=== PATIENT | female | born 1935 | race Caucasian/White ===

== ENCOUNTER → 2016-05-22 | Day surgery (SDC) | payer OTHER ==
[~2016-05-22] VITALS: Ht 157.5 cm; Wt 76.4 kg
[~2016-05-22] MED LIST: ACT/30 PO; ATOR-26 PO; CEPH500C2 PO; DICL1GEL12 EXT; DICL1GEL28; GLIP1TAB91 PO; HYDR-5688 PO; INSDGIPEN SQ; LEFL20TA PO; LIDOCAINE HCL 2% 2 ML VIAL (20MG/ML) ONE; LZL/125 PO; MIDAZOLAM HCL 1 MG/ML 2ML VIAL ONE; ONDANSETRON INJ 2 MG/ML 2 ML VIAL ONE; PROPOFOL IV EMULSION 10 MG/ML 20 ML VIAL IV ONE
[2016-05-22 09:52] VITALS: Ht 157.5 cm; Wt 76.4 kg
--- NOTE | 2016-05-22 10:04 | Endo History and Physical ---
History & Physical Date of Service: May 22, 2016. Chief Complaint: LLQ abdominal pain Referring Physician: 81 yo CF who presents for colonoscopy secondary to LLQ abdominal pain. Past Medical History Diabetes, Osteoporosis, Arthritis, Reflux, High Cholesterol, Hypertension Past Surgical History Hx Cardiac Surgery: No Hx Internal Defibrillator: No Hx Pacemaker: No Hx Abdominal Surgery: Yes (CHOLECYSTECTOMY; DRAINAGE OF ABDOMINAL HEMATOMA; TUBAL LIGATION) Hx Post-Op Nausea and Vomiting: No Hx Cancer Surgery: No Hx Thoracic Surgery: No Hx Orthopedic: No Hx Urinary Tract Surgery: No Family History None Social History Smoking Status: Never Smoker Hx Substance Use: No Hx Alcohol Use: No Allergies Coded Allergies: No Known Allergies (Verified , 05/22/16) Current Medications Reported Home Medications Medications Dose Route/Sig Max Daily Dose Days Date Category Arava (Leflunomide) 20 Mg Tab 20 Mg PO QAM 05/14/16 Reported Lantus Solostar (Insulin Glargine) 100 Unit/Ml Inj 25-30 Units SQ HS 03/15/16 Reported Voltaren 1% Top Gel (Diclofenac Sodium) Gel PRN 02/07/16 Reported Lozol (Indapamide) 1.25 Mg Tab 1.25 Mg PO QAM 02/15/14 Reported Glucotrol Xl (Glipizide) 5 Mg Tab 10 Mg PO BID 02/15/14 Reported Actos (Pioglitazone Hcl) 30 Mg Tab 30 Mg PO QAM 02/15/14 Reported Lipitor (Atorvastatin Calcium) 80 Mg Tab 80 Mg PO HS 05/06/08 Reported Vital Signs Weight (Kilograms): 76.36 Height (Feet): 5 Height (Inches): 2 Physical Exam General Appearance: WD/WN, no apparent distress Respiratory/Chest: Auscultation: breath sounds normal Cardiovascular: Heart Auscultation: RRR Abdomen: Bowel Sounds: normal Inspection & Palpation: soft, non-distended, no tenderness, guarding & rebound Assessment and Plan Assessment: 81 yo CF who presents for colonoscopy secondary to LLQ abdominal pain. Plan: Proceed with colonoscopy.
--- NOTE | 2016-05-22 11:20 | GI REPORT ---
Procedure Date: 05/22/2016 10:41 AM Procedure: Colonoscopy Indications: Abdominal pain in the left lower quadrant Medicines: Monitored Anesthesia Care Complications: No immediate complications. Estimated Blood Loss: Estimated blood loss: none. Procedure: Pre-Anesthesia Assessment: - Prior to the procedure, a History and Physical was performed, and patient medications and allergies were reviewed. The patient's tolerance of previous anesthesia was also reviewed. The risks and benefits of the procedure and the sedation options and risks were discussed with the patient. All questions were answered, and informed consent was obtained. Prior Anticoagulants: The patient has taken no previous anticoagulant or antiplatelet agents. ASA Grade Assessment: II - A patient with mild systemic disease. After reviewing the risks and benefits, the patient was deemed in satisfactory condition to undergo the procedure. After I obtained informed consent, the scope was passed under direct vision. Throughout the procedure, the patient's blood pressure, pulse, and oxygen saturations were monitored continuously. The scope was introduced through the anus and advanced to the terminal ileum. The colonoscopy was performed without difficulty. The patient tolerated the procedure well. The quality of the bowel preparation was good. The terminal ileum, ileocecal valve, appendiceal orifice, and rectum were photographed. Findings: Multiple small-mouthed diverticula were found in the sigmoid colon. Non-bleeding internal hemorrhoids were found during retroflexion. The hemorrhoids were small. Impression: - Diverticulosis in the sigmoid colon. - Non-bleeding internal hemorrhoids. - No specimens collected. Recommendation: - Resume previous diet. - Continue present medications. - Repeat colonoscopy in 10 years for surveillance. - Return to primary care physician as previously scheduled. - Return to GI office at appointment to be scheduled. Akin Woodruff DO 05/22/2016 11:19:51 AM This report has been signed electronically. Note Initiated On: 05/22/2016 10:41 AM
--- NOTE | 2016-05-22 11:21 | Discharge Instructions ---
Endoscopy Patient Instructions Date / Procedure(s) Performed May 22, 2016. Colonoscopy Allergy Information Coded Allergies: No Known Allergies (Verified , 05/22/16) Discharge Date / Findings May 22, 2016. Diverticulosis Internal hemorrhoids Medication Instructions Stopped Medication(s): ONLY TO TAKE BP MED OK to resume all medications today as prescribed Reported Home Medications Medications Dose Route/Sig Max Daily Dose Days Date Category Arava (Leflunomide) 20 Mg Tab 20 Mg PO QAM 05/14/16 Reported Lantus Solostar (Insulin Glargine) 100 Unit/Ml Inj 25-30 Units SQ HS 03/15/16 Reported Voltaren 1% Top Gel (Diclofenac Sodium) Gel PRN 02/07/16 Reported Lozol (Indapamide) 1.25 Mg Tab 1.25 Mg PO QAM 02/15/14 Reported Glucotrol Xl (Glipizide) 5 Mg Tab 10 Mg PO BID 02/15/14 Reported Actos (Pioglitazone Hcl) 30 Mg Tab 30 Mg PO QAM 02/15/14 Reported Lipitor (Atorvastatin Calcium) 80 Mg Tab 80 Mg PO HS 05/06/08 Reported Provider Instructions Activity Restrictions - No exercising or heavy lifting for 24 hours. - Do not drink alcohol the day of the procedure. - Do not drive a car or operate machinery until the day after the procedure. - Do not make any important decisions or sign important papers in 24 hours after the procedure. Following Day: - Return to full activity which may include returning to work/school. Diet Start your diet with liquids and light foods (jello, soup, juice, toast). Then eat your usual diet if not nauseated. Treatment For Common After Affects For mild abdominal pain, bloating, or excessive gas: - Rest - Eat lightly - Lie on right side Follow-Up Information Follow-up with DR PALOMO as scheduled Anesthesia Information What You Should Know You have had a procedure that required some medicine to reduce anxiety and discomfort. This treatment is called moderate sedation. After receiving the treatment, you may be sleepy, but you will be able to breathe on your own. The effects of the treatment may last for several hours. Follow these instructions along with Activity/Diet recommendations noted above: * Do NOT do anything where dizziness or clumsiness would be dangerous. * Rest quietly at home today, then you can be up and about tomorrow. * Have a responsible person stay with you the rest of today. * You may have had an I.V. today. If so, you may take the dressing off later today. Recommendations Call your doctor if: * Trouble breathing * Continuous vomiting for more than 24 hours * Temperature above 101 degrees * Severe abdominal pain or bloating * Pain not relieved by pain medicine ordered * There is increased drainage or redness from any incision * A large amount of rectal bleeding greater than 2-3 tablespoons. (If you had a polyp/s removed or have hemorrhoids, a small amount of blood - from the rectum is to be expected.) * You have any unanswered questions or concerns. IN THE EVENT OF A SERIOUS EMERGENCY, GO TO THE NEAREST EMERGENCY ROOM Your discharge instructions were prepared by provider Akin Woodruff. Patient Instructions Signature Page Martha Espinoza Patient (or Guardian) Signature/Date: I have read and understand the instructions given to me by my caregivers. Caregiver/RN/Doctor Signature/Date: The above-named patient and/or guardian has received patient instructions on this date. + Original Patient Signature Page (only) stays with chart. Please make copy for patient.
[2016-05-22 11:45] VITALS: BP 152/81; PULSE 87; O2SAT 96
--- NOTE | 2016-05-22 12:14 | Anesthesiology Progress Note ---
Anesthesia Post Op Note Date & Time May 22, 2016 at 12:14 Vital Signs Pain Intensity: 0 Vital Signs Past 12 Hours Date Time Temp Pulse Resp B/P Pulse Ox O2 Delivery O2 Flow Rate FiO2 05/22/16 11:45 87 20 152/81 96 Room Air 05/22/16 11:30 87 20 144/76 92 Room Air 05/22/16 11:15 95 16 140/63 98 Room Air 05/22/16 09:58 36.7 86 20 140/74 94 Room Air Notes Mental Status: alert / awake / arousable Nausea / Vomiting: adequately controlled Pain: adequately controlled Airway Patency, RR, SpO2: stable & adequate BP & HR: stable & adequate Hydration State: stable & adequate Anesthetic Complications: no major complications apparent
== END | disposition home or self-care (01) ==
LOC: C.GI 09:33
PROVIDERS: ATTEND Internal Medicine
DX: K57.30 Diverticulosis of large intestine without perforation or abscess without bleeding (principal); K64.8 Other hemorrhoids; I10 Essential (primary) hypertension; E11.9 Type 2 diabetes mellitus without complications; E78.00 Pure hypercholesterolemia, unspecified; M19.90 Unspecified osteoarthritis, unspecified site; M81.0 Age-related osteoporosis without current pathological fracture; Z90.49 Acquired absence of other specified parts of digestive tract; Z98.890 Other specified postprocedural states; Z98.51 Tubal ligation status; Z79.4 Long term (current) use of insulin; Z68.30 Body mass index [BMI] 30.0-30.9, adult; Z98.49 Cataract extraction status, unspecified eye

== ENCOUNTER → 2016-05-29 | Outpatient (CLI) | payer OTHER ==
[~2016-05-29] MED LIST changes: -CEPH500C2 PO; -DICL1GEL12 EXT; -HYDR-5688 PO; -LIDOCAINE HCL 2% 2 ML VIAL (20MG/ML) ONE; -MIDAZOLAM HCL 1 MG/ML 2ML VIAL ONE; -ONDANSETRON INJ 2 MG/ML 2 ML VIAL ONE; -PROPOFOL IV EMULSION 10 MG/ML 20 ML VIAL IV ONE
== END | disposition home or self-care (01) ==
LOC: C.PATHSPEC 07:45
PROVIDERS: ATTEND Obstetrics & Gynecology
DX: R10.2 Pelvic and perineal pain (principal)

== ENCOUNTER → 2016-06-05 | Outpatient (CLI) | payer OTHER ==
[2016-06-05 11:25] LABS: BASO % 0.5 %; BASO ABS # 0.02 K/uL (0-0.2); COMPLETE YES; EOS % 3.8 %; HEMATOCRIT 35.6 % (37-47); IG% 0.2 %; LYMPH % 29.3 %; MEAN CELL VOLUME 89.4 fL (80-100); MEAN CORPUSCULAR HEMOGLOBIN 29.1 pg (25-34); MEAN CORPUSCULAR HGB CONC 32.6 g/dl (32-36); MEAN PLATELET VOLUME 10.3 fL (7.4-10.4); MONO % 9.7 %; NEUT % 56.5 %; PLATELET COUNT 325 K/uL (130-400); RED BLOOD COUNT 3.98 M/uL (4.2-5.4); WHITE BLOOD COUNT 4.43 K/uL (4.8-10.8)
[2016-06-05 11:36] LABS: ESTIMATED AVERAGE GLUCOSE 137 mg/dl; HA1C FLAG Normal (Normal)
[2016-06-05 11:45] LABS: BLOOD UREA NITROGEN 21 mg/dl (7-18); BUN/CREATININE RATIO 16.2 (10-20); CALCIUM 9.1 mg/dl (8.5-10.1); CARBON DIOXIDE 27 mmol/L (21-32); CHLORIDE 106 mmol/L (98-107); CHOLESTEROL 131 mg/dl (0-200); GLUCOSE 63 mg/dl (70-99); POTASSIUM 3.6 mmol/L (3.5-5.1); SODIUM 142 mmol/L (136-145)
[2016-06-05 11:55] LABS: ALT/SGPT 21 U/L (12-78); AST/SGOT 16 U/L (15-37); CHOLESTEROL/HDL RATIO 3.3; HDL CHOLESTEROL 40 mg/dl; LDL CHOLESTEROL CALCULATED 67 mg/dl; TRIGLYCERIDES 120 mg/dl (0-150); VERY LOW DENSITY LIPOPROT CALC 24 mg/dl
== END | disposition home or self-care (01) ==
LOC: C.LAB1850 10:10
PROVIDERS: ATTEND Internal Medicine
DX: E11.9 Type 2 diabetes mellitus without complications (principal)

== ENCOUNTER → 2016-07-19 | Outpatient (CLI) | payer OTHER ==
--- NOTE | 2016-07-19 16:09 | DIAGNOSTIC IMAGING REPORT ---
RIGHT SHOULDER 3 VIEWS CLINICAL HISTORY: Right shoulder pain. FINDINGS: 3 views of the right shoulder are obtained. No prior studies are available for comparison at the time of dictation. The skeletal structures are osteopenic. There is no radiographic evidence of fracture or dislocation. Advanced productive degenerative change is identified at the acromioclavicular joint. The glenohumeral articulation appears maintained. Mild arthritic change is seen in the greater tuberosity of the humeral head. The overlying soft tissues are within normal limits. Partially imaged right upper lobe lung parenchyma appears clear. IMPRESSION: Osteopenia and arthritic change as above. No acute bony abnormality is identified. Electronically signed by: Dagoberto Lucero M.D. 07/19/2016 4:07 PM Dictated Date/Time: 07/19/2016 4:06 PM
--- NOTE | 2016-07-19 16:10 | DIAGNOSTIC IMAGING REPORT ---
LEFT SHOULDER MIN 2 VIEWS ROUTINE CLINICAL HISTORY: R49.9 Voice complain pain COMPARISON: None. DISCUSSION: Moderate degenerative change left glenohumeral joint. Moderate rather significant degenerative change left acromioclavicular joint. Minimal peripheral osteophytic reaction. No evidence for fracture or dislocation. There is no evidence for soft tissue swelling. IMPRESSION: Moderate degenerative change. Electronically signed by: Ernie Beavers M.D. 07/19/2016 4:08 PM Dictated Date/Time: 07/19/2016 4:08 PM
[2016-07-19 16:41] LABS: BASO % 0.2 %; BASO ABS # 0.01 K/uL (0-0.2); COMPLETE YES; EOS % 2.2 %; HEMATOCRIT 35.5 % (37-47); IG% 0.5 %; LYMPH % 22.7 %; LYMPH ABS # 1.35 K/uL (1.2-3.4); MEAN CELL VOLUME 90.1 fL (80-100); MEAN CORPUSCULAR HEMOGLOBIN 29.4 pg (25-34); MEAN CORPUSCULAR HGB CONC 32.7 g/dl (32-36); MEAN PLATELET VOLUME 10.8 fL (7.4-10.4); MONO % 10.6 %; NEUT % 63.8 %; PLATELET COUNT 255 K/uL (130-400); RED BLOOD COUNT 3.94 M/uL (4.2-5.4); WHITE BLOOD COUNT 5.94 K/uL (4.8-10.8)
== END | disposition home or self-care (01) ==
LOC: C.RAD1850 15:29
PROVIDERS: ATTEND Internal Medicine
DX: R49.9 Unspecified voice and resonance disorder (principal); M85.80 Other specified disorders of bone density and structure, unspecified site

== ENCOUNTER → 2016-09-12 | Outpatient (CLI) | payer OTHER ==
[~2016-09-12] MED LIST changes: +CEPH500C2 PO; +DICL1GEL12 EXT; +HYDR-5688 PO
[2016-09-12 12:49] LABS: ESTIMATED AVERAGE GLUCOSE 148 mg/dl; HA1C FLAG Normal (Normal)
== END | disposition home or self-care (01) ==
LOC: C.LAB1850 10:30
PROVIDERS: ATTEND Internal Medicine
DX: K57.90 Diverticulosis of intestine, part unspecified, without perforation or abscess without bleeding (principal); M05.79 Rheumatoid arthritis with rheumatoid factor of multiple sites without organ or systems involvement; Z79.899 Other long term (current) drug therapy

== ENCOUNTER → 2017-02-11 | Outpatient (CLI) | payer OTHER ==
[~2017-02-11] MED LIST changes: -CEPH500C2 PO; -DICL1GEL12 EXT; -HYDR-5688 PO
[2017-02-11 12:31] LABS: CHOLESTEROL/HDL RATIO 4.3
[2017-02-11 12:42] LABS: ESTIMATED AVERAGE GLUCOSE 151 mg/dl; HA1C FLAG Normal (Normal)
== END | disposition home or self-care (01) ==
LOC: C.LAB1850 09:40
PROVIDERS: ATTEND Internal Medicine
DX: E11.9 Type 2 diabetes mellitus without complications (principal)

== ENCOUNTER → 2017-04-16 | Outpatient (CLI) | payer OTHER ==
[~2017-04-16] MED LIST changes: +DICL1GEL12 EXT
[2017-04-16 14:33] LABS: BASO % 0.5 %; BASO ABS # 0.03 K/uL (0-0.2); COMPLETE YES; EOS % 2.9 %; HEMATOCRIT 35.9 % (37-47); IG% 0.2 %; LYMPH % 26.1 %; LYMPH ABS # 1.45 K/uL (1.2-3.4); MEAN CELL VOLUME 88.6 fL (80-100); MEAN CORPUSCULAR HEMOGLOBIN 28.1 pg (25-34); MEAN CORPUSCULAR HGB CONC 31.8 g/dl (32-36); MEAN PLATELET VOLUME 11.7 fL (7.4-10.4); MONO % 11.9 %; NEUT % 58.4 %; PLATELET COUNT 253 K/uL (130-400); RED BLOOD COUNT 4.05 M/uL (4.2-5.4); WHITE BLOOD COUNT 5.56 K/uL (4.8-10.8)
[2017-04-16 14:40] LABS: BLOOD UREA NITROGEN 28 mg/dl (7-18); BUN/CREATININE RATIO 17.1 (10-20); CALCIUM 9.3 mg/dl (8.5-10.1); CARBON DIOXIDE 24 mmol/L (21-32); CHLORIDE 104 mmol/L (98-107); CREATININE 1.61 mg/dl (0.60-1.20); GLUCOSE 129 mg/dl (70-99); POTASSIUM 3.8 mmol/L (3.5-5.1); SODIUM 138 mmol/L (136-145)
== END | disposition home or self-care (01) ==
LOC: C.LAB1850 13:13
PROVIDERS: ATTEND Surgery
DX: L72.0 Epidermal cyst (principal); Z01.812 Encounter for preprocedural laboratory examination

== ENCOUNTER → 2017-04-16 | Outpatient (CLI) | payer OTHER | END | disposition home or self-care (01) | LOC: C.CPL 13:35 | PROVIDERS: ATTEND Surgery | DX: L72.0 Epidermal cyst (principal) ==

== ENCOUNTER → 2017-04-22 | Day surgery (SDC) | payer OTHER ==
[2017-04-16 11:07] VITALS: Ht 157.5 cm; Wt 77.3 kg
[~2017-04-22] VITALS: Ht 157.5 cm; Wt 77.3 kg
[~2017-04-22] MED LIST changes: +ATROPINE SULFATE 0.1 MG/ML 5ML SYR IV PRN; +CEFAZOLIN 2000MG IV PUSH 10 ML IV SCH; +CEPH500C2 PO; +DEXAMETHASONE SOD INJ 4 MG/ML VIAL ONE; +DEXTROSE 5% 1000ML 500 ML IV SCH; -DICL1GEL28; +FENTANYL CITRATE INJ 50 MCG/1 ML 2 ML VIAL IV PRN; +FENTANYL CITRATE INJ 50 MCG/1 ML 2 ML VIAL ONE; +HYDR-5688 PO; +HYDROCODONE/ACETAMOPHEN 5/325MG TAB PO PRN; +LABETALOL HCL IV 5 MG/ML 20ML IV PRN; +LACTATED RINGER'S 1000ML 1,000 ML IV SCH; +LIDOCAINE HCL 1% 20 ML VIAL ONE; +LIDOCAINE HCL 2% 2 ML VIAL (20MG/ML) ONE; +MIDAZOLAM HCL 1 MG/ML 2ML VIAL ONE; +NURSING VERBAL MED ORDER ONE; +ONDANSETRON INJ 2 MG/ML 2 ML VIAL IV PRN; +ONDANSETRON INJ 2 MG/ML 2 ML VIAL ONE; +PROPOFOL IV EMULSION 10 MG/ML 20 ML VIAL IV ONE; +SODIUM CHLORIDE 0.9% 1000ML 1,000 ML IV SCH
--- NOTE | 2017-04-22 07:03 | History & Physical Bridge - [place] ---
H&P Re-Evaluation Bridge Note: I have examined the patient, reviewed the History & Physical and in the interval since the performance of the History & Physical I have noted the following changes of clinical significance: No changes noted
--- NOTE | 2017-04-22 07:41 | [facility] Operative Report ---
Operative Report Operative Date Apr 22, 2017. Pre-Operative Diagnosis Epidermal Inclusion Cyst on Back (3cm) Post-Operative Diagnosis Same Procedure(s) Performed Back, Epidermal Cyst (3 cm) Excision Surgeon Dr. Stubbs Assistant Restaurant General Manager Surgeon(s) Beatriz Neff, MS3 Estimated Blood Loss 5ml Findings 3+cm cyst Specimens A. Epidermal Cyst of Back Anesthesia local/ sedation Complication(s) None Disposition Recovery Room / PACU I attest to the content of the Intraoperative Record and any orders documented therein. Any exceptions are noted below.
--- NOTE | 2017-04-22 07:43 | Discharge Instructions-SurgCtr ---
Discharge Instructions Date of Service Apr 22, 2017. Visit Reason for Visit: Epidermal Inclusion Cyst On Back (3CM) Discharge Discharge Diagnosis / Problem: epidermoid cyst Discharge Goals Goal(s): Decrease discomfort, Improve function, Improve disease control Activity Recommendations Activity Limitations: as noted below Lifting Limitations: gradually increase as tolerated Exercise/Sports Limitations: until after follow-up appointment May Resume Sexual Activity: after follow-up appointment Shower/Bathe: tomorrow Driving or Machine Use: resume 1 day after discharge Anesthesia . Post Anesthesia Instructions: If you have had General Anesthesia or IV Sedation: * Do not drive today. * Resume driving when surgeon permits. * Do not make important decisions or sign legal documents today. * Call surgeon for: 1. Temperature elevations greater than 101 degrees F. 2. Uncontrollable pain. 3. Excessive bleeding. 4. Persistent nausea and vomiting. 5. Medication intolerance (nausea, vomiting or rash). * For nausea and vomiting use only clear liquids such as: tea, soda, bouillon until nausea subsides, then gradually increase diet as tolerated. * If you have any concerns or questions, call your surgeon's office. If physician is unavailable and it is an emergency, call 911 or go to the nearest emergency room. . Instructions / Follow-Up Instructions / Follow-Up SPECIAL CARE INSTRUCTIONS: * Cover incisions and change daily for comfort/drainage. * May use ibuprofen for pain as tolerated. * Expect some swelling and bruising. Call your doctor if: * Temperature above 101 degrees * Pain not relieved by pain medicine ordered * There is increased drainage or redness from any incision * You have any unanswered questions or concerns [phone]. FOLLOW UP VISIT: If not already scheduled, please call the office for a follow-up visit. for next week- some suture removal OFFICE PHONE NUMBER: Dr. Stubbs Office Diet Recommendations Home Diet: resume previous diet Procedures Procedures Performed: Back, Epidermal Cyst (3 cm) Excision Pending Studies Studies pending at discharge: no Medical Emergencies . Who to Call and When: Medical Emergencies: If at any time you feel your situation is an emergency, please call 911 immediately. . Non-Emergent Contact Non-Emergency issues call your: Primary Care Provider, Surgeon . . "Provider Documentation" section prepared by Scott Stubbs. .
--- NOTE | 2017-04-22 07:51 | OPERATIVE REPORT ---
DATE OF OPERATION: 04/22/2017 NAME OF OPERATION: Excision of epidermoid cyst from the back. PREOPERATIVE DIAGNOSIS: Epidermoid cyst. POSTOPERATIVE DIAGNOSIS: Same. STAFF SURGEON: Scott Stubbs MD. ANESTHESIA: 1% plain lidocaine with sedation. DESCRIPTION OF PROCEDURE: The patient was brought in the operating room and placed on the operating room table in the prone position. Her back was prepped and draped in usual fashion around the cyst. It was relatively large, at least 3 cm. Elliptical incision was made using 1% plain lidocaine 5 cm long by approximately 1.5 cm wide. Dissection was carried down excising the entire cyst from surrounding tissue, was relatively deep. At this point, the deep tissue was reapproximated using 3-0 Vicryl suture and then the skin reapproximated using 4-0 Prolene suture. Dressing applied and patient transferred to recovery area in stable condition. I attest to the content of the Intraoperative Record and any orders documented therein. Any exception s are noted below.
--- NOTE | 2017-04-22 08:11 | Anesthesia Progress Nt - [facility] ---
Anesthesia Post Op Note Date & Time Apr 22, 2017 at 08:11 Vital Signs Pain Intensity: 0 Vital Signs Past 12 Hours Date Time Temp Pulse Resp B/P (MAP) Pulse Ox O2 Delivery O2 Flow Rate FiO2 04/22/17 07:50 36.9 70 16 143/78 (99) 94 Room Air 04/22/17 06:32 36.6 81 16 136/70 (92) 96 Room Air Notes Mental Status: alert / awake / arousable, participated in evaluation Pt Amnestic to Procedure: Yes Nausea / Vomiting: adequately controlled Pain: adequately controlled Airway Patency, RR, SpO2: stable & adequate BP & HR: stable & adequate Hydration State: stable & adequate Anesthetic Complications: no major complications apparent
[2017-04-22 08:15] VITALS: BP 125/78; PULSE 72; O2SAT 95
== END | disposition home or self-care (01) ==
LOC: X.SURG 06:13
PROVIDERS: ATTEND Surgery
DX: L72.0 Epidermal cyst (principal); E11.9 Type 2 diabetes mellitus without complications; K21.9 Gastro-esophageal reflux disease without esophagitis; I10 Essential (primary) hypertension; E78.00 Pure hypercholesterolemia, unspecified; M81.0 Age-related osteoporosis without current pathological fracture; M06.9 Rheumatoid arthritis, unspecified; Z79.4 Long term (current) use of insulin; Z79.899 Other long term (current) drug therapy

== ENCOUNTER → 2017-05-28 | Outpatient (CLI) | payer OTHER ==
[~2017-05-28] MED LIST changes: -ATROPINE SULFATE 0.1 MG/ML 5ML SYR IV PRN; -CEFAZOLIN 2000MG IV PUSH 10 ML IV SCH; -CEPH500C2 PO; -DEXAMETHASONE SOD INJ 4 MG/ML VIAL ONE; -DEXTROSE 5% 1000ML 500 ML IV SCH; -FENTANYL CITRATE INJ 50 MCG/1 ML 2 ML VIAL IV PRN; -FENTANYL CITRATE INJ 50 MCG/1 ML 2 ML VIAL ONE; -HYDROCODONE/ACETAMOPHEN 5/325MG TAB PO PRN; -LABETALOL HCL IV 5 MG/ML 20ML IV PRN; -LACTATED RINGER'S 1000ML 1,000 ML IV SCH; -LIDOCAINE HCL 1% 20 ML VIAL ONE; -LIDOCAINE HCL 2% 2 ML VIAL (20MG/ML) ONE; -MIDAZOLAM HCL 1 MG/ML 2ML VIAL ONE; -NURSING VERBAL MED ORDER ONE; -ONDANSETRON INJ 2 MG/ML 2 ML VIAL IV PRN; -ONDANSETRON INJ 2 MG/ML 2 ML VIAL ONE; -PROPOFOL IV EMULSION 10 MG/ML 20 ML VIAL IV ONE; -SODIUM CHLORIDE 0.9% 1000ML 1,000 ML IV SCH
[2017-05-28 10:27] LABS: HEMOGLOBIN A1C 6.7 % (4.5-5.6)
== END | disposition home or self-care (01) ==
LOC: C.LAB1850 09:16
PROVIDERS: ATTEND Internal Medicine
DX: E11.9 Type 2 diabetes mellitus without complications (principal)

== ENCOUNTER → 2017-09-01 | Outpatient (CLI) | payer OTHER ==
[2017-09-01 12:20] LABS: BASO % 0.5 %; BASO ABS # 0.03 K/uL (0-0.2); EOS % 3.9 %; EOS ABS # 0.23 K/uL (0-0.5); HEMOGLOBIN 12.4 g/dL (12.0-16.0); IG# 0.03 K/uL (0.00-0.02); LYMPH % 22.5 %; LYMPH ABS # 1.32 K/uL (1.2-3.4); MEAN CELL VOLUME 88.6 fL (80-100); MEAN CORPUSCULAR HEMOGLOBIN 28.2 pg (25-34); MEAN CORPUSCULAR HGB CONC 31.8 g/dl (32-36); MEAN PLATELET VOLUME 10.9 fL (7.4-10.4); MONO % 13.8 %; MONO ABS # 0.81 K/uL (0.11-0.59); NEUT % 58.8 %; NEUT ABS # 3.45 K/uL (1.4-6.5); PLATELET COUNT 315 K/uL (130-400); RED CELL DISTRIBUTION WIDTH CV 15.4 % (11.5-14.5); RED CELL DISTRIBUTION WIDTH SD 50.1 fL (36.4-46.3); WHITE BLOOD COUNT 5.87 K/uL (4.8-10.8)
[2017-09-01 12:37] LABS: HEMOGLOBIN A1C 7.1 % (4.5-5.6)
[2017-09-01 12:38] LABS: ALT/SGPT 30 U/L (12-78); AST/SGOT 24 U/L (15-37); BLOOD UREA NITROGEN 29 mg/dl (7-18); CALCIUM 9.2 mg/dl (8.5-10.1); CARBON DIOXIDE 28 mmol/L (21-32); GLUCOSE 92 mg/dl (70-99); POTASSIUM 3.9 mmol/L (3.5-5.1); SODIUM 139 mmol/L (136-145)
[2017-09-01 12:49] LABS: CHOLESTEROL 144 mg/dl (0-200); LDL CHOLESTEROL CALCULATED 76 mg/dl
== END | disposition home or self-care (01) ==
LOC: C.LAB1850 09:49
PROVIDERS: ATTEND Internal Medicine
DX: E11.9 Type 2 diabetes mellitus without complications (principal)

== ENCOUNTER 2017-09-27 14:50 | Inpatient (IN) | payer OTHER ==
[~2017-09-27] VITALS: Ht 154.9 cm; Wt 80.5 kg
[2017-09-27] VITALS (16 sets, daily range): BP systolic 71–128; BP diastolic 26–79; PULSE 71–96; TEMP 36.7–37.1; O2SAT 93–99; Ht 154.9 cm; Wt 80.5 kg
[2017-09-27] MEDS ORDERED: ASPIRIN 324 MG CHEW PO STA (15:05)
[2017-09-27] MEDS ORDERED: NITROGLYCERIN 0.4 MG SL PER TAB CHARGE SL STA (15:05)
[2017-09-27] MEDS ORDERED: ASPIRIN 324 MG CHEW ONE (15:06)
[2017-09-27] MEDS ORDERED: HEPARIN SQ 5000 UNIT HEART ALERT CARP ONE (15:06)
[2017-09-27] MEDS ORDERED: CLOPIDOGREL BISULFATE 300 MG TAB PO ONE (15:06)
[2017-09-27] MEDS ORDERED: TICAGRELOR 90 MG TAB PO ONE ×2 (15:06→17:11)
[2017-09-27] MEDS ORDERED: NITROGLYCERIN 0.4 MG SL PER TAB CHARGE ONE (15:08)
[2017-09-27] MEDS ORDERED: PANT40TA PO (15:25)
[2017-09-27] MEDS ORDERED: INSU100I23 SQ (15:25)
[2017-09-27] MEDS ORDERED: DICL1GEL12 TOP (15:25)
[2017-09-27 15:28] LABS: BASO % 0.2 %; BASO ABS # 0.02 K/uL (0-0.2); EOS % 0.2 %; EOS ABS # 0.02 K/uL (0-0.5); HEMATOCRIT 34.8 % (37-47); HEMOGLOBIN 11.6 g/dL (12.0-16.0); IG# 0.03 K/uL (0.00-0.02); LYMPH % 10.3 %; LYMPH ABS # 1.16 K/uL (1.2-3.4); MEAN CELL VOLUME 86.6 fL (80-100); MEAN CORPUSCULAR HEMOGLOBIN 28.9 pg (25-34); MEAN CORPUSCULAR HGB CONC 33.3 g/dl (32-36); MEAN PLATELET VOLUME 10.2 fL (7.4-10.4); MONO % 8.1 %; MONO ABS # 0.91 K/uL (0.11-0.59); NEUT % 80.9 %; NEUT ABS # 9.16 K/uL (1.4-6.5); PLATELET COUNT 253 K/uL (130-400); RED CELL DISTRIBUTION WIDTH CV 15.6 % (11.5-14.5); RED CELL DISTRIBUTION WIDTH SD 49.3 fL (36.4-46.3)
[2017-09-27] MEDS ORDERED: FENTANYL CITRATE INJ 50 MCG/1 ML 2 ML VIAL ONE (15:29)
[2017-09-27] MEDS ORDERED: NiCARDipine HCL INJ 2.5 MG/ML 10 ML AMP ONE (15:29)
[2017-09-27] MEDS ORDERED: MIDAZOLAM HCL 1 MG/ML 2ML VIAL ONE (15:29)
[2017-09-27] MEDS ORDERED: NITROGLYCERIN/D5W 100MCG/ML 20ML SYR ONE (15:30)
[2017-09-27] MEDS ORDERED: OXYC-57 PO (15:31)
[2017-09-27 15:32] LABS: ISTAT CREATININE 1.5 mg/dl (0.6-1.3); ISTAT IONIZED CALCIUM 1.07 mmol/l (1.12-1.32); ISTAT POTASSIUM 4.1 mEq/L (3.3-5.0)
[2017-09-27 15:46] LABS: ALBUMIN 3.8 gm/dl (3.4-5.0); CREATININE 1.68 mg/dl (0.60-1.20)
--- NOTE | 2017-09-27 15:54 | EMERGENCY ROOM VISIT NOTE ---
ED Visit Note First contact with patient: 15:00 I have seen and examined this patient with Onofre Agee and generally agree with the treatment plan as discussed. Patient presents with severe chest pain that woke her from sleep this morning with the new left bundle branch block on EKG. Patient was given nitro as well as aspirin in the emergency department with repeat examination revealed improvement in her symptoms. Heart alert was immediately initiated and the insecticide supervisor as well as the cardiac catheterization team. The patient was brought to the Renewable Energy Technician. Current/Historical Medications Scheduled Atorvastatin (Lipitor), 80 MG PO HS Glipizide Xl (Glucotrol Xl), 10 MG PO BID Indapamide (Lozol), 1.25 MG PO QAM Insulin Glargine (Basaglar Kwikpen), 30 UNITS SQ HS Leflunomide (Arava), 20 MG PO QAM Pantoprazole (Protonix), 40 MG PO DAILY Pioglitazone Hcl (Actos), 30 MG PO QAM Scheduled PRN Diclofenac Sodium (Topical) (Voltaren 1% Top Gel), 1 APPLN TOP QID PRN for Pain Oxycodone/Acetaminophen 5MG/325MG (Percocet 5MG/325MG), 1 TABLET PO Q6H PRN for Pain Allergies Coded Allergies: No Known Allergies (Verified , 04/22/17) Vital Signs Date Time Temp Pulse Resp B/P (MAP) Pulse Ox O2 Delivery O2 Flow Rate FiO2 09/27/17 15:27 112 24 145/67 94 Nasal Cannula 2.0 09/27/17 15:22 95 Nasal Cannula 2.0 09/27/17 15:22 95 Nasal Cannula 2.0 09/27/17 15:21 123 16 136/58 95 Nasal Cannula 2.0 09/27/17 15:15 105 09/27/17 14:57 36.4 112 18 154/72 97 Room Air Laboratory Results 09/27/17 15:10 Red Blood Count 4.02, Mean Corpuscular Volume 86.6, Mean Corpuscular Hemoglobin 28.9, Mean Corpuscular Hemoglobin Concent 33.3, Mean Platelet Volume 10.2, Neutrophils (%) (Auto) 80.9, Lymphocytes (%) (Auto) 10.3, Monocytes (%) (Auto) 8.1, Eosinophils (%) (Auto) 0.2, Basophils (%) (Auto) 0.2, Neutrophils # (Auto) 9.16, Lymphocytes # (Auto) 1.16, Monocytes # (Auto) 0.91, Eosinophils # (Auto) 0.02, Basophils # (Auto) 0.02 09/27/17 15:10 Test 09/27/17 15:05 09/27/17 15:10 09/27/17 15:18 09/27/17 15:19 Creatine Kinase MB Ratio (0-3.0) White Blood Count 11.30 K/uL (4.8-10.8) Red Blood Count 4.02 M/uL (4.2-5.4) Hemoglobin 11.6 g/dL (12.0-16.0) Hematocrit 34.8 % (37-47) Mean Corpuscular Volume 86.6 fL (80-100) Mean Corpuscular Hemoglobin 28.9 pg (25-34) Mean Corpuscular Hemoglobin Concent 33.3 g/dl (32-36) Platelet Count 253 K/uL (130-400) Mean Platelet Volume 10.2 fL (7.4-10.4) Neutrophils (%) (Auto) 80.9 % Lymphocytes (%) (Auto) 10.3 % Monocytes (%) (Auto) 8.1 % Eosinophils (%) (Auto) 0.2 % Basophils (%) (Auto) 0.2 % Neutrophils # (Auto) 9.16 K/uL (1.4-6.5) Lymphocytes # (Auto) 1.16 K/uL (1.2-3.4) Monocytes # (Auto) 0.91 K/uL (0.11-0.59) Eosinophils # (Auto) 0.02 K/uL (0-0.5) Basophils # (Auto) 0.02 K/uL (0-0.2) RDW Standard Deviation 49.3 fL (36.4-46.3) RDW Coefficient of Variation 15.6 % (11.5-14.5) Immature Granulocyte % (Auto) 0.3 % Immature Granulocyte # (Auto) 0.03 K/uL (0.00-0.02) Est Creatinine Clear Calc Drug Dose 25.3 ml/min Estimated GFR () 32.9 Estimated GFR (Non- 28.4 BUN/Creatinine Ratio 18.0 (10-20) Calcium Level 9.0 mg/dl (8.5-10.1) Magnesium Level 1.8 mg/dl (1.8-2.4) Aspartate Amino Transf (AST/SGOT) 26 U/L (15-37) Albumin 3.8 gm/dl (3.4-5.0) Lipase 144 U/L (73-393) Bedside Hemoglobin 12.2 g/dl (12.0-16.0) Bedside Hematocrit 36 % (37-47) Bedside Sodium 136 mEq/L (135-144) Bedside Potassium 4.1 mEq/L (3.3-5.0) Bedside Chloride 100 mEq/L (101-112) Bedside Total CO2 25 mEq/l (24-31) Anion Gap 16.0 mmol/L (16-25) Bedside Blood Urea Nitrogen 32 mg/dl (7-18) Bedside Creatinine 1.5 mg/dl (0.6-1.3) Bedside Glucose (other) 234 mg/dl (70-99) Bedside Ionized Calcium (Amaris) 1.07 mmol/l (1.12-1.32) Bedside Troponin I 0.280 ng/ml (0-0.045) Test 09/27/17 15:50 Medications Administered Medications (Trade) Dose Ordered Sig/Irvin Route Start Time Stop Time Status Last Admin Dose Admin Aspirin (Aspirin Chew) 324 mg NOW STAT PO 09/27/17 15:05 09/27/17 15:09 DC 09/27/17 15:16 324 MG Nitroglycerin (Nitrostat Tab) 0.4 mg PRN STAT SL 09/27/17 15:05 09/27/17 15:09 DC 09/27/17 15:16 0.4 MG Nitroglycerin (Nitrostat Tab) 0.4 mg STK-MED ONCE .ROUTE 09/27/17 15:08 09/27/17 15:09 DC 09/27/17 15:20 0.4 MG Departure Information Referrals Rhys Arguello M.D. (PCP) Forms Call Back Authorization, HOME CARE DOCUMENTATION FORM, IMPORTANT VISIT INFORMATION Patient Instructions Formerly [facility]
--- NOTE | 2017-09-27 15:55 | DIAGNOSTIC IMAGING REPORT ---
CHEST ONE VIEW PORTABLE HISTORY: 82 years-old Female chest pain acute atypical chest pain COMPARISON: Acute abdominal series radiographs 05/01/2016 TECHNIQUE: Portable AP view of the chest FINDINGS: Cardiac silhouette is mildly enlarged. Atherosclerosis of the aorta. Linear subsegmental atelectasis of the left lung base. No pneumothorax, pleural effusion, focal airspace consolidation or overt pulmonary edema. Degenerative changes of the shoulders and spine. IMPRESSION: Cardiomegaly without acute process. The above report was generated using voice recognition software. It may contain grammatical, syntax or spelling errors. Electronically signed by: Silverio Heran M.D. 09/27/2017 3:54 PM Dictated Date/Time: 09/27/2017 3:51 PM
--- NOTE | 2017-09-27 16:02 | EMERGENCY ROOM VISIT NOTE ---
History First contact with patient: 15:00 Chief Complaint: CHEST PAIN Stated Complaint: CHEST PAIN Nursing Triage Summary: pt reports chest pain started this am at 0600. hurts to take deep breath. does not radiate. denies any n/v History of Present Illness The patient is a 82 year old female who presents to the Emergency Room via private vehicle accompanied by daughter with complaints of "chest pain". The patient states that she was abruptly awoken today by substernal chest pain around 600 hours. This is associated with shortness of breath. She tried to rest but the pain became more severe therefore prompting her arrival here today. She notes a history of type 2 diabetes controlled with insulin. The pain is nonradiating. She notes no history of heart problems. Review of Systems A complete 10-point Review of Systems was discussed with the patient, with pertinent positives and negatives listed in the History of Present Illness. All remaining Review of Systems questions can be considered negative unless otherwise specified. Past Medical/Surgical History Diabetes. Family History Noncontributory. Social History Smoking Status: Never Smoker Marital Status: , Occupation Status: retired Current/Historical Medications Scheduled Atorvastatin (Lipitor), 80 MG PO HS Glipizide Xl (Glucotrol Xl), 10 MG PO BID Indapamide (Lozol), 1.25 MG PO QAM Insulin Glargine (Basaglar Kwikpen), 30 UNITS SQ HS Leflunomide (Arava), 20 MG PO QAM Pantoprazole (Protonix), 40 MG PO DAILY Pioglitazone Hcl (Actos), 30 MG PO QAM Scheduled PRN Diclofenac Sodium (Topical) (Voltaren 1% Top Gel), 1 APPLN TOP QID PRN for Pain Oxycodone/Acetaminophen 5MG/325MG (Percocet 5MG/325MG), 1 TABLET PO Q6H PRN for Pain Physical Exam Vital Signs Date Time Temp Pulse Resp B/P (MAP) Pulse Ox O2 Delivery O2 Flow Rate FiO2 09/27/17 15:42 123 20 127/62 95 09/27/17 15:27 112 24 145/67 94 Nasal Cannula 2.0 09/27/17 15:22 95 Nasal Cannula 2.0 09/27/17 15:22 95 Nasal Cannula 2.0 09/27/17 15:21 123 16 136/58 95 Nasal Cannula 2.0 09/27/17 15:15 105 09/27/17 14:57 36.4 112 18 154/72 97 Room Air Physical Exam VITAL SIGNS - Vital signs and nursing notes were reviewed. Stable. GENERAL - 82-year-old female appearing her stated age who is in no acute distress but is conversationally dyspneic. Communicates well with provider and answers questions appropriately. SKIN - Without rashes. No meningeal or petechial rash per HEAD - NC/AT. EYES - PERRL with EOMI bilaterally. Sclera anicteric. Palpebral conjunctiva pink and moist with no injection noted. EARS - No deformities of external structures noted on gross examination bilaterally. NOSE - Midline and without cyanosis. No epistaxis or purulent drainage noted. Septum midline without deviation or septal hematoma noted. MOUTH/OROPHARYNX - Without perioral cyanosis. Buccal mucosa pink and moist and without leukoplakia. NECK - Neck with FROM. Supple to palpation. No lymphadenopathy noted. No nuchal rigidity. LUNGS - Chest wall symmetric without accessory muscle use, intercostals retractions, or central cyanosis. Normal vesicular breath sounds CTA B/L. No wheezes, rales, or rhonchi appreciated. CARDIAC - RRR with S1/S2. No murmur, rubs, or gallops appreciated. ABDOMEN - Abdominal contour normal without pulsations or visible masses. BS normoactive all four quadrants. No tenderness, palpable masses, hepatosplenomegaly, or ascites noted. EXTREMITIES - No clubbing or peripheral cyanosis. No pretibial edema present. + 5/5 strength noted in UE/LE bilaterally. NEUROLOGIC - Cranial nerves II through XII grossly intact. Sensory intact to light touch throughout. PSYCH - A&O, and cooperates fully with examiner. Pt is very pleasant and interacts well with examiner. Medical Decision & Procedures ER Provider Diagnostic Interpretation: CHEST ONE VIEW PORTABLE HISTORY: 82 years-old Female chest pain acute atypical chest pain COMPARISON: Acute abdominal series radiographs 05/01/2016 TECHNIQUE: Portable AP view of the chest FINDINGS: Cardiac silhouette is mildly enlarged. Atherosclerosis of the aorta. Linear subsegmental atelectasis of the left lung base. No pneumothorax, pleural effusion, focal airspace consolidation or overt pulmonary edema. Degenerative changes of the shoulders and spine. IMPRESSION: Cardiomegaly without acute process. The above report was generated using voice recognition software. It may contain grammatical, syntax or spelling errors. Electronically signed by: Silverio Hearn M.D. 09/27/2017 3:54 PM Laboratory Results 09/27/17 15:10 Red Blood Count 4.02, Mean Corpuscular Volume 86.6, Mean Corpuscular Hemoglobin 28.9, Mean Corpuscular Hemoglobin Concent 33.3, Mean Platelet Volume 10.2, Neutrophils (%) (Auto) 80.9, Lymphocytes (%) (Auto) 10.3, Monocytes (%) (Auto) 8.1, Eosinophils (%) (Auto) 0.2, Basophils (%) (Auto) 0.2, Neutrophils # (Auto) 9.16, Lymphocytes # (Auto) 1.16, Monocytes # (Auto) 0.91, Eosinophils # (Auto) 0.02, Basophils # (Auto) 0.02 09/27/17 15:10 Test 09/27/17 15:10 09/27/17 15:18 09/27/17 15:19 09/27/17 15:50 White Blood Count 11.30 K/uL (4.8-10.8) Red Blood Count 4.02 M/uL (4.2-5.4) Hemoglobin 11.6 g/dL (12.0-16.0) Hematocrit 34.8 % (37-47) Mean Corpuscular Volume 86.6 fL (80-100) Mean Corpuscular Hemoglobin 28.9 pg (25-34) Mean Corpuscular Hemoglobin Concent 33.3 g/dl (32-36) Platelet Count 253 K/uL (130-400) Mean Platelet Volume 10.2 fL (7.4-10.4) Neutrophils (%) (Auto) 80.9 % Lymphocytes (%) (Auto) 10.3 % Monocytes (%) (Auto) 8.1 % Eosinophils (%) (Auto) 0.2 % Basophils (%) (Auto) 0.2 % Neutrophils # (Auto) 9.16 K/uL (1.4-6.5) Lymphocytes # (Auto) 1.16 K/uL (1.2-3.4) Monocytes # (Auto) 0.91 K/uL (0.11-0.59) Eosinophils # (Auto) 0.02 K/uL (0-0.5) Basophils # (Auto) 0.02 K/uL (0-0.2) RDW Standard Deviation 49.3 fL (36.4-46.3) RDW Coefficient of Variation 15.6 % (11.5-14.5) Immature Granulocyte % (Auto) 0.3 % Immature Granulocyte # (Auto) 0.03 K/uL (0.00-0.02) Est Creatinine Clear Calc Drug Dose 25.3 ml/min Estimated GFR () 32.9 Estimated GFR (Non- 28.4 BUN/Creatinine Ratio 18.0 (10-20) Calcium Level 9.0 mg/dl (8.5-10.1) Magnesium Level 1.8 mg/dl (1.8-2.4) Total Bilirubin 0.4 mg/dl (0.2-1) Aspartate Amino Transf (AST/SGOT) 26 U/L (15-37) Alanine Aminotransferase (ALT/SGPT) 31 U/L (12-78) Alkaline Phosphatase 59 U/L (45-117) Total Creatine Kinase 266 U/L (26-192) Creatine Kinase MB 4.1 ng/ml (0.5-3.6) Creatine Kinase MB Ratio 1.5 (0-3.0) Troponin I 0.360 ng/ml (0-0.045) Total Protein 7.3 gm/dl (6.4-8.2) Albumin 3.8 gm/dl (3.4-5.0) Globulin 3.5 gm/dl (2.5-4.0) Albumin/Globulin Ratio 1.1 (0.9-2) Lipase 144 U/L (73-393) Thyroid Stimulating Hormone (TSH) 0.995 uIu/ml (0.300-4.500) Bedside Hemoglobin 12.2 g/dl (12.0-16.0) Bedside Hematocrit 36 % (37-47) Bedside Sodium 136 mEq/L (135-144) Bedside Potassium 4.1 mEq/L (3.3-5.0) Bedside Chloride 100 mEq/L (101-112) Bedside Total CO2 25 mEq/l (24-31) Anion Gap 16.0 mmol/L (16-25) Bedside Blood Urea Nitrogen 32 mg/dl (7-18) Bedside Creatinine 1.5 mg/dl (0.6-1.3) Bedside Glucose (other) 234 mg/dl (70-99) Bedside Ionized Calcium (Amaris) 1.07 mmol/l (1.12-1.32) Bedside Troponin I 0.280 ng/ml (0-0.045) Medications Administered Medications (Trade) Dose Ordered Sig/Irvin Route Start Time Stop Time Status Last Admin Dose Admin Aspirin (Aspirin Chew) 324 mg NOW STAT PO 09/27/17 15:05 09/27/17 15:09 DC 09/27/17 15:16 324 MG Nitroglycerin (Nitrostat Tab) 0.4 mg PRN STAT SL 09/27/17 15:05 09/27/17 15:09 DC 09/27/17 15:16 0.4 MG Nitroglycerin (Nitrostat Tab) 0.4 mg STK-MED ONCE .ROUTE 09/27/17 15:08 09/27/17 15:09 DC 09/27/17 15:20 0.4 MG Medical Decision Patient was seen and evaluated as above in room A2. Review was performed of nursing notes and vital signs. After obtaining a thorough history and physical examination the above work up was performed. Her EKG is concerning for that for a new onset of left bundle branch block in the setting of her substernal chest pain and therefore a heart alert was called. EKG was sinus tachycardia, rate of 106 bpm with left bundle branch block. This was compared to previous EKG performed in March 2017 which at that time was normal sinus rhythm. The supply chain technician as well as the cardiac interventionalist came to see the patient. She will be taken to the catheterization lab for further evaluation and management. While here she was given full strength aspirin, and sublingual nitroglycerin with decrease in her pain. She was feeling well. CBC reveals leukocytosis of 11.3. Anemia with hemoglobin of 11.6. No concerning electrolyte ab normality. There is evidence of kidney abnormality with creatinine 1.68 and BUN high at 30. POC troponin is 0.280. The patient was evaluated also with the attending physician at bedside. A thorough discussion was had regarding the likely next course of events with the patient. Please refer to further documentation regarding her stay. Case was discussed with the attending physician. I attest that I have personally reviewed the patient medication list. I attest that I have reviewed the patient's blood pressure and it was found to be elevated likely secondary to situation. In the evaluation and treatment of this patient the following differential diagnoses were entertained: STEMI, NSTEMI, PE, pericarditis, costochondritis, metabolic abnormality, dissection, among others. Impression Primary Impression: Chest pain Additional Impressions: New onset left bundle branch block (LBBB) Anemia Departure Information Dispostion Other Condition FAIR Referrals Rhys Arguello M.D. (PCP) Forms Call Back Authorization, HOME CARE DOCUMENTATION FORM, IMPORTANT VISIT INFORMATION Patient Instructions [facility] Problem Qualifiers
[2017-09-27 16:04] LABS: CKMB 4.1 ng/ml (0.5-3.6); TOTAL PROTEIN 7.3 gm/dl (6.4-8.2)
[2017-09-27 16:09] LABS: PTT PATIENT 27.2 SECONDS (21.0-31.0)
--- NOTE | 2017-09-27 16:27 | CARDIOLOGY CONSULTATION ---
DATE OF CONSULTATION: 09/27/2017 CONSULTATION REQUESTED BY: Daniel Messer MD REASON FOR CONSULTATION: Chest pain/heart alert. HISTORY OF PRESENT ILLNESS: Mrs. Espinoza is a very pleasant 82-year-old woman with a history of [id number] diabetes, rheumatoid arthritis, dyslipidemia, hypertension who presents today with acute onset of chest pain and shortness of breath. The patient states she has been in her usual state of health up until this morning when soon after waking up, developed chest pain with shortness of breath. This persisted throughout the morning and into this afternoon more than 5 hours and eventually caused her to stop doing shopping at a [employer]. As pain persisted and became worse, she initially presented to the ED. On arrival, she was hemodynamically and electrically stable. Her EKG showed a new left bundle branch block which did not meet Sgarbossa criteria for STEMI, but in the setting of ongoing active chest pain and a mildly elevated point of care troponin, a heart alert was activated. At time of interview, the patient was largely chest pain free, was still short of breath, was tachycardic into the 100s, oxygenating well on 2 L nasal cannula. PAST MEDICAL HISTORY: 1. Rheumatoid arthritis, followed by Dr. Cota. 2. Hypertension. 3. Hyperlipidemia. 4. Noninsulin dependent diabetes. 5. Chronic kidney disease with baseline creatinine around 1.5. 6. Osteoporosis. 7. Chronic back pain. FAMILY HISTORY: Son had an [place] in his 50s. SOCIAL HISTORY: She is a lifelong never smoker. She is . She is here today with her daughter. Denies any heavy alcohol or illicit drugs. HOME MEDICATIONS: Include atorvastatin 80, Basaglar KwikPen, glipizide, indapamide, oxycodone, Protonix, pioglitazone, and Voltaren. ALLERGIES: No known drug allergies. PHYSICAL EXAMINATION: VITAL SIGNS: Temperature 36.4, pulse 114, blood pressure 145/67, satting 94% on 2 L. GENERAL: The patient appears comfortable, in no acute distress. HEENT: Sclerae are anicteric. Oropharynx is clear. Mucous membranes are moist. NECK: Supple with no lymphadenopathy. LUNGS: Clear to auscultation bilaterally. CARDIAC: Regular rate and rhythm. She is tachycardic. No murmurs or gallops. ABDOMEN: Soft, nontender. EXTREMITIES: Warm with no significant lower extremity edema. She has 2+ radial pulses bilaterally. SKIN: Shows no rashes or lesions. NEUROLOGIC: Nonfocal. DATA: EKG as described above. LABORATORY DATA: Sodium 136, potassium of 4.1, BUN of 32, creatinine 1.5. Her point of care troponin was 0.28. Her hemoglobin was 11.6 and platelets of 253. Chest x-ray per my read showed cardiomegaly but no acute cardiopulmonary process. IMPRESSION AND PLAN: 1. Acute onset chest pain/non-ST elevation myocardial infarction. 2. New onset left bundle branch block. 3. Insulin-dependent diabetes. 4. Chronic kidney disease. 5. Hypertension. 6. Hyperlipidemia. 7. Rheumatoid arthritis. Mrs. Espinoza is here with acute onset of chest pain and shortness of breath in the setting of elevated troponin and new left bundle branch block. In the setting of ongoing intermittent chest pain, I feel we should proceed with urgent cardiac catheterization. Discussed risks, benefits, alternatives to procedure and she is going to proceed. We will plan to perform procedure via right radial artery. Further recommendations pending findings of coronary angiography. Thank you for allowing us to participate in the care of this patient. DEEPTI
[2017-09-27] MEDS ORDERED: HEPARIN SOD (PORCINE) 1000 UNIT/ML 10 ML VIAL ONE (16:48)
--- NOTE | 2017-09-27 17:19 | Post Sedation Assessment ---
Post Sedation Assessment General Date of Sedation September 27, 2017. Vital Signs: Vital Signs Past 12 Hours Date Time Temp Pulse Resp B/P (MAP) Pulse Ox O2 Delivery O2 Flow Rate FiO2 09/27/17 15:42 123 20 127/62 95 09/27/17 15:27 112 24 145/67 94 Nasal Cannula 2.0 09/27/17 15:22 95 Nasal Cannula 2.0 09/27/17 15:22 95 Nasal Cannula 2.0 09/27/17 15:21 123 16 136/58 95 Nasal Cannula 2.0 09/27/17 15:15 105 09/27/17 14:57 36.4 112 18 154/72 97 Room Air Post Procedure Recovery Score Activity: (2) Moves 4 extremities * Respiration: (2) Deep breath/cough Circulation: (2) +/-20% PreAnes Value Consciousness: (2) Fully Awake Oxygen Saturation: (2) > 92% On Room Air Post Anesthesia Score: 10 Discharge Sedation Level of Care: Fast Track Phase II Post Sedation Plan On clinical assessment, the patient appears to have tolerated the sedation without complications. Patient is recovering as anticipated. Patient will continue to be monitored by nursing and may be discharged when sedation discharge criteria are met per below protocol. Upon Completions of procedure and additional 15 minutes continue every 5 minute vital signs and the P.A.R. score; then discharge to a Phase I or Fast Track to Phase II per the following guidelines: * Discharge Patient to appropriate Phase II area if PAR is 8 or greater or return to pre- procedure baseline. The post - procedure orders will be as directed. * If PAR score is less than 8 or not return to pre-procedure baseline then patient will follow Phase I monitoring till PAR is reached for Phase II. The Phase I may be done in procedure room or may call to secure a Phase I area. * If naloxone or flumazenil are used for reversal, hold in Phase I for an additional 60 -120 minutes before discharge to Phase II. Please call the Sedation Physician to re-evaluate and complete post-note for discharge to Phase II area. Do NOT discharge from procedure sedation or Phase 1 until post- sedation evaluation note is complete by procedure /sedation MD Sedation Discharge Instructions to be given to the patient at discharge to home.
--- NOTE | 2017-09-27 17:19 | Pre Sedation Assessment ---
Pre Sedation Assessment General Date of Sedation: September 27, 2017. Vital Signs Past 12 Hours Date Time Temp Pulse Resp B/P (MAP) Pulse Ox O2 Delivery O2 Flow Rate FiO2 09/27/17 15:42 123 20 127/62 95 09/27/17 15:27 112 24 145/67 94 Nasal Cannula 2.0 09/27/17 15:22 95 Nasal Cannula 2.0 09/27/17 15:22 95 Nasal Cannula 2.0 09/27/17 15:21 123 16 136/58 95 Nasal Cannula 2.0 09/27/17 15:15 105 09/27/17 14:57 36.4 112 18 154/72 97 Room Air Review Cardiovascular: regular rate, rhythm, no edema Lungs: chest non-tender, lungs clear Pre-Sedation Airway Assessment Smoking Status: Never Smoker Hx of Sleep Apnea: No Hx of difficult intubation: No Short Thick Neck: No Mallampati Classification: Class III ASA Classification: Class III Procedure Planning Contraindications for Sedation: None Current Medications Reviewed: Yes Notes The planned sedation has been discussed with the patient. Informed Consent was obtained. I have identified the patient, determined the appropriateness of sedation and have assessed the patient immediately prior to the procedure. All medicine(s) and interventions are by my order.
--- NOTE | 2017-09-27 17:21 | [facility] Post Operative Brief Note ---
Preliminary Procedure Note Procedure Date September 27, 2017. Pre-Procedure Diagnosis Non STEMI AUC Score 8 Post-Procedure Diagnosis Severe CAD, Successful PCI, Normal Intracardiac Pressures Procedure(s) Performed Coronary Angiography, Left Heart Cath, Drug Eluting Stent Cutter Hot Knife Wai Rod Placer(s) Tori Estimated Blood Loss 15 Medication(s) Fentanyl, Heparin, Nicardipine, Nitroglycerin, Versed, Lidocaine 1% Ticagrelor Preliminary Findings Acute on chronic subtotal occlusion of mid to distal RCA Minimal LAD/circumflex disease with left to right collaterals. Successful PCI of mid to distal RCA with 2 overlapping MICHAEL Recommendations PCI without planned CABG Specimens None Anesthesia Moderate Procedural Complication(s) None Disposition PCU
[2017-09-27] MEDS ORDERED: NITROGLYCERIN 0.4 MG SL PER TAB CHARGE SL PRN (17:30)
[2017-09-27] MEDS ORDERED: SODIUM CHLORIDE 0.9% 1000ML 1,000 ML IV SCH (17:30)
[2017-09-27] MEDS ORDERED: DICLOFENAC SOD 1% GEL 100 GM TUBE EXT PRN (17:30)
[2017-09-27] MEDS ORDERED: ACETAMINOPHEN 325 MG TAB PO PRN (17:30)
--- NOTE | 2017-09-27 17:44 | Cardiac Catheterization ---
Procedure Note Procedure Date September 27, 2017. Pre-Procedure Diagnosis Non STEMI AUC Score 8 Post-Procedure Diagnosis Severe CAD, Successful PCI, Normal Intracardiac Pressures Procedure(s) Performed Coronary Angiography, Left Heart Cath, Drug Eluting Stent Dry Press Operator Wai Inspector Of Weights And Measures(s) Tori Estimated Blood Loss 15 Medication(s) Fentanyl, Heparin, Nicardipine, Nitroglycerin, Versed, Lidocaine 1% Ticagrelor Summary of Findings Indication: Heart Alert -- High risk NSTEMI with new LBBB Access: 6Fr right radial artery Catheters: [place]; AR1 guide Findings: LM - Luminal irregularities LAD - Moderate caliber vessel, moderately calcified proximally with 20% proximal disease; mid and distal segment luminal irregularities as wraps around apex; gives off 2 small diagonals, 1st diagonal with 40% ostial stenosis. Circumflex - Moderate caliber vessel, luminal irregularities. Gives off 2 OMs without significant disease. Provides left to right collaterals to right PLBs. RCA - Dominant, moderately calcified with 20-30% disease early mid disease prior to 95% focal, hazy mid segment disease at take-off of acute marginal; diffuse mid to distal disease prior to 99% focal distal disease just proximal to take-off of R-PDA. LVEDP - 13 -- PCI -- Antithrombotic therapy: Heparin, Ticagrelor Procedure: RCA cannulated with AR1 guide Actuarial Associate 50 wire passed across lesion into distal vessel Difficulty passing any balloons into distal vessel - eventually able to dilate mid segment with a 1.5 balloon. With the aid of a corsair Actuarial Associate 50 wire exchanged for a Mailman wire. Distal to mid segments pre-dilated with 1.25, 2.0 and 3.0 compliant balloons. Distal segment stented with 2.75 x 18 Spring MICHAEL 2nd MICHAEL overlapped with initial stent back across mid segment lesion 2.75 x 30 Spring Stents post-dilated with 3.5 noncompliant balloon IC vasodilators administered for spasm Post procedure MARIA A 3 flow, stent well expanded with minimal residual stenosis and no apparent cardiac complications. Arterial Closure: TR Band Summary: 1. High-risk NSTEMI/Subtotal acute on chronic mid to distal RCA occlusion. 2. Minimal nonobstructive LAD/Circumflex disease with initial left to right collaterals. 3. Normal intracardiac filling pressure 4. Successful PCI of mid to distal RCA with 2 overlapping MICHAEL (2.75 x 30, 2.75 x 18; post-dilated with 3.5 NC). Recommendations: Admit to telemetry for continued monitoring Loaded with ticagrelor 180mg in labor relations analyst Continue dual-antiplatelet therapy for at least 1 year. Trend troponins until peak, Check Echo in AM Uptitrate beta-kim/VIDAL as BP allows High-dose statin Consult cardiac Rehab Hemodynamics Rest Ao: 95/42/65 Final Ao: 104/42/65 LV: 110/13 Recommendations PCI without planned CABG Specimens None (4614) Radiation Exposure (mGy) --- Contrast (mls) 150 Fluids (cc crystalloids) 137 Drains None Anesthesia Moderate Procedural Complication(s) None Disposition PCU ACC Data Cardiac Status Clinical evaluation leading to the procedure CAD Presntation: Non STEMI Anginal Classification: CCS IV Heart Failure: No, NYHA Class: CCS I Cardiogenic Shock w/in 24Hrs: No Cardiac Arrest w/in 24Hrs: No Imaging studies past 6 months: No Stress studies past 6 months: No Diagnostic Status: Emergency Closure Device Percutaneous Entry Location: Radial Closure Device: Radial Band Recommendations: PCI without planned CABG PCI Indication: PCI for high risk Non-STEMI Lesion Segment Name: Mid to distal RCA Culprit Artery: Yes Stenosis Prior to Rx (%): 99 Chronic Total Occlusion: No IVUS: No FFR: No Pre-Procedure MARIA A Flow: 1 Previously Treated Lesion: No Lesion Complexity: High/C Lesion Length (mm): 40 Thrombus Present: Yes Bifurcation Lesion: No Guidewire Across Lesion: Yes Guidewire: Stenosis Post-Procedure (%): 0 Post-Procedure MARIA A Flow: 3 Device(s) Deployed: Yes Intraprocedure Events Significant Dissection: No Perforation: No
[2017-09-27] MEDS ORDERED: DEXTROSE 50% 50 ML SYR IV PRN (18:00)
[2017-09-27] MEDS ORDERED: GLUCOSE 40% GEL 15 GM TUBE PO PRN (18:00)
[2017-09-27] MEDS ORDERED: CARBOHYDRATES FOR HYPOGLYCEMIA PO PRN (18:00)
[2017-09-27] MEDS ORDERED: GLUCOSE 10 TABS/TUBE PO PRN (18:00)
[2017-09-27] MEDS ORDERED: GLUCAGON FOR INJ 1 MG VIAL IM PRN (18:00)
[2017-09-27] MEDS ORDERED: MoRPHine SULFATE 4 MG/ML 1 ML CARP\\VIAL IV STA (18:09)
[2017-09-27] MEDS ORDERED: MoRPHine SULFATE 2 MG/ML CARP ONE (18:09)
[2017-09-27] MEDS ORDERED: MoRPHine SULFATE 4 MG/ML 1 ML CARP\\VIAL IV PRN ×2 (18:15→19:15)
--- NOTE | 2017-09-27 18:41 | History and Physical ---
History & Physical Date & Time of Service: September 27, 2017 at 18:25 Chief Complaint: Nstemi Primary Care Physician: Rhys Arguello M.D. History of Present Illness Source: patient, family, hospital records, other 82 y/o F Hx HTN, DMII, HPL, RA. Presented AM with CP. Initial labs revealed an elevated trop and EKG showed a LBBB which we did not have previous record of. She was therefore evaluated by cardiology and whisked off to the label rewinder. RCA occlusion was elucidated and 2 stents were inserted to restore normal flow. The pt was CP-free for a few hours and then c/o CP during medical evaluation after being repositioned. She had also c/o neck pain which may have been the result os her RA and positioning during the cath. She denies radiation of the pain or SOB and does not exhibit diaphoresis. Past Medical/Surgical History 1) RA 2) HTN 3) HPL 4) LBBB 5) NSTEMI - 09/27/17 - RCA occlusion - MICHAEL x 2 6) DM II Family History Noncontributory to current complaint Social History Smoking Status: Never Smoker Marital Status: , Occupational Status: retired Immunizations History of Influenza Vaccine: N/A Influenza Vaccine Date: Feb 24, 2010 History of Tetanus Vaccine?: Unknown History of Pneumococcal: Yes Pneumococcal Date: September 24, 2008 History of Hepatitis B Vaccine: Unknown Allergies Coded Allergies: No Known Allergies (Verified , 04/22/17) Home Medications Scheduled Atorvastatin (Lipitor), 80 MG PO HS Glipizide Xl (Glucotrol Xl), 10 MG PO BID Indapamide (Lozol), 1.25 MG PO QAM Insulin Glargine (Basaglar Kwikpen), 30 UNITS SQ HS Leflunomide (Arava), 20 MG PO QAM Pantoprazole (Protonix), 40 MG PO DAILY Pioglitazone Hcl (Actos), 30 MG PO QAM Scheduled PRN Diclofenac Sodium (Topical) (Voltaren 1% Top Gel), 1 APPLN TOP QID PRN for Pain Oxycodone/Acetaminophen 5MG/325MG (Percocet 5MG/325MG), 1 TABLET PO Q6H PRN for Pain Review of Systems Constitutional: No fever, No chills, No sweats Eyes: No worsening of vision ENT: No hearing loss, No unusual epistaxis, No nasal symptoms Respiratory: No cough, No sputum, No wheezing Cardiovascular: + chest pain, No PND Abdomen: No pain, No vomiting Musculoskeletal: + problem reported (Chronic back pain - neck pain following cath) Genitourinary - Female: No dysuria, No urinary frequency Neurologic: No memory loss, No weakness Psychiatric: No depression symptoms Endocrine: No fatigue Hematologic / Lymphatic: No abnormal bleeding/bruising Integumentary: No rash Allergic / Immunologic: No environmental allergies Physical Exam Vital Signs Date Time Temp Pulse Resp B/P (MAP) Pulse Ox O2 Delivery O2 Flow Rate FiO2 09/27/17 17:10 64 16 121/70 (87) 99 Room Air 09/27/17 15:42 123 20 127/62 95 09/27/17 15:27 112 24 145/67 94 Nasal Cannula 2.0 09/27/17 15:22 95 Nasal Cannula 2.0 09/27/17 15:22 95 Nasal Cannula 2.0 09/27/17 15:21 123 16 136/58 95 Nasal Cannula 2.0 09/27/17 15:15 105 09/27/17 14:57 36.4 112 18 154/72 97 Room Air General Appearance: WD/WN, + pertinent finding (Overweight, elderly female - expresses neck and chest discomfort) Head: normocephalic Eyes: normal inspection ENT: normal ENT inspection, pharynx normal Neck: supple, no JVD Respiratory/Chest: chest non-tender, lungs clear, normal breath sounds Cardiovascular: regular rate, rhythm, no edema, no gallop Abdomen/GI: normal bowel sounds, non tender, soft Back: normal inspection, no CVA tenderness Extremities/Musculoskelatal: normal inspection, no calf tenderness, normal capillary refill Neurologic/Psych: high man II-XII nml as tested, no motor/sensory deficits, alert, oriented x 3 Skin: normal color Diagnostics Laboratory Results Results Past 24 Hours Test 09/27/17 15:10 09/27/17 15:18 09/27/17 15:19 09/27/17 15:50 Range/Units White Blood Count 11.30 4.8-10.8 K/uL Red Blood Count 4.02 4.2-5.4 M/uL Hemoglobin 11.6 12.0-16.0 g/dL Hematocrit 34.8 37-47 % Mean Corpuscular Volume 86.6 80-100 fL Mean Corpuscular Hemoglobin 28.9 25-34 pg Mean Corpuscular Hemoglobin Concent 33.3 32-36 g/dl Platelet Count 253 130-400 K/uL Mean Platelet Volume 10.2 7.4-10.4 fL Neutrophils (%) (Auto) 80.9 % Lymphocytes (%) (Auto) 10.3 % Monocytes (%) (Auto) 8.1 % Eosinophils (%) (Auto) 0.2 % Basophils (%) (Auto) 0.2 % Neutrophils # (Auto) 9.16 1.4-6.5 K/uL Lymphocytes # (Auto) 1.16 1.2-3.4 K/uL Monocytes # (Auto) 0.91 0.11-0.59 K/uL Eosinophils # (Auto) 0.02 0-0.5 K/uL Basophils # (Auto) 0.02 0-0.2 K/uL RDW Standard Deviation 49.3 36.4-46.3 fL RDW Coefficient of Variation 15.6 11.5-14.5 % Immature Granulocyte % (Auto) 0.3 % Immature Granulocyte # (Auto) 0.03 0.00-0.02 K/uL Sodium Level 134 136-145 mmol/L Potassium Level 4.0 3.5-5.1 mmol/L Chloride Level 102 98-107 mmol/L Carbon Dioxide Level 26 21-32 mmol/L Anion Gap 6.0 16.0 16-25 mmol/L Blood Urea Nitrogen 30 7-18 mg/dl Creatinine 1.68 0.60-1.20 mg/dl Est Creatinine Clear Calc Drug Dose 25.3 ml/min Estimated GFR () 32.9 Estimated GFR (Non- 28.4 BUN/Creatinine Ratio 18.0 10-20 Random Glucose 236 70-99 mg/dl Calcium Level 9.0 8.5-10.1 mg/dl Magnesium Level 1.8 1.8-2.4 mg/dl Total Bilirubin 0.4 0.2-1 mg/dl Aspartate Amino Transf (AST/SGOT) 26 15-37 U/L Alanine Aminotransferase (ALT/SGPT) 31 12-78 U/L Alkaline Phosphatase 59 45-117 U/L Total Creatine Kinase 266 26-192 U/L Creatine Kinase MB 4.1 0.5-3.6 ng/ml Creatine Kinase MB Ratio 1.5 0-3.0 Troponin I 0.360 0-0.045 ng/ml Total Protein 7.3 6.4-8.2 gm/dl Albumin 3.8 3.4-5.0 gm/dl Globulin 3.5 2.5-4.0 gm/dl Albumin/Globulin Ratio 1.1 0.9-2 Lipase 144 73-393 U/L Thyroid Stimulating Hormone (TSH) 0.995 0.300-4.500 uIu/ml Bedside Hemoglobin 12.2 12.0-16.0 g/dl Bedside Hematocrit 36 37-47 % Bedside Sodium 136 135-144 mEq/L Bedside Potassium 4.1 3.3-5.0 mEq/L Bedside Chloride 100 101-112 mEq/L Bedside Total CO2 25 24-31 mEq/l Bedside Blood Urea Nitrogen 32 7-18 mg/dl Bedside Creatinine 1.5 0.6-1.3 mg/dl Bedside Glucose (other) 234 70-99 mg/dl Bedside Ionized Calcium (Amaris) 1.07 1.12-1.32 mmol/l Bedside Troponin I 0.280 0-0.045 ng/ml Prothrombin Time 10.2 9.0-12.0 SECONDS Prothromb Time International Ratio 1.0 0.9-1.1 Activated Partial Thromboplast Time 27.2 21.0-31.0 SECONDS Partial Thromboplastin Ratio 1.0 Test 09/27/17 16:17 Range/Units Kaolin Activated Coagulation Time 263 94-140 SECONDS EKG Sinus, LBBB Impression Assessment and Plan 82 y/o F Hx HTN, DMII, HPL, RA. Presented AM with CP. Initial labs revealed an elevated trop and EKG showed a LBBB which we did not have previous record of. She was therefore evaluated by cardiology and whisked off to the label rewinder. RCA occlusion was elucidated and 2 stents were inserted to restore normal flow. The pt was CP-free for a few hours and then c/o CP during medical evaluation after being repositioned. She had also c/o neck pain which may have been the result os her RA and positioning during the cath. She denies radiation of the pain or SOB and does not exhibit diaphoresis. 1) WI - likley NSTEMI as chronicity of LBBB is unclear - She was placed on Brilinta, ASA, Statin, Metoprolol and fully anticoagulated. Reg her CP at the time of evaluation - we will treat with Morphine and NTG. An additional EKG is pending and we have informed the it application administrator. A repeat trop is pending for 8p and an echo is scheduled for AM. 2) DM II - placed on SS 3) HTN - placed on Metoprolol - BP is controlled 4) HPL - cont Lipitor 5) RA - can likely reume Arava AM barring any complications Full code - Heparin Total time for this admit including review of labs, meds imaging, records - discussion with pt, ER attending, it application administrator - 40 min Resuscitation Status VTE Prophylaxis Will order VTE Prophylaxis: Yes
[2017-09-27] MEDS ORDERED: NURSING VERBAL MED ORDER ONE (19:00)
[2017-09-27] MEDS: OXYCODONE/ACETAMINOPHEN 5-325 TAB PO PRN (20:59)
[2017-09-27] MEDS: MoRPHine SULFATE 4 MG/ML 1 ML CARP\\VIAL IV PRN (20:59)
[2017-09-27] MEDS: METOPROLOL TARTRATE 25 MG TAB PO SCH (21:00)
[2017-09-27] MEDS: ATORVASTATIN 40 MG TAB PO SCH (21:00)
[2017-09-27] MEDS: INSULIN GLARGINE SOLOSTAR 100 UNITS/ML 3 ML PEN SQ SCH (21:54)
[2017-09-28] VITALS (7 sets, daily range): BP systolic 97–126; BP diastolic 46–65; PULSE 66–86; TEMP 36.5–36.9; O2SAT 91–96
[2017-09-28] MEDS: MoRPHine SULFATE 4 MG/ML 1 ML CARP\\VIAL IV PRN (02:15)
[2017-09-28] MEDS: OXYCODONE/ACETAMINOPHEN 5-325 TAB PO PRN ×4 (03:09→23:52)
[2017-09-28 06:30] LABS: BASO % 0.1 %; BASO ABS # 0.01 K/uL (0-0.2); EOS % 0.6 %; EOS ABS # 0.05 K/uL (0-0.5); HEMATOCRIT 30.9 % (37-47); HEMOGLOBIN 10.3 g/dL (12.0-16.0); IG# 0.02 K/uL (0.00-0.02); LYMPH % 10.5 %; LYMPH ABS # 0.94 K/uL (1.2-3.4); MEAN CELL VOLUME 86.3 fL (80-100); MEAN CORPUSCULAR HEMOGLOBIN 28.8 pg (25-34); MEAN CORPUSCULAR HGB CONC 33.3 g/dl (32-36); MEAN PLATELET VOLUME 9.8 fL (7.4-10.4); MONO % 12.6 %; MONO ABS # 1.13 K/uL (0.11-0.59); NEUT ABS # 6.79 K/uL (1.4-6.5); PLATELET COUNT 205 K/uL (130-400); RED CELL DISTRIBUTION WIDTH CV 15.8 % (11.5-14.5); RED CELL DISTRIBUTION WIDTH SD 49.7 fL (36.4-46.3); WHITE BLOOD COUNT 8.94 K/uL (4.8-10.8)
[2017-09-28 06:58] LABS: CALCIUM 8.2 mg/dl (8.5-10.1); CREATININE 1.36 mg/dl (0.60-1.20); POTASSIUM 3.4 mmol/L (3.5-5.1)
[2017-09-28] MEDS: PANTOprazole SOD 40 MG TAB PO SCH (07:59)
[2017-09-28] MEDS: LISINOPRIL 5 MG TAB PO SCH (08:00)
[2017-09-28] MEDS: METOPROLOL TARTRATE 25 MG TAB PO SCH ×2 (08:00→21:03)
[2017-09-28] MEDS: ASPIRIN 81 MG ECTAB PO SCH (08:00)
[2017-09-28] MEDS: TICAGRELOR 90 MG TAB PO SCH ×2 (08:01→21:02)
--- NOTE | 2017-09-28 09:23 | Family Medicine Progress Note ---
Progress Note Date of Service September 28, 2017. Subjective Pt evaluation today including: conversation w/ patient, physical exam Reports persistent chest discomfort, worse w/inspiration, 6/10 severity. Does not radiate, difficult to characterize, the pain is "just there." Denies previous occurrence of the pain. Constitutional: No fever, No chills Respiratory: + dyspnea on exertion Cardiovascular: + chest pain Breast: No breast lump Abdomen: No pain, No nausea Musculoskeletal: No joint pain Psychiatric: No depression symptoms All Other Systems: Reviewed and Negative Medications Current Inpatient Medications Medications (Trade) Dose Ordered Sig/Irvin Route Start Time Stop Time Status Last Admin Dose Admin Nitroglycerin (Nitrostat Tab) 0.4 mg UD PRN SL 09/27/17 17:30 10/27/17 17:29 Aspirin (Ecotrin Tab) 81 mg QAM PO 09/28/17 09:00 10/28/17 08:59 09/28/17 08:00 81 MG Metoprolol Tartrate (Lopressor Tab) 25 mg Q12 PO 09/27/17 21:00 10/27/17 20:59 09/28/17 08:00 25 MG Lisinopril (Zestril Tab) 5 mg QAM PO 09/28/17 09:00 10/28/17 08:59 09/28/17 08:00 5 MG Acetaminophen (Tylenol Tab) 650 mg Q4H PRN PO 09/27/17 17:30 10/27/17 17:29 09/28/17 08:01 650 MG Atorvastatin Calcium (Lipitor Tab) 80 mg HS PO 09/27/17 21:00 10/27/17 20:59 09/27/17 21:00 80 MG Diclofenac Sodium (Voltaren 1% Top Gel) 1 appln QID PRN EXT 09/27/17 17:30 10/27/17 17:29 Insulin Glargine (Lantus Solostar Pen) 30 units HS SQ 09/27/17 21:00 10/27/17 20:59 09/27/17 21:54 30 UNITS Oxycodone/ Acetaminophen (Percocet 5-325mg Tab) 1 tab Q6H PRN PO 09/27/17 17:30 10/11/17 17:29 09/28/17 07:58 1 TAB Pantoprazole Sodium (Protonix Tab) 40 mg DAILY PO 09/28/17 09:00 10/28/17 08:59 09/28/17 07:59 40 MG Miscellaneous Information (Order Awaiting Action) 1 ea QS N/A 09/28/17 00:00 10/28/17 00:00 Ticagrelor (Brilinta Tab) 90 mg BID PO 09/28/17 09:00 10/28/17 08:59 09/28/17 08:01 90 MG Glucose (Glucose 40% Gel) 15-30 GRAMS 15 GRAMS... UD PRN PO 09/27/17 18:00 10/27/17 17:59 Glucose (Glucose Chew Tab) 4-8 Tablets 4 Tabl... UD PRN PO 09/27/17 18:00 10/27/17 17:59 Dextrose (Dextrose 50% 50ML Syringe) 25-50ML 25ML FOR ... UD PRN IV 09/27/17 18:00 10/27/17 17:59 Glucagon (Glucagon Inj) 1 mg UD PRN IM 09/27/17 18:00 10/27/17 17:59 Carbohydrates (Carbohydrates For Hypoglycemia) 15-30 GRAMS 15 grams if BSG 54-69... UD PRN PO 09/27/17 18:00 10/27/17 17:59 Morphine Sulfate (MoRPHine SULFATE INJ) 2 mg Q30M PRN IV 09/27/17 19:15 10/11/17 19:14 09/28/17 02:15 2 MG Morphine Sulfate (MoRPHine SULFATE INJ) 4 mg Q2H PRN IV 09/27/17 19:15 10/11/17 19:14 09/27/17 19:11 4 MG Objective Vital Signs Date Time Temp Pulse Resp B/P (MAP) Pulse Ox O2 Delivery O2 Flow Rate FiO2 09/28/17 08:06 Room Air 09/28/17 07:15 36.5 85 20 123/64 (83) 96 09/28/17 04:00 Nasal Cannula 2.0 09/28/17 03:42 36.9 86 22 115/65 (82) 95 Room Air 09/28/17 00:10 36.5 68 18 108/47 (67) 93 Room Air 09/28/17 00:01 36.8 75 17 126/65 (85) 92 09/27/17 23:59 Nasal Cannula 2.0 09/27/17 23:01 71 16 117/58 (77) 93 09/27/17 22:01 37.1 80 31 124/67 (86) 93 09/27/17 21:09 36.9 95 128/61 (83) 95 09/27/17 20:16 36.9 95 31 128/62 (84) 97 09/27/17 20:00 Nasal Cannula 2.0 09/27/17 19:31 36.7 89 29 119/60 (79) 95 09/27/17 19:28 36.8 09/27/17 19:16 86 29 115/54 (74) 09/27/17 19:12 84 22 120/46 (70) 09/27/17 19:01 80 23 123/79 (94) 09/27/17 18:46 86 23 108/76 (87) 09/27/17 18:33 83 22 116/73 (87) 09/27/17 18:30 99 Nasal Cannula 2.0 09/27/17 18:18 82 21 90/61 (71) 09/27/17 18:17 84 20 71/26 (41) 09/27/17 18:12 82 15 104/64 (77) 09/27/17 17:45 96 21 09/27/17 17:10 64 16 121/70 (87) 99 Room Air 09/27/17 15:42 123 20 127/62 95 09/27/17 15:27 112 24 145/67 94 Nasal Cannula 2.0 09/27/17 15:22 95 Nasal Cannula 2.0 09/27/17 15:22 95 Nasal Cannula 2.0 09/27/17 15:21 123 16 136/58 95 Nasal Cannula 2.0 09/27/17 15:15 105 09/27/17 14:57 36.4 112 18 154/72 97 Room Air Physical Exam General Appearance: WD/WN, no apparent distress Eyes: normal inspection, PERRL ENT: hearing grossly normal Neck: supple, no JVD Respiratory/Chest: chest non-tender, lungs clear, normal breath sounds, no respiratory distress Cardiovascular: regular rate, rhythm, no murmur Abdomen: normal bowel sounds, non tender, soft Extremities: non-tender, no pedal edema Neurologic/Psychiatric: alert, normal mood/affect Skin: no rash Laboratory Results Last 24 Hours Test 09/27/17 15:10 09/27/17 15:18 09/27/17 15:19 09/27/17 15:50 White Blood Count 11.30 K/uL Red Blood Count 4.02 M/uL Hemoglobin 11.6 g/dL Hematocrit 34.8 % Mean Corpuscular Volume 86.6 fL Mean Corpuscular Hemoglobin 28.9 pg Mean Corpuscular Hemoglobin Concent 33.3 g/dl Platelet Count 253 K/uL Mean Platelet Volume 10.2 fL Neutrophils (%) (Auto) 80.9 % Lymphocytes (%) (Auto) 10.3 % Monocytes (%) (Auto) 8.1 % Eosinophils (%) (Auto) 0.2 % Basophils (%) (Auto) 0.2 % Neutrophils # (Auto) 9.16 K/uL Lymphocytes # (Auto) 1.16 K/uL Monocytes # (Auto) 0.91 K/uL Eosinophils # (Auto) 0.02 K/uL Basophils # (Auto) 0.02 K/uL RDW Standard Deviation 49.3 fL RDW Coefficient of Variation 15.6 % Immature Granulocyte % (Auto) 0.3 % Immature Granulocyte # (Auto) 0.03 K/uL Sodium Level 134 mmol/L Potassium Level 4.0 mmol/L Chloride Level 102 mmol/L Carbon Dioxide Level 26 mmol/L Anion Gap 6.0 mmol/L 16.0 mmol/L Blood Urea Nitrogen 30 mg/dl Creatinine 1.68 mg/dl Est Creatinine Clear Calc Drug Dose 25.3 ml/min Estimated GFR () 32.9 Estimated GFR (Non- 28.4 BUN/Creatinine Ratio 18.0 Random Glucose 236 mg/dl Calcium Level 9.0 mg/dl Magnesium Level 1.8 mg/dl Total Bilirubin 0.4 mg/dl Aspartate Amino Transf (AST/SGOT) 26 U/L Alanine Aminotransferase (ALT/SGPT) 31 U/L Alkaline Phosphatase 59 U/L Total Creatine Kinase 266 U/L Creatine Kinase MB 4.1 ng/ml Creatine Kinase MB Ratio 1.5 Troponin I 0.360 ng/ml Total Protein 7.3 gm/dl Albumin 3.8 gm/dl Globulin 3.5 gm/dl Albumin/Globulin Ratio 1.1 Lipase 144 U/L Thyroid Stimulating Hormone (TSH) 0.995 uIu/ml Bedside Hemoglobin 12.2 g/dl Bedside Hematocrit 36 % Bedside Sodium 136 mEq/L Bedside Potassium 4.1 mEq/L Bedside Chloride 100 mEq/L Bedside Total CO2 25 mEq/l Bedside Blood Urea Nitrogen 32 mg/dl Bedside Creatinine 1.5 mg/dl Bedside Glucose (other) 234 mg/dl Bedside Ionized Calcium (Amaris) 1.07 mmol/l Bedside Troponin I 0.280 ng/ml Prothrombin Time 10.2 SECONDS Prothromb Time International Ratio 1.0 Activated Partial Thromboplast Time 27.2 SECONDS Partial Thromboplastin Ratio 1.0 Test 09/27/17 16:17 09/27/17 19:28 09/27/17 21:40 09/27/17 21:46 Kaolin Activated Coagulation Time 263 SECONDS Bedside Glucose 159 mg/dl Urine Color YELLOW Urine Appearance CLEAR Urine pH 5.0 Urine Specific Miller > 1.045 Urine Protein NEG Urine Glucose (UA) NEG Urine Ketones NEG Urine Occult Blood 1+ Urine Nitrite NEG Urine Bilirubin NEG Urine Urobilinogen NEG Urine Leukocyte Esterase NEG Urine WBC (Auto) 1-5 /hpf Urine RBC (Auto) 0-4 /hpf Urine Hyaline Casts (Auto) 0 /lpf Urine Epithelial Cells (Auto) 5-10 /lpf Urine Bacteria (Auto) NEG Troponin I 0.405 ng/ml Test 09/27/17 21:49 09/28/17 06:06 09/28/17 07:15 09/28/17 09:06 Bedside Glucose 289 mg/dl 112 mg/dl White Blood Count 8.94 K/uL Red Blood Count 3.58 M/uL Hemoglobin 10.3 g/dL Hematocrit 30.9 % Mean Corpuscular Volume 86.3 fL Mean Corpuscular Hemoglobin 28.8 pg Mean Corpuscular Hemoglobin Concent 33.3 g/dl Platelet Count 205 K/uL Mean Platelet Volume 9.8 fL Neutrophils (%) (Auto) 76.0 % Lymphocytes (%) (Auto) 10.5 % Monocytes (%) (Auto) 12.6 % Eosinophils (%) (Auto) 0.6 % Basophils (%) (Auto) 0.1 % Neutrophils # (Auto) 6.79 K/uL Lymphocytes # (Auto) 0.94 K/uL Monocytes # (Auto) 1.13 K/uL Eosinophils # (Auto) 0.05 K/uL Basophils # (Auto) 0.01 K/uL RDW Standard Deviation 49.7 fL RDW Coefficient of Variation 15.8 % Immature Granulocyte % (Auto) 0.2 % Immature Granulocyte # (Auto) 0.02 K/uL Sodium Level 136 mmol/L Potassium Level 3.4 mmol/L Chloride Level 104 mmol/L Carbon Dioxide Level 26 mmol/L Anion Gap 6.0 mmol/L Blood Urea Nitrogen 26 mg/dl Creatinine 1.36 mg/dl Est Creatinine Clear Calc Drug Dose 31.1 ml/min Estimated GFR () 42.5 Estimated GFR (Non- 36.7 BUN/Creatinine Ratio 19.2 Random Glucose 133 mg/dl Calcium Level 8.2 mg/dl Troponin I 0.388 ng/ml Triglycerides Level 80 mg/dl Cholesterol Level 120 mg/dl HDL Cholesterol 45 mg/dl LDL Cholesterol, Calculated 59 mg/dl VLDL Cholesterol, Calculated 16 mg/dl Cholesterol/HDL Ratio 2.7 Assessment and Plan 82 yo F with RA, day 1 s/p cardiac cath with RCA stent placement, with recurrent chest pain and neck pain. NSTEMI - Continue Brillinta, ASA, Statin, Metoprolol - Trending troponins Persistent chest discomfort - Rule out PE / GI causes - Obtain D-Dimer Type 2 DM - Sliding scale Hypertension - Continue metoprolol Hyperlipidemia - Statin RA - Arava Dispo: Tele VTE: SCDs code status: Full Resident Tracking Resident Involvement: Resident Care Provided Care Provided: Adult Hospital Medicine Reviewed: Pt Seen/Exam by Me History continues to have mid sternal chest pain Constitutional: denies: fever Respiratory: negative: short of breath Cardiovascular: denies chest pain General Appearance: no apparent distress Respiratory: lungs clear, no respiratory distress Cardiovascular: regular rate, rhythm Gastrointestinal: soft Neurologic/Psychiatric: alert, oriented x 3 Skin Characteristics: warm/dry Assessment/Plan Resident Physician Supervision Note: I independently interviewed and examined the patient and verified the samano history and physical, reviewed labs and image studies, discussed the case with the resident Dr. Abbasi and agree with the findings and care plan.
--- NOTE | 2017-09-28 09:55 | ECHOCARDIOGRAM REPORT ---
*NOTICE TO RECEIVING CONSTITUTION PARTY AGENCY This information is strictly Confidential and protected under [place] law. [place] law prohibits you from making any further disclosure of this information unless further disclosure is expressly permitted by the written consent of the person to whom it pertains or is authorized by law. A general authorization for the release of medical or other information is not sufficient for this purpose. Hospital accepts no responsibility if the information is made available to any other person, INCLUDING THE PATIENT. Interpretation Summary * Name: EL PAINTING Study Date: 09/28/2017 06:48 AM BP: 115/65 mmHg * Patient Location: C.2E\S\E203\S\1 HR: 87 * : 1935 (M/d/yyyy) Gender: Female Height: 61 in * Age: 82 yrs Ethnicity: [place] Weight: 173 lb * Ordering Physician: Radames Carreno * Referring Physician: Self, Referred * Performed By: Robbi Huddleston RDCS * * Reason For Study: AMI * BSA: 1.8 m2 * -- Conclusions -- * There is borderline concentric left ventricular hypertrophy. * Left ventricular systolic function is normal. * Grade I diastolic dysfunction, (abnormal relaxation pattern). * The left atrium is moderately dilated. * The right atrium is mildly dilated. * Aortic valve sclerosis mild, without significant aortic valvular stenosis. * There is moderate mitral annular calcification. * There is mild mitral regurgitation. Procedure Details * A complete two-dimensional transthoracic echocardiogram was performed (2D, M-mode, Doppler and color flow Doppler). * The study was technically difficult, but visualization was adequate with the administration of Definity ultrasound contrast. * A contrast injection of Definity was performed to improve assessment of LV function. * Contrast was injected into an intravenous site in the left arm. * One vial of Definity ultrasound contrast was diluted in normal saline to a total volume of 10 ml. A total of '6' ml of solution was administered during imaging. * Lot # [id number] of Definity utilized for procedure. * Expiration date . * The attending nurse who injected the contrast agent was RACHEL Harding. Left Ventricle * The left ventricle is normal in size. * There is borderline concentric left ventricular hypertrophy. * Left ventricular systolic function is normal. * Ejection Fraction = 55-60%. * Grade I diastolic dysfunction, (abnormal relaxation pattern). * The left ventricular wall motion is normal. Right Ventricle * The right ventricle is normal in size and function. Atria * The left atrium is moderately dilated. * The right atrium is mildly dilated. Mitral Valve * There is moderate mitral annular calcification. * Calcification of the anterior leaflet * There is mild mitral regurgitation. * The mitral regurgitant jet is eccentrically directed. * The mitral regurgitant jet is posteriorly directed, which is consistent with anterior leaflet pathology. Tricuspid Valve * The tricuspid valve is not well visualized, but is grossly normal. * Significant tricuspid regurgitation is absent. Aortic Valve * Aortic valve sclerosis mild, without significant aortic valvular stenosis. * No hemodynamically significant valvular aortic stenosis. * There is no significant aortic regurgitation. Pulmonic Valve * The pulmonic valve is not well visualized. Pericardium/Pleural * There is no pericardial effusion. Great Vessels * Normal inferior vena cava diameter and respiratory variation suggests normal central venous pressure. MMode 2D Measurements and Calculations IVSd 1.2 cm IVSs 1.5 cm LVIDd 4.8 cm LVIDs 3.3 cm LVPWd 1.2 cm LVPWs 1.6 cm IVS/LVPW 1.0 FS 30.6 % EDV(Teich) 106.6 ml ESV(Teich) 44.7 ml EF(Teich) 58.1 % EDV(cubed) 109.4 ml ESV(cubed) 36.5 ml EF(cubed) 66.6 % % IVS thick 31.1 % % LVPW thick 41.2 % LV mass(C)d 209.4 grams LV mass(C)dI 117.9 grams/m\S\2 LV mass(C)s 198.1 grams LV mass(C)sI 111.5 grams/m\S\2 SV(Teich) 61.9 ml SI(Teich) 34.9 ml/m\S\2 SV(cubed) 72.9 ml SI(cubed) 41.0 ml/m\S\2 EPSS 0.96 cm Ao root diam 2.9 cm Ao root area 6.6 cm\S\2 ACS 1.6 cm LA dimension 4.7 cm asc Aorta Diam 3.2 cm LA/Ao 1.6 LVOT diam 1.9 cm LVOT area 2.7 cm\S\2 LVAd ap4 25.8 cm\S\2 LVLd ap4 7.5 cm EDV(MOD-sp4) 72.6 ml EDV(sp4-el) 75.3 ml LVAs ap4 14.8 cm\S\2 LVLs ap4 6.7 cm ESV(MOD-sp4) 27.8 ml ESV(sp4-el) 27.9 ml EF(MOD-sp4) 61.7 % EF(sp4-el) 62.9 % LVAd ap2 21.2 cm\S\2 LVLd ap2 7.3 cm EDV(MOD-sp2) 50.3 ml EDV(sp2-el) 51.9 ml LVAs ap2 12.2 cm\S\2 LVLs ap2 6.5 cm ESV(MOD-sp2) 20.0 ml ESV(sp2-el) 19.4 ml EF(MOD-sp2) 60.3 % EF(sp2-el) 62.6 % LVLd %diff -2.41 % EDV(MOD-bp) 64.4 ml LVLs %diff 3.4 % ESV(MOD-bp) 20.4 ml EF(MOD-bp) 68.3 % SV(MOD-sp4) 44.8 ml SI(MOD-sp4) 25.2 ml/m\S\2 SV(MOD-sp2) 30.3 ml SI(MOD-sp2) 17.1 ml/m\S\2 SV(MOD-bp) 44.0 ml SI(MOD-bp) 24.8 ml/m\S\2 SV(sp4-el) 47.4 ml SI(sp4-el) 26.7 ml/m\S\2 SV(sp2-el) 32.5 ml SI(sp2-el) 18.3 ml/m\S\2 Doppler Measurements and Calculations MV E max milton 112.8 cm/sec MV A max milton 127.7 cm/sec MV E/A 0.88 MV dec time 0.29 sec Ao V2 max 211.2 cm/sec Ao max PG 17.8 mmHg Ao max PG (full) 11.5 mmHg Ao V2 mean 135.2 cm/sec Ao mean PG 8.7 mmHg Ao mean PG (full) 6.0 mmHg Ao V2 VTI 41.9 cm EFRAIN(I,A) 1.6 cm\S\2 EFRAIN(I,D) 1.6 cm\S\2 EFRAIN(V,A) 1.6 cm\S\2 EFRAIN(V,D) 1.6 cm\S\2 LV V1 max PG 6.3 mmHg LV V1 mean PG 2.6 mmHg LV V1 max 125.6 cm/sec LV V1 mean 71.3 cm/sec LV V1 VTI 25.1 cm SV(Ao) 278.2 ml SI(Ao) 156.6 ml/m\S\2 SV(LVOT) 68.8 ml SI(LVOT) 38.7 ml/m\S\2 PA V2 max 97.3 cm/sec PA max PG 3.8 mmHg PA acc slope 419.3 cm/sec\S\2 PA acc time 0.14 sec PA pr(Accel) 16.5 mmHg
[2017-09-28] MEDS ORDERED: GI COCKTAIL PO ONE (10:30)
[2017-09-28] MEDS ORDERED: ALUMINUM/MAGNESIUM SUSP 18 ML, LIDOCAINE HCL 2% VISCOUS SOLN 6 ML, BARCODE IDENTIFIER 1 EA PO SCH ×2 (10:45)
--- NOTE | 2017-09-28 12:53 | Cardiology Follow-Up ---
Subjective Date of Service: September 28, 2017. Pt evaluation today including: conversation w/ patient, physical exam, chart review, lab review, review of studies, review of inpatient medication list History of Present Illness Patient is an 82-year-old woman to underwent cardiac catheterization and percutaneous intervention involving the right coronary artery yesterday. She presented with symptoms of chest discomfort and was noted to have a new left bundle branch block on EKG. Subsequent to the procedure the patient has had some episodes of chest discomfort. These are described as similar to her index symptoms but are clearly pleuritic in nature. She has responded well to analgesics. The symptoms cells appear to occur with changes in position. At the time my interview the patient is feeling well. She had been administered a GI cocktail which upset her stomach immediately after lunch she recently vomited. She was administered some analgesics and currently has no symptoms of chest discomfort except with deep inspiration. Social History Smoking Status: Never Smoker History of Alcohol Use: No Review of Systems Respiratory: + dyspnea on exertion Cardiac: + chest pain Objective Vital Signs Past 12 Hours Date Time Temp Pulse Resp B/P (MAP) Pulse Ox O2 Delivery O2 Flow Rate FiO2 09/28/17 11:05 36.6 66 20 97/46 (63) 96 Room Air 09/28/17 08:06 Room Air 09/28/17 07:15 36.5 85 20 123/64 (83) 96 09/28/17 04:00 Nasal Cannula 2.0 09/28/17 03:42 36.9 86 22 115/65 (82) 95 Room Air Last Recorded Weight-Kilograms: 77.400 Physical Exam She is alert and oriented x3. Mood affect appear normal. She answered all questions appropriately. HEENT: Sclerae are anicteric. Pupils are equal and reactive to light and accommodation. Extraocular movements were intact. Neuro: Cranial nerves intact Neck: Examination of the submandibular region did not reveal any significant lymphadenopathy. Carotids are palpable bilaterally and free of bruits on auscultation. There was no evidence of jugular venous distention. The thyroid was not enlarged. Lungs: Lungs are clear to auscultation bilaterally. There are no rales wheezes or rhonchi. She has normal respiratory effort without use of accessory muscles. There is normal pulmonary excursion. Cardiac: The rhythm was regular. S1 and S2 were normal. Crescendo systolic murmur. The PMI was not markedly displaced on palpation. Abdomen: The abdomen was soft and nontender. Extremities: Mild ecchymosis at the access site of the right radial artery. Good perfusion.. There is no evidence cyanosis or clubbing. There was no evidence of significant peripheral edema bilaterally. Skin: There are no rashes noted on examination today. Data Laboratory Results: Last 24 Hours Test 09/27/17 15:10 09/27/17 15:18 09/27/17 15:19 09/27/17 15:50 White Blood Count 11.30 K/uL Red Blood Count 4.02 M/uL Hemoglobin 11.6 g/dL Hematocrit 34.8 % Mean Corpuscular Volume 86.6 fL Mean Corpuscular Hemoglobin 28.9 pg Mean Corpuscular Hemoglobin Concent 33.3 g/dl Platelet Count 253 K/uL Mean Platelet Volume 10.2 fL Neutrophils (%) (Auto) 80.9 % Lymphocytes (%) (Auto) 10.3 % Monocytes (%) (Auto) 8.1 % Eosinophils (%) (Auto) 0.2 % Basophils (%) (Auto) 0.2 % Neutrophils # (Auto) 9.16 K/uL Lymphocytes # (Auto) 1.16 K/uL Monocytes # (Auto) 0.91 K/uL Eosinophils # (Auto) 0.02 K/uL Basophils # (Auto) 0.02 K/uL RDW Standard Deviation 49.3 fL RDW Coefficient of Variation 15.6 % Immature Granulocyte % (Auto) 0.3 % Immature Granulocyte # (Auto) 0.03 K/uL Sodium Level 134 mmol/L Potassium Level 4.0 mmol/L Chloride Level 102 mmol/L Carbon Dioxide Level 26 mmol/L Anion Gap 6.0 mmol/L 16.0 mmol/L Blood Urea Nitrogen 30 mg/dl Creatinine 1.68 mg/dl Est Creatinine Clear Calc Drug Dose 25.3 ml/min Estimated GFR () 32.9 Estimated GFR (Non- 28.4 BUN/Creatinine Ratio 18.0 Random Glucose 236 mg/dl Calcium Level 9.0 mg/dl Magnesium Level 1.8 mg/dl Total Bilirubin 0.4 mg/dl Aspartate Amino Transf (AST/SGOT) 26 U/L Alanine Aminotransferase (ALT/SGPT) 31 U/L Alkaline Phosphatase 59 U/L Total Creatine Kinase 266 U/L Creatine Kinase MB 4.1 ng/ml Creatine Kinase MB Ratio 1.5 Troponin I 0.360 ng/ml Total Protein 7.3 gm/dl Albumin 3.8 gm/dl Globulin 3.5 gm/dl Albumin/Globulin Ratio 1.1 Lipase 144 U/L Thyroid Stimulating Hormone (TSH) 0.995 uIu/ml Bedside Hemoglobin 12.2 g/dl Bedside Hematocrit 36 % Bedside Sodium 136 mEq/L Bedside Potassium 4.1 mEq/L Bedside Chloride 100 mEq/L Bedside Total CO2 25 mEq/l Bedside Blood Urea Nitrogen 32 mg/dl Bedside Creatinine 1.5 mg/dl Bedside Glucose (other) 234 mg/dl Bedside Ionized Calcium (Amaris) 1.07 mmol/l Bedside Troponin I 0.280 ng/ml Prothrombin Time 10.2 SECONDS Prothromb Time International Ratio 1.0 Activated Partial Thromboplast Time 27.2 SECONDS Partial Thromboplastin Ratio 1.0 Test 09/27/17 16:17 09/27/17 19:28 09/27/17 21:40 09/27/17 21:46 Kaolin Activated Coagulation Time 263 SECONDS Bedside Glucose 159 mg/dl Urine Color YELLOW Urine Appearance CLEAR Urine pH 5.0 Urine Specific [place] > 1.045 Urine Protein NEG Urine Glucose (UA) NEG Urine Ketones NEG Urine Occult Blood 1+ Urine Nitrite NEG Urine Bilirubin NEG Urine Urobilinogen NEG Urine Leukocyte Esterase NEG Urine WBC (Auto) 1-5 /hpf Urine RBC (Auto) 0-4 /hpf Urine Hyaline Casts (Auto) 0 /lpf Urine Epithelial Cells (Auto) 5-10 /lpf Urine Bacteria (Auto) NEG Troponin I 0.405 ng/ml Test 09/27/17 21:49 09/28/17 06:06 09/28/17 07:15 09/28/17 09:06 Bedside Glucose 289 mg/dl 112 mg/dl White Blood Count 8.94 K/uL Red Blood Count 3.58 M/uL Hemoglobin 10.3 g/dL Hematocrit 30.9 % Mean Corpuscular Volume 86.3 fL Mean Corpuscular Hemoglobin 28.8 pg Mean Corpuscular Hemoglobin Concent 33.3 g/dl Platelet Count 205 K/uL Mean Platelet Volume 9.8 fL Neutrophils (%) (Auto) 76.0 % Lymphocytes (%) (Auto) 10.5 % Monocytes (%) (Auto) 12.6 % Eosinophils (%) (Auto) 0.6 % Basophils (%) (Auto) 0.1 % Neutrophils # (Auto) 6.79 K/uL Lymphocytes # (Auto) 0.94 K/uL Monocytes # (Auto) 1.13 K/uL Eosinophils # (Auto) 0.05 K/uL Basophils # (Auto) 0.01 K/uL RDW Standard Deviation 49.7 fL RDW Coefficient of Variation 15.8 % Immature Granulocyte % (Auto) 0.2 % Immature Granulocyte # (Auto) 0.02 K/uL Sodium Level 136 mmol/L Potassium Level 3.4 mmol/L Chloride Level 104 mmol/L Carbon Dioxide Level 26 mmol/L Anion Gap 6.0 mmol/L Blood Urea Nitrogen 26 mg/dl Creatinine 1.36 mg/dl Est Creatinine Clear Calc Drug Dose 31.1 ml/min Estimated GFR () 42.5 Estimated GFR (Non- 36.7 BUN/Creatinine Ratio 19.2 Random Glucose 133 mg/dl Calcium Level 8.2 mg/dl Troponin I 0.388 ng/ml Triglycerides Level 80 mg/dl Cholesterol Level 120 mg/dl HDL Cholesterol 45 mg/dl LDL Cholesterol, Calculated 59 mg/dl VLDL Cholesterol, Calculated 16 mg/dl Cholesterol/HDL Ratio 2.7 D-Dimer 400 ug/L FEU Test 09/28/17 11:15 Bedside Glucose 209 mg/dl EKG: Normal sinus rhythm with some minor ST and T-wave changes. The left bundle-branch block: Current EKG Telemetry reviewed: She did have an episode of significant bradycardia and possibly a junctional rhythm at the time of her emesis. She also has intermittent left bundle branch block which may be rate related. An echocardiogram performed this morning revealed preserved LV systolic function without wall motion abnormality. She has aortic valve sclerosis and mild mitral regurgitation. Assessment and Plan NSTEMI: The trajectory of the patient's biomarkers has been flat. She underwent percutaneous intervention involving the right coronary artery yesterday. However, she has had recurrence symptoms. The symptoms are pleuritic. It is unclear whether the coronary stenosis and her symptoms are definitively related. However, I do not feel that her current symptoms are related to acute stent thrombosis or problems with her intervention yesterday. Analgesics seem to be effective currently. She will be continued on her dual anti-platelet therapy, high-dose atorvastatin and beta kim. Her blood pressures are slightly low, but I think we can continue to monitor this currently. Murmur: This was not documented at the time of her admission but is likely related to her aortic valve sclerosis. Given her pleuritic symptoms this could represent some form of pericarditis. Her echocardiogram did not demonstrate any other concerning findings such as a mechanical problem i.e. VSD or acute valvular insufficiency. Valvular heart disease: Mild mitral regurgitation. This can be monitored over time. Left bundle-branch block: This appears to be intermittent possibly rate related. Bradycardia: She did have the episode of significant bradycardia and possibly a junctional rhythm. However, this was in the setting emesis and is likely related to transiently elevated vagal tone.
[2017-09-28] MEDS ORDERED: POTASSIUM CHLORIDE 20 MEQ TABCR PO ONE (13:45)
[2017-09-28] MEDS: ATORVASTATIN 40 MG TAB PO SCH (21:02)
[2017-09-28] MEDS: INSULIN GLARGINE SOLOSTAR 100 UNITS/ML 3 ML PEN SQ SCH (21:04)
[2017-09-29 00:10] VITALS: BP 112/60; PULSE 80; TEMP 36.9; O2SAT 94
[2017-09-29 03:46] VITALS: BP 115/52; PULSE 78; TEMP 37; O2SAT 93
[2017-09-29 05:57] LABS: BASO % 0.1 %; BASO ABS # 0.01 K/uL (0-0.2); EOS % 3.3 %; EOS ABS # 0.25 K/uL (0-0.5); HEMATOCRIT 31.5 % (37-47); HEMOGLOBIN 10.5 g/dL (12.0-16.0); IG# 0.01 K/uL (0.00-0.02); LYMPH % 17.4 %; LYMPH ABS # 1.33 K/uL (1.2-3.4); MEAN CELL VOLUME 85.8 fL (80-100); MEAN CORPUSCULAR HEMOGLOBIN 28.6 pg (25-34); MEAN CORPUSCULAR HGB CONC 33.3 g/dl (32-36); MEAN PLATELET VOLUME 9.8 fL (7.4-10.4); MONO % 13.7 %; MONO ABS # 1.05 K/uL (0.11-0.59); NEUT % 65.4 %; NEUT ABS # 4.99 K/uL (1.4-6.5); PLATELET COUNT 214 K/uL (130-400); RED CELL DISTRIBUTION WIDTH CV 15.9 % (11.5-14.5); WHITE BLOOD COUNT 7.64 K/uL (4.8-10.8)
[2017-09-29 06:14] LABS: CALCIUM 8.3 mg/dl (8.5-10.1); CREATININE 1.74 mg/dl (0.60-1.20); POTASSIUM 3.8 mmol/L (3.5-5.1)
[2017-09-29 06:41] VITALS: PULSE 91; TEMP 37.2; O2SAT 95
[2017-09-29 06:49] VITALS: BP 132/62
--- NOTE | 2017-09-29 08:38 | Clinical Documentation Query ---
[address] : CLINICAL DOCUMENTATION QUERY Patient is an 82 year old female admitted for evaluation and treatment of NSTEMI. Serum creatinine range from 06/05/16 to present of 1.30 mg/dl to 1.74 mg/dl. Estimated GFR range over this interval of 27-39 ml/min. She is being monitored with serial chemistries and was treated with IVF. In your clinical opinion is this patient being managed for: ( x ) Chronic kidney disease, stage 3-4 ( ) Not Agree ( ) Other explanation of clinical findings (Please Explain. If no explanation given, this would be considered a no response.) ( ) Unable to determine ( ) Need to Discuss (Please call CDS via extension or qliq. If no interaction occurs this is considered a no response.) The medical record reflects the following clinical findings, treatment, and risk factors. Clinical Indicators: As above Treatment: She is being monitored with serial chemistries and was treated with IVF. Risk Factors: Age, hypertension, DM II Please clarify and document your clinical opinion in the progress notes and discharge summary. Terms such as "probable", "suspected", "likely", "questionable", "possible", or "still to be ruled out" are acceptable. IF IN AGREEMENT, YOU MUST DOCUMENT ABOVE DIAGNOSTIC STATEMENT IN DAILY PROGRESS NOTES AND DISCHARGE SUMMARY. This document is not part of the patient's record. Thank You, Kenny Tejada, RACHEL [phone]
[2017-09-29] MEDS: ASPIRIN 81 MG ECTAB PO SCH (09:42)
[2017-09-29] MEDS: LISINOPRIL 5 MG TAB PO SCH (09:42)
[2017-09-29] MEDS: METOPROLOL TARTRATE 25 MG TAB PO SCH (09:42)
[2017-09-29] MEDS: TICAGRELOR 90 MG TAB PO SCH (09:42)
[2017-09-29] MEDS: PANTOprazole SOD 40 MG TAB PO SCH (09:42)
[2017-09-29 11:46] VITALS: BP 128/78; PULSE 80; TEMP 36.9; O2SAT 95
--- NOTE | 2017-09-29 11:52 | Pharmacy Progress Note ---
Glycemic Control: Initial Note Date of Service September 29, 2017. Scope Glycemic Pharmacist to provide recommendations to improve glycemic control (all ICU patients are screened for hyperglycemia and treatment recommendations are provided per protocol). Pt identified with hyperglycemia (BSG above 180) while admitted [place] [facility] [place] Subjective The patient is a 82 year old female admitted on September 27, 2017 at 17:28 for NSTEMI. Patient's past medical history is significant for type 2 diabetes mellitus. Objective Height (Feet): 5 Height (Inches): 1.00 Weight (Kilograms): 80.500 Accuchecks BSG (last 24hrs): Test 09/28/17 16:22 09/28/17 20:52 09/29/17 05:37 09/29/17 07:24 Bedside Glucose 142 mg/dl (70-90) 187 mg/dl (70-90) 67 mg/dl (70-90) Random Glucose 72 mg/dl (70-99) Test 09/29/17 07:56 Bedside Glucose 173 mg/dl (70-90) Laboratory Data (last 24hrs) Test 09/29/17 05:37 Anion Gap 7.0 mmol/L BUN/Creatinine Ratio 18.4 Blood Urea Nitrogen 32 mg/dl Creatinine 1.74 mg/dl Potassium Level 3.8 mmol/L Sodium Level 134 mmol/L White Blood Count 7.64 K/uL Red Blood Count 3.67 M/uL Hemoglobin 10.5 g/dL Hematocrit 31.5 % Mean Corpuscular Volume 85.8 fL Mean Corpuscular Hemoglobin 28.6 pg Mean Corpuscular Hemoglobin Concent 33.3 g/dl Platelet Count 214 K/uL Mean Platelet Volume 9.8 fL Neutrophils (%) (Auto) 65.4 % Lymphocytes (%) (Auto) 17.4 % Monocytes (%) (Auto) 13.7 % Eosinophils (%) (Auto) 3.3 % Basophils (%) (Auto) 0.1 % Neutrophils # (Auto) 4.99 K/uL Lymphocytes # (Auto) 1.33 K/uL Monocytes # (Auto) 1.05 K/uL Eosinophils # (Auto) 0.25 K/uL Basophils # (Auto) 0.01 K/uL Recent Pertinent Medications Outpatient Anti-diabetic Regimen: * Basaglar 30 units Q HS * Glucotrol XL 10mg BID * Actos 30mg daily * A1c = 7% The patient is currently receiving: * Basal Insulin: Lantus 30 units every 24 hours - dosed at bedtime * Correctional Insulin: None * Prandial Insulin: None * Oral Agents: None Assessment & Plan ASSESSMENT: * Patient identified on glycemic control reports w/ BSG's both below 70 and above 180 * Fasting mild fasting hypoglycemia observed on this AM BSG (67). This was with 30 units Lantus on board (her home dose). Would recommend a 20% dose reduction. * Post-prandial BSGs elevated above 180 x 2 yesterday. She is not currently ordered prandial or correctional insulin. Would recommend adding Novolog CF and CR as her home Glucotrol XL is on hold. RECOMMEND: * Decreasing Lantus to 25 units SQ HS * Begin Novolog SQ ACHS * Correction factor 40 mg/dl/unit * Carb ratio 1 unit per 13 grams CHO consumed * Goal range Low 110 mg/dL - High 140 mg/dL Pharmacy will continue to provide recommendations in EMR while patient admitted to 1E/2E. Physicians may request pharmacy to continue to follow patient when transferred out of the ICU and/or consult pharmacy to write glycemic control orders * Please note that the plan above was derived based on current level of insulin resistance and hospital stress. These recommendations are appropriate for inpatient admission only. Plan of care upon discharge will need to be reassessed to avoid potential outpatient hypo/hyperglycemia. Thank you.
--- NOTE | 2017-09-29 13:12 | Discharge Instructions ---
Discharge Instructions Date of Service September 29, 2017. Admission Reason for Admission: Nstemi Discharge Discharge Diagnosis / Problem: NSTEMI Discharge Goals Goal(s): Decrease discomfort, Improve function, Therapeutic intervention Activity Recommendations Activity Limitations: as noted below Lifting Limitations: gradually increase as tolerated Exercise/Sports Limitations: until after follow-up appointment Shower/Bathe: no limitations Driving or Machine Use: no limitations . Instructions / Follow-Up Instructions / Follow-Up You were treated in the hospital for chest pain found to be related to a heart attack. You were taken to the catheterization lab and had 2 stents placed in addition to starting a few new medications that will be outlined below. Although you initially experienced some pain after the procedure, this was though to be possibly musculoskeletal in nature and not related to your heart. Medications: - Lisinopril 5m Tablet by mouth every morning - Metoprolol Tartrate 50m Tablet by mouth twice daily - Brilinta 90m Tablet by mouth twice daily - Aspirin 81m Table by mouth every morning - Resume all other home medications as previously prescribed Follow Up: - Follow up with Cardiology, we will arrange this appointment for you - Follow up with Dr. Arguello in the next 2-3 days. We will schedule this appointment If you have any worsening chest pain, shortness of breath, lightheadedness, fever, chills, or any other concerning symptoms please go to your primary care doctor to be seen, or in the case of emergency return to the emergency department Current Hospital Diet Patient's current hospital diet: AHA Diet (Heart Healthy) Discharge Diet Recommended Diet: AHA Diet (Heart Healthy) Pending Studies Studies pending at discharge: no Laboratory Results Hemoglobin A1c Test 09/28/17 06:06 Range/Units Estimated Average Glucose 154 mg/dl Hemoglobin A1c 7.0 H 4.5-5.6 % Lipid Panel Test 09/28/17 06:06 Range/Units Triglycerides Level 80 0-150 mg/dl Cholesterol Level 120 0-200 mg/dl HDL Cholesterol 45 mg/dl Cholesterol/HDL Ratio 2.7 LDL Cholesterol, Calculated 59 mg/dl Medical Emergencies . Who to Call and When: Medical Emergencies: If at any time you feel your situation is an emergency, please call 911 immediately. . Non-Emergent Contact Non-Emergency issues call your: Primary Care Provider . . "Provider Documentation" section prepared by Luis Fernando Li. .
[2017-09-29] MEDS ORDERED: ASPI-320 PO (13:18)
[2017-09-29] MEDS ORDERED: LSN5 PO (13:18)
[2017-09-29] MEDS ORDERED: BRL90 PO (13:18)
[2017-09-29] MEDS ORDERED: LPR50X PO (13:18)
[2017-09-29 13:19] VITALS: BP 128/78; PULSE 80; TEMP 36.9; O2SAT 95
--- NOTE | 2017-09-29 14:03 | Discharge Summary ---
Discharge Summary Date of Service September 29, 2017. Discharge Summary Admission Date: September 27, 2017 at 17:28 Discharge Date: September 29, 2017 Discharge Disposition: Home Principal Diagnosis: NSTEMI Immunizations: Have You Had Influenza Vaccine: N/A Influenza Vaccine Date: Feb 24, 2010 History of Tetanus Vaccine?: Unknown History of Pneumococcal: Yes Pneumococcal Date: September 24, 2008 History of Hepatitis B Vaccine: Unknown Medication Reconciliation New Medications: Aspirin (Aspirin EC Low Dose) 81 Mg Ectab 81 MG PO QAM for 30 Days, #30 TAB Lisinopril (Lisinopril) 5 Mg Tab 5 MG PO QAM for 30 Days, #30 TAB Metoprolol Tartrate (Metoprolol Tartrate) 50 Mg Tab 50 MG PO Q12 for 30 Days, #60 TAB Ticagrelor (Brilinta) 90 Mg Tab 90 MG PO BID for 30 Days, #60 TAB Continued Medications: Atorvastatin (Lipitor) 80 Mg Tab 80 MG PO HS, 0 Refills Diclofenac Sodium (Topical) (Voltaren 1% Top Gel) 1 % Gel 1 APPLN TOP QID PRN for Pain Glipizide Xl (Glucotrol Xl) 5 Mg Tab 10 MG PO BID, TAB Indapamide (Lozol) 1.25 Mg Tab 1.25 MG PO QAM, TAB Insulin Glargine (Basaglar Kwikpen) 100 Unit/Ml Inj 30 UNITS SQ HS Leflunomide (Arava) 20 Mg Tab 20 MG PO QAM, TAB Oxycodone/Acetaminophen 5MG/325MG (Percocet 5MG/325MG) Tab 1 TABLET PO Q6H PRN for Pain, TAB PAIN Pantoprazole (Protonix) 40 Mg Tab 40 MG PO DAILY, #30 TAB Pioglitazone Hcl (Actos) 30 Mg Tab 30 MG PO QAM, TAB Discharge Exam Review of Systems: Constitutional: No fever, No chills, No weight loss, No weakness, No fatigue Respiratory: No cough, No sputum, No wheezing, No shortness of breath Cardiovascular: + chest pain (1/10), No orthopnea, No edema, No palpitations Abdomen: No pain, No nausea, No vomiting, No diarrhea, No constipation Musculoskeletal: No joint pain, No swelling, No calf pain Genitourinary - Female: No dysuria, No urinary frequency Neurologic: No memory loss, No numbness/tingling, No balance problems Physical Exam: General Appearance: WD/WN, no apparent distress Eyes: normal inspection, sclerae normal Neck: supple, no carotid bruits Respiratory/Chest: chest non-tender, lungs clear, normal breath sounds Cardiovascular: regular rate, rhythm, no edema, no gallop Abdomen / GI: normal bowel sounds, non tender, soft Neurologic/Psychiatric: alert, normal mood/affect, oriented x 3 Hospital Course 82 yo F with a past medical history of HTN, DM, HLD, and RA that presented to the ED with substernal chest pain and found to have an NSTEMI. Taken to the catheterization lab where 2 stents were placed in the RCA and the patient was started on Lisinopril, Metoprolol, Brilinta, and Aspirin. The patient continued to have pain over the 24 hours after the catheterization that was substernal and worse with deep inspiration. There were no changes on EKG and the pain was believed to be non-cardiac. The pain subsequently resolved over her remaining hospitalization and will be discharged home on her new mediation regimen. NSTEMI - 2 stents placed in RCA - Brillinta, ASA, Statin, Metoprolol - ECHO: * There is borderline concentric left ventricular hypertrophy. * Left ventricular systolic function is normal. * Grade I diastolic dysfunction, (abnormal relaxation pattern). * The left atrium is moderately dilated. * The right atrium is mildly dilated. * Aortic valve sclerosis mild, without significant aortic valvular stenosis. * There is moderate mitral annular calcification. * There is mild mitral regurgitation. * EF 55-60% Type 2 DM - Sliding scale, resume home medication on discharge Hypertension - Metoprolol increased from 25mg PO BID to 50mg PO BID on discharge - Patient was found to have a LBBB on telemetry when HR > 105 Hyperlipidemia - Statin --> Atorvastatin 80mg PO Daily (High Dose) RA Jama Castano Dispo: Tele VTE: SCDs code status: Full Resident Physician Supervision Note: I interviewed and examined the patient. Discussed with Dr. Li and agree with findings and plan as documented in the note. Any exceptions or clarifications are listed here: None Documented By: Conner Lockwood feeling better chest pain almost gone feels up to going home vitals noted nad breathing unlabored no pallor or icterus NSTEMI/CAD - s/p stenting. emphasized importance of med adherence. stable for home Total Time Spent: Greater than 30 minutes This includes examination of the patient, discharge planning, medication reconciliation, and communication with other providers. Discharge Instructions Please refer to the electronic Patient Visit Report (Discharge Instructions) for additional information. Additional Copies To Rhys Arguello M.D. Resident Tracking Resident Involvement: Resident Care Provided Care Provided: Adult [facility]
--- NOTE | 2017-09-29 14:34 | Cardiology Follow-Up ---
Subjective Subjective Date of Service: September 29, 2017. Pt evaluation today including: conversation w/ patient, conversation w/ family , physical exam, chart review, lab review, review of studies, review of inpatient medication list Additional Details: Feeling well. No chest pain at present. No other new concerns. Tele reviewed -- HRs to 120s, intermittent LBBB. Problem List Medical Problems: (1) Anemia Status: Acute (2) Chest pain Status: Acute (3) New onset left bundle branch block (LBBB) Status: Acute Review of Systems Constitutional: No fever, No chills Respiratory: + dyspnea on exertion Cardiac: + chest pain Breast: No breast lump Abdomen: No pain, No nausea Musculoskeletal: No joint pain Psychiatric: No depression symptoms Objective Vital Signs Last Vital Signs Documentation Date Time Temp Pulse Resp B/P (MAP) Pulse Ox O2 Delivery O2 Flow Rate FiO2 09/29/17 13:19 36.9 80 16 95 Room Air 09/29/17 11:46 128/78 (95) 09/28/17 04:00 2.0 Physical Exam: General Appearance: no apparent distress ENT: hearing grossly normal Neck: supple, no JVD Respiratory/Chest: chest non-tender, lungs clear, normal breath sounds, no respiratory distress Cardiovascular: regular rate, rhythm, no murmur, + systolic murmur (at right lower sternal border) Abdomen: normal bowel sounds, non tender, soft Extremities: non-tender, no pedal edema Neurologic/Psychiatric: alert, normal mood/affect Skin: no rash Assessment and Plan 1. NSTEMI -- post PCI with DESx2 to mid to distal RCA 2. Pleuritic chest pain 3. Intermittent LBBB 4. Mild mitral regurgitation. 5. DM2 6. HTN 7. RA Chest pain free this morning. Hemodynamically and electrically stable. From a cardiac standpoint OK for discharge. -- Home on DAPT with ASA/Brillanta. -- continue beta-kim, VIDAL and high-intensity statin Follow-up with me in 2-3 weeks. Medications: Reported Home Medications Medications Dose Route/Sig Max Daily Dose Days Date Category Dose Instructions Brilinta (Ticagrelor) 90 Mg Tab 90 Mg PO BID 30 09/29/17 Rx Aspirin EC Low Dose (Aspirin) 81 Mg Ectab 81 Mg PO QAM 30 09/29/17 Rx Metoprolol Tartrate 50 Mg Tab 50 Mg PO Q12 30 09/29/17 Rx Lisinopril 5 Mg Tab 5 Mg PO QAM 30 09/29/17 Rx Percocet 5MG/325MG (Oxycodone/Acetaminophen) Tab 1 Tablet PO Q6H PRN 09/27/17 Reported PAIN Voltaren 1% Top Gel (Diclofenac Sodium (Topical)) 1 % Gel 1 Appln TOP QID PRN 09/27/17 Reported Protonix (Pantoprazole Sodium) 40 Mg Tab 40 Mg PO DAILY 09/27/17 Reported Basaglar Kwikpen (Insulin Glargine) 100 Unit/Ml Inj 30 Units SQ HS 09/27/17 Reported Arava (Leflunomide) 20 Mg Tab 20 Mg PO QAM 05/14/16 Reported Lozol (Indapamide) 1.25 Mg Tab 1.25 Mg PO QAM 02/15/14 Reported Glucotrol Xl (Glipizide) 5 Mg Tab 10 Mg PO BID 02/15/14 Reported Actos (Pioglitazone Hcl) 30 Mg Tab 30 Mg PO QAM 02/15/14 Reported Lipitor (Atorvastatin Calcium) 80 Mg Tab 80 Mg PO HS 05/06/08 Reported Lab Results: 09/29/17 05:37 Red Blood Count 3.67, Mean Corpuscular Volume 85.8, Mean Corpuscular Hemoglobin 28.6, Mean Corpuscular Hemoglobin Concent 33.3, Mean Platelet Volume 9.8, Neutrophils (%) (Auto) 65.4, Lymphocytes (%) (Auto) 17.4, Monocytes (%) (Auto) 13.7, Eosinophils (%) (Auto) 3.3, Basophils (%) (Auto) 0.1, Neutrophils # (Auto ) 4.99, Lymphocytes # (Auto) 1.33, Monocytes # (Auto) 1.05, Eosinophils # (Auto ) 0.25, Basophils # (Auto) 0.01 09/29/17 05:37 Test 09/29/17 05:37 09/29/17 11:18 White Blood Count 7.64 K/uL (4.8-10.8) Red Blood Count 3.67 M/uL (4.2-5.4) Hemoglobin 10.5 g/dL (12.0-16.0) Hematocrit 31.5 % (37-47) Mean Corpuscular Volume 85.8 fL (80-100) Mean Corpuscular Hemoglobin 28.6 pg (25-34) Mean Corpuscular Hemoglobin Concent 33.3 g/dl (32-36) Platelet Count 214 K/uL (130-400) Mean Platelet Volume 9.8 fL (7.4-10.4) Neutrophils (%) (Auto) 65.4 % Lymphocytes (%) (Auto) 17.4 % Monocytes (%) (Auto) 13.7 % Eosinophils (%) (Auto) 3.3 % Basophils (%) (Auto) 0.1 % Neutrophils # (Auto) 4.99 K/uL (1.4-6.5) Lymphocytes # (Auto) 1.33 K/uL (1.2-3.4) Monocytes # (Auto) 1.05 K/uL (0.11-0.59) Eosinophils # (Auto) 0.25 K/uL (0-0.5) Basophils # (Auto) 0.01 K/uL (0-0.2) RDW Standard Deviation 50.0 fL (36.4-46.3) RDW Coefficient of Variation 15.9 % (11.5-14.5) Immature Granulocyte % (Auto) 0.1 % Immature Granulocyte # (Auto) 0.01 K/uL (0.00-0.02) Anion Gap 7.0 mmol/L (3-11) Est Creatinine Clear Calc Drug Dose 24.8 ml/min Estimated GFR () 31.5 Estimated GFR (Non- 27.2 BUN/Creatinine Ratio 18.4 (10-20) Calcium Level 8.3 mg/dl (8.5-10.1) Bedside Glucose 140 mg/dl (70-90)
== END 2017-09-29 14:05 | disposition home or self-care (01) | DRG 247 ==
LOC: C.EDB 14:52 → C.2E 17:28
PROVIDERS: ADMIT Internal Medicine Interventional Cardiology; ATTEND Family Medicine
PROC: 4A023N7 Measurement of Cardiac Sampling and Pressure, Left Heart, Percutaneous Approach (ICD-10-PCS; principal; 2017-09-27 15:45)
PROC: B211YZZ Fluoroscopy of Multiple Coronary Arteries using Other Contrast (ICD-10-PCS; principal; 2017-09-27 15:45)
PROC: 027035Z Dilation of Coronary Artery, One Artery with Two Drug-eluting Intraluminal Devices, Percutaneous Approach (ICD-10-PCS; principal; 2017-09-27 15:45)
DX: I21.4 Non-ST elevation (NSTEMI) myocardial infarction (principal); I44.7 Left bundle-branch block, unspecified; I12.9 Hypertensive chronic kidney disease with stage 1 through stage 4 chronic kidney disease, or unspecified chronic kidney disease; I08.0 Rheumatic disorders of both mitral and aortic valves; E11.22 Type 2 diabetes mellitus with diabetic chronic kidney disease; N18.9 Chronic kidney disease, unspecified; E78.5 Hyperlipidemia, unspecified; M06.9 Rheumatoid arthritis, unspecified; M54.9 Dorsalgia, unspecified; G89.29 Other chronic pain; Z79.4 Long term (current) use of insulin; Z79.84 Long term (current) use of oral hypoglycemic drugs; Z79.899 Other long term (current) drug therapy

== ENCOUNTER → 2017-12-22 | Outpatient (CLI) | payer OTHER ==
[~2017-12-22] MED LIST changes: +ASPI-320 PO; +BRL90 PO; -DICL1GEL12 EXT; +DICL1GEL12 TOP; -HYDR-5688 PO; -INSDGIPEN SQ; +INSU100I23 SQ; +LISI-730 PO; +LPR50X PO; +OXYC-57 PO; +PANT40TA PO
== END | disposition home or self-care (01) ==
LOC: C.MAMM 13:56
PROVIDERS: ATTEND Internal Medicine Rheumatology
DX: M81.0 Age-related osteoporosis without current pathological fracture (principal); M85.89 Other specified disorders of bone density and structure, multiple sites

== ENCOUNTER 2018-07-07 07:29 | Observation (INO) ==
[2018-07-07] MEDS ORDERED: SODIUM CHLORIDE 0.9% 500 ML IV SCH (07:45)
--- NOTE | 2018-07-07 08:23 | XRay Report ---
XR ankle RT min 3V routine CLINICAL HISTORY: 83 years-old Female presenting with fall, pain. TECHNIQUE: Frontal, mortise, and lateral views of the right ankle were obtained. COMPARISON: None. FINDINGS: Osteopenia. Ankle mortise congruent. Ossicles at the inferior pole the medial malleolus may suggest p rior avulsion injury. Allowing for osteopenia, obliquely oriented radiolucency of the distal fibula a t or immediately above the level of the syndesmosis concerning for fracture. No malalignment. Promine nt enthesophyte at the origin of the plantar fascia and small enthesophyte at the insertion of the Ac hilles tendon. Prominent osteophytosis at the dorsal talus at the talonavicular articulation. Diffuse soft tissue swelling at the ankle lower leg. IMPRESSION: Findings suspicious for nondisplaced distal fibular fracture. Recommend CT or MR to confirm this find ing. Evaluation is made difficult by osteopenia. Electronically signed by: Timbo Pinto M.D. 07/07/2018 8:21 AM
--- NOTE | 2018-07-07 08:33 | XRay Report ---
XR chest 1V portable CLINICAL HISTORY: weakness COMPARISON STUDY: 09/27/2017 FINDINGS: The heart is at the upper limits of normal in size. There is no failure. There is no lobar consolidation. There are no pleural effusions. Linear opacities at both lung bases are felt to repres ent subsegmental atelectasis.[ IMPRESSION: No active disease in the chest. Electronically signed by: Rafa Bishop M.D. 07/07/2018 8:32 AM
[2018-07-07 08:34] LABS: Albumin Globulin Ratio 0.8 (0.9-2); Albumin Level 3.3 gm/dl (3.4-5.0); BUN Creatinine Ratio 17.2 (10-20); Bilirubin,Total 0.5 mg/dl (0.2-1); Calcium 9.1 mg/dl (8.5-10.1); Creatinine Clr Calc Pharmacy 33.7 ml/min; Est GFR (Non-African American) 37.1; Globulin 4.2 gm/dl (2.5-4.0); Total Protein 7.5 gm/dl (6.4-8.2)
[2018-07-07 09:10] LABS: Basophils # (auto) 0.01 K/uL (0-0.2); Basophils % (auto) 0.2 %; Eosinophils # (auto) 0.04 K/uL (0-0.5); Eosinophils % (auto) 0.8 %; Hematocrit (blood only) 32.4 % (37-47); Hemoglobin 10.6 g/dL (12.0-16.0); Immature Granulocytes # (auto) 0.01 K/uL (0.00-0.02); Immature Granulocytes % (auto) 0.2 %; Lymphocytes # (auto) 0.86 K/uL (1.2-3.4); Lymphocytes % (auto) 17.6 %; Mean Corpuscular Hgb Conc 32.7 g/dL (32-36); Mean Platelet Volume 10.6 fL (7.4-10.4); Monocytes # (auto) 0.51 K/uL (0.11-0.59); Monocytes % (auto) 10.4 %; Neutrophils # (auto) 3.46 K/uL (1.4-6.5); Neutrophils % (auto) 70.8 %; Platelet Count 240 K/uL (130-400); RDW Coefficient of Variation 15.1 % (11.5-14.5); RDW Standard Deviation 49.1 fL (36.4-46.3); Red Blood Count 3.64 M/uL (4.2-5.4); White Blood Count 4.89 K/uL (4.8-10.8)
[2018-07-07 09:27] LABS: Potassium 3.9 mmol/L (3.5-5.1)
[2018-07-07 09:28] LABS: Appearance Urine Clear (Clear); Bacteria Urine Automated Negative (Negative); Bilirubin Urine Negative (Negative); Blood Urine Trace (Negative); Cast Urine Automated 0 /lpf (0-5); Color Urine Yellow; Glucose Urine UA Negative (Negative); Ketones Urine Negative (Negative); Leukocyte Esterase Urine Negative (Negative); Nitrite Urine Negative (Negative); Protein Urine Negative (Negative); RBC Urine Automated 0-4 /hpf (0-4); Specific Gravity Urine 1.011 (1.000-1.030); Urobilinogen Urine Negative (Negative); pH Urine 5.5 (4.5-7.5)
--- NOTE | 2018-07-07 09:30 | CT Scan Report ---
CT head/brain wo con CLINICAL HISTORY: Head pain status post trauma COMPARISON STUDY: No previous studies for comparison. TECHNIQUE: Axial CT of the brain is performed from the vertex to the skull base. IV contrast was not administered for this examination. A dose lowering technique was utilized adhering to the principles of ALARA. CT DOSE: 638.56 mGycm FINDINGS: No intra or extra-axial mass lesions are visualized. There is no CT evidence of acute cortical infarc tion. There is no evidence of midline shift. There is no acute hemorrhage. No calvarial fractures ar e visualized. There are minimal white matter hypodensities likely on a small vessel basis. There is no evidence of pathologic ventricular dilatation. There is no evidence of acute sinusitis IMPRESSION: No acute intracranial findings Electronically signed by: Rafa Bishop M.D. 07/07/2018 9:28 AM
--- NOTE | 2018-07-07 10:34 | CT Scan Report ---
CT ankle RT wo con CT DOSE: 237.73 mGy.cm CLINICAL HISTORY: Ankle pain status post trauma. Equivocal nondisplaced distal fibular fracture as vi sualized on conventional radiographic evaluation. TECHNIQUE: Helical images were acquired in transverse plane. Sagittal and coronal reformatted images were reviewed. A dose lowering technique was utilized adhering to the principles of ALARA. COMPARISON STUDY: Commensurate radiographic study dated 07/07/2018 FINDINGS: There is mild lateral soft tissue edema. There is an acute nondisplaced distal fibular fracture. There is a 15 mm fracture fragment arising from the lateral aspect the tibial plafond and with 3 mm o f maximal distraction. No patellar fractures are visualized. No calcaneal fractures are visualized. There is no significant ankle mortise disruption. IMPRESSION: 1. Nondisplaced distal fibular fracture 2. 15 mm fracture fragment arising from the lateral aspect of the tibial plafond with 3 mm of distrac tion Electronically signed by: Rafa Bishop M.D. 07/07/2018 10:33 AM
--- NOTE | 2018-07-07 11:09 | Emergency Department Note ---
Entered by Jamaica Ray acting as a scribe for Daniel Padron DO History of Present Illness General Chief complaint: Hypoglycemia Time Seen by Provider: 07/07/18 07:32 Source: patient Mode of arrival: EMS History of Present Illness Provider complaint: weakness Onset (ago): day(s) (this morning) Location: left and right Pain Consistency: + constant Quality: + other (weakness) Associated symptoms: + other (bruising and swelling of right knee and ankle, blood sugar of 50) The patient is an 83 year old female who presents to the Emergency Room with complaints of constant weakness beginning this morning. She states she was unable to get out of bed, and was incontinent of urine as she was unable to get to the bathroom. The patient reports yesterday she "woke up on the bathroom floor" and found bruising and swelling on her right knee and ankle. She states she is unsure what happened to cause her to be on the floor yesterday. Nursing staff reports the patient's blood sugar was 50 when EMS arrived. They note the patient lives by herself and takes insulin nightly, and does not check her blood sugar. Home Medications Home Medications Medication Instructions Recorded Confirmed Type acetaminophen [Tylenol] 325 mg PO Q6H PRN 07/07/18 07/07/18 History atorvastatin 80 mg PO HS 07/07/18 07/07/18 History diclofenac sodium [Voltaren] 2 g TOPICAL QID PRN 07/07/18 07/07/18 History glipizide 10 mg PO BID 07/07/18 07/07/18 History indapamide 1.25 mg PO QAM 07/07/18 07/07/18 History insulin glargine [Basaglar KwikPen 30 unit SUBCUT HS 07/07/18 07/07/18 History U-100 Insulin] leflunomide 20 mg PO QAM 07/07/18 07/07/18 History lisinopril 5 mg PO QAM 07/07/18 07/07/18 History metoprolol tartrate 50 mg PO Q12 07/07/18 07/07/18 History pantoprazole 40 mg PO QAM 07/07/18 07/07/18 History pioglitazone 30 mg PO QAM 07/07/18 07/07/18 History ticagrelor [Brilinta] 90 mg PO BID 07/07/18 07/07/18 History Allergies Allergy/AdvReac Type Severity Reaction Status Date / Time No Known Allergies Allergy Verified 07/07/18 07:50 Past Med/Surg History Medical History NSTEMI (non-ST elevated myocardial infarction) (Resolved) Diabetes (Chronic) Social History Current Living Situation: Alone current occupation: retired Feels Safe at Home: Yes Smoking Status: Never smoker Preferred Language: Pashto Hearing Ability: Normal Review of Systems See HPI for pertinent positives & negatives. and A total of 10 systems reviewed and were otherwise negative Physical Exam Vital Signs Vital Signs - 24 hr 07/07/18 07:39 07/07/18 07:43 07/07/18 09:00 Temperature 36.8 C Temperature Source Oral Sepsis Recent Fever Within 48 Hours No Sepsis New/Unexplained Change in Mental Status No Sepsis Action Taken by Nursing No Action Required Pulse Rate 90 Pulse Rate [Right Finger] 92 H Pulse Rate from SpO2 Sensor Respiratory Rate 16 18 Respiratory Depth Blood Pressure 160/117 H Blood Pressure [Right Arm] 147/65 H Blood Pressure Mean 131 Blood Pressure Mean [Right Arm] 92 Pulse Oximetry 96 96 97 Oxygen Delivery Method Room Air Room Air Room Air 07/07/18 09:30 07/07/18 10:33 07/07/18 11:32 Temperature Temperature Source Sepsis Recent Fever Within 48 Hours Sepsis New/Unexplained Change in Mental Status Sepsis Action Taken by Nursing Pulse Rate 71 84 Pulse Rate [Right Finger] 83 Pulse Rate from SpO2 Sensor 84 Respiratory Rate 21 26 H 16 Respiratory Depth Blood Pressure 119/90 178/77 H Blood Pressure [Right Arm] 151/71 H Blood Pressure Mean 99 110 Blood Pressure Mean [Right Arm] 97 Pulse Oximetry 96 97 Oxygen Delivery Method Room Air 07/07/18 12:54 Temperature Temperature Source Sepsis Recent Fever Within 48 Hours Sepsis New/Unexplained Change in Mental Status Sepsis Action Taken by Nursing Pulse Rate Pulse Rate [Right Finger] 88 Pulse Rate from SpO2 Sensor Respiratory Rate 16 Respiratory Depth Normal Blood Pressure Blood Pressure [Right Arm] 164/66 H Blood Pressure Mean Blood Pressure Mean [Right Arm] 98 Pulse Oximetry 97 Oxygen Delivery Method Room Air CONSTITUTIONAL/VITAL SIGNS: Reviewed / noted above. GENERAL: Non-toxic in appearance. INTEGUMENTARY: Warm, dry, and [place]. Bruise in right distal inner thigh. HEAD: Normocephalic. EYES: without scleral icterus or trauma. ENT/OROPHARYNX: clear and moist. LYMPHADENOPATHY/NECK: Is supple without lymphadenopathy or meningismus. RESPIRATORY: Lungs clear and equal. CARDIOVASCULAR: Regular rate and rhythm. GI/ABDOMEN: Soft and nontender. No organomegaly or pulsatile mass. No rebound or guarding. Normal bowel sounds. EXTREMITIES: Warm and well perfused. Mild tenderness to right ankle. BACK: No CVA tenderness. NEUROLOGICAL: Intact without focal deficits. PSYCHIATRIC: normal affect. MUSCULOSKELETAL: Normally developed with good muscle tone. Course 0733: Past medical records reviewed. The patient was evaluated in room A2, and a complete history and physical examination were performed. 1057: I discussed findings with the patient. She expresses a desire to be discharged home. Case management will speak to the patient regarding home health care. 1105: The patient is agreeable to rehab. 1227: Discussed the case with Dr. Hargrove, orthopedics. Consultations Consultation #1: Dr. Hargrove, orthopedics. Time: 12:27 Administered Medications Discontinued Medications Sodium Chloride (Nss) 500 mls @ 999 mls/hr IV .Q31M DANISH Stop: 07/07/18 08:15 Last Infusion: 07/07/18 08:42 Dose: 0 mls/hr Admin: 07/07/18 08:07 Dose: 999 mls/hr Medical Decision Making Differential Diagnosis Differential includes acute coronary syndrome, myocardial infarction, CVA, TIA , anemia, infection, pneumonia, UTI, pyelonephritis, poor nutrition, dehydration , electrolyte disturbance,hypoglycemia. Medical Records Attestation: I reviewed the patient's medical records. Home Medications Current Medication List: was personally reviewed by me Laboratory Data Attestation: I reviewed the patient's lab results. Result diagrams: 07/07/18 09:04 07/07/18 09:04 Lab Results 07/07/18 07/07/18 07/07/18 Range/Units 07:48 08:00 08:00 WBC Cancelled RBC Cancelled Hgb Cancelled Hct Cancelled MCV Cancelled MCH Cancelled MCHC Cancelled RDW Std Deviation Cancelled RDW Coeff of Lizzette Cancelled Plt Count Cancelled MPV Cancelled Immature Gran % (Auto) Cancelled Neut % (Auto) Cancelled Lymph % (Auto) Cancelled [place] % (Auto) Cancelled Eos % (Auto) Cancelled Baso % (Auto) Cancelled Immature Gran # (Auto) Cancelled Neut # (Auto) Cancelled Lymph # (Auto) Cancelled [place] # (Auto) Cancelled Eos # (Auto) Cancelled Baso # (Auto) Cancelled Absolute Nucleated RBC Cancelled Nucleated RBC % (auto) Cancelled Neutrophils % (Manual) Cancelled Band Neutrophils % Cancelled Lymphocytes % (Manual) Cancelled Prolymphocyte % Cancelled Reactive Lymphs % (Man) Cancelled Monocytes % (Manual) Cancelled Eosinophils % (Manual) Cancelled Basophils % (Manual) Cancelled Metamyelocytes % (Man) Cancelled Myelocytes % (Man) Cancelled Promyelocytes % (Man) Cancelled Blast Cells % (Manual) Cancelled Plasma Cell % (Manual) Cancelled Other Cells % Cancelled Nucleated RBC % Cancelled Neutrophils # (Manual) Cancelled Band Neutrophils # Cancelled Total Absolute Neuts Cancelled Lymphocytes # (Manual) Cancelled Prolymphocyte # Cancelled Reactive Lymphs # Cancelled Total Abs Lymphocytes Cancelled Monocytes # (Manual) Cancelled Eosinophils # (Manual) Cancelled Basophils # (Manual) Cancelled Metamyelocytes # (Man) Cancelled Myelocytes # (Manual) Cancelled Promyelocytes # (Man) Cancelled Blast Cells # (Man) Cancelled Plasma Cell # (Manual) Cancelled Other Cells # Cancelled Nucleated RBCs # (Man) Cancelled Hypersegmented Neuts Cancelled Hyposegmented Neuts Cancelled Hypogranular Neuts Cancelled Large Granular Lymphs Cancelled # Lrg Granular Lymphs Cancelled Hairy Cells Cancelled Smudge Cells Cancelled Toxic Granulation Cancelled Toxic Vacuolation Cancelled Dohle Bodies Cancelled Nessa Rods Cancelled Platelet Estimate Cancelled Hypogranular Platelets Cancelled Clumped Platelets Cancelled Giant Platelets Cancelled Platelet Satelliting Cancelled RBC Morphology Cancelled Polychromasia Cancelled Hypochromasia Cancelled Poikilocytosis Cancelled Basophilic Stippling Cancelled Anisocytosis Cancelled Microcytosis Cancelled Macrocytosis Cancelled Spherocytes Cancelled Pappenheimer Bodies Cancelled Sickle Cells Cancelled Target Cells Cancelled Tear Drop Cells Cancelled Ovalocytes Cancelled Stomatocytes Cancelled [place] Bodies Cancelled Echinocytes Cancelled Acanthocytes (Spur) Cancelled Rouleaux Cancelled RBC Agglutinates Cancelled Schistocytes Cancelled RBC Morph Comment Cancelled Sezary Cell Cancelled Sodium 139 (136-145) mmol/L Potassium (3.5-5.1) mmol/L Chloride 106 (98-107) mmol/L Carbon Dioxide 26 (21-32) mmol/L Anion Gap 6.0 (3-11) BUN 23 H (7-18) mg/dl Creatinine 1.34 H (0.6-1.2) mg/dl Est Cr Clr Drug Dosing 33.7 ml/min Est GFR ( Amer) 43.0 Est GFR (Non-Af Amer) 37.1 BUN/Creatinine Ratio 17.2 (10-20) Glucose 124 H (70-99) mg/dl POC Glucose 112 H (70-99) Calcium 9.1 (8.5-10.1) mg/dl Total Bilirubin 0.5 (0.2-1) mg/dl AST (15-37) U/L ALT 26 (12-78) U/L Alkaline Phosphatase 58 (45-117) U/L Total Creatine Kinase (26-192) U/L Total Protein 7.5 (6.4-8.2) gm/dl Albumin 3.3 L (3.4-5.0) gm/dl Globulin 4.2 H (2.5-4.0) gm/dl Albumin/Globulin Ratio 0.8 L (0.9-2) Specimen Hemolysis Urine Color Urine Appearance (Clear) Urine pH (4.5-7.5) Ur Specific [place] (1.000-1.030) Urine Protein (Negative) Urine Glucose (UA) (Negative) Urine Ketones (Negative) Urine Blood (Negative) Urine Nitrite (Negative) Urine Bilirubin (Negative) Urine Urobilinogen (Negative) Ur Leukocyte Esterase (Negative) Urine WBC (Auto) (0-5) /hpf Urine RBC (Auto) (0-4) /hpf U Hyaline Cast (Auto) (0-5) /lpf U Epithel Cells (Auto) (0-5) /lpf Urine Bacteria (Auto) (Negative) 07/07/18 07/07/18 07/07/18 Range/Units 09:04 09:04 09:10 WBC 4.89 RBC 3.64 L Hgb 10.6 L Hct 32.4 L MCV 89.0 MCH 29.1 MCHC 32.7 RDW Std Deviation 49.1 H RDW Coeff of Lizzette 15.1 H Plt Count 240 MPV 10.6 H Immature Gran % (Auto) 0.2 Neut % (Auto) 70.8 Lymph % (Auto) 17.6 [place] % (Auto) 10.4 Eos % (Auto) 0.8 Baso % (Auto) 0.2 Immature Gran # (Auto) 0.01 Neut # (Auto) 3.46 Lymph # (Auto) 0.86 L [place] # (Auto) 0.51 Eos # (Auto) 0.04 Baso # (Auto) 0.01 Absolute Nucleated RBC Nucleated RBC % (auto) Neutrophils % (Manual) Band Neutrophils % Lymphocytes % (Manual) Prolymphocyte % Reactive Lymphs % (Man) Monocytes % (Manual) Eosinophils % (Manual) Basophils % (Manual) Metamyelocytes % (Man) Myelocytes % (Man) Promyelocytes % (Man) Blast Cells % (Manual) Plasma Cell % (Manual) Other Cells % Nucleated RBC % Neutrophils # (Manual) Band Neutrophils # Total Absolute Neuts Lymphocytes # (Manual) Prolymphocyte # Reactive Lymphs # Total Abs Lymphocytes Monocytes # (Manual) Eosinophils # (Manual) Basophils # (Manual) Metamyelocytes # (Man) Myelocytes # (Manual) Promyelocytes # (Man) Blast Cells # (Man) Plasma Cell # (Manual) Other Cells # Nucleated RBCs # (Man) Hypersegmented Neuts Hyposegmented Neuts Hypogranular Neuts Large Granular Lymphs # Lrg Granular Lymphs Hairy Cells Smudge Cells Toxic Granulation Toxic Vacuolation Dohle Bodies Nessa Rods Platelet Estimate Hypogranular Platelets Clumped Platelets Giant Platelets Platelet Satelliting RBC Morphology Polychromasia Hypochromasia Poikilocytosis Basophilic Stippling Anisocytosis Microcytosis Macrocytosis Spherocytes Pappenheimer Bodies Sickle Cells Target Cells Tear Drop Cells Ovalocytes Stomatocytes [place] Bodies Echinocytes Acanthocytes (Spur) Rouleaux RBC Agglutinates Schistocytes RBC Morph Comment Sezary Cell Sodium (136-145) mmol/L Potassium 3.9 (3.5-5.1) mmol/L Chloride (98-107) mmol/L Carbon Dioxide (21-32) mmol/L Anion Gap (3-11) BUN (7-18) mg/dl Creatinine (0.6-1.2) mg/dl Est Cr Clr Drug Dosing ml/min Est GFR ( Amer) Est GFR (Non-Af Amer) BUN/Creatinine Ratio (10-20) Glucose (70-99) mg/dl POC Glucose (70-99) Calcium (8.5-10.1) mg/dl Total Bilirubin (0.2-1) mg/dl AST 20 (15-37) U/L ALT (12-78) U/L Alkaline Phosphatase (45-117) U/L Total Creatine Kinase 168 (26-192) U/L Total Protein (6.4-8.2) gm/dl Albumin (3.4-5.0) gm/dl Globulin (2.5-4.0) gm/dl Albumin/Globulin Ratio (0.9-2) Specimen Hemolysis Urine Color Yellow Urine Appearance Clear (Clear) Urine pH 5.5 (4.5-7.5) Ur Specific [place] 1.011 (1.000-1.030) Urine Protein Negative (Negative) Urine Glucose (UA) Negative (Negative) Urine Ketones Negative (Negative) Urine Blood Trace H (Negative) Urine Nitrite Negative (Negative) Urine Bilirubin Negative (Negative) Urine Urobilinogen Negative (Negative) Ur Leukocyte Esterase Negative (Negative) Urine WBC (Auto) 1-5 (0-5) /hpf Urine RBC (Auto) 0-4 (0-4) /hpf U Hyaline Cast (Auto) 0 (0-5) /lpf U Epithel Cells (Auto) 5-10 H (0-5) /lpf Urine Bacteria (Auto) Negative (Negative) Imaging Data Radiologist's Impression: Radiology results as stated below per my review and the radiologist's interpretation: CT ankle RT wo con CT DOSE: 237.73 mGy.cm CLINICAL HISTORY: Ankle pain status post trauma. Equivocal nondisplaced distal fibular fracture as visualized on conventional radiographic evaluation. TECHNIQUE: Helical images were acquired in transverse plane. Sagittal and coronal reformatted images were reviewed. A dose lowering technique was utilized adhering to the principles of ALARA. COMPARISON STUDY: Commensurate radiographic study dated 07/07/2018 FINDINGS: There is mild lateral soft tissue edema. There is an acute nondisplaced distal fibular fracture. There is a 15 mm fracture fragment arising from the lateral aspect the tibial plafond and with 3 mm of maximal distraction. No patellar fractures are visualized. No calcaneal fractures are visualized. There is no significant ankle mortise disruption. IMPRESSION: 1. Nondisplaced distal fibular fracture 2. 15 mm fracture fragment arising from the lateral aspect of the tibial plafond with 3 mm of distraction Electronically signed by: Rafa Bishop M.D. 07/07/2018 10:33 AM XR chest 1V portable CLINICAL HISTORY: weakness COMPARISON STUDY: 09/27/2017 FINDINGS: The heart is at the upper limits of normal in size. There is no failure. There is no lobar consolidation. There are no pleural effusions. Linear opacities at both lung bases are felt to represent subsegmental atelectasis.[ IMPRESSION: No active disease in the chest. Electronically signed by: Rafa Bishop M.D. 07/07/2018 8:[address] head/brain wo con CLINICAL HISTORY: Head pain status post trauma COMPARISON STUDY: No previous studies for comparison. TECHNIQUE: Axial CT of the brain is performed from the vertex to the skull base. IV contrast was not administered for this examination. A dose lowering technique was utilized adhering to the principles of ALARA. CT DOSE: 638.56 mGycm FINDINGS: No intra or extra-axial mass lesions are visualized. There is no CT evidence of acute cortical infarction. There is no evidence of midline shift. There is no acute hemorrhage. No calvarial fractures are visualized. There are minimal white matter hypodensities likely on a small vessel basis. There is no evidence of pathologic ventricular dilatation. There is no evidence of acute sinusitis IMPRESSION: No acute intracranial findings Electronically signed by: Rafa Bishop M.D. 07/07/2018 9:28 AM XR ankle RT min 3V routine CLINICAL HISTORY: 83 years-old Female presenting with fall, pain. TECHNIQUE: Frontal, mortise, and lateral views of the right ankle were obtained. COMPARISON: None. FINDINGS: Osteopenia. Ankle mortise congruent. [place] at the inferior pole the medial malleolus may suggest prior avulsion injury. Allowing for osteopenia, obliquely oriented radiolucency of the distal fibula at or immediately above the level of the syndesmosis concerning for fracture. No malalignment. Prominent enthesophyte at the origin of the plantar fascia and small enthesophyte at the insertion of the Achilles tendon. Prominent osteophytosis at the dorsal talus at the talonavicular articulation. Diffuse soft tissue swelling at the ankle lower leg. IMPRESSION: Findings suspicious for nondisplaced distal fibular fracture. Recommend CT or MR to confirm this finding. Evaluation is made difficult by osteopenia. Electronically signed by: Timbo Pinto M.D. 07/07/2018 8:21 AM ECG Data Attestation: I personally reviewed and interpreted this ECG as follows: Indication: weakness Rate (beats per minute): 78 Rhythm: normal sinus Findings: no PAC, no PVC and no ST elevation Blood Pressure Blood Pressure Findings: Elevated blood pressure Blood Pressure Disposition: Referred to patients primary care provider MDM Narrative This is an 83-year-old female who presents to the ED with a chief complaint of generalized weakness. The patient states that she fell yesterday in her bathroom. She states that she does not remember the entirety of the events but somehow was able to get up and get around yesterday with her walker. This morning when she tried to get out of bed, she was too weak to do so. EMS was called and she was found to have a blood sugar of 57. They gave her some oral glucose and transported her here. On the patient's exam, she has ecchymosis to the left medial thigh. She also has tenderness to palpation of the right lateral ankle. She denies any recent illness or fevers. She denies abdominal pains or chest pains. She is in no distress. Her exam was otherwise unremarkable. An EKG shows a sinus rhythm. CT scan of the brain was negative for acute disease. CBC is unremarkable. BUN is 23. Urine did not show infection. Chest x-ray was negative for acute disease. X-ray of the right ankle and a CT scan of the right ankle reveals a nondisplaced distal fibula fracture. I spoke to Dr. Hargrove about the fracture. He recommends a walking boot and outpatient follow-up. The patient can partial weight-bear on that foot. The patient was given IV fluids. Because of the patient's weakness, she was evaluated by PT/OT services. They did not feel the patient can go home safely. At this time, insurance is pending for the patient to go to [facility] rehab. The Patient is signed out to Dr. Coronado pending insurance approval. Impression & Plan Fall, Weakness, Ankle fracture Discharge Plan Visit Data Chief Complaint: Hypoglycemia ED Provider: Rommel Coronado Discharge Problem: Fall, Weakness, Ankle fracture Patient Disposition: Still a Patient Forms Stand Alone Forms: My [facility] Prescriptions Prescriptions: No Action atorvastatin 80 mg tablet 80 mg PO HS RF: 0 acetaminophen [Tylenol] 325 mg Tablet 325 mg PO Q6H PRN (Reason: Pain) RF: 0 glipizide 5 mg tablet extended release 24hr 10 mg PO BID RF: 0 leflunomide 20 mg tablet 20 mg PO QAM RF: 0 pantoprazole 40 mg tablet,delayed release (DR/EC) 40 mg PO QAM RF: 0 metoprolol tartrate 50 mg tablet 50 mg PO Q12 RF: 0 indapamide 1.25 mg tablet 1.25 mg PO QAM RF: 0 lisinopril 5 mg tablet 5 mg PO QAM RF: 0 pioglitazone 30 mg tablet 30 mg PO QAM RF: 0 insulin glargine [Basaglar KwikPen U-100 Insulin] 100 unit/mL (3 mL) insulin pen 30 unit subcut HS RF: 0 ticagrelor [Brilinta] 90 mg tablet 90 mg PO BID RF: 0 diclofenac sodium [Voltaren] 1 % Gel 2 g TOPICAL QID PRN (Reason: Pain) RF: 0 Referrals Referrals: Brady Arguello MD [Primary Care Provider] - The scribe's documentation has been prepared under my direction and personally reviewed by me in its entirety. I confirm that the note above accurately reflects all work, treatment, procedures, and medical decision making performed by me.
--- NOTE | 2018-07-07 15:34 | Emergency Department Note ---
ED Visit Note Patient signed out to me with a distal fibular fracture. PT OT evaluations were recommending rehab therapy. Insurance authorization for this was pending and unfortunately was still pending after many hours here. Given this in the hour of the day discussed with the hospitalist and the patient for admission overnight pending final disposition to rehab. ATC .
--- NOTE | 2018-07-07 17:46 | History & Physical Report ---
Date of Service July 07, 2018 Assessment & Plan (1) Fall: Possibly related to hypoglycemia PT/OT recs for rehab, attempted from ED however auth not returned Admit for obs for placement, pt lives alone Monitor BS as below (2) DM type 2 (diabetes mellitus, type 2): Hypoglycemic episode this AM Recent cut back on sugar and felt need to decrease insulin No home glucometer DM management SSI to monitor insulin needs Continue with PO a1c 6.4 04/2018 (3) Weakness: Related to hypoglycemia and resolved with improved BS As above EKG WNL (4) Ankle fracture: Nondisplaced Planning for boot and rehab Will need f/u ortho as outpt (5) NSTEMI (non-ST elevated myocardial infarction): September 2017 continue home meds (6) Hyperlipidemia: continue home meds (7) HTN (hypertension): continue home meds (8) GERD (gastroesophageal reflux disease): continue home meds (9) Rheumatoid arthritis: continue home meds (10) DVT prophylaxis: SCDs History of Present Illness Primary Care Provider: Brady Arguello MD 83 y/o F who is being admitted for placement to rehab s/p L fib fx. Pt states she woke up on her floor Friday morning. She does not remember falling. She noted some L ankle pain that day, but it was better so she did not seek care. She has not been able to walk as she usually would and has been "hobbling around " on it. Pt states she woke up this AM and was very weak. She could not get out of bed so she called EMS. EMS found that her BS was 50 on arrival. Pt was brought to the ED. She was dx with a L fib fx and was seen by PT/OT in the ED that does not require OR. She was deemed to need placement for rehab, however despite the fact that pt was in the ED for over 9 hours, no return call was received from her insurance for auth for placement. Pt lives alone and cannot manage on her own with this fx. Pt states she has felt well otherwise. She was taking 30 units HS of basaglar insulin, but recently cut it down to 25 units because she felt like she was getting too much. She has "cut out the junk" including a lot of sugar since Alberto. She does not have a glucometer and has not checked her BS at home in 1-2 years. Allergies Allergy/AdvReac Type Severity Reaction Status Date / Time No Known Allergies Allergy Verified 07/07/18 07:50 Home Medications Home Medications Medication Instructions Recorded Confirmed Type acetaminophen [Tylenol] 325 mg PO Q6H PRN 07/07/18 07/07/18 History atorvastatin 80 mg PO HS 07/07/18 07/07/18 History diclofenac sodium [Voltaren] 2 g TOPICAL QID PRN 07/07/18 07/07/18 History glipizide 10 mg PO BID 07/07/18 07/07/18 History indapamide 1.25 mg PO QAM 07/07/18 07/07/18 History insulin glargine [Basaglar KwikPen 30 unit SUBCUT HS 07/07/18 07/07/18 History U-100 Insulin] leflunomide 20 mg PO QAM 07/07/18 07/07/18 History lisinopril 5 mg PO QAM 07/07/18 07/07/18 History metoprolol tartrate 50 mg PO Q12 07/07/18 07/07/18 History pantoprazole 40 mg PO QAM 07/07/18 07/07/18 History pioglitazone 30 mg PO QAM 07/07/18 07/07/18 History ticagrelor [Brilinta] 90 mg PO BID 07/07/18 07/07/18 History Past Med/Surg History Medical History NSTEMI (non-ST elevated myocardial infarction) (Resolved) Diabetes (Chronic) Social History Current Living Situation: Alone current occupation: retired Feels Safe at Home: Yes Smoking Status: Never smoker Hx Alcohol Use: No Hx Substance Use: No Preferred Language: Polish Hearing Ability: Normal Review of Systems Pertinent positives and negatives reviewed in HPI--all others negative Physical Exam 2 Vital Signs (Past 24 Hours): Last Vital Signs Temp 36.8 C 07/07/18 07:43 Pulse 67 07/07/18 15:56 Resp 18 07/07/18 15:56 BP 141/73 H 07/07/18 15:56 Pulse Ox 94 07/07/18 15:56 Constitutional: WD/WN, vitals as above Eyes: normal visual patton by confrontation and + anicteric sclerae Neck: normal visual inspection and trachea midline Respiratory: normal respiratory effort, lungs clear to auscultation Cardiovascular: Rate/Rhythm: regular rate and regular rhythm Gastrointestinal (Abdomen): Inspection/Auscultation: abdomen not distended Percussion/Palpation: abdomen soft; abdomen nontender Musculoskeletal: Head/Neck/Chest: normocephalic and head atraumatic Trace LE edema, peripheral pulses intact Skin: no rashes, warm and dry Neurologic: awake; not confused Speech / Cognition: normal speech Psychiatric: A+Ox3, euthymic affect Results & Data Diagnostic Findings CXR: neg for acute CT head: neg for acute L ankle XR: nondisplaced distal fibular fx L ankle CT: 15mm fragment noted ECG Rhythm: normal sinus Code Status & VTE Plan Code Status Full code, although pt states no prolonged mechanical life support, feeding tubes, etc VTE Prophylaxis Plan VTE Prophylaxis will be ordered: Yes _ (1) Fall Encounter type: initial encounter Qualified Code(s): W19.XXXA - Unspecified fall, initial encounter (2) Ankle fracture Encounter type: initial encounter Fracture healing: Fracture type: closed Laterality: right Open fracture type: Qualified Code(s): S82.891A - Other fracture of right lower leg, initial encounter for closed fracture
[2018-07-07] MEDS ORDERED: ONDANSETRON INJ 2 MG/ML 2 ML VIAL IV PRN (20:02)
[2018-07-07] MEDS ORDERED: ACETAMINOPHEN 325 MG TAB PO PRN ×2 (20:02)
[2018-07-07] MEDS ORDERED: GLUCOSE 40% GEL 15 GM TUBE PO PRN (20:02)
[2018-07-07] MEDS ORDERED: GLUCOSE 10 TABS/TUBE PO PRN (20:02)
[2018-07-07] MEDS ORDERED: CARBOHYDRATES FOR HYPOGLYCEMIA PO PRN (20:02)
[2018-07-07] MEDS ORDERED: DICLOFENAC SOD 1% GEL 100 GM TUBE EXT PRN (20:02)
[2018-07-07] MEDS ORDERED: DEXTROSE 50% 50 ML SYRINGE IV PRN (20:02)
[2018-07-07] MEDS ORDERED: GLUCAGON FOR INJ 1 MG VIAL SQ PRN (20:02)
[2018-07-07] MEDS ORDERED: MAGNESIUM HYDROXIDE SUSP 30 ML UDC PO PRN (20:02)
[2018-07-07] MEDS: INSULIN ASPART 100 UNITS/ML 3 ML PEN SC SCH (21:45)
[2018-07-07] MEDS: TICAGRELOR 90 MG TAB PO SCH (21:45)
[2018-07-07] MEDS: ATORVASTATIN 40 MG TAB PO SCH (21:45)
[2018-07-07] MEDS: METOPROLOL TARTRATE 50 MG TAB PO SCH (21:45)
[2018-07-08] MEDS ORDERED: glipiZIDE 5 MG TAB PO SCH (08:00)
[2018-07-08] MEDS: INSULIN ASPART 100 UNITS/ML 3 ML PEN SC SCH ×4 (08:52→21:35)
[2018-07-08] MEDS: LISINOPRIL 5 MG TAB PO SCH (08:52)
[2018-07-08] MEDS: TICAGRELOR 90 MG TAB PO SCH ×2 (08:52→21:38)
[2018-07-08] MEDS: INDAPAMIDE 1.25 MG TAB PO SCH (08:52)
[2018-07-08] MEDS: METOPROLOL TARTRATE 50 MG TAB PO SCH ×2 (08:52→21:38)
[2018-07-08] MEDS: LEFLUNOMIDE 10 MG TAB PO SCH (08:52)
[2018-07-08] MEDS: PANTOprazole 40 MG TAB PO SCH (08:52)
[2018-07-08] MEDS: PIOGLITAZONE HCL 15 MG TAB PO SCH (08:52)
[2018-07-08 08:54] LABS: Hematocrit (blood only) 32.3 % (37-47); Hemoglobin 10.6 g/dL (12.0-16.0); Mean Corpuscular Hgb Conc 32.8 g/dL (32-36); Mean Corpuscular Volume 88.5 fL (80-100); Mean Platelet Volume 10.5 fL (7.4-10.4); Platelet Count 253 K/uL (130-400); RDW Coefficient of Variation 14.9 % (11.5-14.5); RDW Standard Deviation 48.9 fL (36.4-46.3); Red Blood Count 3.65 M/uL (4.2-5.4); White Blood Count 5.35 K/uL (4.8-10.8)
[2018-07-08 09:19] LABS: BUN Creatinine Ratio 18.1 (10-20); Creatinine Clr Calc Pharmacy 31.6 ml/min; Est GFR (African American) 44.6; Est GFR (Non-African American) 38.4; Potassium 3.9 mmol/L (3.5-5.1)
[2018-07-08 10:10] LABS: Estimated Average Glucose 143 mg/dl; Hemoglobin A1C 6.6 % (4.5-5.6)
--- NOTE | 2018-07-08 16:49 | Hospitalist Progress Note ---
Date of Service July 08, 2018 Assessment & Plan (1) Fall: - Possibly caused by hypoglycemia - PT/OT evaluations - planning on SNF pending auth Present on Admission?: Yes (2) DM type 2 (diabetes mellitus, type 2): - With hypoglycemia - A1c is 6.6 which is excellent given age - She does report cutting back on sweets and reports normally has a few chocolates with her late night coffee and has stopped this - reports only recalling this event and one other when she felt like her sugars were low and this was due to not eating through the day due to travelling but took her normal anti-diabetics - Given age, falls, and hypoglycemia she may benefit from a reduction of her home medications as a slightly higher reading may be safer than experiencing lows - Recommendation would be for stopping Glipizide 10 mg BID and this is on hold; Will continue Pioglitazone 30 mg daily and monitor insulin needs while in-house - She reports she does not check her glucose at home - should get a glucometer Present on Admission?: Yes (3) Ankle fracture: - Non-displaced distal fibula with plans for boot and partial weightbearing with outpatient ortho F/U - was discussed with Dr. Hargrove in the ED Present on Admission?: Yes (4) Hyperlipidemia: - Atorvastatin 80 mg HS Present on Admission?: Yes (5) HTN (hypertension): - Indapamide 1.25 mg daily; Lisinopril 5 mg daily; Metoprolol 50 mg BID Present on Admission?: Yes (6) Rheumatoid arthritis: - Leflunomide 20 mg daily Present on Admission?: Yes (7) NSTEMI (non-ST elevated myocardial infarction): - Occurred in September 2017 - continue medical management - Brilinta 90 mg BID Present on Admission?: No (8) DVT prophylaxis: SCDs Disposition: Await approval for SNF; medically would be suitable pending approval Subjective Ms. Espinoza reports doing okay today with minimal pain in the R ankle. Some mild ecchymosis and edema of the ankle more prevalent on lateral aspect of ankle. She is to be partial weightbearing with orthopedic F/U as outpatient. Cam boot supplied She verbalizes no other complaints and is awaiting rehab placement Constitutional: no fever, no chills, no fatigue and no weakness Eyes: no worsening vision Respiratory: no cough and no dyspnea Cardiovascular: no chest pain Gastrointestinal: no abdominal pain, no nausea, no vomiting, no constipation and no diarrhea/loose stools Genitourinary (Female): no dysuria Musculoskeletal: + joint pain (mild in R ankle); no back pain Integumentary: no rash Physical Exam 2 Vital Signs (Past 24 Hours): Last Vital Signs Temp 37.1 C 07/08/18 16:17 Pulse 83 07/08/18 16:17 Resp 16 07/08/18 16:17 BP 103/66 07/08/18 16:17 Pulse Ox 94 07/08/18 16:17 Constitutional: WD/WN, vitals as above Eyes: + anicteric sclerae ENMT: Ears: no hearing impairment Throat: uvula midline Neck: trachea midline Respiratory: normal respiratory effort, lungs clear to auscultation Cardiovascular: Rate/Rhythm: regular rate and regular rhythm Gastrointestinal (Abdomen): Inspection/Auscultation: normal bowel sounds Percussion/Palpation: abdomen soft; abdomen nontender Musculoskeletal: Extremities: + joint enlargement (R ankle with edema more prevalent on lateral aspect with mild ecchymosis; no skin tears/opening) Skin: no rashes, warm and dry Neurologic: moves all extremities Psychiatric: A+Ox3, euthymic affect _ (1) Fall Encounter type: initial encounter Qualified Code(s): W19.XXXA - Unspecified fall, initial encounter (2) Ankle fracture Encounter type: initial encounter Fracture healing: Fracture type: closed Laterality: right Open fracture type: Qualified Code(s): S82.891A - Other fracture of right lower leg, initial encounter for closed fracture
[2018-07-08] MEDS: ATORVASTATIN 40 MG TAB PO SCH (21:39)
[2018-07-09] MEDS: TICAGRELOR 90 MG TAB PO SCH (08:50)
[2018-07-09] MEDS: PIOGLITAZONE HCL 15 MG TAB PO SCH (08:51)
[2018-07-09] MEDS: INDAPAMIDE 1.25 MG TAB PO SCH (08:51)
[2018-07-09] MEDS: PANTOprazole 40 MG TAB PO SCH (08:51)
[2018-07-09] MEDS: LEFLUNOMIDE 10 MG TAB PO SCH (08:51)
[2018-07-09] MEDS: METOPROLOL TARTRATE 50 MG TAB PO SCH (08:51)
[2018-07-09] MEDS: LISINOPRIL 5 MG TAB PO SCH (08:51)
[2018-07-09] MEDS: INSULIN ASPART 100 UNITS/ML 3 ML PEN SC SCH ×2 (08:53→13:14)
[2018-07-09 08:58] LABS: Hematocrit (blood only) 33.3 % (37-47); Hemoglobin 10.7 g/dL (12.0-16.0); Mean Corpuscular Hgb Conc 32.1 g/dL (32-36); Mean Corpuscular Volume 89.3 fL (80-100); Mean Platelet Volume 10.5 fL (7.4-10.4); Platelet Count 287 K/uL (130-400); RDW Standard Deviation 48.7 fL (36.4-46.3); Red Blood Count 3.73 M/uL (4.2-5.4)
[2018-07-09 09:27] LABS: BUN Creatinine Ratio 20.1 (10-20); Calcium 9.1 mg/dl (8.5-10.1); Creatinine Clr Calc Pharmacy 28.3 ml/min; Est GFR (Non-African American) 33.7; Potassium 4.1 mmol/L (3.5-5.1)
--- NOTE | 2018-07-09 15:46 | Discharge Summary ---
Date of Service July 09, 2018 Admission HPI Per Admitting Provider 83 y/o F who is being admitted for placement to rehab s/p R fib fx. Pt states she woke up on her floor Friday morning. She does not remember falling. She noted some R ankle pain that day, but it was better so she did not seek care. She has not been able to walk as she usually would and has been "hobbling around " on it. Pt states she woke up this AM and was very weak. She could not get out of bed so she called EMS. EMS found that her BS was 50 on arrival. Pt was brought to the ED. She was dx with a R fib fx and was seen by PT/OT in the ED that does not require OR. She was deemed to need placement for rehab, however despite the fact that pt was in the ED for over 9 hours, no return call was received from her insurance for auth for placement. Pt lives alone and cannot manage on her own with this fx. Pt states she has felt well otherwise. She was taking 30 units HS of basaglar insulin, but recently cut it down to 25 units because she felt like she was getting too much. She has "cut out the junk" including a lot of sugar since . She does not have a glucometer and has not checked her BS at home in 1-2 years. Principal Diagnosis Right Distal Non-Displaced Fibula Fracture Discharge Exam Constitutional WD/WN, vitals as above Eyes + anicteric sclerae ENMT Ears: no hearing impairment Throat: uvula midline Neck trachea midline Respiratory normal respiratory effort, lungs clear to auscultation Cardiovascular Rate/Rhythm: regular rate and regular rhythm Gastrointestinal (Abdomen) Inspection/Auscultation: normal bowel sounds Percussion/Palpation: abdomen soft; abdomen nontender Musculoskeletal Extremities: + joint enlargement (R ankle with edema more prevalent on lateral aspect with mild ecchymosis; no skin tears/opening) Skin no rashes, warm and dry Neurologic moves all extremities Psychiatric A+Ox3, euthymic affect Discharge Data Allergies Allergy/AdvReac Type Severity Reaction Status Date / Time No Known Allergies Allergy Verified 07/07/18 07:50 Consultations 07/07/18 17:04 ED Decision to Admit Stat 07/07/18 20:02 Consult Case Management - Discharge Planning Routine Ordered Studies CT ankle RT wo con FINDINGS: There is mild lateral soft tissue edema. There is an acute nondisplaced distal fibular fracture. There is a 15 mm fracture fragment arising from the lateral aspect the tibial plafond and with 3 mm of maximal distraction. No patellar fractures are visualized. No calcaneal fractures are visualized. There is no significant ankle mortise disruption. IMPRESSION: 1. Nondisplaced distal fibular fracture 2. 15 mm fracture fragment arising from the lateral aspect of the tibial plafond with [address] head/brain wo con FINDINGS: No intra or extra-axial mass lesions are visualized. There is no CT evidence of acute cortical infarction. There is no evidence of midline shift. There is no acute hemorrhage. No calvarial fractures are visualized. There are minimal white matter hypodensities likely on a small vessel basis. There is no evidence of pathologic ventricular dilatation. There is no evidence of acute sinusitis IMPRESSION: No acute intracranial findings Hospital Course (1) Fall: - Possibly caused by hypoglycemia - PT/OT evaluations - planning on SNF at [facility] (2) DM type 2 (diabetes mellitus, type 2): - With hypoglycemia - A1c is 6.6 which is excellent given age - She does report cutting back on sweets and reports normally has a few chocolates with her late night coffee and has stopped this - reports only recalling this event and one other when she felt like her sugars were low and this was due to not eating through the day due to travelling but took her normal anti-diabetics - Given age, falls, and hypoglycemia she may benefit from a reduction of her home medications as a slightly higher reading may be safer than experiencing lows - Recommendation would be for stopping Glipizide 10 mg BID; Could continue Pioglitazone 30 mg daily and reduced Lantus to 20 units HS -- She ultimately should check her glucose at least 1-2 times a day given this low and maybe further adjustments with (3) Ankle fracture: - Non-displaced distal fibula with plans for boot and partial weightbearing with outpatient ortho F/U - was discussed with Dr. Hargrove in the ED (4) Hyperlipidemia: - Atorvastatin 80 mg HS (5) HTN (hypertension): - Indapamide 1.25 mg daily; Lisinopril 5 mg daily; Metoprolol 50 mg BID (6) Rheumatoid arthritis: - Leflunomide 20 mg daily (7) NSTEMI (non-ST elevated myocardial infarction): - Occurred in September 2017 - continue medical management - Brilinta 90 mg BID Total Time Total Time Spent Total Time Spent (In Minutes): Greater than 30 minutes Discharge Plan Discharge Items Patient Disposition: Transfer [facility] Reason For Visit: L FIB FX Discharge Diagnosis: Left Non-Displaced Fibula Fracture Discharge Goals: Decrease discomfort, Improve function and Increase independence Activity: Resume your previous activity Weightbearing: Right partial Non-emergency contact: Primary Care Provider Call non-emergency contact if: you have any medication questions, your symptoms worsen and your pain is not controlled Diet: Carb Consistent or DM2 Addtl Provider Instructions: Fall with Non-Displaced Left Distal Fibula Fracture: - This fall may have been induced by hypoglycemia as her glucose was 50 on arrival of EMS - She actually does not report pain so could use Tylenol as needed if pain does occur. - She is to be partial weightbearing per orthopedics and a walking boot provided DM type 2 (diabetes mellitus, type 2): - With hypoglycemia - A1c is 6.6 which is excellent given age - She does report cutting back on sweets and reports normally has a few chocolates with her late night coffee and has stopped this - reports only recalling a hypoglycemic event one other time and this was due to not eating through the day due to travelling but took her normal anti-diabetics - Given age, falls, and hypoglycemia she may benefit from a reduction of her home medications as a slightly higher reading may be safer than experiencing lows - Recommendation would be for stopping Glipizide 10 mg BID; Will continue Pioglitazone 30 mg daily and could continue insulin glargine but maybe reduce to 20 units SC HS but would recommend monitoring and adjustments as necessary - She reports she does not check her glucose at home - should get a glucometer Ankle fracture: - Non-displaced distal fibula with plans for boot and partial weightbearing with outpatient ortho F/U - was discussed with Dr. Hargrove ([facility]) in the ED and she can follow-up with them in about 7-10 days Hyperlipidemia: - Atorvastatin 80 mg HS Present on Admission?: Yes HTN (hypertension): - Indapamide 1.25 mg daily; Lisinopril 5 mg daily; Metoprolol 50 mg BID Rheumatoid arthritis: - Leflunomide 20 mg daily NSTEMI (non-ST elevated myocardial infarction): - Occurred in September 2017 - continue medical management - Brilinta 90 mg BID Prescriptions: Continue atorvastatin 80 mg tablet 80 mg PO HS RF: 0 acetaminophen [Tylenol] 325 mg Tablet 325 mg PO Q6H PRN (Reason: Pain) RF: 0 leflunomide 20 mg tablet 20 mg PO QAM RF: 0 pantoprazole 40 mg tablet,delayed release (DR/EC) 40 mg PO QAM RF: 0 metoprolol tartrate 50 mg tablet 50 mg PO Q12 RF: 0 indapamide 1.25 mg tablet 1.25 mg PO QAM RF: 0 lisinopril 5 mg tablet 5 mg PO QAM RF: 0 pioglitazone 30 mg tablet 30 mg PO QAM RF: 0 ticagrelor 90 mg tablet 90 mg PO BID RF: 0 diclofenac sodium [Voltaren] 1 % Gel 2 g TOPICAL QID PRN (Reason: Pain) RF: 0 Changed insulin glargine [Basaglar KwikPen U-100 Insulin] 100 unit/mL (3 mL) insulin pen 20 unit subcut HS Qty: 0 RF: 0 Discontinued glipizide 5 mg tablet extended release 24hr 10 mg PO BID RF: 0 Stand-Alone Forms: [facility] Discharge Orders: Discharge Order (Routine); Ordered 07/09/18 Ordered By: Melissa Ko Skilled Items Patient informed of condition?: Yes DNR: No Discharge Level of Care: Skilled Communicable Disease: No Discharge Prognosis: Stable Admission Data Admit Date/Time: 07/07/18 17:34 Attending Provider: Eddie Damon Admit Provider: Theresa Tripp Primary Care Provider: Brady Arguello Other Providers: Theresa Tripp Service: Surgical Services Other Interventions: Discharge Summary Assessment (RN) Last Done: 07/09/18 14:07 Pending Studies at Discharge: No DC Date/Time DO NOT enter until pt leaves facility: 07/09/18 14:35
== END 2018-07-09 14:35 ==
LOC: 3N 07:29 → ED 07:29 → SUATTDRO 17:34 → 3N 19:52

== ENCOUNTER 2018-11-04 22:03 | Observation (INO) ==
[2018-11-04 22:34] LABS: Basophils # (auto) 0.03 K/uL (0-0.2); Basophils % (auto) 0.4 %; Eosinophils # (auto) 0.27 K/uL (0-0.5); Eosinophils % (auto) 3.9 %; Hematocrit (blood only) 34.5 % (37-47); Hemoglobin 11.7 g/dL (12.0-16.0); Immature Granulocytes # (auto) 0.03 K/uL (0.00-0.02); Immature Granulocytes % (auto) 0.4 %; Lymphocytes # (auto) 1.78 K/uL (1.2-3.4); Lymphocytes % (auto) 25.9 %; Mean Corpuscular Hgb Conc 33.9 g/dL (32-36); Mean Corpuscular Volume 86.9 fL (80-100); Monocytes # (auto) 0.57 K/uL (0.11-0.59); Monocytes % (auto) 8.3 %; Neutrophils % (auto) 61.1 %; Platelet Count 308 K/uL (130-400); RDW Coefficient of Variation 14.8 % (11.5-14.5); RDW Standard Deviation 47.2 fL (36.4-46.3); Red Blood Count 3.97 M/uL (4.2-5.4); White Blood Count 6.88 K/uL (4.8-10.8)
[2018-11-04 22:44] LABS: Base Excess VBG -1.7 mEq/L; HCO3 VBG 21 mmol/L; PCO2 VBG 31 mmHg (38-50); PO2 VBG 50 mmHg; pH VBG 7.46 (7.36-7.41)
[2018-11-04 22:48] LABS: INR 0.9 (0.9-1.1); Partial Thromboplastin Ratio 0.8; Partial Thromboplastin Time 20.8 Seconds (21.0-31.0); Prothrombin Time 9.6 Seconds (9.0-12.0)
[2018-11-04 22:50] LABS: Alanine Aminotransferase 32 U/L (12-78); Albumin Level 3.6 gm/dl (3.4-5.0); Aspartate Aminotransferase 21 U/L (15-37); BUN Creatinine Ratio 19.6 (10-20); Blood Urea Nitrogen 27 mg/dl (7-18); Calcium 9.3 mg/dl (8.5-10.1); Carbon Dioxide 23 mmol/L (21-32); Chloride 105 mmol/L (98-107); Creatinine Clr Calc Pharmacy 28.8 ml/min; Est GFR (African American) 41.5; Est GFR (Non-African American) 35.8; Glucose 163 mg/dl (70-99); Potassium 3.9 mmol/L (3.5-5.1); Sodium 136 mmol/L (136-145)
--- NOTE | 2018-11-04 22:50 | XRay Report ---
XR chest 1V portable CLINICAL HISTORY: 83 years-old Female presenting with Chest Pain. TECHNIQUE: Portable upright AP view of the chest was obtained. COMPARISON: 07/07/2018. FINDINGS: Atherosclerosis of the aortic arch. Cardiac silhouette normal in size. Persistent minimal linear opac ities at the left lung base. No new focal opacity. No large effusion or pneumothorax. Degenerative ch anges of the thoracic spine. Upper abdomen normal. IMPRESSION: 1. Persistent left basilar scarring. No convincing evidence of acute cardiopulmonary disease. Electronically signed by: Timbo Pinto M.D. 11/04/2018 10:49 PM
[2018-11-04 22:56] LABS: Alkaline Phosphatase 76 U/L (45-117); Bilirubin,Total 0.2 mg/dl (0.2-1); Globulin 3.6 gm/dl (2.5-4.0); NT Pro B Type Natriuretic Pept 578 pg/ml (0-1800); Total Protein 7.2 gm/dl (6.4-8.2); Troponin I < 0.015 ng/ml (0-0.045)
[2018-11-04] MEDS ORDERED: OPTIRAY 320 125ml IV PRN (23:28)
[2018-11-05] MEDS ORDERED: ASPIRIN CHEW 324 MG PO STA (00:01)
--- NOTE | 2018-11-05 00:55 | Emergency Department Note ---
Entered by Carly Cardozo acting as a scribe for History of Present Illness General Chief complaint: Shortness of Breath/Dyspnea Stated complaint: SHORTNESS OF BREATH Time Seen by Provider: 11/04/18 22:20 Source: patient Limitations: no limitations History of Present Illness Onset (ago): hour(s) 2 Location: chest Severity: similar to prior episodes Pain Consistency: + constant Quality: + other (SOB) Associated symptoms: + other (abd pain and lower extremity swelling/pain); no chest pain, no cough, no fever/chills and no nausea/vomiting The patient is an 83 white female w/ PMHx NSTEMI, hyperlipidemia, HTN, GERD, and DM who presents to the ED w/ CC of constant SOB beginning 2 hours ago. She reports that these symptoms feel similar to those she experienced during her NSTEMI. The patient denies any CP, nausea/vomiting, cough, fever/chills, abd pain, and lower extremity swelling/pain. She notes that nothing modifies her symptoms. The patient reports that she has been eating and drinking normally. She notes that she has been taking all medications as prescribed. The patient denies any recent travel. She denies any tobacco use. Home Medications Home Medications Medication Instructions Recorded Confirmed Type acetaminophen [Tylenol] 325 mg PO Q6H PRN 07/07/18 11/04/18 History atorvastatin 80 mg PO HS 07/07/18 11/04/18 History indapamide 1.25 mg PO QAM 07/07/18 11/04/18 History leflunomide 20 mg PO QAM 07/07/18 11/04/18 History lisinopril 5 mg PO QAM 07/07/18 11/04/18 History metoprolol tartrate 50 mg PO Q12H 07/07/18 11/04/18 History pantoprazole 40 mg PO QAM 07/07/18 11/04/18 History pioglitazone 30 mg PO QAM 07/07/18 11/04/18 History ticagrelor 90 mg PO BID 07/07/18 11/04/18 History aspirin 81 mg PO QAM 11/04/18 11/04/18 History diphenhydramine-acetaminophen 1 tab PO HS PRN 11/04/18 11/04/18 History [Tylenol PM Extra Strength] insulin glargine [Basaglar KwikPen 22 unit SUBCUT HS 11/04/18 11/04/18 History U-100 Insulin] Allergies Allergy/AdvReac Type Severity Reaction Status Date / Time No Known Allergies Allergy Verified 11/04/18 22:48 Past Med/Surg History Medical History NSTEMI (non-ST elevated myocardial infarction) (Resolved) Diabetes (Chronic) Social History Preferred Language: Thai Communication Ability: Effective Hearing Ability: Normal Unit Technician Required: No Beliefs That Will Affect Care: None marital status: / Current Living Situation: Alone Current Living Situation Comment: Son visiting for one month current occupation: retired Other Information That Helps Us Care for You: No Feels Safe at Home: Yes Safety Concerns: Feels Safe At This Time Smoking Status: Never smoker Do You Dip or Chew Tobacco: No Second Hand Exposure: No Hx Alcohol Use: No Hx Substance Use: No Review of Systems See HPI for pertinent positives & negatives. and A total of 10 systems reviewed and were otherwise negative Physical Exam Vital Signs Vital Signs - 24 hr 11/04/18 22:06 11/04/18 22:29 11/04/18 22:38 Temperature 36.8 C Temperature Source Oral Sepsis Recent Fever Within 48 Hours No Sepsis New/Unexplained Change in Mental Status No Sepsis Action Taken by Nursing No Action Required Pulse Rate 78 Pulse Rate [Apical] 64 Pulse Rhythm [Apical] Pulse Strength [Apical] Respiratory Rate 20 21 Respiratory Effort / Characteristics Non-Labored Spontaneous Non-Labored Spontaneous Respiratory Depth Normal Normal Respiratory Pattern Regular Regular Blood Pressure 173/76 H Blood Pressure [Left Arm] 136/73 Blood Pressure Mean 108 Blood Pressure Mean [Left Arm] 94 Blood Pressure Position [Left Arm] Lying Pulse Oximetry 92 94 96 Oxygen Delivery Method Room Air Room Air Nasal Cannula Oxygen Flow Rate 2 11/04/18 23:44 Temperature Temperature Source Sepsis Recent Fever Within 48 Hours Sepsis New/Unexplained Change in Mental Status Sepsis Action Taken by Nursing Pulse Rate Pulse Rate [Apical] 69 Pulse Rhythm [Apical] Regular Pulse Strength [Apical] Normal Respiratory Rate 16 Respiratory Effort / Characteristics Non-Labored Respiratory Depth Normal Respiratory Pattern Blood Pressure Blood Pressure [Left Arm] 155/84 H Blood Pressure Mean Blood Pressure Mean [Left Arm] 107 Blood Pressure Position [Left Arm] Lying Pulse Oximetry 94 Oxygen Delivery Method Room Air Oxygen Flow Rate GENERAL: Mildly dyspneic, well nourished, NAD, non-toxic. EYE EXAM: Normal conjunctiva. PERRL, no anisocoria and EOM's grossly intact w/o pain. OROPHARYNX: Moist mucus membranes. Grossly normal dentition. NECK: Supple, no nuchal rigidity, no adenopathy, non-tender. No signs of meningismus. LUNGS: Normal chest wall mechanics. Bibasilar crackles. Mildly dyspneic HEART: NSR, no MRG. ABDOMEN: Abdomen soft, non-tender, normo-active bowel sounds, no masses, no rebound or guarding. BACK: No CVA TTP. SKIN: No rashes and no bruising. UPPER EXTREMITIES: Upper extremities are grossly normal. LOWER EXTREMITIES: No pitting edema. No calf pain. Negative Gal's sign. NEURO EXAM: A&O x3, cranial nerves II-XII grossly intact, normal speech, moves all 4 extremities on command w/o issue. Course 2226: The patient was evaluated in room C10. A complete history and physical exam was performed. 0005: I spoke with Dr. Moore, [facility] hospitalist, about the patient's case. He will further evaluate the patient. 0012: I reassessed the patient. She stated that her SOB improved. Consultations Consultation #1: I spoke with Dr. Moore, [facility] hospitalist, about the patient's case. He will further evaluate the patient. Time: 00:05 Administered Medications Amoxicillin/Clavulanate Potassium (Augmentin 875mg) 1 tab PO BIDM [facility], [facility]; Protocol Stop: 11/12/18 16:59 Last Admin: 11/05/18 17:26 Dose: 1 tab Documented by: [id number] Aspirin (Ecotrin Ectab) 81 mg PO [facility] Stop: 12/05/18 08:59 Last Admin: 11/05/18 08:01 Dose: 81 mg Documented by: [id number] Indapamide (Lozol) 1.25 mg PO QAM [facility] Stop: 12/05/18 08:59 Last Admin: 11/05/18 08:02 Dose: 1.25 mg Documented by: [id number] Insulin Aspart (Novolog Flexpen) 0 units [facility] Stop: 12/05/18 16:29 Last Admin: 11/05/18 18:24 Dose: Not Given Documented by: [id number] Cosigned by: [id number] Leflunomide (Arava) 20 mg PO QAM [facility] Stop: 12/05/18 08:59 Last Admin: 11/05/18 08:01 Dose: 20 mg Documented by: [id number] Lisinopril (Zestril) 5 mg PO QAM [facility] Stop: 12/05/18 08:59 Last Admin: 11/05/18 08:01 Dose: 5 mg Documented by: [id number] Metoprolol Tartrate (Lopressor) 50 mg PO Q12 [facility] Stop: 12/05/18 08:59 Last Admin: 11/05/18 08:01 Dose: 50 mg Documented by: [id number] Pantoprazole Sodium (Protonix) 40 mg PO QAM [facility] Stop: 12/05/18 08:59 Last Admin: 11/05/18 08:02 Dose: 40 mg Documented by: [id number] Ticagrelor (Brilinta) 90 mg PO BID [facility] Stop: 12/05/18 08:59 Last Admin: 11/05/18 08:02 Dose: 90 mg Documented by: [id number] Discontinued Medications Aspirin (Aspirin) 324 mg PO NOW STA Stop: 11/05/18 00:02 Last Admin: 11/05/18 00:19 Dose: 324 mg Documented by: [id number] Dextrose (Dextrose 50%) 25 ml IV NOW STA Stop: 11/05/18 06:32 Last Admin: 11/05/18 06:40 Dose: Not Given Documented by: [id number] Dextrose (Dextrose 50%) Confirm Administered Dose 50 ml IV .STK-MED ONE Stop: 11/05/18 06:34 Last Admin: 11/05/18 06:35 Dose: 25 ml Documented by: [id number] Lactated Ringer's (Lr) 1,000 mls @ 80 mls/hr IV .[id number] DANISH Stop: 12/05/18 02:15 Last Infusion: 11/05/18 12:31 Dose: 0 mls/hr Documented by: [id number] Admin: 11/05/18 03:59 Dose: 80 mls/hr Documented by: [id number] Piperacillin Sod/Tazobactam (Sod 3.375 gm/ Dextrose) 115 mls @ 28.75 mls/hr IV Q8H [facility]; Protocol Stop: 11/12/18 15:14 Last Admin: 11/05/18 17:17 Dose: Not Given Documented by: [id number] Ioversol (Optiray 320 125ml) 125 ml IV ONCE PRN PRN Reason: Interaction Checking Stop: 11/08/18 23:27 Last Admin: 11/04/18 23:28 Dose: 119 ml Documented by: [id number] Medical Decision Making Differential Diagnosis Etiologies such as infections, reactive airway disease, COPD, pneumonia, pleural effusion, pulmonary edema, ARDS, pneumothorax, CHF, cardiac ischemia, cardiac tamponade, dysrhythmia, anemia, pulmonary embolism, musculoskeletal, gastrointestinal process, as well as others were entertained. Medical Records Attestation: I reviewed the patient's medical records. Home Medications Current Medication List: was personally reviewed by me Laboratory Data Attestation: I reviewed the patient's lab results. Result diagrams: 11/05/18 05:17 11/05/18 05:17 Lab Results 11/04/18 11/04/18 11/04/18 Range/Units 22:25 22:25 22:25 WBC 6.88 (4.8-10.8) K/uL RBC 3.97 L (4.2-5.4) M/uL Hgb 11.7 L (12.0-16.0) g/dL Hct 34.5 L (37-47) % MCV 86.9 (80-100) fL MCH 29.5 (25-34) pg MCHC 33.9 (32-36) g/dL RDW Std Deviation 47.2 H (36.4-46.3) fL RDW Coeff of Lizzette 14.8 H (11.5-14.5) % Plt Count 308 (130-400) K/uL MPV 10.0 (7.4-10.4) fL Immature Gran % (Auto) 0.4 % Neut % (Auto) 61.1 % Lymph % (Auto) 25.9 % [place] % (Auto) 8.3 % Eos % (Auto) 3.9 % Baso % (Auto) 0.4 % Immature Gran # (Auto) 0.03 H (0.00-0.02) K/uL Neut # (Auto) 4.20 (1.4-6.5) K/uL Lymph # (Auto) 1.78 (1.2-3.4) K/uL [place] # (Auto) 0.57 (0.11-0.59) K/uL Eos # (Auto) 0.27 (0-0.5) K/uL Baso # (Auto) 0.03 (0-0.2) K/uL PT 9.6 (9.0-12.0) Seconds INR 0.9 (0.9-1.1) APTT 20.8 L (21.0-31.0) Seconds PTT Ratio 0.8 POC D-Dimer (0-450) ng/mlFEU VBG pH (7.36-7.41) VBG pCO2 (38-50) mmHg VBG pO2 mmHg VBG HCO3 mmol/L VBG O2 Saturation % VBG Base Excess mEq/L Sodium 136 (136-145) mmol/L Potassium 3.9 (3.5-5.1) mmol/L Chloride 105 (98-107) mmol/L Carbon Dioxide 23 (21-32) mmol/L Anion Gap 8.0 (3-11) BUN 27 H (7-18) mg/dl Creatinine 1.38 H (0.6-1.2) mg/dl Est Cr Clr Drug Dosing 28.8 ml/min Est GFR ( Amer) 41.5 Est GFR (Non-Af Amer) 35.8 BUN/Creatinine Ratio 19.6 (10-20) Glucose 163 H (70-99) mg/dl Calcium 9.3 (8.5-10.1) mg/dl Total Bilirubin 0.2 (0.2-1) mg/dl AST 21 (15-37) U/L ALT 32 (12-78) U/L Alkaline Phosphatase 76 (45-117) U/L Troponin I < 0.015 (0-0.045) ng/ml NT-Pro-B Natriuret Pep 578 (0-1800) pg/ml Total Protein 7.2 (6.4-8.2) gm/dl Albumin 3.6 (3.4-5.0) gm/dl Globulin 3.6 (2.5-4.0) gm/dl Albumin/Globulin Ratio 1.0 (0.9-2) Lipase 247 (73-393) U/L 11/04/18 11/04/18 Range/Units 22:33 22:36 WBC (4.8-10.8) K/uL RBC (4.2-5.4) M/uL Hgb (12.0-16.0) g/dL Hct (37-47) % MCV (80-100) fL MCH (25-34) pg MCHC (32-36) g/dL RDW Std Deviation (36.4-46.3) fL RDW Coeff of Lizzette (11.5-14.5) % Plt Count (130-400) K/uL MPV (7.4-10.4) fL Immature Gran % (Auto) % Neut % (Auto) % Lymph % (Auto) % [place] % (Auto) % Eos % (Auto) % Baso % (Auto) % Immature Gran # (Auto) (0.00-0.02) K/uL Neut # (Auto) (1.4-6.5) K/uL Lymph # (Auto) (1.2-3.4) K/uL [place] # (Auto) (0.11-0.59) K/uL Eos # (Auto) (0-0.5) K/uL Baso # (Auto) (0-0.2) K/uL PT (9.0-12.0) Seconds INR (0.9-1.1) APTT (21.0-31.0) Seconds PTT Ratio POC D-Dimer > 450 H* (0-450) ng/mlFEU VBG pH 7.46 H (7.36-7.41) VBG pCO2 31 L (38-50) mmHg VBG pO2 50 mmHg VBG HCO3 21 mmol/L VBG O2 Saturation 85.0 % VBG Base Excess -1.7 mEq/L Sodium (136-145) mmol/L Potassium (3.5-5.1) mmol/L Chloride (98-107) mmol/L Carbon Dioxide (21-32) mmol/L Anion Gap (3-11) BUN (7-18) mg/dl Creatinine (0.6-1.2) mg/dl Est Cr Clr Drug Dosing ml/min Est GFR ( Amer) Est GFR (Non-Af Amer) BUN/Creatinine Ratio (10-20) Glucose (70-99) mg/dl Calcium (8.5-10.1) mg/dl Total Bilirubin (0.2-1) mg/dl AST (15-37) U/L ALT (12-78) U/L Alkaline Phosphatase (45-117) U/L Troponin I (0-0.045) ng/ml NT-Pro-B Natriuret Pep (0-1800) pg/ml Total Protein (6.4-8.2) gm/dl Albumin (3.4-5.0) gm/dl Globulin (2.5-4.0) gm/dl Albumin/Globulin Ratio (0.9-2) Lipase (73-393) U/L Imaging Data Radiologist's Impression: Radiology results as stated below per my review and the radiologist's interpretation: CTA CHEST: No evidence of pulmonary emboli. Moderate aortic atherosclerosis. No aortic aneurysm. Evaluation for dissection is limited due to technique and lack of adequate opacification of the aorta. Scattered coronary artery calcifications. No pleural effusion or pneumothorax. Patchy groundglass within top septal thickening in the right upper lobe and right lower lobe. Findings could represent pneumonia or unilateral edema. Linear reticular opacity in the bilateral lower lobes probably represent scarring or atelectasis. 2.1 cm cyst in the right hepatic lob is stable and likely benign. Radiologist: Nicholas Rolon MD Study ready at 23:33 and initial results transmitted at 23:43. XR chest 1V portable CLINICAL HISTORY: 83 years-old Female presenting with Chest Pain. TECHNIQUE: Portable upright AP view of the chest was obtained. COMPARISON: 07/07/2018. FINDINGS: Atherosclerosis of the aortic arch. Cardiac silhouette normal in size. Persistent minimal linear opacities at the left lung base. No new focal opacity. No large effusion or pneumothorax. Degenerative changes of the thoracic spine. Upper abdomen normal. IMPRESSION: 1. Persistent left basilar scarring. No convincing evidence of acute cardiopulmonary disease. Electronically signed by: Timbo Pinto M.D. 11/04/2018 10:49 PM ECG Data Attestation: I personally reviewed and interpreted this ECG as follows: Indication: SOB/dyspnea Rate (beats per minute): 70 Rhythm: normal sinus Findings: + other (normal interval, normal axis, T wave flattening in lead 3, ) and + Q waves (Q wave in lead 3) Comparison ECG Date: from (07/07/18) Change: no significant change (Q wave is no new+) Blood Pressure Blood Pressure Findings: Elevated blood pressure Blood Pressure Disposition: elevated BP felt to be situational MDM Narrative The patient is an 83 white female w/ PMHx NSTEMI, hyperlipidemia, HTN, GERD, and DM who presents to the ED w/ CC of constant SOB beginning 2 hours ago. Patient was seen and evaluated the bedside. The patient was complaining some acute onset of shortness of breath. The patient does have a known history of an STEMI status post MICHAEL stents x2 to the RCA with Dr. Carreno in 2018. The patient does take a baby aspirin. The patient has complained of some mild exertional dyspnea. The patient does not complain of orthopnea. Patient does have some bibasilar Crackles and does have some dyspnea on exam. There is very scant lower extremity edema no calf pain. The patient does not have a prior history of DVT or PE per patient. Patient did have blood work completed along with an EKG and troponin along with blood gas and d-dimer. Patient's d-dimer was elevated CT Ave of the chest was ordered. The patient's blood work shows a normal white count with a virtually normal hemoglobin. The patient's blood gas shows some hypoventilatory status given the patient's lower PCO2 and mildly elevated pH. The patient does not complain of anxiety. The patient's creatinine is a touch elevated compared to last time but she has run higher before. Patient's troponin is not detectable and BNP is not elevated and the EKG does not show any acute ischemic change. Patient's CT angiogram shows questionable opacities. The patient has not complained of cough and the patient does not have an elevated white count. We will not treat with antibiotics at this time. The patient does not have evidence of PE or aneurysm. They are unable to rule out dissection at this time but no obvious abnormality. Patient does have a heart score 5. Given this concern I did speak with the hospitalist about possible observation versus a consultation and close outpatient follow-up. Impression & Plan SOB (shortness of breath) Discharge Plan Visit Data *Final* Discharge Date/Time: 11/05/18 01:35 Chief Complaint: Shortness of Breath/Dyspnea Stated Complaint: SHORTNESS OF BREATH ED Provider: Jayesh Jensen Discharge Problem: SOB (shortness of breath) Patient Disposition: Admitted As Inpatient Discharge Instructions Interventions: ED Discharge Assessment Last Done: 11/05/18 01:35 The scribe's documentation has been prepared under my direction and personally reviewed by me in its entirety. I confirm that the note above accurately reflects all work, treatment, procedures, and medical decision making performed by me.
--- NOTE | 2018-11-05 01:19 | History & Physical Report ---
Date of Service November 05, 2018 Assessment & Plan (1) SOB (shortness of breath): 83-year-old female with history of NSTEMI in September 2017 with 2 RCA stent placement, DM 2, hypertension, hyperlipidemia, rheumatoid arthritis, systematic dysphonia presents with shortness of breath starting 8 PM tonight. She felt that she needed to take deep breaths in order to oxygenate. Was concerned about having another heart attack and she had similar symptoms in September 2017 at which point she had an NSTEMI. Shortness of breath: Concern for pulmonary edema possibly secondary to CHF post AK (NSTEMI in 09/2017 with 2 RCA stents) vs. possible PNA Right-sided crackles appreciated on exam; Satting 94% on room air Chest x-ray: Persistent left basilar scarring. No convincing evidence of acute cardiopulmonary disease D-dimer greater than 405 CTA chest: No PE, concern for pneumonia or unilateral edema given patchy ground glass in right upper lobe and right lower lobe, bibasilar atelectasis, moderate aortic atherosclerosis White blood cell count normal VBG: pH 7.46 and CO2 31 otherwise normallikely consistent with hyperventilation Troponin negative x1 Echo 09/28/2017: Borderline concentric left ventricular hypertrophy, EF 55 to 60%, grade 1 diastolic dysfunction, left atrium moderately dilated, right atrium mildly dilated, mild mitral valve regurg and moderate annular calcification Cath September 2017: 2 RCA mid to distal stents placed, minimal nonobstructing LAD/circumflex disease with [id number] collateral Trend troponin Echo ordered to rule out congestive heart failure post AK Mild WILLY on 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 3B BUN/creatinine 27/1.38 -baseline creatinine 1.1 Patient unaware of having chronic kidney disease but per chart review GFR has ranged between 30s to 40 in the past Gentle hydration LR 80 cc/h Monitor BMP Likely needs outpatient follow-up Hypertension/hyperlipidemia/coronary artery disease with STEMI in September 2017 status post 2 RCA stents Continue home indapamide, lisinopril and metoprolol Continue home atorvastatin Continue home aspirin and ticagrelor DM2: Hold home glargine and pioglitazone On SSI Rheumatoid arthritis Continue home leflunomide GERD Continue home Protonix DVT prophylaxis: SCDs, encourage ambulation Code: Full per discussion with patient and her son Disposition: MedSurg with telemetry (2) Rheumatoid arthritis: (3) DM type 2 (diabetes mellitus, type 2): (4) HTN (hypertension): (5) GERD (gastroesophageal reflux disease): (6) Hyperlipidemia: (7) NSTEMI (non-ST elevated myocardial infarction): History of Present Illness Chief Complaint: Dyspnea Primary Care Provider: Brady Arguello MD 83-year-old female with history of NSTEMI in September 2017 with 2 RCA stent placement, DM 2, hypertension, hyperlipidemia, rheumatoid arthritis, systematic dysphonia presents with shortness of breath starting 8 PM tonight. She felt that she needed to take very deep breaths in order to oxygenate. Patient reports difficulty breathing was similar to episode she had last year in September at which point she was found to have a heart attack. Thus she was concerned and came to the emergency room. She denies any chest pain, jaw pain, neck pain, back pain, arm pain, headache, lightheadedness, fever, chills, cough, nausea, vomiting, abdominal pain, diarrhea, constipation, dysuria. Difficulty breathing has somewhat improved now. She received aspirin 324 mg in the ED Past medical history: NSTEMI in September 2017 with 2 RCA stent placement, DM 2, hypertension, hyperlipidemia, rheumatoid arthritis, systematic dysphonia Past surgical history: Percutaneous coronary intervention with 2 drug-eluting stents in September 2017, abdominal hernia repair, cholecystectomy Social history: Lives alone but son is visiting and staying with her over the summer, denies ever smoking, denies alcohol use or recreational drug use Allergies Allergy/AdvReac Type Severity Reaction Status Date / Time No Known Allergies Allergy Verified 11/04/18 22:48 Home Medications Home Medications Medication Instructions Recorded Confirmed Type acetaminophen [Tylenol] 325 mg PO Q6H PRN 07/07/18 11/04/18 History atorvastatin 80 mg PO HS 07/07/18 11/04/18 History indapamide 1.25 mg PO QAM 07/07/18 11/04/18 History leflunomide 20 mg PO QAM 07/07/18 11/04/18 History lisinopril 5 mg PO QAM 07/07/18 11/04/18 History metoprolol tartrate 50 mg PO Q12H 07/07/18 11/04/18 History pantoprazole 40 mg PO QAM 07/07/18 11/04/18 History pioglitazone 30 mg PO QAM 07/07/18 11/04/18 History ticagrelor 90 mg PO BID 07/07/18 11/04/18 History aspirin 81 mg PO QAM 11/04/18 11/04/18 History diphenhydramine-acetaminophen 1 tab PO HS PRN 11/04/18 11/04/18 History [Tylenol PM Extra Strength] insulin glargine [Basaglar KwikPen 22 unit SUBCUT HS 11/04/18 11/04/18 History U-100 Insulin] Past Med/Surg History Medical History NSTEMI (non-ST elevated myocardial infarction) (Resolved) Diabetes (Chronic) Social History Preferred Language: [place] Communication Ability: Effective Hearing Ability: Normal Drop Shipment Clerk Required: No Beliefs That Will Affect Care: None marital status: / Current Living Situation: Alone Current Living Situation Comment: Son visiting for one month current occupation: retired Other Information That Helps Us Care for You: No Feels Safe at Home: Yes Safety Concerns: Feels Safe At This Time Smoking Status: Never smoker Do You Dip or Chew Tobacco: No Second Hand Exposure: No Hx Alcohol Use: No Hx Substance Use: No Review of Systems Review of Systems: As per HPI Physical Exam Physical Exam: General: In NAD Neuro: A & O x 4 HEENT: moist mucous membranes Pulm: RML and RLL mild crackles appreciated, equal breath sounds bilaterally CV: RRR, no m/r/g, cap refill < 3 sec Abdomen: +BS, NTTP in all quadrants, non-distended Lower extremities: no LE edema or calf TTP Results & Data Vital Signs (Past 12 Hours) Vital Signs Temp Pulse Pulse Resp BP BP Pulse Ox 11/04/18 23:44 69 16 155/84 H 94 11/04/18 22:38 64 21 136/73 96 11/04/18 22:29 94 11/04/18 22:06 36.8 C 78 20 173/76 H 92 Laboratory Results Abnormal lab results 11/04/18 11/04/18 11/04/18 Range/Units 22:25 22:25 22:25 RBC 3.97 L (4.2-5.4) M/uL Hgb 11.7 L (12.0-16.0) g/dL Hct 34.5 L (37-47) % RDW Std Deviation 47.2 H (36.4-46.3) fL RDW Coeff of Lizzette 14.8 H (11.5-14.5) % Immature Gran # (Auto) 0.03 H (0.00-0.02) K/uL APTT 20.8 L (21.0-31.0) Seconds POC D-Dimer (0-450) ng/mlFEU VBG pH (7.36-7.41) VBG pCO2 (38-50) mmHg BUN 27 H (7-18) mg/dl Creatinine 1.38 H (0.6-1.2) mg/dl Glucose 163 H (70-99) mg/dl 11/04/18 11/04/18 Range/Units 22:33 22:36 RBC (4.2-5.4) M/uL Hgb (12.0-16.0) g/dL Hct (37-47) % RDW Std Deviation (36.4-46.3) fL RDW Coeff of Lizzette (11.5-14.5) % Immature Gran # (Auto) (0.00-0.02) K/uL APTT (21.0-31.0) Seconds POC D-Dimer > 450 H* (0-450) ng/mlFEU VBG pH 7.46 H (7.36-7.41) VBG pCO2 31 L (38-50) mmHg BUN (7-18) mg/dl Creatinine (0.6-1.2) mg/dl Glucose (70-99) mg/dl Diagnostic Findings XR chest 1V portable CLINICAL HISTORY: 83 years-old Female presenting with Chest Pain. TECHNIQUE: Portable upright AP view of the chest was obtained. COMPARISON: 07/07/2018. FINDINGS: Atherosclerosis of the aortic arch. Cardiac silhouette normal in size. Persistent minimal linear opacities at the left lung base. No new focal opacity. No large effusion or pneumothorax. Degenerative changes of the thoracic spine. Upper abdomen normal. IMPRESSION: 1. Persistent left basilar scarring. No convincing evidence of acute cardiopulmonary disease. Medications Administered Current Inpatient Medications Ioversol (Optiray 320 125ml) 125 ml IV ONCE PRN PRN Reason: Interaction Checking Stop: 11/08/18 23:27 Last Admin: 11/04/18 23:28 Dose: 119 ml Documented by: Code Status & VTE Plan Code Status Full Supervising Physician Co-Signing Physician Notes 83 y/o F Hx CAD/NSTEMI 09/2017 - RCA stent x 2, DM II, HTN, HLD, RA, laryngeal dystonia presents with SOB. She had a similar presentation when she had an AK in 2018 and was concerned that she was having another AK. A CTA was obtained in the ER to r/o PE. No PE was present. There is some concern for edema developing on the R. An EKG and labs did not otherwise support a diagnosis of ACS. OE: AAO x 3 S1,2 R CTAB NT, ND No CCE No deficits P: Pt is admitted for telemetry monitoring and serial cardiac enzymes. ASA, statin, B kim, Brilinta continued There is also some concern for developing CHF so that an echo is ordered Placed on a SS for DM Cont Lisinopril and consider diuretics if dyspnea worsens PG Care Time/CCT Total # of Minutes Spent Total Time Spent with Patient: Total time spent is greater than 50% in coordination of care (as documented) at patient's floor/unit and/or counseling patient: Resident Activity Tracking Resident Involvement: Resident Care Provided Care Provided: Adult Hospital Medicine
[2018-11-05] MEDS ORDERED: LACTATED RINGER'S 1,000 ML IV SCH (02:16)
[2018-11-05] MEDS ORDERED: ACETAMINOPHEN 325 MG TAB PO PRN (02:16)
[2018-11-05] MEDS ORDERED: NITROGLYCERIN SL 0.4 MG/TAB TAB SL PRN (02:16)
[2018-11-05 05:46] LABS: Basophils # (auto) 0.02 K/uL (0-0.2); Basophils % (auto) 0.2 %; Eosinophils # (auto) 0.27 K/uL (0-0.5); Eosinophils % (auto) 2.8 %; Hematocrit (blood only) 34.7 % (37-47); Hemoglobin 11.2 g/dL (12.0-16.0); Immature Granulocytes # (auto) 0.03 K/uL (0.00-0.02); Immature Granulocytes % (auto) 0.3 %; Lymphocytes # (auto) 2.23 K/uL (1.2-3.4); Lymphocytes % (auto) 23.3 %; Mean Corpuscular Hgb Conc 32.3 g/dL (32-36); Mean Platelet Volume 10.6 fL (7.4-10.4); Monocytes # (auto) 0.69 K/uL (0.11-0.59); Monocytes % (auto) 7.2 %; Neutrophils # (auto) 6.32 K/uL (1.4-6.5); Neutrophils % (auto) 66.2 %; Platelet Count 300 K/uL (130-400); RDW Standard Deviation 47.4 fL (36.4-46.3); Red Blood Count 3.99 M/uL (4.2-5.4); White Blood Count 9.56 K/uL (4.8-10.8)
[2018-11-05 06:19] LABS: BUN Creatinine Ratio 19.1 (10-20); Blood Urea Nitrogen 23 mg/dl (7-18); Calcium 8.9 mg/dl (8.5-10.1); Carbon Dioxide 26 mmol/L (21-32); Chloride 109 mmol/L (98-107); Creatinine Clr Calc Pharmacy 32.3 ml/min; Est GFR (African American) 48.6; Est GFR (Non-African American) 41.9; Glucose 59 mg/dl (70-99); Potassium 3.8 mmol/L (3.5-5.1); Sodium 139 mmol/L (136-145)
[2018-11-05 06:24] LABS: Troponin I < 0.015 ng/ml (0-0.045)
[2018-11-05] MEDS ORDERED: DEXTROSE 50% 50 ML SYRINGE IV STA (06:31)
[2018-11-05] MEDS ORDERED: DEXTROSE 50% 50 ML SYRINGE IV ONE (06:33)
--- NOTE | 2018-11-05 06:39 | CT Scan Report ---
CT angio chest PE protocol CT DOSE: 399.93 mGy.cm HISTORY: 83 years-old Female with PE. Acute shortness of breath TECHNIQUE: Multiple CTA images of the chest were obtained after the intravenous administration of 119 ml Optiray 320. Coronal and sagittal MIPS were obtained from the axial data set and were submitted for review. All measurements were obtained according to NASCET criteria. A dose lowering technique w as utilized adhering to the principles of ALARA. COMPARISON: Chest radiograph of same day, chest CT 10/15/2013. FINDINGS: CTA: Heart is upper limits of normal in size. No pericardial effusion. Mitral and aortic annular calcifica tions are noted with extensive coronary arterial calcifications. No thoracic aortic aneurysm or disse ction. Moderate calcified plaque of the thoracic aorta and proximal great vessels. Reflux of contrast into the IVC and hepatic veins. Pulmonary arterial tree is opacified to level of the subsegmental br anches and demonstrates no focal filling defects to suggest pulmonary thromboembolic disease. CT CHEST: No focal thyroid nodule. No adenopathy by CT size criteria. No pneumothorax or pleural effusion. Line ar subsegmental bibasilar atelectasis/scarring at the lung bases. Mild bilateral bronchial wall thick ening. Patchy groundglass opacities noted throughout the right upper, middle and lower lobes with int erlobular septal thickening. To a lesser extent these findings are also seen within the left upper lo be and superior segment of the left lower lobe. 5 mm groundglass nodular opacity of the lateral segme nt right middle lobe is noted on image 1:15 series 4 which appears unchanged from 2014. Additional 4 mm groundglass nodule also noted, image 100 series 4 which is also stable. 4 mm solid nodule the supe r segment right lower lobe, image 158 series 4. No acute process of the imaged upper abdomen. The soft tissues are unremarkable. Degenerative changes of the shoulders and spine. IMPRESSION: 1. No evidence of pulmonary thromboembolic disease. 2. Patchy right greater than left groundglass densities with intralobular septal thickening is sugges tive of developing pulmonary edema versus a nonspecific infectious or inflammatory pneumonitis. 3. No pleural effusion. 4. Additional findings as above. The above report was generated using voice recognition software. It may contain grammatical, syntax o r spelling errors. Electronically signed by: Silverio Hearn M.D. 11/05/2018 6:38 AM
[2018-11-05] MEDS ORDERED: LISINOPRIL 5 MG TAB PO SCH (09:00)
[2018-11-05] MEDS ORDERED: PANTOprazole 40 MG TAB PO SCH (09:00)
[2018-11-05] MEDS ORDERED: ASPIRIN 81 MG ECTAB PO SCH (09:00)
[2018-11-05] MEDS ORDERED: METOPROLOL TARTRATE 50 MG TAB PO SCH (09:00)
[2018-11-05] MEDS ORDERED: LEFLUNOMIDE 10 MG TAB PO SCH (09:00)
[2018-11-05] MEDS ORDERED: INDAPAMIDE 1.25 MG TAB PO SCH (09:00)
[2018-11-05] MEDS ORDERED: TICAGRELOR 90 MG TAB PO SCH (09:00)
[2018-11-05] MEDS ORDERED: GLUCAGON FOR INJ 1 MG VIAL SQ PRN (12:30)
[2018-11-05] MEDS ORDERED: DEXTROSE 50% 50 ML SYRINGE IV PRN (12:30)
[2018-11-05] MEDS ORDERED: GLUCOSE 10 TABS/TUBE PO PRN (12:30)
[2018-11-05] MEDS ORDERED: CARBOHYDRATES FOR HYPOGLYCEMIA PO PRN (12:30)
[2018-11-05] MEDS ORDERED: GLUCOSE 40% GEL 15 GM TUBE PO PRN (12:30)
[2018-11-05] MEDS ORDERED: PIPERACILL/TAZOBAC CONSULT ACTIVE PRN (15:11)
[2018-11-05] MEDS ORDERED: PIPERACILLIN/TAZOBACTAM 3.375 GM in DEXTROSE 5% 100 ML IV SCH (15:15)
[2018-11-05] MEDS ORDERED: PIPERACILLIN/TAZOBACTAM 4.5 GM in DEXTROSE 5% 100 ML IV ONE (15:45)
[2018-11-05] MEDS ORDERED: INSULIN ASPART 100 UNITS/ML 3 ML PEN SC SCH (16:30)
[2018-11-05] MEDS ORDERED: AMOXICILLIN/CLAVULANATE 875 MG TAB PO SCH (17:00)
--- NOTE | 2018-11-05 18:38 | Discharge Summary ---
Date of Service November 05, 2018 Admission HPI Per Admitting Provider 83-year-old female with history of NSTEMI in September 2017 with 2 RCA stent placement, DM 2, hypertension, hyperlipidemia, rheumatoid arthritis, laryngeal dystonia presents with shortness of breath starting 8 PM tonight. She felt that she needed to take very deep breaths in order to oxygenate. Patient reports difficulty breathing was similar to episode she had last year in September at which point she was found to have a heart attack. Thus she was concerned and came to the emergency room. She denies any chest pain, jaw pain, neck pain, back pain, arm pain, headache, lightheadedness, fever, chills, cough, nausea, vomiting, abdominal pain, diarrhea, constipation, dysuria. Difficulty breathing has somewhat improved now. She received aspirin 324 mg in the ED Past medical history: NSTEMI in September 2017 with 2 RCA stent placement, DM 2, hypertension, hyperlipidemia, rheumatoid arthritis, systematic dysphonia Past surgical history: Percutaneous coronary intervention with 2 drug-eluting stents in September 2017, abdominal hernia repair, cholecystectomy Social history: Lives alone but son is visiting and staying with her over the summer, denies ever smoking, denies alcohol use or recreational drug use Principal Diagnosis Dyspnea, abnormal chest CT, pulmonary hypertension Discharge Exam Constitutional WD/WN, vitals as above Eyes PERRL, conjunctivae normal, anicteric sclerae ENMT external ear and nose normal, oropharynx normal Neck trachea midline, no thyromegaly Respiratory normal respiratory effort Auscultation: + crackles (Fine Velcro-like crackles at the lower and middle lung patton bilaterally); no diminished lung sounds, no rhonchi and no wheezes Cardiovascular RRR, no murmur, no edema Gastrointestinal (Abdomen) normal bowel sounds, soft, nontender, no hepatosplenomegaly Musculoskeletal Extremities: extremities normal to inspection; no cyanosis and no clubbing Skin no rashes, warm and dry Neurologic moves all extremities and awake; no focal motor deficits Psychiatric A+Ox3, euthymic affect Discharge Data Allergies Allergy/AdvReac Type Severity Reaction Status Date / Time No Known Allergies Allergy Verified 11/04/18 22:48 Consultations Pulmonology Ordered Studies 11/04/18 22:55 CT angio chest PE protocol Urgent Chest x-ray Echocardiogram Hospital Course (1) SOB (shortness of breath): This patient is an 83-year-old female with history of NSTEMI in September 2017 with 2 RCA stent placement, DM 2, hypertension, hyperlipidemia, rheumatoid arthritis, and laryngeal dystonia who presented with shortness of breath that came on fairly acutely. She felt that she needed to take deep breaths in order to oxygenate. Was concerned about having another heart attack and she had similar symptoms in September 2017 at which point she had an NSTEMI. She did have a high salt load that day with both lunch and dinner including ham, green beans, and potatoes. She was admitted to the hospital and did not require any oxygen. She was feeling much better by the next day and was ambulating and maintaining a pulse ox of 94% on room air She does have an abnormal chest CT with patchy right greater than left groundglass densities with intralobular septal thickening is suggestive of developing pulmonary edema versus a nonspecific infectious or inflammatory pneumonitis. She was afebrile and had no leukocytosis VBG was consistent with hyperventilation Seen by pulmonology and thought to be possibly consistent with mild flash pulmonary edema versus atypical infectious process Symptoms are much improved without any intervention. In fact, she did receive IV fluids overnight after admission which were stopped the next day. She also has a history of rheumatoid arthritis and question if she has some sort of chronic lung disease. Echocardiogram did show new elevated right-sided pressures with pulmonary hypertension but was otherwise unchanged. She remains on indapamide as a diuretic. Her weight is not increased from previous. CT angiogram was negative for PE despite her having a positive d-dimer Serial troponin was negative x3 and she did not have any wall motion abnormalities. Ruled out for OH. She does have bilateral fine crackles on exam which seems more consistent with perhaps pulmonary fibrosis or interstitial lung disease -Advised low-sodium diet, continue on same diuretic at home -Follow up closely with pulmonology -Would advise pulmonary function testing as an outpatient -will need follow-up imaging to ensure resolution of groundglass opacities -We will give Augmentin 875 mg p.o. twice daily x5-day course in case of infectious process -Appreciate pulmonology consultation Hypertension/hyperlipidemia/coronary artery disease with NSTEMI in September 2017 status post 2 RCA stents-no evidence of ACS here, troponins serially negative Continue home indapamide, lisinopril and metoprolol Continue home atorvastatin Continue home aspirin and ticagrelor DM2: Restart home insulin upon discharge Rheumatoid arthritis Continue home leflunomide GERD Continue home Protonix CKD Stage III-creatinine around baseline at the time of discharge 1.2 -Avoid nephrotoxins -Renally dose medications Disposition-stable for discharge to home with close follow-up (2) Rheumatoid arthritis: (3) DM type 2 (diabetes mellitus, type 2): (4) HTN (hypertension): (5) GERD (gastroesophageal reflux disease): (6) Hyperlipidemia: (7) CAD (coronary artery disease), [place] coronary artery: (8) Pulmonary hypertension: (9) Abnormal chest CT: (10) CKD (chronic kidney disease) stage 3, GFR 30-59 ml/min: Total Time Total Time Spent Total Time Spent (In Minutes): Greater than 30 minutes Total Time Includes: Examination of the Patient, Discharge Planning, Medication Reconciliation and Communication With Other Providers (Pulmonology) Discharge Plan Discharge Items Patient Disposition: Home - Self-Care Reason For Visit: SHORTNESS OF BREATH Discharge Diagnosis: Shortness of breath, Pulmonary hypertension, abnormal chest CT Condition: Good Discharge Goals: Decrease discomfort, Diagnostic testing, Improve disease control, Learn about illness and Therapeutic intervention Activity: Resume your previous activity Lifting: Gradually increase as tolerated Bathing: No limitations Exercise/Sports: Gradually increase as tolerated Non-emergency contact: Primary Care Provider and Business Development Associate Call non-emergency contact if: you have any medication questions and your symptoms worsen Follow-up/Referrals: Chadwick Kramer MD [Physician] - 11/10/18 8:30 am (A follow up appt. has been scheduled for you with Theresa Lehman PA-C on November 10 at 8:30am.) Brady Arguello MD [Primary Care Provider] - (Dr. Arguello office will call you with an appointment.) Diet: Heart Healthy and Low Sodium (2gm) Addtl Provider Instructions: You were admitted with shortness of breath and found to have an abnormal chest CT. It is possible that you had a little extra fluid in your lungs either from a mild infection versus excessive salt in your diet. Your ultrasound of the heart showed elevated pressures on the right side of the heart and this is called pulmonary hypertension. You should follow-up with the shipping clerk packing as scheduled for you. You may be referred for a sleep study to rule out sleep senior tableau developer ea, as well as have further testing of your lung function. Please continue your usual home medications as prescribed. Please avoid excessive sodium in your diet i.e. ham, lunch meat, soups and other canned foods. You will be sent home with a 5-day course of an antibiotic just in case this was an atypical infectious process. Your oxygen levels were perfectly normal at the time of discharge. Please follow-up with your primary care physician and the shipping clerk packing as scheduled for you. Prescriptions: New amoxicillin-pot clavulanate 875-125 mg Tablet 1 tab PO BIDM Qty: 9 RF: 0 Continued atorvastatin 80 mg tablet 80 mg PO HS RF: 0 acetaminophen [Tylenol] 325 mg Tablet 325 mg PO Q6H PRN (Reason: Pain) RF: 0 leflunomide 20 mg tablet 20 mg PO QAM RF: 0 pantoprazole 40 mg tablet,delayed release (DR/EC) 40 mg PO QAM RF: 0 metoprolol tartrate 50 mg tablet 50 mg PO Q12H RF: 0 indapamide 1.25 mg tablet 1.25 mg PO QAM RF: 0 lisinopril 5 mg tablet 5 mg PO QAM RF: 0 pioglitazone 30 mg tablet 30 mg PO QAM RF: 0 ticagrelor 90 mg tablet 90 mg PO BID RF: 0 aspirin 81 mg Tablet,Delayed Release (Dr/Ec) 81 mg PO QAM RF: 0 diphenhydramine-acetaminophen [Tylenol PM Extra Strength] 25-500 mg Tablet 1 tab PO HS PRN (Reason: Sleep) RF: 0 insulin glargine 100 unit/mL (3 mL) insulin pen 22 unit subcut HS RF: 0 Stand-Alone Forms: [facility] Discharge Orders: Discharge Order (Routine); Ordered 11/05/18 Ordered By: Molly Sanchez Admission Data Admit Date/Time: 11/05/18 01:14 Attending Provider: Molly Sanchez Admit Provider: Az Moore Primary Care Provider: Brady Arguello Other Providers: Az Moore ; Chadwick Kramer Service: Telemetry Medical Other Pending Studies at Discharge: No
[2018-11-05] MEDS ORDERED: ATORVASTATIN 40 MG TAB PO SCH (21:00)
--- NOTE | 2018-11-06 00:49 | Consultation Report ---
DATE OF CONSULTATION: 11/05/2018 PULMONARY MEDICINE CONSULTATION REASON FOR CONSULT: Shortness of breath. HISTORY OF PRESENT ILLNESS: An 83 -year-old white female with a history of NSTEMI in 09/2017 with 2 RCA stent placements, history of diabetes mellitus type 2, hypertension, dyslipidemia, rheumatoid arthritis in a patient of Dr. Arguello. She was admitted around dinnertime or late evening last night with symptoms of acute onset of dyspnea, not associated with pleuritic pain, hemoptysis or recent fevers, chills or sweats. She states the dyspnea reminded her of how she felt "when she had her heart attack." She has had some chronic Velcro rales at the bases. She was not hypoxic on admission and done was greater than 405. CTA showed no evidence of pulmonary thromboembolic disease, ? unilateral edema versus patchy ground-glass in the right upper lobe and the right lower lobe with bibasilar atelectasis. Echocardiogram showed LVH, grade 1 diastolic dysfunction, dilated left atrium, mild mitral valve regurgitation. I was asked to see patient in consultation. She denies sputum production. She has a negative smoking history. Her arthritis appears to be controlled on leflunomide. She is also on Protonix. For details of past medical history, medications, family and social history, I refer you to current and past record. PHYSICAL EXAMINATION: GENERAL: This is a well-developed, well-nourished white female in no obvious distress, stating she feels well enough to go home. VITAL SIGNS: Blood pressure 120/71, pulse 60 and regular, respiratory rate 16, temperature 36.7 and O2 sat 94% on room air. SKIN: Warm and dry. HEENT: Atraumatic, normocephalic. PERRLA. EOMI. Conjunctivae pale. Sclerae nonicteric. Fundi poorly visualized. NECK: Neck veins are not distended at 45 degrees. No evidence of adenopathy in the supra air or infraclavicular areas. LUNGS: Bibasilar right greater than left Velcro rales. CARDIAC: Regular rate and rhythm. I do not appreciate a gallop. ABDOMEN: Soft, protuberant. No evidence of hepatosplenomegaly. EXTREMITIES: No pedal edema, clubbing or cyanosis. NEUROLOGIC: Intact. No lateralizing signs. OVERALL ASSESSMENT: An 83-year-old white female withhx of non-ST elevation myocardial infarction, a history of rheumatoid arthritis, acute onset of dyspnea has markedly improved today, appears to be back to her baseline. My suspicion patient had some mild acute on chronic diastolic heart failure and that the ground-glass changes seen represent asymetric pulmonary edema. I would make sure patient continues on her indapamide, lisinopril and metoprolol and I understand she would like to be discharged. I think we can have her followup in the office with PFTs. I do not think she has a progressive form of interstitial lung disease, though I cannot rule this out by what I see on radiograph. In any event, she is not hypoxic and essentially asymptomatic with ambulation and would like to be discharged. I would be more than happy to follow her up as an outpatient with pulmonary function studies and repeat evaluation along with Dr. Arguello who is her primary care physician. DEEPTI
== END 2018-11-05 19:08 | disposition home or self-care (01) ==
LOC: 2N 22:03 → ED 22:03 → SUATTDRO 11-05 01:14 → 2N 11-05 01:35

== ENCOUNTER 2023-10-28 13:48 | Inpatient (IN) ==
--- NOTE | 2023-10-28 13:54 | ED Triage Note ---
Date of Service October 28, 2023 Provider in Triage Author: Katya Sanchez History of Present Illness This patient was briefly evaluated while in triage. An abbreviated physical exam was performed. This patient is a 88-year-old Female who presents to the ED for evaluation back and right thigh/leg pain x 2 weeks in ED last week has been treated with steroids and tramadol has an MRI scheduled for next week not eating per son - he would "like to get the MRI sooner" Physical Exam GENERAL: NAD in a wheelchair CARDIOVASCULAR: RRR RESPIRATORY: CTA ABDOMEN: BS x 4. Nontender to palpation. Initial orders for labs and / or imaging were placed and patient was placed in the waiting area until a bed is available. Please see further documentation for the full ED course.
[2023-10-28 14:46] LABS: Basophils # (auto) 0.07 K/uL (0.00-0.20); Basophils % (auto) 0.5 %; Eosinophils # (auto) 0.05 K/uL (0.00-0.50); Eosinophils % (auto) 0.3 %; Hemoglobin 14.6 g/dl (12.0-16.0); Immature Granulocytes # (auto) 0.11 K/uL (0.01-0.20); Immature Granulocytes % (auto) 0.7 %; Lymphocytes # (auto) 1.98 K/uL (1.20-3.40); Lymphocytes % (auto) 12.8 %; Mean Corpuscular Hemoglobin 27.6 pg (25.0-34.0); Mean Corpuscular Volume 81.3 fL (80.0-100.0); Mean Platelet Volume 9.7 fL (9.4-12.4); Monocytes # (auto) 1.42 K/uL (0.11-0.59); Monocytes % (auto) 9.2 %; Neutrophils # (auto) 11.78 K/uL (1.40-6.50); Neutrophils % (auto) 76.5 %; Platelet Count 374 K/uL (130-400); RDW Coefficient of Variation 14.6 % (11.5-14.5); RDW Standard Deviation 41.8 fL (36.4-46.3); Red Blood Count 5.29 M/uL (4.20-5.40); White Blood Count 15.41 K/ul (4.8-10.8)
[2023-10-28 14:59] LABS: Blood Urea Nitrogen 34 mg/dl (6-23); Calcium 9.7 mg/dl (8.6-10.3); Carbon Dioxide 20 mmol/L (21-32); Chloride 92 mmol/L (98-107)
[2023-10-28 15:21] LABS: Anion Gap 14 (3-11); Sodium 126 mmol/L (136-145)
[2023-10-28 15:26] LABS: BUN Creatinine Ratio 29.8 (10-20); Est GFR (African American) 50.4 ml/min; Est GFR (Non-African American) 43.5 ml/min; Glucose 79 mg/dl (70-99(Fasting))
--- NOTE | 2023-10-28 16:24 | Emergency Department Note ---
Impression & Plan Acute hyponatremia, Lower back pain, Acute pain of right thigh, Leukocytosis ED Provider Note NAME: EL PAINTING AGE: 88 SEX: F : 1935 ARRIVES VIA: Walk-In INFORMANT: [Patient][son] ED PROVIDER(S): [Dagoberto Helm MD] CHIEF COMPLAINT: Back and leg pain HISTORY OF PRESENT ILLNESS: The patient is an 88-year-old female presents with back and right thigh pain that has been an issue now for 2 weeks. She started off with the discomfort in [place]. She saw an ER there. She then saw this ED when she returned home, she has seen her family doctor, she is now back to the ED once again. The patient states that she did try steroids, they have not helped. She is on tramadol for pain which takes the edge off only. She has had no appetite, she feels weak and tired, she denies weakness in just the right leg, it is all over weakness really. There has been no fever, no abdominal pain. She states that she was checked for UTI and things were negative. There was no fall that started all this off, she is not sure why she is having the pain. Her doctors office had an outpatient ultrasound of the right leg done, this was negative for clot. She has an MRI scheduled for sometime next week. PMHx/PSHx/Social Hx: See Below PHYSICAL EXAM: GENERAL: Patient is in mild distress from pain. Seems to have a hard time sitting still on the bed. HEENT: No acute trauma, normocephalic atraumatic, mucous membranes moist, no nasal congestion. NECK: No stridor, no adenopathy, no meningismus, trachea is midline. LUNGS: Clear to auscultation bilaterally, no wheeze, no rhonchi, breath sounds equal. HEART: Without murmurs gallops or rubs, regular rate and rhythm. Heart tones are distant. ABDOMEN: Soft, nontender, no peritonitis. EXTREMITIES: No cyanosis, full range of motion of all the joints without pain or difficulty. She does seem somewhat tender over the right thigh although there is no erythema, warmth, swelling. NEUROLOGIC: Oriented x 3, no acute motor or sensory deficits, no focal weakness. SKIN: No jaundice, no diaphoresis. DIFFERENTIAL DIAGNOSIS: Bony lesion, sciatica, nerve impingement, musculoskeletal pain, UTI, failed outpatient management, abscess, among others. EMERGENCY DEPARTMENT PROCEDURES: MEDICAL DECISION MAKING: There is a moderate leukocytosis, this could be from infection or her recent steroid use. There was a normal hemoglobin and platelet count. Sodium was low in the mid 120s. There was no renal failure. Lactic acid level was not elevated making severe sepsis less likely. No concerning liver enzyme elevation. The patient appeared to be in a euthyroid state. Urinalysis showed some dehydration, no true infection. Chest x-ray did not show mediastinal widening, pneumonia or free air. Lumbar spine CT and abdomen pelvis CT did not show findings of acute surgical pathology or acute lumbar fracture or injury. CT of the right femur did not show any fracture or mass/tumor. On exam, the patient was not febrile but she seemed to have discomfort in the right thigh even with light touch. Her issues have been ongoing for 2 weeks. The patient received IV morphine for pain, IV Zofran for nausea. She was given IV saline for hydration and for the low sodium value. She received IV cefepime as empiric antibiotic coverage. The patient presents with ongoing right leg and and lower back pain. This is her fourth visit to a provider for the same discomfort. No etiology has truly been determined. She has failed outpatient steroids. Her pain is not controlled with oral pain medication. Given the leukocytosis, given her hyponatremia, given her ongoing symptoms and failed outpatient management, I do think a hospital stay is warranted. I did speak with the patient, her family, I spoke with case management. The on-call hospitalist was consulted. At this point, the cause for her complaints is unclear, lumbar disc disease is certainly a consideration though, an MRI can be performed during her hospital stay. Prior/Outside records/notes reviewed: Primary doctor note from 10/21/2023 discussing her presentation and the plan to work this up outpatient. Imaging/x-ray results per my interpretation: Chest x-ray shows some chronic changes, there is no pneumonia, or free air or mediastinal widening. Chronic Medical/Social conditions affecting care: Advanced age. Care/Management discussed with: Case management, the on-call hospitalist. Level of care consideration(s): After review of the information above and other included data: --I believe the patient requires escalation of care to admission DISPOSITION: Admission Past Med/Surg History Problem List (Updated 10/28/23 @ 22:18 by Dagoberto Helm MD) Leukocytosis (Acute) Acute pain of right thigh (Acute) Lower back pain (Acute) Acute hyponatremia (Acute) Leukocytosis High anion gap metabolic acidosis Hyponatremia Right lumbar radiculitis (Acute) Cognitive impairment GERD (gastroesophageal reflux disease) HTN (hypertension) (Chronic) Rheumatoid arthritis (Chronic) CAD (coronary artery disease), [place] coronary artery Pulmonary hypertension CKD (chronic kidney disease) stage 3, GFR 30-59 ml/min (Chronic) Voice complaint (Chronic) Vitamin D deficiency, unspecified (Chronic) Tubulovillous adenoma (Chronic) Thickened endometrium (Chronic) Osteopenia (Chronic) Incisional hernia (Chronic) Hypercholesterolemia (Chronic) Dysphonia, spasmodic (Chronic) Diverticulosis (Chronic) Type 2 diabetes mellitus, with long-term current use of insulin (Chronic) Post herpetic neuralgia (Acute) Moderate mitral regurgitation Diabetic nephropathy Medical History Otitis externa, left Left ear impacted cerumen Encounter for wound care Shingles rash Decubitus skin ulcer Right groin pain Hypoxia Hypoxia Arthritis of ankle, degenerative Face lesion Perirectal abscess Abnormal chest CT Diabetes NSTEMI (non-ST elevated myocardial infarction) (09/2017) Surgical History History of tonsillectomy History of hernia repair History of exploratory laparotomy History of cholecystectomy Family History Son Coronary heart disease Mother Diabetes Lung cancer Hypertension Sister Cancer Other No family history of adverse response to anesthesia No family history of bleeding disorder Denies family history of Stroke Social History Smoking Status: Never smoker Second Hand Exposure: No; Do You Dip or Chew Tobacco: No; Hx Alcohol Use: No Hx Substance Use: No Preferred Language: Luxembourger Communication Ability: Effective Visual Impairment: Limited Hearing Ability: Normal Medical Administrative Specialist Required: No Beliefs That Will Affect Care: None marital status: / Current Living Situation: Alone Current Living Situation Comment: Son visits for one month in the summer current occupational status: retired current occupation: retired How many Children do You have: 3 How many Children do You have Comment: Daughter lives in [facility], sons live in [facility] and [place]. Daughter unable to help much r/t her work schedule. Feels Safe at Home: Yes Diet: regular Seatbelt Use: always Assistive Devices: Glasses Allergies Allergies Allergy/AdvReac Type Severity Reaction Status Date / Time No Known Drug Allergies Allergy 0 Verified 10/28/23 18:58 Home Meds Home Medications Medication Instructions Recorded Confirmed blood sugar diagnostic (OneTouch 01/15/21 10/28/23 Ultra Test strips) diclofenac sodium 1 % topical gel 2 g topical QID PRN Pain 11/23/21 10/28/23 neomycin-bacitracn Zn-polymyx 3.5 1 applic topical DAILY PRN would 11/23/21 10/28/23 mg-400 unit-5,000 unit/gram top care oint (Triple Antibiotic) pantoprazole 20 mg tablet,delayed 20 mg PO DAILY 10/28/23 10/28/23 release Previous Rx's Medication Instructions Recorded leflunomide 20 mg tablet 20 mg PO QAM #90 tabs 12/17/21 pen needle, diabetic 31 gauge x #100 ea 08/20/2210/01" (Lite Touch Insulin Pen [place]) empagliflozin 25 mg tablet 25 mg PO DAILY #90 tabs 01/23/23 cholecalciferol (vitamin D3) 125 125 mcg PO DAILY #90 caps 03/03/23 mcg (5,000 unit) capsule indapamide 1.25 mg tablet 1.25 mg PO QAM #90 tabs 04/21/23 atorvastatin 80 mg tablet 80 mg PO HS #90 tabs 07/02/23 lisinopril 5 mg tablet 5 mg PO QAM #90 tabs 07/02/23 metoprolol succinate 50 mg 50 mg PO DAILY #90 tabs 07/02/23 tablet,extended release 24 hr levothyroxine 50 mcg tablet 50 mcg PO DAILY #90 tabs 07/03/23 (Synthroid) blood sugar diagnostic (OneTouch #100 ea 07/17/23 Verio test strips) blood-glucose meter #1 ea 07/17/23 lancets 33 gauge (OneTouch Delica #100 ea 07/17/23 Plus Lancet) insulin degludec 100 unit/mL (3 14 unit (0.14 mL) subcut BID #30 mL 09/23/23 mL) subcutaneous pen (Tresiba FlexTouch U-100 insulin) tramadol 50 mg tablet 50 mg PO BID PRN pain #30 tabs 10/27/23 Results & Data (ED) Vital Signs Vital Signs - 24 hr 10/28/23 13:52 10/28/23 15:53 10/28/23 16:31 Temperature 36.7 C Temperature Source Temporal Artery Scan Pulse Rate 108 H Pulse Rate [Left Finger] 90 87 Pulse Rhythm [Left Finger] Regular Pulse Strength [Left Finger] Normal Respiratory Rate 18 20 25 H Respiratory Effort / Characteristics Non-Labored Spontaneous Respiratory Depth Normal Normal Blood Pressure 100/61 Blood Pressure [Right Arm] 134/70 Blood Pressure Mean 74 Blood Pressure Mean [Right Arm] 91 Blood Pressure Position Sitting Pulse Oximetry 97 98 Oxygen Delivery Method Room Air Room Air Sepsis Recent Fever Within 48 Hours No Sepsis New/Unexplained Change in Mental Status N/A Sepsis Action Taken by Nursing No Action Required 10/28/23 17:47 10/28/23 18:00 10/28/23 20:00 Temperature Temperature Source Pulse Rate 85 Pulse Rate [Left Finger] 89 97 H Pulse Rhythm [Left Finger] Pulse Strength [Left Finger] Respiratory Rate 20 18 Respiratory Effort / Characteristics Respiratory Depth Normal Blood Pressure Blood Pressure [Right Arm] 133/84 Blood Pressure Mean Blood Pressure Mean [Right Arm] 100 Blood Pressure Position Pulse Oximetry 98 95 Oxygen Delivery Method Room Air Sepsis Recent Fever Within 48 Hours Sepsis New/Unexplained Change in Mental Status Sepsis Action Taken by Nursing 10/28/23 20:26 10/28/23 21:27 Temperature Temperature Source Pulse Rate 108 H Pulse Rate [Left Finger] 72 Pulse Rhythm [Left Finger] Pulse Strength [Left Finger] Respiratory Rate 18 Respiratory Effort / Characteristics Respiratory Depth Blood Pressure Blood Pressure [Right Arm] 151/100 H Blood Pressure Mean Blood Pressure Mean [Right Arm] 117 Blood Pressure Position Pulse Oximetry 96 Oxygen Delivery Method Room Air Sepsis Recent Fever Within 48 Hours Sepsis New/Unexplained Change in Mental Status Sepsis Action Taken by [facility] Medications Current Medication List: was personally reviewed by me Laboratory Data Attestation: I reviewed the patient's lab results. 10/28/23 14:20 10/28/23 21:05 Lab Results 10/28/23 10/28/23 10/28/23 Range/Units 01:51 14:20 14:20 WBC 15.41 H (4.8-10.8) K/ul RBC 5.29 (4.20-5.40) M/uL Hgb 14.6 (12.0-16.0) g/dl Hct 43.0 (37.0-47.0) % MCV 81.3 (80.0-100.0) fL MCH 27.6 (25.0-34.0) pg MCHC 34.0 (32.0-36.0) g/dL RDW Std Deviation 41.8 (36.4-46.3) fL RDW Coeff of Lizzette 14.6 H (11.5-14.5) % Plt Count 374 (130-400) K/uL MPV 9.7 (9.4-12.4) fL Immature Gran % (Auto) 0.7 % Neut % (Auto) 76.5 % Lymph % (Auto) 12.8 % Gaston % (Auto) 9.2 % Eos % (Auto) 0.3 % Baso % (Auto) 0.5 % Neut # (Auto) 11.78 H (1.40-6.50) K/uL Lymph # (Auto) 1.98 (1.20-3.40) K/uL Gaston # (Auto) 1.42 H (0.11-0.59) K/uL Eos # (Auto) 0.05 (0.00-0.50) K/uL Baso # (Auto) 0.07 (0.00-0.20) K/uL Immature Gran # (Auto) 0.11 (0.01-0.20) K/uL Sodium 126 L (136-145) mmol/L Potassium 4.0 (3.5-5.1) mmol/L Chloride 92 L (98-107) mmol/L Carbon Dioxide 20 L (21-32) mmol/L Anion Gap 14 H (3-11) BUN 34 H (6-23) mg/dl Creatinine 1.14 (0.6-1.2) mg/dl Est Cr Clr Drug Dosing Not Reportable Est GFR ( Amer) 50.4 ml/min Est GFR (Non-Af Amer) 43.5 ml/min BUN/Creatinine Ratio 29.8 H (10-20) Glucose 79 (70-99(Fasting)) mg/dl POC Glucose (70-99) mg/dl Osmolality (280-300) mOsm/kg Lactate (0.4-2.0) mmol/L Calcium 9.7 (8.6-10.3) mg/dl Magnesium (1.7-2.4) mg/dl C-Reactive Protein 5.76 H (0-0.5) mg/dl TSH 2.066 Cancelled (0.300-4.500) uIu/ml Random Cortisol 24.03 mcg/dl Urine Color Yellow Urine Appearance Clear (Clear) Urine pH 5.5 (4.5-7.5) Ur Specific Dunning 1.036 H (1.000-1.030) Urine Protein Negative (Negative) Urine Glucose (UA) 1+ H (Negative) Urine Ketones 1+ H (Negative) Urine Blood Negative (Negative) Urine Nitrite Negative (Negative) Urine Bilirubin Negative (Negative) Urine Urobilinogen Negative (Negative) Ur Leukocyte Esterase Negative (Negative) Urine Osmolality 484 L (500-800) mOsm/kg Ur Random Sodium mmol/L 10/28/23 10/28/23 10/28/23 Range/Units 14:56 18:15 18:29 WBC (4.8-10.8) K/ul RBC (4.20-5.40) M/uL Hgb (12.0-16.0) g/dl Hct (37.0-47.0) % MCV (80.0-100.0) fL MCH (25.0-34.0) pg MCHC (32.0-36.0) g/dL RDW Std Deviation (36.4-46.3) fL RDW Coeff of Lizzette (11.5-14.5) % Plt Count (130-400) K/uL MPV (9.4-12.4) fL Immature Gran % (Auto) % Neut % (Auto) % Lymph % (Auto) % Gaston % (Auto) % Eos % (Auto) % Baso % (Auto) % Neut # (Auto) (1.40-6.50) K/uL Lymph # (Auto) (1.20-3.40) K/uL Gaston # (Auto) (0.11-0.59) K/uL Eos # (Auto) (0.00-0.50) K/uL Baso # (Auto) (0.00-0.20) K/uL Immature Gran # (Auto) (0.01-0.20) K/uL Sodium (136-145) mmol/L Potassium (3.5-5.1) mmol/L Chloride (98-107) mmol/L Carbon Dioxide (21-32) mmol/L Anion Gap (3-11) BUN (6-23) mg/dl Creatinine (0.6-1.2) mg/dl Est Cr Clr Drug Dosing Est GFR ( Amer) ml/min Est GFR (Non-Af Amer) ml/min BUN/Creatinine Ratio (10-20) Glucose (70-99(Fasting)) mg/dl POC Glucose 91 (70-99) mg/dl Osmolality 270 L (280-300) mOsm/kg Lactate 1.4 (0.4-2.0) mmol/L Calcium (8.6-10.3) mg/dl Magnesium (1.7-2.4) mg/dl C-Reactive Protein (0-0.5) mg/dl TSH (0.300-4.500) uIu/ml Random Cortisol mcg/dl Urine Color Urine Appearance (Clear) Urine pH (4.5-7.5) Ur Specific Dunning (1.000-1.030) Urine Protein (Negative) Urine Glucose (UA) (Negative) Urine Ketones (Negative) Urine Blood (Negative) Urine Nitrite (Negative) Urine Bilirubin (Negative) Urine Urobilinogen (Negative) Ur Leukocyte Esterase (Negative) Urine Osmolality (500-800) mOsm/kg Ur Random Sodium 44 mmol/L 10/28/23 10/28/23 Range/Units 18:50 21:05 WBC (4.8-10.8) K/ul RBC (4.20-5.40) M/uL Hgb (12.0-16.0) g/dl Hct (37.0-47.0) % MCV (80.0-100.0) fL MCH (25.0-34.0) pg MCHC (32.0-36.0) g/dL RDW Std Deviation (36.4-46.3) fL RDW Coeff of Lizzette (11.5-14.5) % Plt Count (130-400) K/uL MPV (9.4-12.4) fL Immature Gran % (Auto) % Neut % (Auto) % Lymph % (Auto) % Gaston % (Auto) % Eos % (Auto) % Baso % (Auto) % Neut # (Auto) (1.40-6.50) K/uL Lymph # (Auto) (1.20-3.40) K/uL Gaston # (Auto) (0.11-0.59) K/uL Eos # (Auto) (0.00-0.50) K/uL Baso # (Auto) (0.00-0.20) K/uL Immature Gran # (Auto) (0.01-0.20) K/uL Sodium 124 L (136-145) mmol/L Potassium 3.8 (3.5-5.1) mmol/L Chloride 92 L (98-107) mmol/L Carbon Dioxide 21 (21-32) mmol/L Anion Gap 11 (3-11) BUN 34 H (6-23) mg/dl Creatinine 1.20 (0.6-1.2) mg/dl Est Cr Clr Drug Dosing 28.8 Est GFR ( Amer) 47.4 ml/min Est GFR (Non-Af Amer) 40.9 ml/min BUN/Creatinine Ratio 28.3 H (10-20) Glucose 159 H (70-99(Fasting)) mg/dl POC Glucose 84 (70-99) mg/dl Osmolality (280-300) mOsm/kg Lactate (0.4-2.0) mmol/L Calcium 9.0 (8.6-10.3) mg/dl Magnesium 1.9 (1.7-2.4) mg/dl C-Reactive Protein (0-0.5) mg/dl TSH (0.300-4.500) uIu/ml Random Cortisol mcg/dl Urine Color Urine Appearance (Clear) Urine pH (4.5-7.5) Ur Specific Dunning (1.000-1.030) Urine Protein (Negative) Urine Glucose (UA) (Negative) Urine Ketones (Negative) Urine Blood (Negative) Urine Nitrite (Negative) Urine Bilirubin (Negative) Urine Urobilinogen (Negative) Ur Leukocyte Esterase (Negative) Urine Osmolality (500-800) mOsm/kg Ur Random Sodium mmol/L Administered Medications Insulin Aspart (Insulin Aspart Per Unit Charge) 0 units SC ACHS DANISH Stop: 11/27/23 20:59 Last Admin: 10/28/23 21:18 Dose: Not Given Documented By: ALEX Morphine Sulfate (Morphine Sulfate 4 Mg/Ml 1 Ml Carp\\Vial) 4 mg IV Q4H PRN PRN Reason: Severe Pain (7,8,9,10) on NRS Stop: 11/11/23 21:04 Last Admin: 10/28/23 21:13 Dose: 4 mg Documented By: ALEX Ondansetron HCl (Ondansetron Inj 2 Mg/Ml 2 Ml Vial) 4 mg IV Q4H PRN PRN Reason: Nausea Stop: 11/27/23 20:15 Last Admin: 10/28/23 21:40 Dose: 4 mg Documented By: ALEX Discontinued Medications Acetaminophen (Acetaminophen 500 Mg Tab) 1,000 mg PO NOW STA Stop: 10/28/23 19:12 Last Admin: 10/28/23 19:53 Dose: 1,000 mg Documented By: ALEX Gabapentin (Gabapentin 100 Mg Cap) 100 mg PO NOW STA Stop: 10/28/23 19:12 Last Admin: 10/28/23 19:53 Dose: 100 mg Documented By: ALEX Gadobutrol (Gadobutrol 65ml Vial) 6 ml IV ONCE ONE Stop: 10/28/23 22:10 Last Admin: 10/28/23 22:10 Dose: 6 ml Documented By: ABEL Sodium Chloride (Nss) 500 mls @ 999 mls/hr IV .Q31M ONE Stop: 10/28/23 16:30 Last Infusion: 10/28/23 17:35 Dose: Infused Documented By: Admin: 10/28/23 16:25 Dose: 999 mls/hr Documented By: ALEX Cefepime HCl (Maxipime) 2,000 mg in 20 mls @ 5 mls/min IV NOW STA; Protocol Stop: 10/28/23 16:20 Last Admin: 10/28/23 18:22 Dose: 5 mls/min Documented By: ALEX Methylprednisolone 40 mg/ (Syringe) 0.64 mls @ 1.5 mls/min IV NOW STA Stop: 10/28/23 19:14 Last Admin: 10/28/23 19:53 Dose: 1.5 mls/min Documented By: ALEX Ioversol (Optiray 320 100ml) 94 ml IV ONCE ONE Stop: 10/28/23 17:43 Last Admin: 10/28/23 17:42 Dose: 94 ml Documented By: MADONNA Morphine Sulfate (Morphine Sulfate 4 Mg/Ml 1 Ml Carp\\Vial) 4 mg IV NOW STA Stop: 10/28/23 16:16 Last Admin: 10/28/23 16:26 Dose: 4 mg Documented By: ALEX Ondansetron HCl (Ondansetron Inj 2 Mg/Ml 2 Ml Vial) 4 mg IV NOW STA Stop: 10/28/23 16:16 Last Admin: 10/28/23 16:26 Dose: 4 mg Documented By: ALEX Pantoprazole Sodium (Pantoprazole 40 Mg Tab) 40 mg PO NOW STA Stop: 10/28/23 19:12 Last Admin: 10/28/23 19:53 Dose: 40 mg Documented By: ALEX Imaging Data Radiologist's Impression: Abdomen/Pelvis CT 10/28/23 16:00 CT abd pelvis IV con only, CT lumbar spine w con CLINICAL HISTORY: back pain TECHNIQUE: Helical axial images of the abdomen and pelvis were obtained and displayed. Automated dose lowering techniques and/or adjustment according to patient size were utilized for this exam. Dedicated images of the lumbar spine were obtained. This exam was performed with intravenous contrast. CT DOSE: 1527.98 mGy.cm COMPARISON: Comparison is made to CT abdomen pelvis 04/15/2016 FINDINGS: Lower chest: No acute abnormality. Liver: Hepatic cysts are seen. Gallbladder and biliary tree: Patient is status post cholecystectomy. Physiologic prominence of the biliary ducts is noted. Pancreas: The pancreas is atrophic. Spleen: Unremarkable. Adrenals: Unremarkable. Kidneys and ureters: Right renal cyst is seen. Bladder: Unremarkable. Reproductive organs: Incidental note is made of calcified fibroid. Bowel: Diverticulosis is seen without diverticulitis. The appendix is normal. Lymph nodes Retroperitoneal: Unremarkable. Pelvic: Unremarkable. Mesenteric: Unremarkable. Peritoneum: Normal. Vessels: Unremarkable. Abdominal wall: Unremarkable. Bones: Unremarkable. IMPRESSION: No abnormalities to explain fatigue and right thigh pain. ACT 112: Negative or not required by law. Electronically signed by: Eddie Radford M.D. 10/28/2023 6:[address] 10/28/23 16:00 CT abd pelvis IV con only, CT lumbar spine w con CLINICAL HISTORY: back pain TECHNIQUE: Helical axial images of the abdomen and pelvis were obtained and displayed. Automated dose lowering techniques and/or adjustment according to patient size were utilized for this exam. Dedicated images of the lumbar spine were obtained. This exam was performed with intravenous contrast. CT DOSE: 1527.98 mGy.cm COMPARISON: Comparison is made to CT abdomen pelvis 04/15/2016 FINDINGS: Lower chest: No acute abnormality. Liver: Hepatic cysts are seen. Gallbladder and biliary tree: Patient is status post cholecystectomy. Physiologic prominence of the biliary ducts is noted. Pancreas: The pancreas is atrophic. Spleen: Unremarkable. Adrenals: Unremarkable. Kidneys and ureters: Right renal cyst is seen. Bladder: Unremarkable. Reproductive organs: Incidental note is made of calcified fibroid. Bowel: Diverticulosis is seen without diverticulitis. The appendix is normal. Lymph nodes Retroperitoneal: Unremarkable. Pelvic: Unremarkable. Mesenteric: Unremarkable. Peritoneum: Normal. Vessels: Unremarkable. Abdominal wall: Unremarkable. Bones: Unremarkable. IMPRESSION: No abnormalities to explain fatigue and right thigh pain. ACT 112: Negative or not required by law. Electronically signed by: Eddie Radford M.D. 10/28/2023 6:[address] 10/28/23 16:15 CT femur RT w con CLINICAL HISTORY: pain, poss mass TECHNIQUE: Multidetector row helical CT of the right femur was performed without intravenous contrast. Coronal and sagittal reformations were obtained. Automated dose lowering techniques and/or adjustment according to patient size were utilized for this examination. Comparison: None available at the time of this dictation. FINDINGS: The osseous structures are without fracture or dislocation. The joint spaces are maintained. No joint effusion is seen. Intramuscular lipoma is noted in the lateral distal thigh. IMPRESSION: No evidence of acute fracture or dislocation. Please see CT abdomen pelvis performed same day for pelvic findings. ACT 112: Negative or not required by law. Electronically signed by: Eddie Radford M.D. 10/28/2023 5:56 PM Chest X-Ray 10/28/23 18:48 XR chest 1V portable CLINICAL HISTORY: Leukocytosis, monitor for infection TECHNIQUE: Single frontal radiograph of the chest was obtained. Comparison: Comparison is made to chest radiograph 05/30/2023 FINDINGS: No lines and tubes are seen. The cardiomediastinal silhouette is normal. The lungs are clear. No evidence of pleural effusion or pneumothorax. IMPRESSION: No acute abnormalities and in particular no radiographic evidence of pneumonia. ACT 112: Negative or not required by law. Electronically signed by: Eddie Radford M.D. 10/28/2023 9:45 PM Discharge Plan Visit Data Chief Complaint: Back Injury/Pain Stated Complaint: body pain, frozen right aarm ED Provider: Dagoberto Helm Discharge Problem: Acute hyponatremia, Lower back pain, Acute pain of right thigh, Leukocytosis Patient Disposition: Admitted As Inpatient Condition: Fair Discharge Instructions Interventions: ED Discharge Assessment Last Done: 10/28/23 21:48 Forms Stand Alone Forms: [facility] [employer] Prescriptions Prescriptions: No Action leflunomide 20 mg tablet 20 mg PO QAM Qty: 90 0RF (DME) pen needle, diabetic [Lite Touch Insulin Pen [place]] 31 gauge x 5/16" needle See Rx Instructions .ROUTE .MEDSUPPLY Qty: 100 3RF Rx Instructions: Inject insulin twice daily w/ Lantus indapamide 1.25 mg tablet 1.25 mg PO QAM Qty: 90 3RF insulin degludec [Tresiba FlexTouch U-100] 100 unit/mL (3 mL) insulin pen 14 unit subcut BID MDD 28 units Qty: 30 3RF tramadol 50 mg tablet 50 mg PO BID PRN (Reason: pain) Qty: 30 0RF Rx Instructions: Ongoing therapy Supervising physician Meenu Varghese MD CHERRY [id number] empagliflozin 25 mg tablet 25 mg PO DAILY Qty: 90 3RF (DME) blood-glucose meter Kit See Rx Instructions .ROUTE .MEDSUPPLY Qty: 1 0RF Rx Instructions: Check blood sugar once daily (DME) lancets [OneTouch Delica Plus Lancet] 33 gauge misc See Rx Instructions .ROUTE .MEDSUPPLY Qty: 100 5RF Rx Instructions: Check blood sugar once daily (DME) OneTouch Verio test strips Strip See Rx Instructions .ROUTE .MEDSUPPLY Qty: 100 5RF Rx Instructions: Check blood sugars once daily diclofenac sodium 1 % gel 2 g topical QID PRN (Reason: Pain) Rx Instructions: apply to single elbow, wrist or hand; for hand includes palm/fingers/back of hand Triple Antibiotic 3.5mg-400 unit- 5,000 unit/gram ointment 1 applic topical DAILY PRN (Reason: would care) Rx Instructions: Apply 1 x day to affected area. cholecalciferol (vitamin D3) 125 mcg (5,000 unit) capsule 125 mcg PO DAILY Qty: 90 1RF (DME) OneTouch Ultra Test Strip See Rx Instructions .Route Rx Instructions: Test blood sugar three times daily lisinopril 5 mg tablet 5 mg PO QAM Qty: 90 3RF atorvastatin 80 mg tablet 80 mg PO HS Qty: 90 3RF metoprolol succinate 50 mg tablet extended release 24 hr 50 mg PO DAILY Qty: 90 3RF levothyroxine [Synthroid] 50 mcg tablet 50 mcg PO DAILY Qty: 90 1RF pantoprazole 20 mg tablet,delayed release (DR/EC) 20 mg PO DAILY Referrals Referrals: Meenu Varghese MD [Primary Care Provider] - Discharge Problem: Lower back pain Qualifiers: Chronicity: acute Back pain laterality: right Sciatica presence: with sciatica Sciatica laterality: sciatica of right side Qualified Code(s): M54.41 - Lumbago with sciatica, right side Leukocytosis Qualifiers: Leukocytosis type: unspecified Qualified Code(s): D72.829 - Elevated white blood cell count, unspecified
[2023-10-28] MEDS: SODIUM CHLORIDE 0.9% 500 ML IV ONE (16:25)
[2023-10-28] MEDS: ONDANSETRON INJ 2 MG/ML 2 ML VIAL IV STA (16:26)
[2023-10-28] MEDS: MoRPHine SULFATE 4 MG/ML 1 ML CARP\\VIAL IV STA (16:26)
--- NOTE | 2023-10-28 17:27 | History & Physical Report ---
Date of Service October 28, 2023 Assessment & Plan (1) Right lumbar radiculitis: Plan: Admit to med/telemetry Currently stable and nontoxic-appearing Presented to the [facility] ED today for persistent low back pain with radiculopathy into the right lower extremity to the proximal right knee for the past 2 weeks No recent trauma, however, she has had multiple extended trips to and from [place] which could have caused exacerbation CTs of the abdomen/pelvis, lumbar spine, and right femur were read as negative for acute findings At this time her history and exam are most consistent with radicular/neurologic pain Will start the patient on 100 mg of gabapentin 3 times daily starting tonight, 1 g p.o. Tylenol now then scheduled Tylenol every 6 hours, heat patch Will start patient on 40 mg 3 times daily IV Solu-Medrol starting this evening monitor for improvement of symptoms. >Will start daily PPI for stress ulcer prophylaxis while on systemic glucocorticoids Will wait to order as needed narcotics until hyponatremia workup is back While CTs of the lumbar spine and right lower extremity were negative for acute findings, patient was noted to have an elevated CRP of 5.76. At this time we will obtain MRI of the lumbar spine with and without contrast to monitor for possible epidural abscess Could consider MRIs tomorrow if symptoms are not improving Fall precautions, PT/OT consult Bilateral SCDs for DVT prophy prophylaxis Heart healthy/DM type II diet A.m. CBC, CMP, mag, PT/INR (2) Hyponatremia: Plan: Patient noted to have a sodium of 126 today Per chart review, she has had sodium levels in the high 120s to mid 130s over the past 3 to 4 years but never this low Patient has multiple possible risk factors including current tramadol use for back pain,Indapamide use, ongoing pain over the past 2 weeks, poor oral intake, and recent steroid use with Medrol Dosepak prescribed after ER visit on 10/19/2023 Appears dry on exam, this is likely due to poor oral intake along with ongoing indapamide use over the past 72 hours Will start workup including serum osmolality, urine osmolality, urine sodium, and random cortisol level at the time of admission Status post 500 mL of normal saline in the ED Will repeat patient's BMP to monitor her electrolytes, anion gap, and bicarb this evening and adjust treatment measures as needed (3) High anion gap metabolic acidosis: Plan: Patient noted to have an anion gap of 14 on arrival with bicarb of 20 Lactate ordered in the ER Is currently in process Likely due to dehydration as she is at without current sources of infection on labs or imaging and has been afebrile Status post 500 mL of normal saline in the ED Will wait to order additional IV fluids until hyponatremia workup is back as she is currently stable and nontoxic-appearing (4) Leukocytosis: Plan: Patient noted to have a leukocytosis of 15 with neutrophil predominance of 11 today Was given a dose of cefepime in the ER for potential infection prior to imaging being obtained Patient has been afebrile, she is without signs/symptoms of pulmonary, GI, urinary, or skin infections at this time Will obtain chest x-ray and UA to rule out other possible infectious sources, but her leukocytosis is likely a combination of reactivity from ongoing pain and multiple Medrol Dosepaks over the past 2 weeks Will hold further antibiotics at this time, continue to follow fever curve, blood cultures obtained in the ER Follow daily CBC (5) HTN (hypertension): Plan: Currently stable Will plan to continue lisinopril and metoprolol for now (6) Rheumatoid arthritis: Plan: Continue leflunomide (7) Type 2 diabetes mellitus, with long-term current use of insulin: Plan: Monitor blood sugar ACHS, goal is [id number] Hold Jardiance for now Normally on 14 units twice daily of degludec With her decreased oral intake, we will start 5 units Lantus twice daily for basal insulin at this time Will start correction factor of 50 and carb ratio of 15 ACHS for now Plan The patient was discussed with Dr. Vega at the time of the admission History of Present Illness Chief Complaint: Radicular back pain, headache, dehydration Primary Care Provider: Meenu Varghese MD Martha is an 88-year-old female with a past medical history significant for hypertension, rheumatoid arthritis, coronary artery disease, type 2 diabetes, cognitive impairment who presented to the [facility] ER on 10/28/2023 with a chief complaint of ongoing lower back pain with radiation into the right lower extremity for the past 2 weeks. The patient was reportedly seen in [place] approximately 2 weeks ago for the symptoms but was told there were no acute findings. She was subsequently seen in the [facility] emergency department upon arrival back to [place] on 10/19/2023 and has also been seen by her primary care physician on 10/21/2023 for the symptoms. She was given a trial of steroid taper which did not help her symptoms and has been on as needed tramadol with mild improvement in symptoms. She has also been experiencing headache poor appetite fatigue and backaches. On arrival to the ED she was noted to be tachycardic at 108, tachypneic at 25, but otherwise stable. Labs are significant for leukocytosis of 15 with neutrophil predominance of 11, sodium of 126, chloride of 92, anion gap [address] of 20. CT of the abdomen and pelvis with IV contrast, CT of the lumbar spine with contrast, and CT of the right femur with contrast were all read as negative for acute findings.Prior to admission the patient was given a dose of cefepime, 1 mg IV morphine 4 mg IV Zofran and 500 mL of normal saline. Patient was lying in bed mild distress due to her right lower extremity pain at the time of the exam with her son sitting bedside, history is obtained from both. They explained that the patient's low back/right lower extremity pain started approximately 1 day after she arrived down in [place] for her grandsons graduation approximately 2 weeks ago. She flew down to [place] from [place], denies any recent trauma. Symptoms started gradually and progressed prompting ED visit in [place] where she had an x-ray of her back, urinalysis, and right lower extremity venous Doppler which were all within normal limits. She was prescribed a short course of tramadol and a Medrol Dosepak of which she completed both. She did not think that she had any improvement in her symptoms from the steroids alone as her pain quickly returned after she ran out of tramadol. She had her second course of Medrol Dosepak and tramadol after ED evaluation on 10/19/2023, they confirm she again completed the course of steroids without improvement in her pain. Over the past 3 to 4 days she has had very poor oral intake but has been taking all medications as prescribed including daily indapamide, as needed tramadol. She initially had a headache on arrival however this is significantly improved since receiving initial treatment in the ED. Her pain starts in her lower back and moves down her right buttocks and around to the anterior thigh and stops at the proximal knee. The patient denies recent fever, chills, new paresthesias/unilateral weakness, changes in vision, hearing, taste, smell, chest pain, SOB, cough, hemoptysis, abdominal pain, nausea, vomiting, diarrhea, dysuria, hematuria, melena, bloody BM's, LE swelling, and recent trauma. When asked to describe the pain, she describes it as a burning/sharpstabbing pain which is constant but exacerbated with movement. Denies saddle anesthesia, loss of bowel or bladder function/control, or weakness in the right lower extremity compared to left. We discussed CODE STATUS, she is a full code and her children are her primary decision makers if she could not make decisions for self. Please refer to Dr. Vega's attestation for any changes to the treatment plan. Allergies Allergy/AdvReac Type Severity Reaction Status Date / Time No Known Drug Allergies Allergy 0 Verified 10/28/23 18:58 Home Medications Medication Instructions Recorded Confirmed Type blood sugar diagnostic (OneTouch 01/15/21 10/28/23 History Ultra Test strips) diclofenac sodium 1 % topical gel 2 g topical QID PRN Pain 11/23/21 10/28/23 History neomycin-bacitracn Zn-polymyx 3.5 1 applic topical DAILY PRN would 11/23/21 10/28/23 History mg-400 unit-5,000 unit/gram top care oint (Triple Antibiotic) leflunomide 20 mg tablet 20 mg PO QAM #90 tabs 12/17/21 10/28/23 Rx pen needle, diabetic 31 gauge x #100 ea 08/20/22 10/28/23 Rx 5/16" (Lite Touch Insulin Pen [place]) empagliflozin 25 mg tablet 25 mg PO DAILY #90 tabs 01/23/23 10/28/23 Rx cholecalciferol (vitamin D3) 125 125 mcg PO DAILY #90 caps 03/03/23 10/28/23 Rx mcg (5,000 unit) capsule indapamide 1.25 mg tablet 1.25 mg PO QAM #90 tabs 04/21/23 10/28/23 Rx atorvastatin 80 mg tablet 80 mg PO HS #90 tabs 07/02/23 10/28/23 Rx lisinopril 5 mg tablet 5 mg PO QAM #90 tabs 07/02/23 10/28/23 Rx metoprolol succinate 50 mg 50 mg PO DAILY #90 tabs 07/02/23 10/28/23 Rx tablet,extended release 24 hr levothyroxine 50 mcg tablet 50 mcg PO DAILY #90 tabs 07/03/23 10/28/23 Rx (Synthroid) blood sugar diagnostic (OneTouch #100 ea 07/17/23 10/28/23 Rx Verio test strips) blood-glucose meter #1 ea 07/17/23 10/28/23 Rx lancets 33 gauge (OneTouch Delica #100 ea 07/17/23 10/28/23 Rx Plus Lancet) insulin degludec 100 unit/mL (3 14 unit (0.14 mL) subcut BID #30 mL 09/23/23 10/28/23 Rx mL) subcutaneous pen (Tresiba FlexTouch U-100 insulin) tramadol 50 mg tablet 50 mg PO BID PRN pain #30 tabs 10/27/23 10/28/23 Rx pantoprazole 20 mg tablet,delayed 20 mg PO DAILY 10/28/23 10/28/23 History release Past Med/Surg History Problem List (Updated 10/28/23 @ 18:35 by Daniel Couch PA-C) Leukocytosis High anion gap metabolic acidosis Hyponatremia Right lumbar radiculitis (Acute) Cognitive impairment GERD (gastroesophageal reflux disease) HTN (hypertension) (Chronic) Rheumatoid arthritis (Chronic) CAD (coronary artery disease), [place] coronary artery Pulmonary hypertension CKD (chronic kidney disease) stage 3, GFR 30-59 ml/min (Chronic) Voice complaint (Chronic) Vitamin D deficiency, unspecified (Chronic) Tubulovillous adenoma (Chronic) Thickened endometrium (Chronic) Osteopenia (Chronic) Incisional hernia (Chronic) Hypercholesterolemia (Chronic) Dysphonia, spasmodic (Chronic) Diverticulosis (Chronic) Type 2 diabetes mellitus, with long-term current use of insulin (Chronic) Post herpetic neuralgia (Acute) Moderate mitral regurgitation Diabetic nephropathy Medical History Otitis externa, left Left ear impacted cerumen Encounter for wound care Shingles rash Decubitus skin ulcer Right groin pain Hypoxia Hypoxia Arthritis of ankle, degenerative Face lesion Perirectal abscess Abnormal chest CT Diabetes NSTEMI (non-ST elevated myocardial infarction) (09/2017) Surgical History History of tonsillectomy History of hernia repair History of exploratory laparotomy History of cholecystectomy Family History Son Coronary heart disease Mother Diabetes Lung cancer Hypertension Sister Cancer Other No family history of adverse response to anesthesia No family history of bleeding disorder Denies family history of Stroke Social History Smoking Status: Never smoker Second Hand Exposure: No; Do You Dip or Chew Tobacco: No; Hx Alcohol Use: No Hx Substance Use: No Preferred Language: Hungarian Communication Ability: Effective Visual Impairment: Limited Hearing Ability: Normal Food Cart Attendant Required: No Beliefs That Will Affect Care: None marital status: / Current Living Situation: Alone Current Living Situation Comment: Son visits for one month in the summer current occupational status: retired current occupation: retired How many Children do You have: 3 How many Children do You have Comment: Daughter lives in [facility], sons live in [place] [place] and [place]. Daughter unable to help much r/t her work schedule. Feels Safe at Home: Yes Diet: regular Seatbelt Use: always Assistive Devices: Glasses Physical Exam Physical Exam: Physical Exam: General: In mild distress due to pain, stated age, well-nourished, non-toxic appearing HEENT: Normocephalic, atraumatic, no scleral icterus, pupils around round, symmetrical, and reactive to light, dry mucus membranes, trachea midline, no thyromegaly Chest/Pulm: No respiratory distress, symmetrical chest expansion, clear breath sounds throughout Cardiac: RRR, no murmurs noted Abdomen: Negative for ascites and bruising, normoactive bowel sounds, soft, non-tender to palpation throughout Musculoskeletal: No pain or acute trauma noted on inspection and palpation of the lumbar spine, right hip, and right thigh >Patient with significant increase in pain of the RLE upon palpation of the right buttocks/sciatic nerve, patient with increased pain with straight leg raise of the RLE Extremities: Radial, dorsalis pedis, and posterior tibial pulses are intact and symmetrical, no edema noted in the BL LE's Skin: Warm, dry, no rashes , lesions, or scars noted Neuro: Alert and oriented to person, place, month, year, and president, no focal defects >Patient with symmetrical strength, sensation, and distal reflexes of the BL LE's Psych: Mild distress, but polite and cooperative during the exam Results & Data Results & Data Vital Signs (Past 12 Hours) Vital Signs Temp Pulse Pulse Resp BP BP Pulse Ox 10/28/23 16:31 87 25 H 134/70 10/28/23 15:53 90 20 98 10/28/23 13:52 36.7 C 108 H 18 100/61 97 O2 Del Method 10/28/23 16:31 10/28/23 15:53 Room Air 10/28/23 13:52 Room Air Laboratory Results Abnormal lab results 10/28/23 Range/Units 14:20 WBC 15.41 H (4.8-10.8) K/ul RDW Coeff of Lizzette 14.6 H (11.5-14.5) % Neut # (Auto) 11.78 H (1.40-6.50) K/uL Mcdonough # (Auto) 1.42 H (0.11-0.59) K/uL Sodium 126 L (136-145) mmol/L Chloride 92 L (98-107) mmol/L Carbon Dioxide 20 L (21-32) mmol/L Anion Gap 14 H (3-11) BUN 34 H (6-23) mg/dl BUN/Creatinine Ratio 29.8 H (10-20) Diagnostic Findings Abdomen/Pelvis CT 10/28/23 16:00 CT abd pelvis IV con only, CT lumbar spine w con CLINICAL HISTORY: back pain TECHNIQUE: Helical axial images of the abdomen and pelvis were obtained and displayed. Automated dose lowering techniques and/or adjustment according to patient size were utilized for this exam. Dedicated images of the lumbar spine were obtained. This exam was performed with intravenous contrast. CT DOSE: 1527.98 mGy.cm COMPARISON: Comparison is made to CT abdomen pelvis 04/15/2016 FINDINGS: Lower chest: No acute abnormality. Liver: Hepatic cysts are seen. Gallbladder and biliary tree: Patient is status post cholecystectomy. Physiologic prominence of the biliary ducts is noted. Pancreas: The pancreas is atrophic. Spleen: Unremarkable. Adrenals: Unremarkable. Kidneys and ureters: Right renal cyst is seen. Bladder: Unremarkable. Reproductive organs: Incidental note is made of calcified fibroid. Bowel: Diverticulosis is seen without diverticulitis. The appendix is normal. Lymph nodes Retroperitoneal: Unremarkable. Pelvic: Unremarkable. Mesenteric: Unremarkable. Peritoneum: Normal. Vessels: Unremarkable. Abdominal wall: Unremarkable. Bones: Unremarkable. IMPRESSION: No abnormalities to explain fatigue and right thigh pain. ACT 112: Negative or not required by law. Electronically signed by: Eddie Radford M.D. 10/28/2023 6:[address] 10/28/23 16:00 CT abd pelvis IV con only, CT lumbar spine w con CLINICAL HISTORY: back pain TECHNIQUE: Helical axial images of the abdomen and pelvis were obtained and displayed. Automated dose lowering techniques and/or adjustment according to patient size were utilized for this exam. Dedicated images of the lumbar spine were obtained. This exam was performed with intravenous contrast. CT DOSE: 1527.98 mGy.cm COMPARISON: Comparison is made to CT abdomen pelvis 04/15/2016 FINDINGS: Lower chest: No acute abnormality. Liver: Hepatic cysts are seen. Gallbladder and biliary tree: Patient is status post cholecystectomy. Physiologic prominence of the biliary ducts is noted. Pancreas: The pancreas is atrophic. Spleen: Unremarkable. Adrenals: Unremarkable. Kidneys and ureters: Right renal cyst is seen. Bladder: Unremarkable. Reproductive organs: Incidental note is made of calcified fibroid. Bowel: Diverticulosis is seen without diverticulitis. The appendix is normal. Lymph nodes Retroperitoneal: Unremarkable. Pelvic: Unremarkable. Mesenteric: Unremarkable. Peritoneum: Normal. Vessels: Unremarkable. Abdominal wall: Unremarkable. Bones: Unremarkable. IMPRESSION: No abnormalities to explain fatigue and right thigh pain. ACT 112: Negative or not required by law. Electronically signed by: Eddie Radford M.D. 10/28/2023 6:[address] 10/28/23 16:15 CT femur RT w con CLINICAL HISTORY: pain, poss mass TECHNIQUE: Multidetector row helical CT of the right femur was performed without intravenous contrast. Coronal and sagittal reformations were obtained. Automated dose lowering techniques and/or adjustment according to patient size were utilized for this examination. Comparison: None available at the time of this dictation. FINDINGS: The osseous structures are without fracture or dislocation. The joint spaces are maintained. No joint effusion is seen. Intramuscular lipoma is noted in the lateral distal thigh. IMPRESSION: No evidence of acute fracture or dislocation. Please see CT abdomen pelvis performed same day for pelvic findings. ACT 112: Negative or not required by law. Electronically signed by: Eddie Radford M.D. 10/28/2023 5:56 PM Code Status & VTE Plan Code Status Full code VTE Prophylaxis Plan VTE Prophylaxis will be ordered: Yes Supervising Physician Co-Signing Physician Notes Patient seen and examined, chart reviewed, case discussed with Daniel Couch PA-C and I agree with the assessment and plan as above except as otherwise noted Labs and images reviewed. No abnormalities on CT scan to explain right-sided pain, exam is consistent with radiculopathy with sciatica. Patient was nauseous and did have some vomiting following morphine/analgesic treatment in the ER at time of provider assessed. Abdomen is soft and nontender. She denies fever/chills/sweats. Some concern for back pain with her otherwise unexplained white count and elevated CRP. No respiratory symptoms. MRI with/without to rule out abscess and to further evaluate for radicular pain is pending. Blood cultures are pending. Follow fever curve. Agree with assessment and management above PG Care Time/CCT Total # of Minutes Spent Total Time Spent with Patient: Total time spent is greater than 50% in coordination of care (as documented) at patient's floor/unit and/or counseling patient: Coding [place] [address] INT INP/OBS CARE 3/75MIN Patient Type Established Medical Decision Making High Complexity Diagnoses Right lumbar radiculitis M54.16 Hyponatremia E87.1 High anion gap metabolic acidosis E87.29 Leukocytosis D72.829 Primary hypertension I10 Hypertension type: primary hypertension Rheumatoid arthritis involving multiple sites with positive rheumatoid factor M05.79 Rheumatoid arthritis location: multiple sites Rheumatoid factor presence: with rheumatoid factor Type 2 diabetes mellitus with stage 3b chronic kidney disease, with long-term current use of insulin E11.22; N18.32; Z79.4 Chronic kidney disease stage: stage 3 (moderate) Chronic kidney disease stage 3 subtype: stage 3b (GFR 30-44) Diabetes mellitus complication detail: with chronic kidney disease Diabetes mellitus complication status: with kidney complications (5) HTN (hypertension) Hypertension type: primary hypertension Qualified Code(s): I10 - Essential (primary) hypertension (6) Rheumatoid arthritis Rheumatoid arthritis location: multiple sites Rheumatoid factor presence: with rheumatoid factor Qualified Code(s): M05.79 - Rheumatoid arthritis with rheumatoid factor of multiple sites without organ or systems involvement (7) Type 2 diabetes mellitus, with long-term current use of insulin Chronic kidney disease stage: stage 3 (moderate) Chronic kidney disease stage 3 subtype: stage 3b (GFR 30-44) Diabetes mellitus complication detail: with chronic kidney disease Diabetes mellitus complication status: with kidney complications Qualified Code(s): E11.22 - Type 2 diabetes mellitus with diabetic chronic kidney disease; N18.32 - Chronic kidney disease, stage 3b; Z79.4 - local intermodal truck driver (current) use of insulin
[2023-10-28] MEDS: OPTIRAY 320 100ml IV ONE (17:42)
--- NOTE | 2023-10-28 17:57 | CT Scan Report ---
CT femur RT w con CLINICAL HISTORY: pain, poss mass TECHNIQUE: Multidetector row helical CT of the right femur was performed without intravenous contrast . Coronal and sagittal reformations were obtained. Automated dose lowering techniques and/or adjustme nt according to patient size were utilized for this examination. Comparison: None available at the time of this dictation. FINDINGS: The osseous structures are without fracture or dislocation. The joint spaces are maintained. No joint effusion is seen. Intramuscular lipoma is noted in the lateral distal thigh. IMPRESSION: No evidence of acute fracture or dislocation. Please see CT abdomen pelvis performed same day for pel andre findings. ACT 112: Negative or not required by law. Electronically signed by: Eddie Radford M.D. 10/28/2023 5:56 PM
--- NOTE | 2023-10-28 18:07 | CT Scan Report ---
CT abd pelvis IV con only, CT lumbar spine w con CLINICAL HISTORY: back pain TECHNIQUE: Helical axial images of the abdomen and pelvis were obtained and displayed. Automated dose lowering techniques and/or adjustment according to patient size were utilized for this exam. Dedicat ed images of the lumbar spine were obtained. This exam was performed with intravenous contrast. CT DOSE: 1527.98 mGy.cm COMPARISON: Comparison is made to CT abdomen pelvis 04/15/2016 FINDINGS: Lower chest: No acute abnormality. Liver: Hepatic cysts are seen. Gallbladder and biliary tree: Patient is status post cholecystectomy. Physiologic prominence of the b iliary ducts is noted. Pancreas: The pancreas is atrophic. Spleen: Unremarkable. Adrenals: Unremarkable. Kidneys and ureters: Right renal cyst is seen. Bladder: Unremarkable. Reproductive organs: Incidental note is made of calcified fibroid. Bowel: Diverticulosis is seen without diverticulitis. The appendix is normal. Lymph nodes Retroperitoneal: Unremarkable. Pelvic: Unremarkable. Mesenteric: Unremarkable. Peritoneum: Normal. Vessels: Unremarkable. Abdominal wall: Unremarkable. Bones: Unremarkable. IMPRESSION: No abnormalities to explain fatigue and right thigh pain. ACT 112: Negative or not required by law. Electronically signed by: Eddie Radford M.D. 10/28/2023 6:05 PM
[2023-10-28] MEDS ORDERED: CARBOHYDRATES FOR HYPOGLYCEMIA PO PRN (18:17)
[2023-10-28] MEDS ORDERED: GLUCOSE 40% GEL 15 GM TUBE PO PRN (18:17)
[2023-10-28] MEDS ORDERED: GLUCAGON FOR INJ 1 MG VIAL SQ PRN (18:17)
[2023-10-28] MEDS ORDERED: DEXTROSE 50% 50 ML SYRINGE IV PRN (18:17)
[2023-10-28] MEDS ORDERED: GLUCOSE 10 TAB/TUBE PO PRN (18:17)
[2023-10-28] MEDS: CEFEPIME 2,000 MG/20 ML VIAL IV STA (18:22)
[2023-10-28 18:49] LABS: Appearance Urine Clear (Clear); Bilirubin Urine Negative (Negative); Blood Urine Negative (Negative); Color Urine Yellow; Glucose Urine UA 1+ (Negative); Ketones Urine 1+ (Negative); Leukocyte Esterase Urine Negative (Negative); Nitrite Urine Negative (Negative); Protein Urine Negative (Negative); Specific Gravity Urine 1.036 (1.000-1.030); Urobilinogen Urine Negative (Negative); pH Urine 5.5 (4.5-7.5)
[2023-10-28] MEDS ORDERED: methylPREDNISolone 125 MG/2 ML VIAL IV STA (18:53)
[2023-10-28 18:55] LABS: C Reactive Protein 5.76 mg/dl (0-0.5)
[2023-10-28] MEDS: ACETAMINOPHEN 500 MG TAB PO STA (19:53)
[2023-10-28] MEDS: PANTOprazole 40 MG TAB PO STA (19:53)
[2023-10-28] MEDS: methylPREDNISolone 40 MG in SYRINGE 0 ML IV STA (19:53)
[2023-10-28] MEDS: GABAPENTIN 100 MG CAP PO STA (19:53)
[2023-10-28 19:59] LABS: Thyroid Stimulating Hormone 2.066 uIu/ml (0.300-4.500)
[2023-10-28] MEDS ORDERED: MoRPHine SULFATE 2 MG/ML CARP IV PRN (21:05)
[2023-10-28] MEDS: MoRPHine SULFATE 4 MG/ML 1 ML CARP\\VIAL IV PRN (21:13)
[2023-10-28] MEDS: INSULIN ASPART PER UNIT CHARGE SC SCH (21:18)
[2023-10-28] MEDS: ONDANSETRON INJ 2 MG/ML 2 ML VIAL IV PRN (21:40)
[2023-10-28 21:46] LABS: BUN Creatinine Ratio 28.3 (10-20); Creatinine Clr Calc Pharmacy 28.8 ml/min; Est GFR (African American) 47.4 ml/min; Est GFR (Non-African American) 40.9 ml/min; Magnesium 1.9 mg/dl (1.7-2.4); Potassium 3.8 mmol/L (3.5-5.1)
--- NOTE | 2023-10-28 21:46 | XRay Report ---
XR chest 1V portable CLINICAL HISTORY: Leukocytosis, monitor for infection TECHNIQUE: Single frontal radiograph of the chest was obtained. Comparison: Comparison is made to chest radiograph 05/30/2023 FINDINGS: No lines and tubes are seen. The cardiomediastinal silhouette is normal. The lungs are clear. No evid ence of pleural effusion or pneumothorax. IMPRESSION: No acute abnormalities and in particular no radiographic evidence of pneumonia. ACT 112: Negative or not required by law. Electronically signed by: Eddie Radford M.D. 10/28/2023 9:45 PM
[2023-10-28] MEDS: GADOBUTROL 65ML VIAL IV ONE (22:10)
[2023-10-28] MEDS: GABAPENTIN 100 MG CAP PO SCH (23:27)
[2023-10-28] MEDS: ATORVASTATIN 40 MG TAB PO SCH (23:27)
[2023-10-28] MEDS: DICLOFENAC SOD 1% GEL 100 GM TUBE EXT SCH (23:29)
[2023-10-28] MEDS: LANTUS PER UNIT CHARGE SQ SCH (23:32)
[2023-10-28] MEDS ORDERED: POLYETHYLENE (MIRALAX) 17 GM PACK PO PRN (23:47)
[2023-10-28] MEDS ORDERED: DOCUSATE SODIUM 100 MG CAP PO PRN (23:47)
[2023-10-28] MEDS ORDERED: GLYCERIN ADULT 12 SUPP/BOX SUPP PR PRN (23:47)
--- NOTE | 2023-10-29 00:47 | Magnetic Resonance Report ---
Exam(s): MRI L SPINE W/WO Contrast IV Amt: 6ml gadavist EXAM: MR Lumbar Spine Without and With Intravenous Contrast CLINICAL HISTORY: Reason for exam: radicular back pain, monitor for epidural abscess. TECHNIQUE: Magnetic resonance images of the lumbar spine without and with intravenous contrast in multiple planes. CONTRAST: Patient received 6ml gadavist of IV contrast COMPARISON: Comparison made to prior CT scan lumbar spine from November 27, 2023. FINDINGS: Vertebrae: There are 5 lumbar type vertebral bodies with a mild generalized daily right and normal lumbar lordosis. There is normal vertebral body height and alignment. The bone signal is heterogeneous with areas of focal fat or venous malformations. No acute fracture. Ankylosis of the right SI joint and mild left SI joint arthropathy. Spinal cord: The conus is normal size, shape and signal characteristics, terminating at T12-L1. No abnormal enhancement. Soft tissues: There is edema within the right paraspinous muscles at L3, L4 and L5 Advanced atrophy of the iliopsoas, paraspinous intraspinous musculature. The aorta and IVC flow voids are intact. The visualized kidneys are unremarkable. DISCS/SPINAL CANAL/NEURAL FORAMINA: L1-L2: The Intervertebral disc is normal. There is mild facet arthropathy with mild synovitis. L2-L3: Moderate disc degeneration with bilateral disc extrusions causing a moderate subarticular recess stenosis with mild impingement of the transiting L3 nerve roots and causing a severe spinal canal stenosis. There is disc extending into the neural foramina without evidence of impaired or significant stenosis. There is mild facet arthropathy length mild to moderate synovitis. L3-L4: There is mild disc degeneration with annular disc bulging flattening the ventral thecal sac and causing a mild spinal canal stenosis. There is disc extend into the neural foramina causing mild bilateral stenosis without evidence of neural impingement. There is moderate facet arthropathy with moderate to advanced synovitis with inflammation of the surrounding soft tissues. L4-L5: Moderate disc degeneration with annular disc bulge causing mild subarticular recess stenosis and moderately severe spinal canal stenosis. There is disc extend into the neural foramina causing mild bilateral stenosis without evidence of neural impingement. There is mild to moderate facet arthropathy with moderate to advanced synovitis with inflammation of the surrounding soft tissues. L5-S1: There is mild disc degeneration with annular disc bulging flatten the ventral thecal sac. There is mild to moderate facet arthropathy with mild synovitis. IMPRESSION: 1. Moderate disc degeneration at L2-3, L4-5 with mild disc degeneration at L3-4 and L5-S1 with annular disc bulging or disc extrusions flattening the ventral thecal sac and causing mild subarticular recess stenosis at L3-4 and L4-5 and a moderate subarticular recess stenosis at L2-3 with impingement of the transiting L3 nerve roots. 2. There is a severe spinal canal stenosis at L2-3 and moderately severe spinal canal stenosis at L4-5. 3. There is mild bilateral L3-4 and L4-5 neural foraminal stenosis without evidence of neural impingement. 4. There is mild to advanced facet joint arthropathy with mild to advanced synovitis, most significant at L3-4 and L4-5. 5. There is mild left sacroiliac joint arthropathy with ankylosis of the right SI joint. 6. No evidence of fracture, infection, or tumor or arachnoiditis. Electronically signed by: Julissa Melgoza MD 10/29/23 00:47 AM
[2023-10-29] MEDS: ACETAMINOPHEN 325 MG TAB PO SCH (03:05)
[2023-10-29] MEDS: LEVOTHYROXINE SODIUM 50 MCG TABLET PO SCH (05:41)
[2023-10-29 06:39] LABS: Hematocrit (blood only) 37.2 % (37.0-47.0); Hemoglobin 12.7 g/dl (12.0-16.0); Mean Corpuscular Hemoglobin 27.9 pg (25.0-34.0); Mean Corpuscular Hgb Conc 34.1 g/dL (32.0-36.0); Mean Corpuscular Volume 81.8 fL (80.0-100.0); Mean Platelet Volume 10.3 fL (9.4-12.4); Platelet Count 304 K/uL (130-400); RDW Coefficient of Variation 14.6 % (11.5-14.5); RDW Standard Deviation 42.3 fL (36.4-46.3); Red Blood Count 4.55 M/uL (4.20-5.40); White Blood Count 8.82 K/ul (4.8-10.8)
[2023-10-29 06:52] LABS: Albumin Globulin Ratio 1.1 (0.9-2); Albumin Level 3.2 gm/dl (3.4-5.0); BUN Creatinine Ratio 34.5 (10-20); Bilirubin,Total 0.5 mg/dl (0.2-1.0); C Reactive Protein 10.86 mg/dl (0-0.5); Calcium 8.8 mg/dl (8.6-10.3); Creatinine Clr Calc Pharmacy 26.9 ml/min; Est GFR (African American) 47.9 ml/min; Est GFR (Non-African American) 41.3 ml/min; Globulin 2.8 gm/dl (2.5-4.0); Magnesium 2.2 mg/dl (1.7-2.4); Potassium 4.1 mmol/L (3.5-5.1)
[2023-10-29 06:56] LABS: INR 0.9 (0.9-1.1); Prothrombin Time 9.9 Seconds (9.0-12.0)
[2023-10-29 07:12] LABS: Basophils # (auto) 0.02 K/uL (0.00-0.20); Basophils % (auto) 0.2 %; Echinocytes 1+; Immature Granulocytes # (auto) 0.07 K/uL (0.01-0.20); Immature Granulocytes % (auto) 0.8 %; Lymphocytes # (auto) 0.49 K/uL (1.20-3.40); Lymphocytes % (auto) 5.6 %; Monocytes # (auto) 0.25 K/uL (0.11-0.59); Monocytes % (auto) 2.8 %; Neutrophils # (auto) 7.99 K/uL (1.40-6.50); Neutrophils % (auto) 90.6 %; Polychromasia 1+
[2023-10-29] MEDS: LEFLUNOMIDE 10 MG TAB PO SCH (08:33)
[2023-10-29] MEDS: methylPREDNISolone 40 MG in SYRINGE 0 ML IV SCH (08:33)
[2023-10-29] MEDS: PANTOprazole 40 MG TAB PO SCH (08:34)
[2023-10-29] MEDS: METOPROLOL SUCC 50MG EXT REL TAB PO SCH (08:34)
[2023-10-29] MEDS ORDERED: lisinopril 5 MG TAB PO SCH (09:00)
[2023-10-29] MEDS ORDERED: methylPREDNISolone 125 MG/2 ML VIAL IV SCH (09:00)
[2023-10-29] MEDS: ONDANSETRON INJ 2 MG/ML 2 ML VIAL IV STA (09:25)
--- NOTE | 2023-10-29 11:18 | Hospitalist Progress Note ---
Date of Service October 29, 2023 Assessment & Plan (1) Right lumbar radiculitis: Plan: Patient presented to ED on 10/27 for persistent low back pain with radiculopathy into RLE to proximal R knee for 2 weeks. Admit to med/telemetry Stable and nontoxic-appearing No recent trauma, however, she has had multiple extended trips to and from [place] which could have caused exacerbation -Reviewed CT of abdomen/pelvis, lumbar spine, and Right femur - negative for acute findings. -reviewed MRI of spine which did reveal moderate disc degeneration at multiple levels along with severe spinal canal stenosis at L2-L3 and moderately severe spinal canal stenosis at L4-L5. Also demonstrated neural foraminal stenosis and mild to advanced synovitis most significantly at L3-L4 and L4-L5. -Reviewed labs 10/28 - CRP increased to 10.86 overnight. WBC WNL at 8.82. Procalcitonin 0.18 -Reviewed labs 10/27 which revealed elevated WBC at 15.41 with neutrophil predominance of 11. -Reviewed CXR/UA 10/27: negative for possible infectious sources. likely combination of reactivity from ongoing pain, and 2 Medrol Dosepaks over 2 weeks. -given 1 dose cefepime 10/27. -afebrile. no signs of pulmonary, GI, urinary, or skin infections -obtained blood cultures 10/27 - results pending. -will hold further antibiotics at this time. -Ordered tick panel which was negative for babesiosis. Anaplasma smear abnormal, awaiting pathology results. -Started on Doxycycline 100mg BID. -Continue gabapentin 3 times daily. -Continue Tylenol every 6 hours -continue heat patch -IV Solu-Medrol 40mg three times daily. (PPI started to stress ulcer prophylaxis while on systemic glucocorticoids) -Avoid use of narcotics unless absolutely necessary as causes patient GI upset. Antiemetics as needed alongside narcotics. Fall precautions, PT/OT consult, appreciate recommendations. -Consulted ortho spine, appreciate recommendations. -Repeat CBC, BMP, CRP in AM. -Discussed plan of care with son. (2) Hyponatremia: Plan: -Patient has history of hyponatremia over past 3-4 years but not this low. Risk factors for hyponatremia include tramadol use, indapamide use, pain x 2 weeks, poor oral intake, and recent steroid use. -nephrology consulted and reviewed their recommendations -Repeat serum sodium 10/28 noted drop to 122 from 124. -Plan for 500mL normal saline 10/28 with repeat BMP at 1600. -Continue fluid restriction -Resume Jardiance -Adequate pain control & avoid hypotension. -reviewed workup - urine osmolality low at 484.Serum osmolality high at 270 random cortisol 24.03. (3) High anion gap metabolic acidosis: Plan: Likely due to dehydration as she is at without current sources of infection on labs or imaging and has been afebrile -reviewed labs 10/28 which revealed anion gap of 12 and bicarb of 20 Lactate results from 10/27 reviewed which where WNL at 1.4. Status post 500 mL of normal saline 10/27 (4) HTN (hypertension): Plan: -held lisinopril 10/28 in setting of hypotension likely from dose of morphine. -will plan to resume lisinopril 10/29 pending stabilization of BP -continue metoprolol. Plan Chronic conditions: Rheumatoid arthritis: continue leflunomide T2 Diabetes: Lantus 5 units BID. and ACHS with goal of 110-160. Correction factor of 50 and carb ratio of 15. Per nephrology continue jardiance. Bilateral SCDs for DVT prophy prophylaxis Heart healthy/DM type II diet -Full code Admission and Anticipated Discharge Date Admission Date: October 28, 2023 Subjective Patient was seen and examined this morning with son at bedside. Patient was unable to adequately provide an accurate history so patient gave son consent to proceed with history. Son reports patient has been having ongoing RUE pain and lower back pain since 10/11. She was evaluated in [place] for this and was given a 5 day course of steroids and tramadol. Upon returning home, she was evaluated in our ED and by her PCP. She was given additional dosages of tramadol to control pain along with another 5 day course of steroids. Tramadol did seem to control pain but after cessation, symptoms would return. Son states patient vomited x 2 yesterday and had poor appetite which is what brought them to ED. She also has history of rheumatoid arthritis and does experience similar pain symptoms although not this severe or for this duration. At time of encounter patient did have an episode of emesis. No hematemesis was observed. She reports following her dose of morphine that was given she became sick and developed N/V. She states her last BM was 10/27 and was brown in color. She denies melena or hematemesis. Patient did have 2 point drop in hgb over night. Physical Exam 2 Constitutional: WD/WN, vitals as above Eyes: PERRL, conjunctivae normal, anicteric sclerae ENMT: external ear and nose normal, oropharynx normal Respiratory: normal respiratory effort, lungs clear to auscultation Cardiovascular: RRR, no murmur, no edema Gastrointestinal (Abdomen): normal bowel sounds, soft, nontender, no hepatosplenomegaly Neurologic: PERRL, EOMI, accommodation nl, no face palsy, no dysarthria Psychiatric: A+Ox3, euthymic affect mild cognitive impairment. Results & Data Results & Data Vital Signs (Past 12 Hours) Vital Signs Temp Pulse Resp BP Pulse Ox O2 Del Method 10/29/23 07:01 36.6 C 81 16 90/52 L 95 Room Air 10/29/23 04:13 36.8 C 87 20 96/56 L 98 Room Air Laboratory Results 10/29/23 05:36 10/29/23 11:22 Diagnostic Findings Abdomen/Pelvis CT 10/28/23 16:00 CT abd pelvis IV con only, CT lumbar spine w con CLINICAl HISTORY: back pain COMPARISON: Comparison is made to CT abdomen pelvis 04/15/2016 IMPRESSION: No abnormalities to explain fatigue and right thigh pain. Electronically signed by: Eddie Radford M.D. 10/28/2023 6:[address] 10/28/23 16:00 CT abd pelvis IV con only, CT lumbar spine w con CLINICAL HISTORY: back pain COMPARISON: Comparison is made to CT abdomen pelvis 04/15/2016 IMPRESSION: No abnormalities to explain fatigue and right thigh pain. Electronically signed by: Eddie Radford M.D. 10/28/2023 6:[address] 10/28/23 16:15 CT femur RT w con CLINICAL HISTORY: pain, poss mass IMPRESSION: No evidence of acute fracture or dislocation. Please see CT abdomen pelvis performed same day for pelvic findings. Electronically signed by: Eddie Radford M.D. 10/28/2023 5:56 PM Chest X-Ray 10/28/23 18:48 XR chest 1V portable CLINICAL HISTORY: Leukocytosis, monitor for infection IMPRESSION: No acute abnormalities and in particular no radiographic evidence of pneumonia. Electronically signed by: Eddie Radford M.D. 10/28/2023 9:45 PM Lumbar Spine MRI 10/28/23 20:16 Exam(s): MRI L SPINE W/WO Contrast IV Amt: 6ml gadavist IMPRESSION: 1. Moderate disc degeneration at L2-3, L4-5 with mild disc degeneration at L3-4 and L5-S1 with annular disc bulging or disc extrusions flattening the ventral thecal sac and causing mild subarticular recess stenosis at L3-4 and L4-5 and a moderate subarticular recess stenosis at L2-3 with impingement of the transiting L3 nerve roots. 2. There is a severe spinal canal stenosis at L2-3 and moderately severe spinal canal stenosis at L4-5. 3. There is mild bilateral L3-4 and L4-5 neural foraminal stenosis without evidence of neural impingement. 4. There is mild to advanced facet joint arthropathy with mild to advanced synovitis, most significant at L3-4 and L4-5. 5. There is mild left sacroiliac joint arthropathy with ankylosis of the right SI joint. 6. No evidence of fracture, infection, or tumor or arachnoiditis. Electronically signed by: Julissa Melgoza MD 10/29/23 00:47 AM PG Care Time/CCT Total # of Minutes Spent Total Time Spent with Patient: Total time spent is greater than 50% in coordination of care (as documented) at patient's floor/unit and/or counseling patient: Coding Level of Care Code 33228 SUB INP/OBS CARE 3/50MIN Diagnoses Right lumbar radiculitis M54.16 Hyponatremia E87.1 High anion gap metabolic acidosis E87.29 Primary hypertension I10 Hypertension type: primary hypertension (4) HTN (hypertension) Hypertension type: primary hypertension Qualified Code(s): I10 - Essential (primary) hypertension
--- NOTE | 2023-10-29 11:53 | Nephrology Consultation ---
Date of Consultation October 29, 2023 Assessment & Plan (1) Acute hyponatremia: (2) HTN (hypertension): (3) Rheumatoid arthritis: (4) Lower back pain: Plan Acute hyponatremia with history of mild chronic hyponatremia, serum sodium stays around 132-133, stage IIIa CKD, baseline creatinine 1.2-1.3 possibly secondary to microvascular disease with history of hypertension, diabetes. Admitted with severe back pain with significant degenerative disease of back with disc disease and severe spinal stenosis. Sodium was noted to be 126 which dropped further this morning to 124. Received a liter of normal saline bolus on admission. Initially blood pressure was normal but dropped after receiving morphine. Urine osmolality was 484. Hyponatremia in the setting of pain, some component of high ADH state. Was on indapamide which was stopped. Jardiance on hold. Overall she is otherwise asymptomatic pain some really improved. Blood pressure dropped after receiving morphine but now seems to be better. -- Repeat serum sodium now, continue on mild fluid restriction. If sodium drops further we will consider salt tablet as blood pressure has been well-controlled no sign of volume overload. -- Resume Jardiance which may help with the sodium level. -- Adequate Pain control, avoid hypotension. Thank you for allowing me to participate in your patient's care. It was a pleasure to see Martha. History of Present Illness Reason for Consultation: Hyponatremia. Attending Physician: Joey Dean History of Present Illness Ms. Martha Espinoza is an 88-year-old female with PMH of Stage 3A CKD, chronic mild hyponatremia, hypertension, rheumatoid arthritis, DMT2, CAD admitted to the hospital on 10/28/2023 with lower back pain for last 2 weeks and acute hyponatremia. Nephrology consult was requested for management of hyponatremia. Electronic medical records are reviewed in detail during patient's visit. Martha presented to ER yesterday with 2 weeks history of back pain radiating down to her right thigh. The pain started 2 weeks ago while she was in [place] and she was seen by physician there and told that there was no acute finding. She was also seen here in ER after she is back from [place] on 10/19/2023 and by her PCP on 10/21/2023 for the symptoms. She was given a trial of steroid taper which did not help her symptoms and has been on as needed tramadol with mild improvement in symptoms. She has also been experiencing headache poor appetite fatigue and backaches. On arrival to the ER she was tachycardic but vital signs are otherwise stable. Lab was notable for acute hyponatremia, serum sodium 126. Record review showed she had mild hyponatremia, serum sodium usually stays around 132-133. She received 1 L of normal saline bolus. Initially her blood pressure was high but blood pressure dropped after she received several doses of morphine for the back pain. Creatinine was 1.2. Urine osmolality is 484. Random cortisol is normal. TSH has been normal, she has been on levothyroxine for hypothyroidism. She is on indapamide which has been on hold since admissi on. Nonsmoker, recent chest x-ray, CT abdomen pelvis was unremarkable. No history of adrenal insufficiency. No personal history of malignancy. Denies any history of confusion, headache, dizziness, lightheadedness. Denies history of chronic diarrhea or volume depletion. Denies any history of severe cardiomyopathy or congestive heart failure. MRI of lumbar spine showed severe degenerative disease from L2-L5 with moderate to severe spinal stenosis. Stage 3A CKD, b/l cr 1.2 to 1.3 mg/dl most likely secondary to microvascular disease and age-related nephron loss with history of hypertension. Was on indapamide which is currently on hold. Has type 2 diabetes, has been well- controlled on insulin, Jardiance. History of rheumatoid arthritis, has been on leflunomide. Sodium dropped further down to 124 this morning. Other electrolyte acceptable. She reports slight improvement in back pain compared to yesterday. Denies any other symptoms. Allergies Allergy/AdvReac Type Severity Reaction Status Date / Time No Known Drug Allergies Allergy 0 Verified 10/28/23 18:58 Home Medications Medication Instructions Recorded Confirmed Type blood sugar diagnostic (OneTouch 01/15/21 10/28/23 History Ultra Test strips) diclofenac sodium 1 % topical gel 2 g topical QID PRN Pain 11/23/21 10/28/23 History neomycin-bacitracn Zn-polymyx 3.5 1 applic topical DAILY PRN would 11/23/21 10/28/23 History mg-400 unit-5,000 unit/gram top care oint (Triple Antibiotic) leflunomide 20 mg tablet 20 mg PO QAM #90 tabs 12/17/21 10/28/23 Rx pen needle, diabetic 31 gauge x #100 ea 08/20/22 10/28/23 Rx 5/16" (Lite Touch Insulin Pen [place]pine) empagliflozin 25 mg tablet 25 mg PO DAILY #90 tabs 01/23/23 10/28/23 Rx cholecalciferol (vitamin D3) 125 125 mcg PO DAILY #90 caps 03/03/23 10/28/23 Rx mcg (5,000 unit) capsule indapamide 1.25 mg tablet 1.25 mg PO QAM #90 tabs 04/21/23 10/28/23 Rx atorvastatin 80 mg tablet 80 mg PO HS #90 tabs 07/02/23 10/28/23 Rx lisinopril 5 mg tablet 5 mg PO QAM #90 tabs 07/02/23 10/28/23 Rx metoprolol succinate 50 mg 50 mg PO DAILY #90 tabs 07/02/23 10/28/23 Rx tablet,extended release 24 hr levothyroxine 50 mcg tablet 50 mcg PO DAILY #90 tabs 07/03/23 10/28/23 Rx (Synthroid) blood sugar diagnostic (OneTouch #100 ea 07/17/23 10/28/23 Rx Verio test strips) blood-glucose meter #1 ea 07/17/23 10/28/23 Rx lancets 33 gauge (OneTouch Delica #100 ea 07/17/23 10/28/23 Rx Plus Lancet) insulin degludec 100 unit/mL (3 14 unit (0.14 mL) subcut BID #30 mL 09/23/23 10/28/23 Rx mL) subcutaneous pen (Tresiba FlexTouch U-100 insulin) tramadol 50 mg tablet 50 mg PO BID PRN pain #30 tabs 10/27/23 10/28/23 Rx pantoprazole 20 mg tablet,delayed 20 mg PO DAILY 10/28/23 10/28/23 History release Patient History Medical History Otitis externa, left Left ear impacted cerumen Encounter for wound care Shingles rash Decubitus skin ulcer Right groin pain Hypoxia Hypoxia Arthritis of ankle, degenerative Face lesion Perirectal abscess Abnormal chest CT Diabetes NSTEMI (non-ST elevated myocardial infarction) (09/2017) Surgical History History of tonsillectomy History of hernia repair History of exploratory laparotomy History of cholecystectomy Family History Son Coronary heart disease Mother Diabetes Lung cancer Hypertension Sister Cancer Other No family history of adverse response to anesthesia No family history of bleeding disorder Denies family history of Stroke Social History Smoking Status: Never smoker Second Hand Exposure: No; Do You Dip or Chew Tobacco: No; Hx Alcohol Use: No Hx Substance Use: No Preferred Language: Polish Communication Ability: Effective Visual Impairment: Limited Hearing Ability: Normal Rug Weaver Required: No Beliefs That Will Affect Care: None marital status: / Current Living Situation: Alone Current Living Situation Comment: Son visits for one month in the summer current occupational status: retired current occupation: retired How many Children do You have: 3 How many Children do You have Comment: Daughter lives in [facility], sons live in [facility] and [place]. Daughter unable to help much r/t her work schedule. Feels Safe at Home: Yes Diet: regular Seatbelt Use: always Assistive Devices: Cane, Walker and Other Review of Systems Review of Systems: Detailed review of system was done and pertinent positives and negatives are mentioned above. Physical Exam Constitutional: WD/WN, vitals as above no acute distress Eyes: + anicteric sclerae Neck: normal visual inspection Respiratory: no respiratory distress and no cough Auscultation: lungs clear to auscultation bilaterally Cardiovascular: RRR, no murmur, no edema Gastrointestinal (Abdomen): Inspection/Auscultation: abdomen normal to inspection Percussion/Palpation: abdomen soft; abdomen nontender Musculoskeletal: Extremities: extremities normal to inspection Neurologic: no focal motor deficits and not confused Psychiatric: Orientation: alert and oriented x 3 Affect: euthymic affect Results & Data Vital Signs (Past 12 Hours) Vital Signs Temp Pulse Resp BP Pulse Ox O2 Del Method 10/29/23 11:17 36.3 C L 59 L 16 112/61 96 Room Air 10/29/23 07:01 36.6 C 81 16 90/52 L 95 Room Air 10/29/23 04:13 36.8 C 87 20 96/56 L 98 Room Air PG Care Time/CCT Total # of Minutes Spent Total Time Spent with Patient: Total time spent is greater than 50% in coordination of care (as documented) at patient's floor/unit and/or counseling patient: Coding Level of Care Code 67090 INT INP/OBS CARE 3/75MIN Diagnoses Acute hyponatremia E87.1 Primary hypertension I10 Hypertension type: primary hypertension Rheumatoid arthritis involving multiple sites with positive rheumatoid factor M05.79 Rheumatoid arthritis location: multiple sites Rheumatoid factor presence: with rheumatoid factor Lower back pain M54.41 Back pain laterality: right Chronicity: acute Sciatica laterality: sciatica of right side Sciatica presence: with sciatica (2) HTN (hypertension) Hypertension type: primary hypertension Qualified Code(s): I10 - Essential (primary) hypertension (3) Rheumatoid arthritis Rheumatoid arthritis location: multiple sites Rheumatoid factor presence: with rheumatoid factor Qualified Code(s): M05.79 - Rheumatoid arthritis with rheumatoid factor of multiple sites without organ or systems involvement (4) Lower back pain Back pain laterality: right Chronicity: acute Sciatica laterality: sciatica of right side Sciatica presence: with sciatica Qualified Code(s): M54.41 - Lumbago with sciatica, right side
--- NOTE | 2023-10-29 13:38 | Orthopedic Consultation ---
Date of Consultation October 29, 2023 Assessment & Plan (1) Acute pain of right thigh: (2) Lower back pain: (3) Right lumbar radiculitis: Plan Lumbar spine MRI demonstrates multilevel stenosis, most significant at L2-3 and T12-L1, and slightly less so at L4-5. Pain is well-controlled with the patient lying supine in bed. Her pain mostly consists of anterior right thigh region radicular component pain when she attempts to ambulate. She also does have some pain to the right lumbosacral region. Patient denies previously having had low back pain or lower extremity pain issues prior to a couple of weeks ago when she was down in [place] when this all started. Her symptoms do seem to be mostly in an L3, and possibly some L2, nerve distribution pathway on the right; this does correlate well with the MRI findings. 1. From an orthospine standpoint, no surgical intervention is indicated/recommended at this time. 2. Agree with IV methylprednisolone and PO acetaminophen -- continue as ordered. 3. Continue gabapentin 100 mg. * As the majority of her pain seems to be neuropathic and radicular in nature, consideration could be given for increase in dose and titrate to 300 mg TID. 4. Recommend conservative pain control measures and eventual PT/OT. Once the patient is able to be discharged, she could be seen as an outpatient by Dr. Grove, at which time, he could make a determination if she would be a candidate for referral to pain management for consideration of a procedural intervention in the form of a lumbar epidural steroid injection or otherwise. Will continue to follow. Patient seen and examined, her leg pain and back pain have improved, she is up ambulating in the hallway. I discussed the nature of the spine issues, I have asked her to follow-up in our office in the next 1 to 2 weeks for additional follow-up and discussion. History of Present Illness Reason for Consultation: severe stenosis L2-L3, LBP w/ radiation RLE Requesting Physician: Erica Perez PA-C Attending Physician: Joey Dean History of Present Illness Patient is an 88-year-old female that presented to the [facility] ED on 10/28/2023 with back and right thigh pain that had been an issue for 2 weeks. She started off with the discomfort in [place], and was seen in an ED there. It seems she was placed onto an oral Medrol Dosepak, which helped to control symptoms some. She then returned home, and pain had been exacerbated at some point and so she she came to this ED. Patient did see her PCP at one point, and she was also recently just seen here in the ED D on 10/19/2023 as well, and she was discharged with another Medrol dose pack and some tramadol. She says that the tramadol would help take the edge off only. The second steroid pack did not seem to provide much of any relief. She reported loss of appetite and a generalized feeling of weakness and tiredness. Patient denied any history of fever or abdominal pain. She was worked up for a UTI, and this was negative. Patient denied any fall or specific injury as the cause to her symptoms. She denies ever having had any low back pain or lower extremity pain in the past previous to this ongoing occasion. She has had an outpatient ultrasound of the right leg done, and this was negative for DVT. Today, patient is reporting the majority of pain to her right anterior thigh, as well as in the right side low back. She says that the thigh pain seems to be worse than the low back pain. However, overall, she is really not having much of any pain when she is lying flat in bed at rest. She says that her pain mostly occurs when she is up and walking. She did undergo a lumbar spine MRI once it was determined for her to be admitted since she was failing outpatient treatment. Allergies Allergy/AdvReac Type Severity Reaction Status Date / Time No Known Drug Allergies Allergy 0 Verified 10/28/23 18:58 Home Medications Medication Instructions Recorded Confirmed Type blood sugar diagnostic (OneTouch 01/15/21 10/28/23 History Ultra Test strips) diclofenac sodium 1 % topical gel 2 g topical QID PRN Pain 11/23/21 10/28/23 History neomycin-bacitracn Zn-polymyx 3.5 1 applic topical DAILY PRN would 11/23/21 10/28/23 History mg-400 unit-5,000 unit/gram top care oint (Triple Antibiotic) leflunomide 20 mg tablet 20 mg PO QAM #90 tabs 12/17/21 10/28/23 Rx pen needle, diabetic 31 gauge x #100 ea 08/20/22 10/28/23 Rx 5/16" (Lite Touch Insulin Pen [place]) empagliflozin 25 mg tablet 25 mg PO DAILY #90 tabs 01/23/23 10/28/23 Rx cholecalciferol (vitamin D3) 125 125 mcg PO DAILY #90 caps 03/03/23 10/28/23 Rx mcg (5,000 unit) capsule indapamide 1.25 mg tablet 1.25 mg PO QAM #90 tabs 04/21/23 10/28/23 Rx atorvastatin 80 mg tablet 80 mg PO HS #90 tabs 07/02/23 10/28/23 Rx lisinopril 5 mg tablet 5 mg PO QAM #90 tabs 07/02/23 10/28/23 Rx metoprolol succinate 50 mg 50 mg PO DAILY #90 tabs 07/02/23 10/28/23 Rx tablet,extended release 24 hr levothyroxine 50 mcg tablet 50 mcg PO DAILY #90 tabs 07/03/23 10/28/23 Rx (Synthroid) blood sugar diagnostic (OneTouch #100 ea 07/17/23 10/28/23 Rx Verio test strips) blood-glucose meter #1 ea 07/17/23 10/28/23 Rx lancets 33 gauge (OneTouch Delica #100 ea 07/17/23 10/28/23 Rx Plus Lancet) insulin degludec 100 unit/mL (3 14 unit (0.14 mL) subcut BID #30 mL 09/23/23 10/28/23 Rx mL) subcutaneous pen (Tresiba FlexTouch U-100 insulin) tramadol 50 mg tablet 50 mg PO BID PRN pain #30 tabs 10/27/23 10/28/23 Rx pantoprazole 20 mg tablet,delayed 20 mg PO DAILY 10/28/23 10/28/23 History release Patient History Medical History Otitis externa, left Left ear impacted cerumen Encounter for wound care Shingles rash Decubitus skin ulcer Right groin pain Hypoxia Hypoxia Arthritis of ankle, degenerative Face lesion Perirectal abscess Abnormal chest CT Diabetes NSTEMI (non-ST elevated myocardial infarction) (09/2017) Surgical History History of tonsillectomy History of hernia repair History of exploratory laparotomy History of cholecystectomy Family History Son Coronary heart disease Mother Diabetes Lung cancer Hypertension Sister Cancer Other No family history of adverse response to anesthesia No family history of bleeding disorder Denies family history of Stroke Social History Smoking Status: Never smoker Second Hand Exposure: No; Do You Dip or Chew Tobacco: No; Hx Alcohol Use: No Hx Substance Use: No Preferred Language: Danish Communication Ability: Effective Visual Impairment: Limited Hearing Ability: Normal Psychometric Examiner Required: No Beliefs That Will Affect Care: None marital status: / Current Living Situation: Alone Current Living Situation Comment: Son visits for one month in the summer current occupational status: retired current occupation: retired How many Children do You have: 3 How many Children do You have Comment: Daughter lives in [facility], sons live in [facility] and [place]. Daughter unable to help much r/t her work schedule. Feels Safe at Home: Yes Diet: regular Seatbelt Use: always Assistive Devices: Cane, Walker and Other Physical Exam Physical Exam: GENERAL: Speech and cognition is intact. Mood and affect is appropriate. Does not appear in acute distress. Lying in bed supine and appears relatively comfortable. HEAD: Normocephalic; atraumatic. NECK: Trachea is midline. CHEST: Regular chest respiration and excursion. BACK:+ TTP right lumbosacral region. Majority of spine motion exam is deferred to not exacerbate pain. NEURO: Gait not evaluated awake, alert, and oriented x 3. Distal sensation of lower legs intact and equal bilaterally. SKIN: No lesions, erythema, or rashes noted. LOWER EXTREMITIES: R Hip flexion 5/5; knee extension 5/5; knee flexion 5/5; ankle dorsiflexion 5/5; ankle plantar flexion 5/5; EHL 5/5 L Hip flexion 5/5; knee extension 5/5; knee flexion 5/5; ankle dorsiflexion 5/5; ankle plantar flexion 5/5; EHL 5/5 Special tests: Negative Stinchfield test on the right. Negative logroll test on the right. Results & Data Vital Signs (Past 12 Hours) Vital Signs Temp Pulse Resp BP Pulse Ox O2 Del Method 10/29/23 11:17 36.3 C L 59 L 16 112/61 96 Room Air 10/29/23 07:01 36.6 C 81 16 90/52 L 95 Room Air 10/29/23 04:13 36.8 C 87 20 96/56 L 98 Room Air Diagnostic Findings Exam(s): MRI L SPINE W/WO Contrast IV Amt: 6ml gadavist EXAM: MR Lumbar Spine Without and With Intravenous Contrast CLINICAL HISTORY: Reason for exam: radicular back pain, monitor for epidural abscess. TECHNIQUE: Magnetic resonance images of the lumbar spine without and with intravenous contrast in multiple planes. CONTRAST: Patient received 6ml gadavist of IV contrast COMPARISON: Comparison made to prior CT scan lumbar spine from November 27, 2023. FINDINGS: Vertebrae: There are 5 lumbar type vertebral bodies with a mild generalized daily right and normal lumbar lordosis. There is normal vertebral body height and alignment. The bone signal is heterogeneous with areas of focal fat or venous malformations. No acute fracture. Ankylosis of the right SI joint and mild left SI joint arthropathy. Spinal cord: The conus is normal size, shape and signal characteristics, terminating at T12-L1. No abnormal enhancement. Soft tissues: There is edema within the right paraspinous muscles at L3, L4 and L5 Advanced atrophy of the iliopsoas, paraspinous intraspinous musculature. The aorta and IVC flow voids are intact. The visualized kidneys are unremarkable. DISCS/SPINAL CANAL/NEURAL FORAMINA: L1-L2: The Intervertebral disc is normal. There is mild facet arthropathy with mild synovitis. L2-L3: Moderate disc degeneration with bilateral disc extrusions causing a moderate subarticular recess stenosis with mild impingement of the transiting L3 nerve roots and causing a severe spinal canal stenosis. There is disc extending into the neural foramina without evidence of impaired or significant stenosis. There is mild facet arthropathy length mild to moderate synovitis. L3-L4: There is mild disc degeneration with annular disc bulging flattening the ventral thecal sac and causing a mild spinal canal stenosis. There is disc extend into the neural foramina causing mild bilateral stenosis without evidence of neural impingement. There is moderate facet arthropathy with moderate to advanced synovitis with inflammation of the surrounding soft tissues. L4-L5: Moderate disc degeneration with annular disc bulge causing mild subarticular recess stenosis and moderately severe spinal canal stenosis. There is disc extend into the neural foramina causing mild bilateral stenosis without evidence of neural impingement. There is mild to moderate facet arthropathy with moderate to advanced synovitis with inflammation of the surrounding soft tissues. L5-S1: There is mild disc degeneration with annular disc bulging flatten the ventral thecal sac. There is mild to moderate facet arthropathy with mild synovitis. IMPRESSION: 1. Moderate disc degeneration at L2-3, L4-5 with mild disc degeneration at L3-4 and L5-S1 with annular disc bulging or disc extrusions flattening the ventral thecal sac and causing mild subarticular recess stenosis at L3-4 and L4-5 and a moderate subarticular recess stenosis at L2-3 with impingement of the transiting L3 nerve roots. 2. There is a severe spinal canal stenosis at L2-3 and moderately severe spinal canal stenosis at L4-5. 3. There is mild bilateral L3-4 and L4-5 neural foraminal stenosis without evidence of neural impingement. 4. There is mild to advanced facet joint arthropathy with mild to advanced synovitis, most significant at L3-4 and L4-5. 5. There is mild left sacroiliac joint arthropathy with ankylosis of the right SI joint. 6. No evidence of fracture, infection, or tumor or arachnoiditis. Electronically signed by: Julissa Melgoza MD 10/29/23 00:47 AM Dictated: 10/29/23 0047 Transcribed: 10/29/[address] abd pelvis IV con only, CT lumbar spine w con CLINICAL HISTORY: back pain TECHNIQUE: Helical axial images of the abdomen and pelvis were obtained and displayed. Automated dose lowering techniques and/or adjustment according to patient size were utilized for this exam. Dedicated images of the lumbar spine were obtained. This exam was performed with intravenous contrast. CT DOSE: 1527.98 mGy.cm COMPARISON: Comparison is made to CT abdomen pelvis 04/15/2016 FINDINGS: Lower chest: No acute abnormality. Liver: Hepatic cysts are seen. Gallbladder and biliary tree: Patient is status post cholecystectomy. Physiologic prominence of the biliary ducts is noted. Pancreas: The pancreas is atrophic. Spleen: Unremarkable. Adrenals: Unremarkable. Kidneys and ureters: Right renal cyst is seen. Bladder: Unremarkable. Reproductive organs: Incidental note is made of calcified fibroid. Bowel: Diverticulosis is seen without diverticulitis. The appendix is normal. Lymph nodes Retroperitoneal: Unremarkable. Pelvic: Unremarkable. Mesenteric: Unremarkable. Peritoneum: Normal. Vessels: Unremarkable. Abdominal wall: Unremarkable. Bones: Unremarkable. IMPRESSION: No abnormalities to explain fatigue and right thigh pain. ACT 112: Negative or not required by law. Electronically signed by: Eddie Radford M.D. 10/28/2023 6:05 PM Dictated: 10/28/231755 Transcribed: 10/28/231755 XR lumbar spine min 4V routine CLINICAL HISTORY: LBP w/ R radiculitis TECHNIQUE: 5 views of the lumbar spine were obtained. Comparison: Comparison is made to lumbar spine radiographs 07/18/2020 FINDINGS: There is no evidence of an acute fracture. Degenerative changes are seen in the lumbar spine with osteophyte formation and disc space narrowing. The alignment is normal. Vascular calcifications are noted. IMPRESSION: Degenerative changes as above without acute fracture or subluxation. ACT 112: Negative or not required by law. Electronically signed by: Eddie Radford M.D. 10/19/2023 1:54 PM Dictated: 10/19/23 1351 Transcribed: 10/19/23 135 (2) Lower back pain Back pain laterality: right Chronicity: acute Sciatica laterality: sciatica of right side Sciatica presence: with sciatica Qualified Code(s): M54.41 - Lumbago with sciatica, right side
[2023-10-29] MEDS: EMPAGLIFLOZIN 25 MG TAB PO SCH (13:48)
[2023-10-29] MEDS: DOXYCYCLINE HYCLATE 100 MG CAP PO SCH (13:59)
[2023-10-29] MEDS: SODIUM CHLORIDE 0.9% 500 ML IV ONE (13:59)
[2023-10-29] MEDS ORDERED: MoRPHine SULFATE 2 MG/ML CARP IV PRN (15:45)
[2023-10-29 16:27] LABS: BUN Creatinine Ratio 29.4 (10-20); Calcium 8.1 mg/dl (8.6-10.3); Creatinine Clr Calc Pharmacy 22.4 ml/min; Est GFR (African American) 38.3 ml/min; Est GFR (Non-African American) 33.1 ml/min; Potassium 4.4 mmol/L (3.5-5.1)
[2023-10-29] MEDS: SODIUM CHLORIDE 1 GM TABLET PO SCH (20:43)
[2023-10-29 21:13] LABS: BUN Creatinine Ratio 28.3 (10-20); Calcium 8.2 mg/dl (8.6-10.3); Creatinine Clr Calc Pharmacy 20.2 ml/min; Est GFR (African American) 33.7 ml/min; Est GFR (Non-African American) 29.1 ml/min; Potassium 4.7 mmol/L (3.5-5.1)
[2023-10-30 08:25] LABS: Hematocrit (blood only) 32.4 % (37.0-47.0); Hemoglobin 11.1 g/dl (12.0-16.0); Mean Corpuscular Hgb Conc 34.3 g/dL (32.0-36.0); Mean Corpuscular Volume 81.8 fL (80.0-100.0); Mean Platelet Volume 10.3 fL (9.4-12.4); Platelet Count 333 K/uL (130-400); RDW Coefficient of Variation 14.9 % (11.5-14.5); RDW Standard Deviation 43.6 fL (36.4-46.3); Red Blood Count 3.96 M/uL (4.20-5.40); White Blood Count 15.87 K/ul (4.8-10.8)
[2023-10-30 08:35] LABS: BUN Creatinine Ratio 32.4 (10-20); Calcium 8.5 mg/dl (8.6-10.3); Creatinine Clr Calc Pharmacy 23.2 ml/min; Est GFR (African American) 39.7 ml/min; Est GFR (Non-African American) 34.2 ml/min; Magnesium 2.2 mg/dl (1.7-2.4); Potassium 4.2 mmol/L (3.5-5.1)
[2023-10-30 08:46] LABS: Basophilic Stippling 1+; Basophils # (auto) 0.02 K/uL (0.00-0.20); Basophils % (auto) 0.1 %; Echinocytes 2+; Immature Granulocytes # (auto) 0.14 K/uL (0.01-0.20); Immature Granulocytes % (auto) 0.9 %; Lymphocytes # (auto) 0.58 K/uL (1.20-3.40); Lymphocytes % (auto) 3.7 %; Monocytes # (auto) 0.67 K/uL (0.11-0.59); Monocytes % (auto) 4.2 %; Neutrophils # (auto) 14.46 K/uL (1.40-6.50); Neutrophils % (auto) 91.1 %; Ovalocytes 1+
--- NOTE | 2023-10-30 10:37 | Nephrology Progress Note ---
Date of Service October 30, 2023 Assessment & Plan (1) Acute hyponatremia: (2) HTN (hypertension): (3) Rheumatoid arthritis: (4) Lower back pain: Plan Acute hyponatremia with history of mild chronic hyponatremia, serum sodium stays around 132-133, stage IIIa CKD, baseline creatinine 1.2-1.3 possibly secondary to microvascular disease with history of hypertension, diabetes. Admitted with severe back pain with significant degenerative disease of back with disc disease and severe spinal stenosis. Sodium was noted to be 126 which dropped further this morning to 124. Received a liter of normal saline bolus on admission. Initially blood pressure was normal but dropped after receiving morphine. Urine osmolality was 484. Hyponatremia in the setting of pain, some component of high ADH state. Was on indapamide which was stopped. Overall she is otherwise asymptomatic. Na improved to 128. Cr down to 1.4. Blood pressure improved. -- Repeat serum sodium in the afternoon, continue on mild fluid restriction. --continue Salt tab 2 gm bid for now --continue Jardiance which may help with the sodium level. -- Adequate Pain control, avoid hypotension. Admission and Anticipated Discharge Date Admission Date: October 28, 2023 Bridgette Thomas was seen and evaluated this morning. Reports overall feeling well. Na improved to 128, cr down to 1.4. BP fair. Review of Systems Review of Systems: Detailed review of system was done and pertinent positives and negatives are mentioned above. Physical Exam Constitutional: WD/WN, vitals as above no acute distress Eyes: + anicteric sclerae Neck: normal visual inspection Respiratory: no respiratory distress and no cough Auscultation: lungs clear to auscultation bilaterally Cardiovascular: RRR, no murmur, no edema Musculoskeletal: Extremities: extremities normal to inspection Neurologic: no focal motor deficits and not confused Psychiatric: Orientation: alert and oriented x 3 Affect: euthymic affect Results & Data Vital Signs (Past 12 Hours) Vital Signs Temp Pulse Pulse Resp BP Pulse Ox O2 Del Method 10/30/23 07:53 36.3 C L 85 20 133/63 93 Room Air 10/30/23 07:13 78 10/30/23 03:42 36.8 C 76 18 101/59 L 92 Room Air 10/29/23 23:49 36.6 C 102 H 20 110/62 93 Room Air PG Care Time/CCT Total # of Minutes Spent Total Time Spent with Patient: Total time spent is greater than 50% in coordination of care (as documented) at patient's floor/unit and/or counseling patient: Coding Level of Care Code 36961 SUB INP/OBS CARE MIN Diagnoses Acute hyponatremia E87.1 Primary hypertension I10 Hypertension type: primary hypertension Rheumatoid arthritis involving multiple sites with positive rheumatoid factor M05.79 Rheumatoid arthritis location: multiple sites Rheumatoid factor presence: with rheumatoid factor Lower back pain M54.41 Back pain laterality: right Chronicity: acute Sciatica laterality: sciatica of right side Sciatica presence: with sciatica (2) HTN (hypertension) Hypertension type: primary hypertension Qualified Code(s): I10 - Essential (primary) hypertension (3) Rheumatoid arthritis Rheumatoid arthritis location: multiple sites Rheumatoid factor presence: with rheumatoid factor Qualified Code(s): M05.79 - Rheumatoid arthritis with rheumatoid factor of multiple sites without organ or systems involvement (4) Lower back pain Back pain laterality: right Chronicity: acute Sciatica laterality: sciatica of right side Sciatica presence: with sciatica Qualified Code(s): M54.41 - Lumbago with sciatica, right side
--- NOTE | 2023-10-30 11:19 | Hospitalist Progress Note ---
Date of Service October 30, 2023 Assessment & Plan (1) Right lumbar radiculitis: Plan: Patient presented to ED on 10/27 for persistent low back pain with radiculopathy into RLE to proximal R knee for 2 weeks. Patient denied any recent trauma but she has had extended trips to and from [place] which may have caused exacerbation. -CT of abdomen/pelvis, lumbar spine, and Right femur 10/27- negative for acute findings. -MRI of spine 10/27: moderate disc degeneration at multiple levels along with severe spinal canal stenosis at L2-L3 and moderately severe spinal canal stenosis at L4-L5. Also demonstrated neural foraminal stenosis and mild to advanced synovitis most significantly at L3-L4 and L4-L5. -Reviewed labs 10/29. WBC elevated at 15.87 with neutrophil predominance of 14.46. Hgb 11.1. -CXR/UA 10/27: negative for possible infectious sources. likely combination of reactivity from ongoing pain, and 2 Medrol Dosepaks over 2 weeks. -given 1 dose cefepime 10/27. -afebrile. 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 -Reviewed ortho recommendations from 10/28: -Continue gabapentin 3 times daily. -Continue Tylenol every 6 hours -continue heat patch -IV Solu-Medrol 40mg three times daily. -Outpatient follow up -Avoid use of narcotics unless absolutely necessary as causes patient GI upset. Antiemetics as needed alongside narcotics. Fall precautions, PT/OT consult. -OT notes reviewed 10/29 - recommending home health evaluation upon discharge -Await PT recommendations. -Repeat CBC, BMP, CRP in AM. (2) Anaplasmosis: Plan: -abnormal anaplasma smear from 10/28. -A phagocytophilum DNA pending -Placed on doxycycline 100mg BID. First dose 10/28. -tick education provided to patient and son. (3) Hyponatremia: Plan: -Patient has history of hyponatremia over past 3-4 years but not this low. Risk factors for hyponatremia include tramadol use, indapamide use, pain x 2 weeks, poor oral intake, and recent steroid use. -Reviewed labs 10/29 - improved to 128. Creatinine improved to 1.39. BUN 45. -Plan to repeat renal function panel around 1430 per nephrology -s/p 500mL normal saline 10/28 -Continue Salt tab 2gm BID -Continue Jardiance -avoid hypotension -adequate pain control -reviewed nephrology notes 10/29. -workup from 10/27 - urine osmolality low at 484.Serum osmolality high at 270 random cortisol 24.03. (4) High anion gap metabolic acidosis: Plan: Likely due to dehydration as she is at without current sources of infection on labs or imaging and has been afebrile -improving/stable -reviewed labs 10/29 which revealed anion gap of 9 and bicarb of 21 Lactate results from 10/27 reviewed which where WNL at 1.4. Status post 500 mL of normal saline 10/27 and 10/28 (5) HTN (hypertension): Plan: -held lisinopril 10/28 and 10/29 in setting of hypotension likely from dose of morphine. -will plan to resume lisinopril 10/30 pending stabilization of BP -continue metoprolol. Plan Chronic conditions: Rheumatoid arthritis: continue leflunomide T2 Diabetes: Lantus 5 units BID. and ACHS with goal of 110-160. Correction factor of 50 and carb ratio of 15. Per nephrology continue jardiance. Discussed plan of care with son at bedside. Bilateral SCDs for DVT prophy prophylaxis Heart healthy/DM type II diet -Full code Admission and Anticipated Discharge Date Admission Date: October 28, 2023 Subjective Patient was seen and evaluated this morning with her son at bedside. Patient reports she feels much better today. She denied any pain in her back or right thigh at time of encounter. She denied chest pain or shortness of breath. Patient is hopeful to return home soon. Physical Exam 2 Constitutional: WD/WN, vitals as above Eyes: PERRL, conjunctivae normal, anicteric sclerae ENMT: external ear and nose normal, oropharynx normal Respiratory: normal respiratory effort, lungs clear to auscultation Cardiovascular: RRR, no murmur, no edema Neurologic: PERRL, EOMI, accommodation nl, no face palsy, no dysarthria Psychiatric: A+Ox3, euthymic affect Results & Data Results & Data Vital Signs (Past 12 Hours) Vital Signs Temp Pulse Pulse Resp BP Pulse Ox O2 Del Method 10/30/23 08:10 Room Air 10/30/23 07:53 36.3 C L 85 20 133/63 93 Room Air 10/30/23 07:13 78 10/30/23 03:42 36.8 C 76 18 101/59 L 92 Room Air 10/29/23 23:49 36.6 C 102 H 20 110/62 93 Room Air Laboratory Results 10/30/23 07:40 10/30/23 07:40 PG Care Time/CCT Total # of Minutes Spent Total Time Spent with Patient: Total time spent is greater than 50% in coordination of care (as documented) at patient's floor/unit and/or counseling patient: Coding Level of Care Code 70031 SUB INP/OBS CARE 3/50MIN Diagnoses Right lumbar radiculitis M54.16 Anaplasmosis A77.49 Hyponatremia E87.1 High anion gap metabolic acidosis E87.29 Primary hypertension I10 Hypertension type: primary hypertension (5) HTN (hypertension) Hypertension type: primary hypertension Qualified Code(s): I10 - Essential (primary) hypertension
[2023-10-30 15:09] LABS: Albumin Level 3.4 gm/dl (3.4-5.0); BUN Creatinine Ratio 32.6 (10-20); Calcium 8.3 mg/dl (8.6-10.3); Creatinine Clr Calc Pharmacy 22.9 ml/min; Est GFR (Non-African American) 33.6 ml/min; Potassium 4.1 mmol/L (3.5-5.1)
[2023-10-30] MEDS: LANTUS PER UNIT CHARGE SQ SCH (21:17)
[2023-10-31 07:54] LABS: Basophils # (auto) 0.01 K/uL (0.00-0.20); Basophils % (auto) 0.1 %; Hematocrit (blood only) 34.9 % (37.0-47.0); Hemoglobin 11.6 g/dl (12.0-16.0); Immature Granulocytes # (auto) 0.08 K/uL (0.01-0.20); Immature Granulocytes % (auto) 0.8 %; Lymphocytes # (auto) 0.85 K/uL (1.20-3.40); Mean Corpuscular Hemoglobin 27.4 pg (25.0-34.0); Mean Corpuscular Hgb Conc 33.2 g/dL (32.0-36.0); Mean Corpuscular Volume 82.5 fL (80.0-100.0); Mean Platelet Volume 10.8 fL (9.4-12.4); Monocytes # (auto) 0.59 K/uL (0.11-0.59); Monocytes % (auto) 5.6 %; Neutrophils # (auto) 9.06 K/uL (1.40-6.50); Neutrophils % (auto) 85.5 %; Platelet Count 266 K/uL (130-400); RDW Coefficient of Variation 15.2 % (11.5-14.5); RDW Standard Deviation 45.1 fL (36.4-46.3); Red Blood Count 4.23 M/uL (4.20-5.40); White Blood Count 10.59 K/ul (4.8-10.8)
--- NOTE | 2023-10-31 07:57 | Orthopedic Progress Note ---
Date of Service October 31, 2023 Subjective Patient seen and examined, her leg pain and back pain have improved, she is up ambulating in the hallway. MRI images reviewed and discussed, she has a disc herniation broad-based and to the right at L2-3 causing what I would consider moderate canal stenosis, additional degenerative changes at the other levels with mild to moderate canal stenosis. I discussed the nature of the spine issues, I have asked her to follow-up in our office in the next 1 to 2 weeks for additional follow-up and discussion. Review of Systems All systems reviewed & are unremarkable except as noted in HPI & below. Physical Exam . Results & Data Results & Data Laboratory Results . Diagnostic Findings . PG Care Time/CCT Total # of Minutes Spent Total Time Spent with Patient: Total time spent is greater than 50% in coordination of care (as documented) at patient's floor/unit and/or counseling patient: Coding Level of Care Code 42649 SUB INP/OBS CARE 06/12MIN
[2023-10-31 08:16] LABS: BUN Creatinine Ratio 36.9 (10-20); Calcium 8.4 mg/dl (8.6-10.3); Est GFR (African American) 52.1 ml/min; Est GFR (Non-African American) 44.9 ml/min; Potassium 4.4 mmol/L (3.5-5.1)
--- NOTE | 2023-10-31 09:28 | Discharge Summary ---
Date of Service October 31, 2023 Admission HPI Per Admitting Provider Martha is an 88-year-old female with a past medical history significant for hypertension, rheumatoid arthritis, coronary artery disease, type 2 diabetes, cognitive impairment who presented to the [facility] ER on 10/28/2023 with a chief complaint of ongoing lower back pain with radiation into the right lower extremity for the past 2 weeks. The patient was reportedly seen in [place] approximately 2 weeks ago for the symptoms but was told there were no acute findings. She was subsequently seen in the [facility] emergency department upon arrival back to [place] on 10/19/2023 and has also been seen by her primary care physician on 10/21/2023 for the symptoms. She was given a trial of steroid taper which did not help her symptoms and has been on as needed tramadol with mild improvement in symptoms. She has also been experiencing headache poor appetite fatigue and backaches. On arrival to the ED she was noted to be tachycardic at 108, tachypneic at 25, but otherwise stable. Labs are significant for leukocytosis of 15 with neutrophil predominance of 11, sodium of 126, chloride of 92, anion gap [address] of [address] of the abdomen and pelvis with IV contrast, CT of the lumbar spine with contrast, and CT of the right femur with contrast were all read as negative for acute findings.Prior to admission the patient was given a dose of cefepime, 1 mg IV morphine 4 mg IV Zofran and 500 mL of normal saline. Patient was lying in bed mild distress due to her right lower extremity pain at the time of the exam with her son sitting bedside, history is obtained from both. They explained that the patient's low back/right lower extremity pain started approximately 1 day after she arrived down in [place] for her grandsons graduation approximately 2 weeks ago. She flew down to [place] from [place], denies any recent trauma. Symptoms started gradually and progressed prompting ED visit in [place] where she had an x-ray of her back, urinalysis, and right lower extremity venous Doppler which were all within normal limits. She was prescribed a short course of tramadol and a Medrol Dosepak of which she completed both. She did not think that she had any improvement in her symptoms from the steroids alone as her pain quickly returned after she ran out of tramadol. She had her second course of Medrol Dosepak and tramadol after ED evaluation on 10/19/2023, they confirm she again completed the course of steroids without improvement in her pain. Over the past 3 to 4 days she has had very poor oral intake but has been taking all medications as prescribed including daily indapamide, as needed tramadol. She initially had a headache on arrival however this is significantly improved since receiving initial treatment in the ED. Her pain starts in her lower back and moves down her right buttocks and around to the anterior thigh and stops at the proximal knee. The patient denies recent fever, chills, new paresthesias/unilateral weakness, changes in vision, hearing, taste, smell, chest pain, SOB, cough, hemoptysis, abdominal pain, nausea, vomiting, diarrhea, dysuria, hematuria, melena, bloody BM's, LE swelling, and recent trauma. When asked to describe the pain, she describes it as a burning/sharpstabbing pain which is constant but exacerbated with movement. Denies saddle anesthesia, loss of bowel or bladder function/control, or weakness in the right lower extremity compared to left. We discussed CODE STATUS, she is a full code and her children are her primary decision makers if she could not make decisions for self. Principal Diagnosis Anaplasmosis, lumbar radiculitis, hyponatremia Discharge Exam Constitutional WD/WN, vitals as above Eyes PERRL, conjunctivae normal, anicteric sclerae ENMT external ear and nose normal, oropharynx normal Respiratory normal respiratory effort, lungs clear to auscultation Cardiovascular RRR, no murmur, no edema Gastrointestinal (Abdomen) normal bowel sounds, soft, nontender, no hepatosplenomegaly Neurologic PERRL, EOMI, accommodation nl, no face palsy, no dysarthria Psychiatric pleasantly confused Discharge Data Allergies Allergy/AdvReac Type Severity Reaction Status Date / Time No Known Drug Allergies Allergy 0 Verified 10/28/23 18:58 Consultations 10/28/23 16:28 ED Decision to Admit Stat 10/29/23 08:38 Consult Nephrology Routine 10/29/23 08:45 Consult Orthopedic Spine Surgery Routine Ordered Studies Abdomen/Pelvis CT 10/28/23 16:00 CT abd pelvis IV con only, CT lumbar spine w con CLINICAL HISTORY: back pain IMPRESSION: No abnormalities to explain fatigue and right thigh pain. Electronically signed by: Eddie Radford M.D. 10/28/2023 6:[address] 10/28/23 16:00 CT abd pelvis IV con only, CT lumbar spine w con CLINICAL HISTORY: back pain IMPRESSION: No abnormalities to explain fatigue and right thigh pain. Electronically signed by: Eddie Radford M.D. 10/28/2023 6:[address] 10/28/23 16:15 CT femur RT w con CLINICAL HISTORY: pain, poss mass IMPRESSION: No evidence of acute fracture or dislocation. Please see CT abdomen pelvis performed same day for pelvic findings. Electronically signed by: Eddie Radford M.D. 10/28/2023 5:56 PM Chest X-Ray 10/28/23 18:48 XR chest 1V portable CLINICAL HISTORY: Leukocytosis, monitor for infection IMPRESSION: No acute abnormalities and in particular no radiographic evidence of pneumonia. Electronically signed by: Eddie Radford M.D. 10/28/2023 9:45 PM Lumbar Spine MRI 10/28/23 20:16 Exam(s): MRI L SPINE W/WO Contrast IV Amt: 6ml gadavist CLINICAL HISTORY: Reason for exam: radicular back pain, monitor for epidural abscess. IMPRESSION: 1. Moderate disc degeneration at L2-3, L4-5 with mild disc degeneration at L3-4 and L5-S1 with annular disc bulging or disc extrusions flattening the ventral thecal sac and causing mild subarticular recess stenosis at L3-4 and L4-5 and a moderate subarticular recess stenosis at L2-3 with impingement of the transiting L3 nerve roots. 2. There is a severe spinal canal stenosis at L2-3 and moderately severe spinal canal stenosis at L4-5. 3. There is mild bilateral L3-4 and L4-5 neural foraminal stenosis without evidence of neural impingement. 4. There is mild to advanced facet joint arthropathy with mild to advanced synovitis, most significant at L3-4 and L4-5. 5. There is mild left sacroiliac joint arthropathy with ankylosis of the right SI joint. 6. No evidence of fracture, infection, or tumor or arachnoiditis. Electronically signed by: Julissa Melgoza MD 10/29/23 00:47 AM 10/31/23 07:02 10/31/23 07:02 Vital Signs Temp 36.6 C 10/31/23 07:58 Pulse 60 10/31/23 07:58 Resp 18 10/31/23 07:58 BP 109/65 10/31/23 07:58 Pulse Ox 94 10/31/23 07:58 O2 Del Method Room Air 10/31/23 07:58 Hospital Course (1) Right lumbar radiculitis: Patient presented to ED on 10/27 for persistent low back pain with radiculopathy into RLE to proximal R knee for 2 weeks. Patient denied any recent trauma but she has had extended trips to and from [place] which may have caused exacerbation. She underwent a CTAP, lumbar spine/right femur CT on 10/27 which were negative for any acute findings. She then underwent an MRI of the spine on 10/27 that revealed moderate disc degeneration at multiple levels along with severe spinal canal stenosis at L2-L3 and moderately severe spinal canal stenosis at L4-L5. MRI also demonstrated neural foraminal stenosis and mild to advanced synovitis most significant at L3-L4 and L4-L5. She was evaluated by orthopedics who recommended gabapentin 100mg three times daily, Tylenol q6 hours, heat patch, and IV solu-medrol 40mg three times daily. Patient was discharged home with 30 day supply of gabapentin and steroid taper. She was recommended to follow up in outpatient orthopedics. She was evaluated by PT/OT who recommended home health therapy which will begin on 11/03/2023. on 10/30 patient was without pain. Patient also had a chest x-ray and urinalysis on 10/27 that were negative for infectious sources. She had originally presented with an elevated WBC at 15.87. Differentials including reactivity from ongoing pain and 2 steroid tapers. She did undergo blood cultures that were negative. Tick panel revealed anaplasmosis. Upon discharge 10/30, labs reviewed indicating a normal WBC of 10.59, hgb stable at 11.6. (2) Anaplasmosis: Patient found to have abnormal anaplasma smear on 10/29/2023. She was started on doxycycline 100mg BID and given an additional 12 days worth on discharge. Tick education was provided to the patient. Her A phagocytophilum DNA is still pending. (3) Hyponatremia: Patient has history of hyponatremia over past 3-4 years but not this low. Risk factors for hyponatremia include tramadol use, indapamide use, pain x 2 weeks, poor oral intake, and recent steroid use. Nephrology followed the patient to aid in correction. On 10/28/2023 she had a low urine osmolality at 484, high serum osmolality at 270 and random cortisol of 24.03. She was given 500mL normal saline twice during her hospital stay. She was placed on salt tab 2gm BID in the hospital and started back on her jardiance. Review labs day of discharge 10/30 revealed baseline sodium of 132, normal creatinine of 1.11 and elevated BUN of 41. She was given a lab slip to repeat labs in 1 week to reassess. She was also discharged home with salt tabs 1gm BID x 14 days. (4) High anion gap metabolic acidosis: On arrival to ED 10/27 she was found to have anion gap of 14 and bicarb of 20. 10/30 revealed anion gap of 7 and bicarb of 22. This was likely due to dehydration. Anaplasmosis infection less likely. She also had lactate on 10/27 that was WNL at 1.4. (5) HTN (hypertension): Patient received one dose of morphine on 10/27 that resulted in hypotension. Her lisinopril was held throughout her hospitalized and upon discharge BP was stable at 109/65. Lisinopril and indapamide were held at discharge with recommendations to follow up with PCP regarding continued therapy. She was to continue on metoprolol. Plan For her chronic conditions leflunomide was continued for rheumatoid arthritis and diabetes was treated with insulin therapy/Jardiance. Upon discharge she was to resume previous diabetic medications. Her son was present throughout her hospitalization and he was updated daily. Total Time Total Time Spent Total Time Spent (In Minutes): 45 Discharge Plan Discharge Items Patient Disposition: Home - Home Health Services Reason For Visit: RADICULAR BACK PAIN, HYPONATREMIA, AMBULATORY DYSF Discharge Diagnosis: Right lumbar radiculitis, anaplasmosis, hyponatremia Condition on Discharge: Fair Activity: Per Instructions section Activity Comment: Resume your previous activity gradually Non-emergency contact: Primary Care Provider Call non-emergency contact if: you have any medication questions, your symptoms worsen and your pain is worsening Follow-up/Referrals: Meenu Varghese MD [Primary Care Provider] - 11/04/23 11:00 am Kris Grove MD [Surgeon] - 11/13/23 1:00 pm Diet: Carb Consistent or DM2 and Heart Healthy Fluids: 1800ml (7 cups) Ambulatory Orders: Basic Metabolic Panel (Routine) Timeframe: [id number] Location: Determined by Patient Ordered By: Erica Dunham Attending Provider Instructions: Mrs. Espinoza, You were hospitalized for low back pain and right thigh pain. You had severe imaging studies including a CT scan of your abdomen, spine, and right leg that were unrevealing for any abnormalities. You did have an MRI on your spine that revealed disc degeneration and spinal canal stenosis. This was evaluated by the orthopedic doctor in the hospital who has recommended an outpatient follow up. You underwent a thorough workup and were found to have a tick borne illness called anaplasmosis. You then began taking an antibiotic called doxycycline. You were also found to have lower than normal sodium values and the roll coverer (kidney) doctor also followed for your care. Please see recommendations below regarding discharge. -We started you on a medication called gabapentin for your right thigh/back pain. Please continue taking this three times daily. -Please finish an additional course of steroids as prescribed. -Continue to use Tylenol 650mg every 6 hours as needed for breakthrough pain. -We started you on doxycycline for the tick borne illness (anaplasmosis). Please continue taking doxycycline 100mg twice daily for 12 more days. Next dose will be tonight 10/30. -We started you on salt tablets twice daily for your low sodium. Please continue taking the salt tablet twice a day upon discharge for 14 days. -While hospitalized, you were found to have low blood pressure. Please stop your lisinopril until seen by your PCP. -Please obtain lab work in 1 week (11/07/2023) to reassess your kidney and sodium levels. For your chronic conditions: -Please resume diabetic medications as previously prescribed. -Continue leflunomide for your rheumatoid arthritis. -Please follow up with your PCP within 1-2 weeks of discharge. -Please follow up with orthopedics, Dr. Grove upon discharge. If any of your symptoms worsen include worsening pain, fever, chills, weakness, fatigue develop please report back to the emergency room. Sincerely, Erica Perez PA-C Pending Studies at Discharge: No Stand-Alone Forms: My import2, Smoking Cessation Medications and DC Order Prescriptions: New doxycycline hyclate 100 mg capsule 100 mg PO BID Qty: 24 0RF sodium chloride 1,000 mg tablet,soluble 1,000 mg PO BID Qty: 30 0RF Rx Instructions: 1000 mg BID x 2 weeks prednisone 10 mg tablet 10 mg PO DIRECTED Qty: 20 0RF Rx Instructions: see taper instructions Take 4 tablets once a day for 2 days. Then Take 3 tablets once a day for 2 days. Then take 2 tablets for 2 days Then take 1 tablet for 2 days gabapentin 100 mg capsule 100 mg PO TID Qty: 90 0RF Continued leflunomide 20 mg tablet 20 mg PO QAM Qty: 90 0RF insulin degludec [Tresiba FlexTouch U-100] 100 unit/mL (3 mL) insulin pen 14 unit subcut BID MDD 28 units Qty: 30 3RF tramadol 50 mg tablet 50 mg PO BID PRN (Reason: pain) Qty: 30 0RF Rx Instructions: Ongoing therapy Supervising physician Meenu Varghese MD [facility] [id number] empagliflozin 25 mg tablet 25 mg PO DAILY Qty: 90 3RF diclofenac sodium 1 % gel 2 g topical QID PRN (Reason: Pain) Rx Instructions: apply to single elbow, wrist or hand; for hand includes palm/fingers/back of hand Triple Antibiotic 3.5mg-400 unit- 5,000 unit/gram ointment 1 applic topical DAILY PRN (Reason: would care) Rx Instructions: Apply 1 x day to affected area. cholecalciferol (vitamin D3) 125 mcg (5,000 unit) capsule 125 mcg PO DAILY Qty: 90 1RF atorvastatin 80 mg tablet 80 mg PO HS Qty: 90 3RF metoprolol succinate 50 mg tablet extended release 24 hr 50 mg PO DAILY Qty: 90 3RF levothyroxine [Synthroid] 50 mcg tablet 50 mcg PO DAILY Qty: 90 1RF pantoprazole 20 mg tablet,delayed release (DR/EC) 20 mg PO DAILY Held indapamide 1.25 mg tablet 1.25 mg PO QAM Qty: 90 3RF Hold Instructions: Resume on 11/14/23. Discontinued lisinopril 5 mg tablet 5 mg PO QAM Qty: 90 3RF No Action (DME) pen needle, diabetic [Lite Touch Insulin Pen [place]] 31 gauge x 5/16" needle See Rx Instructions .ROUTE .MEDSUPPLY Qty: 100 3RF Rx Instructions: Inject insulin twice daily w/ Lantus (DME) blood-glucose meter Kit See Rx Instructions .ROUTE .MEDSUPPLY Qty: 1 0RF Rx Instructions: Check blood sugar once daily (DME) lancets [OneTouch Delica Plus Lancet] 33 gauge misc See Rx Instructions .ROUTE .MEDSUPPLY Qty: 100 5RF Rx Instructions: Check blood sugar once daily (DME) OneTouch Verio test strips Strip See Rx Instructions .ROUTE .MEDSUPPLY Qty: 100 5RF Rx Instructions: Check blood sugars once daily (DME) OneTouch Ultra Test Strip See Rx Instructions .Route Rx Instructions: Test blood sugar three times daily Discharge Orders: Discharge Order (Routine); Ordered 10/31/23 Ordered By: Erica Bailey/Other Patient Handouts: Hyponatremia Dc Admission Data Admit Date/Time: 10/28/23 18:20 Attending Provider: Joey Dean Admit Provider: Timbo Vega Primary Care Provider: Meenu Varghese Other Providers: IRB Approved Study,Jourdan; Timbo Vega; Henry Sung; Pretty Wright Kevin C.; Julissa Beard; Kris Grove; [facility] Other Interventions: Discharge Summary Assessment (RN) Last Done: 10/31/23 09:41 Supervising Physician Co-Signing Physician Notes During face to face encounter, I obtained a brief physical examination, discussed hospital stay with patient and discharge instructions with patient. I discussed discharge plan of care with ANA MARIA Perez I reviewed above note and agree with it except for the following: Patient admitted with generalized malaise and neurogenic pain from her lower back pain. Patient found to have anaplasmosis. Patient's symptoms improved with gabapentin and doxycycline. Will continue as noted above. Coding Level of Care Code 49625 INP/OBS DISCH >30 MIN Diagnoses Right lumbar radiculitis M54.16 Anaplasmosis A77.49 Hyponatremia E87.1 High anion gap metabolic acidosis E87.29 Primary hypertension I10 Hypertension type: primary hypertension
--- NOTE | 2023-10-31 10:27 | Nephrology Progress Note ---
Date of Service October 31, 2023 Assessment & Plan (1) Acute hyponatremia: (2) HTN (hypertension): (3) Rheumatoid arthritis: (4) Lower back pain: Plan Acute hyponatremia with history of mild chronic hyponatremia, serum sodium stays around 132-133, stage IIIa CKD, baseline creatinine 1.2-1.3 possibly secondary to microvascular disease with history of hypertension, diabetes. Admitted with severe back pain with significant degenerative disease of back with disc disease and severe spinal stenosis. Sodium was noted to be 126 which dropped further this morning to 124. Received a liter of normal saline bolus on admission. Initially blood pressure was normal but dropped after receiving morphine. Urine osmolality was 484. Hyponatremia in the setting of pain, some component of high ADH state. Was on indapamide which was stopped. Overall she is otherwise asymptomatic. Na improved to 132, close to her baseline. Cr down to 1.1. Blood pressure improved. --continue Salt tab 2 gm bid on discharge, outpatient lab in few days, copy to PCP and adjust salt tablet dose accordingly. No further need for nephrology follow-up at this time. --continue Jardiance which may help with the sodium level. -- Adequate Pain control, avoid hypotension. --Continue to keep off of thiazide type diuretic. In future if diuretics needed, recommend loop diuretics. Admission and Anticipated Discharge Date Admission Date: October 28, 2023 Bridgette Thomas was seen and evaluated this morning. Reports overall feeling well. Na improved to 132, cr down to 1.1. BP fair. Review of Systems Review of Systems: Detailed review of system was done and pertinent positives and negatives are mentioned above. Physical Exam Constitutional: WD/WN, vitals as above no acute distress Eyes: + anicteric sclerae Respiratory: no respiratory distress and no cough Auscultation: lungs clear to auscultation bilaterally Cardiovascular: RRR, no murmur, no edema Musculoskeletal: Extremities: extremities normal to inspection Neurologic: no focal motor deficits and not confused Psychiatric: Orientation: alert and oriented x 3 Affect: euthymic affect Results & Data Vital Signs (Past 12 Hours) Vital Signs Temp Pulse Resp BP Pulse Ox O2 Del Method 10/31/23 07:58 36.6 C 60 18 109/65 94 Room Air 10/31/23 07:15 Room Air PG Care Time/CCT Total # of Minutes Spent Total Time Spent with Patient: Total time spent is greater than 50% in coordination of care (as documented) at patient's floor/unit and/or counseling patient: Coding Level of Care Code 21405 SUB INP/OBS CARE 2MIN Diagnoses Acute hyponatremia E87.1 Primary hypertension I10 Hypertension type: primary hypertension Rheumatoid arthritis involving multiple sites with positive rheumatoid factor M05.79 Rheumatoid arthritis location: multiple sites Rheumatoid factor presence: with rheumatoid factor Lower back pain M54.41 Back pain laterality: right Chronicity: acute Sciatica laterality: sciatica of right side Sciatica presence: with sciatica (2) HTN (hypertension) Hypertension type: primary hypertension Qualified Code(s): I10 - Essential (primary) hypertension (3) Rheumatoid arthritis Rheumatoid arthritis location: multiple sites Rheumatoid factor presence: with rheumatoid factor Qualified Code(s): M05.79 - Rheumatoid arthritis with rheumatoid factor of multiple sites without organ or systems involvement (4) Lower back pain Back pain laterality: right Chronicity: acute Sciatica laterality: sciatica of right side Sciatica presence: with sciatica Qualified Code(s): M54.41 - Lumbago with sciatica, right side
== END 2023-10-31 10:51 | disposition home health service (06) | DRG 552 ==
LOC: ED 13:48 → 2N 18:20 → SUATTDRO 18:20 → 2N 21:48 → 3N 10-30 14:55

== ENCOUNTER 2024-07-13 08:19 | Observation (INO) ==
--- NOTE | 2024-06-21 14:19 | PAT Medication Instructions ---
Medication Instructions Date of Service June 21, 2024 Home Medications Medication Instructions Recorded leflunomide 20 mg tablet 20 mg PO QAM #90 tabs 12/17/21 indapamide 1.25 mg tablet 1.25 mg PO QAM #90 tabs 04/21/23 atorvastatin 80 mg tablet 80 mg PO HS #90 tabs 12/15/23 [facility] Verio test strips) [facility] Verio Flex Start kit) cholecalciferol (vitamin D3) 125 125 mcg PO DAILY #90 caps 12/15/23 mcg (5,000 unit) capsule diclofenac sodium 1 % topical gel 2 g topical QID PRN Pain #100 grams 12/15/23 empagliflozin 25 mg tablet 25 mg PO DAILY #90 tabs 12/15/23 lancets 33 gauge (OneTouch Delica #100 ea 12/15/23 Plus Lancet) metoprolol succinate 50 mg 50 mg PO DAILY #90 tabs 12/15/23 tablet,extended release 24 hr sennosides 8.6 mg tablet (Senna 8.6 mg PO DAILY #90 tabs 01/27/24 Lax) pantoprazole 20 mg tablet,delayed 20 mg PO DAILY #90 tabs 03/01/24 release acetaminophen 650 mg 650 mg PO BID #180 tabs 04/26/24 tablet,extended release gabapentin 400 mg capsule 400 mg PO TID #84 caps 04/30/24 duloxetine 30 mg capsule,delayed 30 mg PO DAILY #30 caps 05/17/24 release levothyroxine 50 mcg tablet 50 mcg PO DAILY #90 tabs 05/27/24 (Synthroid) hydrocodone 5 mg-acetaminophen 325 1 tab PO BID pain #60 tabs 06/09/24 mg tablet insulin degludec 100 unit/mL (3 14 unit (0.14 mL) subcut BID #30 mL 06/10/24 mL) subcutaneous pen (Tresiba FlexTouch U-100 insulin) pen needle, diabetic 31 gauge x #100 ea 06/10/24 5/" gabapentin 400 mg capsule 400 mg PO QID #60 caps 06/14/24 hydrocodone 5 mg-acetaminophen 325 1 tab PO BID PRN pain #60 tabs 06/14/24 mg tablet leflunomide 20 mg tablet 20 mg PO QAM indapamide 1.25 mg tablet 1.25 mg PO QAM atorvastatin 80 mg tablet 80 mg PO HS cholecalciferol (vitamin D3) 125 mcg (5,000 unit) capsule 125 mcg PO DAILY diclofenac sodium 1 % topical gel 2 g topical QID PRN empagliflozin 25 mg tablet 25 mg PO DAILY metoprolol succinate 50 mg tablet,extended release 24 hr 50 mg PO DAILY sennosides 8.6 mg tablet (Senna Lax) 8.6 mg PO DAILY pantoprazole 20 mg tablet,delayed release 20 mg PO DAILY acetaminophen 650 mg tablet,extended release 650 mg PO BID gabapentin 400 mg capsule 400 mg PO TID duloxetine 30 mg capsule,delayed release 30 mg PO DAILY levothyroxine 50 mcg tablet (Synthroid) 50 mcg PO DAILY hydrocodone 5 mg-acetaminophen 325 mg tablet 1 tab PO BID insulin degludec 100 unit/mL (3 mL) subcutaneous pen (Tresiba FlexTouch U-100 insulin) 14 unit (0.14 mL) subcut BID gabapentin 400 mg capsule 400 mg PO QID hydrocodone 5 mg-acetaminophen 325 mg tablet 1 tab PO BID PRN STOP 3 days before surgery empagliflozin 25 mg tablet 25 mg PO DAILY Continue as directed metoprolol succinate 50 mg tablet,extended release 24 hr 50 mg PO DAILY pantoprazole 20 mg tablet,delayed release 20 mg PO DAILY duloxetine 30 mg capsule,delayed release 30 mg PO DAILY levothyroxine 50 mcg tablet (Synthroid) 50 mcg PO DAILY ASK your prescriber and surgeon leflunomide 20 mg tablet 20 mg PO QAM indapamide 1.25 mg tablet 1.25 mg PO QAM STOP taking 24 hours before surgery diclofenac sodium 1 % topical gel 2 g topical QID PRN DO NOT take the morning of surgery cholecalciferol (vitamin D3) 125 mcg (5,000 unit) capsule 125 mcg PO DAILY sennosides 8.6 mg tablet (Senna Lax) 8.6 mg PO DAILY Take morning of surgery With a small sip of water, OTHERWISE NOTHING TO EAT OR DRINK AFTER MIDNIGHT: acetaminophen 650 mg tablet,extended release 650 mg PO BID gabapentin 400 mg capsule 400 mg PO TID hydrocodone 5 mg-acetaminophen 325 mg tablet 1 tab PO BID gabapentin 400 mg capsule 400 mg PO QID hydrocodone 5 mg-acetaminophen 325 mg tablet 1 tab PO BID PRN(if needed) Take evening before surgery atorvastatin 80 mg tablet 80 mg PO HS acetaminophen 650 mg tablet,extended release 650 mg PO BID gabapentin 400 mg capsule 400 mg PO TID hydrocodone 5 mg-acetaminophen 325 mg tablet 1 tab PO BID insulin degludec 100 unit/mL (3 mL) subcutaneous pen (Tresiba FlexTouch U-100 insulin) 14 unit (0.14 mL) subcut BID gabapentin 400 mg capsule 400 mg PO QID hydrocodone 5 mg-acetaminophen 325 mg tablet 1 tab PO BID PRN(if needed) Insulin Dependent Diabetic Patients * Test your blood sugar the morning of surgery * If Blood Sugar is GREATER THAN 150, take HALF of your regular dose of: insulin degludec 100 unit/mL (3 mL) subcutaneous pen (Tresiba FlexTouch U-100 insulin). * If Blood Sugar is LESS THAN 150, DO NOT TAKE ANY: insulin degludec 100 unit/mL (3 mL) subcutaneous pen (Tresiba FlexTouch U-100 insulin). Other Notes If you have any questions please call us at [phone] or [phone] or [phone] or [phone]
--- NOTE | 2024-06-22 10:19 | PAT Medication Instructions ---
Medication Instructions Date of Service June 22, 2024 Home Medications Medication Instructions Recorded leflunomide 20 mg tablet 20 mg PO QAM #90 tabs 12/17/21 indapamide 1.25 mg tablet 1.25 mg PO QAM #90 tabs 04/21/23 atorvastatin 80 mg tablet 80 mg PO HS #90 tabs 12/15/23 blood sugar diagnostic [facility] Verio test strips) [facility] Verio Flex Start kit) cholecalciferol (vitamin D3) 125 125 mcg PO DAILY #90 caps 12/15/23 mcg (5,000 unit) capsule diclofenac sodium 1 % topical gel 2 g topical QID PRN Pain #100 grams 12/15/23 empagliflozin 25 mg tablet 25 mg PO DAILY #90 tabs 12/15/23 lancets 33 gauge (OneTouch Delica #100 ea 12/15/23 Plus Lancet) metoprolol succinate 50 mg 50 mg PO DAILY #90 tabs 12/15/23 tablet,extended release 24 hr sennosides 8.6 mg tablet (Senna 8.6 mg PO DAILY #90 tabs 01/27/24 Lax) pantoprazole 20 mg tablet,delayed 20 mg PO DAILY #90 tabs 03/01/24 release acetaminophen 650 mg 650 mg PO BID #180 tabs 04/26/24 tablet,extended release gabapentin 400 mg capsule 400 mg PO TID #84 caps 04/30/24 duloxetine 30 mg capsule,delayed 30 mg PO DAILY #30 caps 05/17/24 release levothyroxine 50 mcg tablet 50 mcg PO DAILY #90 tabs 05/27/24 (Synthroid) hydrocodone 5 mg-acetaminophen 325 1 tab PO BID pain #60 tabs 06/09/24 mg tablet insulin degludec 100 unit/mL (3 14 unit (0.14 mL) subcut BID #30 mL 06/10/24 mL) subcutaneous pen (Tresiba FlexTouch U-100 insulin) pen needle, diabetic 31 gauge x #100 ea 06/10/2410/01" gabapentin 400 mg capsule 400 mg PO QID #60 caps 06/14/24 hydrocodone 5 mg-acetaminophen 325 1 tab PO BID PRN pain #60 tabs 06/14/24 mg tablet leflunomide 20 mg tablet 20 mg PO QAM indapamide 1.25 mg tablet 1.25 mg PO QAM atorvastatin 80 mg tablet 80 mg PO HS cholecalciferol (vitamin D3) 125 mcg (5,000 unit) capsule 125 mcg PO DAILY diclofenac sodium 1 % topical gel 2 g topical QID PRN Pain empagliflozin 25 mg tablet 25 mg PO DAILY metoprolol succinate 50 mg tablet,extended release 24 hr 50 mg PO DAILY sennosides 8.6 mg tablet (Senna Lax) 8.6 mg PO DAILY pantoprazole 20 mg tablet,delayed release 20 mg PO DAILY acetaminophen 650 mg tablet,extended release 650 mg PO BID gabapentin 400 mg capsule 400 mg PO TID duloxetine 30 mg capsule,delayed release 30 mg PO DAILY levothyroxine 50 mcg tablet (Synthroid) 50 mcg PO DAILY hydrocodone 5 mg-acetaminophen 325 mg tablet 1 tab PO BID pain insulin degludec 100 unit/mL (3 mL) subcutaneous pen (Tresiba FlexTouch U-100 insulin) 14 unit (0.14 mL) subcut BID gabapentin 400 mg capsule 400 mg PO QID hydrocodone 5 mg-acetaminophen 325 mg tablet 1 tab PO BID PRN pain ASK your prescriber and surgeon leflunomide 20 mg tablet 20 mg PO QAM STOP taking 3 days before surgery empagliflozin 25 mg tablet 25 mg PO DAILY STOP taking 24 hours before surgery diclofenac sodium 1 % topical gel 2 g topical QID PRN Pain DO NOT take the morning of surgery indapamide 1.25 mg tablet 1.25 mg PO QAM cholecalciferol (vitamin D3) 125 mcg (5,000 unit) capsule 125 mcg PO DAILY sennosides 8.6 mg tablet (Senna Lax) 8.6 mg PO DAILY Take morning of surgery With a small sip of water, OTHERWISE NOTHING TO EAT OR DRINK AFTER MIDNIGHT: metoprolol succinate 50 mg tablet,extended release 24 hr 50 mg PO DAILY pantoprazole 20 mg tablet,delayed release 20 mg PO DAILY acetaminophen 650 mg tablet,extended release 650 mg PO BID gabapentin 400 mg capsule 400 mg PO TID duloxetine 30 mg capsule,delayed release 30 mg PO DAILY levothyroxine 50 mcg tablet (Synthroid) 50 mcg PO DAILY hydrocodone 5 mg-acetaminophen 325 mg tablet 1 tab PO BID pain (if needed) gabapentin 400 mg capsule 400 mg PO QID hydrocodone 5 mg-acetaminophen 325 mg tablet 1 tab PO BID PRN pain (if needed) Take evening before surgery atorvastatin 80 mg tablet 80 mg PO HS acetaminophen 650 mg tablet,extended release 650 mg PO BID gabapentin 400 mg capsule 400 mg PO TID hydrocodone 5 mg-acetaminophen 325 mg tablet 1 tab PO BID pain (if needed) insulin degludec 100 unit/mL (3 mL) subcutaneous pen (Tresiba FlexTouch U-100 insulin) 14 unit (0.14 mL) subcut BID gabapentin 400 mg capsule 400 mg PO QID hydrocodone 5 mg-acetaminophen 325 mg tablet 1 tab PO BID PRN pain (if needed) Insulin Dependent Diabetic Patients * Test your blood sugar the morning of surgery * If Blood Sugar is GREATER THAN 150, take HALF of your regular dose of: insulin degludec 100 unit/mL (3 mL) subcutaneous pen (Tresiba FlexTouch U-100 insulin) * If Blood Sugar is LESS THAN 150, DO NOT TAKE ANY: insulin degludec 100 unit/mL (3 mL) subcutaneous pen (Tresiba FlexTouch U-100 insulin) Other Notes If you have any questions please call us at [phone] or [phone] or [phone] or [phone]
--- NOTE | 2024-06-23 12:07 | Anesthesiology Consultation ---
Date of Service June 23, 2024 Assessment & Plan (1) Encounter for pre-operative examination: - Check BSG DOS - Infectious disease screening: Per assessment on 06/23/24- No known recent infectious disease contacts or current infectious disease symptoms. Patient [facility] Resident. Facility provided with preop Covid testing order/protocol. - PCP routine visit (04/12/24): HTN well controlled. Moderate MR: "No clinical s/s of worsening MR. Last echo 10/2021 mod-severe MAC, moderate MR.. Will repeat echo if symptom change or e/o clinical progression" NSTEMI s/p MICHAEL x2 2018: "Asymptomatic CAD.. Goal LDL <70.. Continue aspirin 81mg daily, atorvastatin 80mg daily.. Continue BB & ARB as above.." T2DM: "Increase insulin glargine 14U BID to 18U BID." "Progressive Cognitive Impairment - Most consistent with Alzheimer's Type Dementia.. Progressive short term memory impairment & executive dysfunction with formal cognitive evaluation and primary care clinical evaluations consistent with Alzheimer's type dementia.. Patient continues to require assisted living facility due to her cognitive limitations from progressive dementia & physical limitations due to her back pain/arthritis as above.. She requires assistance with ADLs including bathing dressing meals medication administration.. She was not deriving benefit from physical therapy so this has been discontinued. Using wheelchair vs infrequently walker for mobility" - PCP visit (05/17/24): "Patient presents for a 2 wk follow up pain. Accompanied by son. C/O right upper anterior leg pain x 6 mo intermittently. Pain is constant. Denies alleviating or aggravating factors. Son states that the pain medication does not seem to help the pain at all. She has also tried gabapentin without relief. Pain is worse in anterior thigh but present in entire right leg. Improves with laying flat. See imaging from 10/2023.. status post L2-L3 interlaminar epidural steroid injection.. Per [facility], patient resides at [facility] and c/o ongoing pain. She is requesting additional pain control despite recent increase of her hydrocodone-acetaminophen 5-325 mg to BID." "Plan Discussed with PCP. Pt not having benefit from current regimen. Could consider lyrica in future instead of gabapentin. Start cymbalta as prescribed. WL sent to pain management and ortho spine for follow up apt." Chart Review Chart Review: Acceptable Risk for Surgery (pending evaluation DOS) and Patient seen in Pre Admission Testing Teaching & Discussion Pre-Anesthesia Teaching/Discussion Notes: Instructed NPO after midnight before surgery,except medications with 15 cc of water. Medication instructions provided according to the PAT guidelines. History Surgery Operation Date: 07/13/24 10:55 Proposed Procedures p L2-L3 Lumbar Decompression Laminectomy - Kris Grove MD Height/Weight Height: 5 ft 0.5 in Weight: 61 kg Allergies Allergy/AdvReac Type Severity Reaction Status Date / Time No Known Drug Allergies Allergy Verified 06/21/24 13:48 Medications Home Medications Medication Instructions Recorded Confirmed Last Taken leflunomide 20 mg tablet 20 mg PO QAM #90 tabs 12/17/21 06/21/24 Unknown indapamide 1.25 mg tablet 1.25 mg PO QAM #90 tabs 04/21/23 06/21/24 Unknown atorvastatin 80 mg tablet 80 mg PO HS #90 tabs 12/15/23 06/21/24 Unknown blood sugar diagnostic (OneTouch #100 ea 12/15/23 06/14/24 Unknown Verio test strips) blood-glucose meter (OneTouch #1 ea 12/15/23 06/14/24 Unknown Verio Flex Start kit) cholecalciferol (vitamin D3) 125 125 mcg PO DAILY #90 caps 12/15/23 06/21/24 Unknown mcg (5,000 unit) capsule diclofenac sodium 1 % topical gel 2 g topical QID PRN Pain #100 grams 12/15/23 06/21/24 Unknown empagliflozin 25 mg tablet 25 mg PO DAILY #90 tabs 12/15/23 06/21/24 Unknown lancets 33 gauge (OneTouch Delica #100 ea 12/15/23 06/14/24 Unknown Plus Lancet) metoprolol succinate 50 mg 50 mg PO DAILY #90 tabs 12/15/23 06/21/24 Unknown tablet,extended release 24 hr sennosides 8.6 mg tablet (Senna 8.6 mg PO DAILY #90 tabs 01/27/24 06/21/24 Unknown Lax) pantoprazole 20 mg tablet,delayed 20 mg PO DAILY #90 tabs 03/01/24 06/21/24 Unknown release acetaminophen 650 mg 650 mg PO BID #180 tabs 04/26/24 06/21/24 Unknown tablet,extended release gabapentin 400 mg capsule 400 mg PO TID #84 caps 04/30/24 06/21/24 Unknown duloxetine 30 mg capsule,delayed 30 mg PO DAILY #30 caps 05/17/24 06/21/24 Unknown release levothyroxine 50 mcg tablet 50 mcg PO DAILY #90 tabs 05/27/24 06/21/24 Unknown (Synthroid) hydrocodone 5 mg-acetaminophen 325 1 tab PO BID pain #60 tabs 06/09/24 06/21/24 Unknown mg tablet insulin degludec 100 unit/mL (3 14 unit (0.14 mL) subcut BID #30 mL 06/10/24 06/21/24 Unknown mL) subcutaneous pen (Tresiba FlexTouch U-100 insulin) pen needle, diabetic 31 gauge x #100 ea 06/10/24 06/14/24 Unknown 10/01" gabapentin 400 mg capsule 400 mg PO QID #60 caps 06/14/24 06/21/24 Unknown hydrocodone 5 mg-acetaminophen 325 1 tab PO BID PRN pain #60 tabs 06/14/24 06/21/24 Unknown mg tablet Past Medical History Medical History Arthritis of ankle, degenerative Back pain CAD (coronary artery disease) MICHAEL x2 (2017) Chronic kidney disease (CKD), stage III (moderate) Cognitive impairment Diabetes Diabetic neuropathy Diverticulosis Dysphonia, spasmodic GERD (gastroesophageal reflux disease) HTN (hypertension) Hypercholesteremia Hyponatremia LBBB (left bundle branch block) Chronic, dating back to at least 2017 cardiac cath report Lumbar disc herniation Lumbar spinal stenosis Mild Alzheimer dementia Moderate mitral valve regurgitation NSTEMI (non-ST elevated myocardial infarction) (09/2017) [facility] resident resident of [facility] Osteopenia Post herpetic neuralgia Pulmonary hypertension Rheumatoid arthritis Vitamin D deficiency Exercise / Class Metabolic Activity III < 4 Walking/Shop/Light housework (walker/wheelchair PRN) Past Family History Family History Son Coronary heart disease Mother Diabetes Lung cancer Hypertension Sister Cancer Other No family history of adverse response to anesthesia No family history of bleeding disorder Denies family history of Stroke Past Surgical History Surgical History History of cardiac cath 2018 > stents x2 History of cholecystectomy History of exploratory laparotomy History of hernia repair History of tonsillectomy Past Anesthesia History No Hx of Anesthesia Complications and No Family Hx of Anesthesia Complications History of PONV No Hx of PONV and No Hx of Motion Sickness Social History Smoking Status: Never smoker Do You Dip or Chew Tobacco: No Hx Alcohol Use: No Hx Substance Use: No substance use type: does not use Review of Systems Patient denies chest pain, shortness of breath, fever, chills, cough, wheezing. Physical Exam Vital Signs BP 98/58 P 76 TEMP 97.5 SP02 95%RA RESP 16 Physical Full cervical extension range of motion. Full TMJ range of motion. TMD > 3.5 finger breaths Mallampati Score II Dentition: + missing multiple teeth, + crowns Lungs: clear throughout to auscultation Cardiac: regular rate and rhythm, distant heart sounds Spine: normal Carotid arteries: negative bruit Extremities: no LE edema Lab Results Anesthesia Preop Results Results Anesthesia Widget: WBC 10.20 K/ul (4.8-10.8) 06/01/24 Hgb 13.2 g/dl (12.0-16.0) 06/01/24 Hct 39.4 % (37.0-47.0) 06/01/24 Plt 292 K/uL (130-400) 06/01/24 Na 132 mmol/L (136-145) L 06/23/24 K 3.7 mmol/L (3.5-5.1) 06/23/24 Cl 97 mmol/L (98-107) L 06/23/24 CO2 25 mmol/L (21-32) 06/23/24 BUN 27 mg/dl (6-23) H 06/23/24 Creat 1.26 mg/dl (0.6-1.2) H 06/23/24 Glucose Level 170 mg/dl (70-99(Fasting)) H 06/23/24 PT 10.1 Seconds (9.0-12.0) 06/01/24 PTT 27 Seconds (21-31) 06/01/24 INR 0.9 (0.9-1.1) 06/01/24 HA1c 8.7 % (4.5-5.6) H 06/23/24 Urine Color Yellow 06/01/24 Urine Appearance Clear (Clear) 06/01/24 Urine pH 5.5 (4.5-7.5) 06/01/24 Urine Specific Gifford 1.022 (1.000-1.030) 06/01/24 Urine Protein Negative (Negative) 06/01/24 Urine Glucose (UA) 3+ (Negative) H 06/01/24 Urine Ketones Negative (Negative) 06/01/24 Urine Blood Negative (Negative) 06/01/24 Urine Nitrite Negative (Negative) 06/01/24 Urine Bilirubin Negative (Negative) 06/01/24 Urine Urobilinogen Negative (Negative) 06/01/24 Urine Leukocyte Esterase Trace (Negative) H 06/01/24 Urine WBC (Auto) 6-10 /hpf (0-5) H 06/01/24 Urine RBC (Auto) 0-2 /hpf (0-2) 06/01/24 Urine Hyaline Casts (Auto) 6-10 /lpf (0-2) H 06/01/24 Urine Epithelial Cells (Auto) 3-5 /hpf (0-2) H 06/01/24 Urine Bacteria (Auto) None Seen (None Seen) 06/01/24 Blood Type A Positive 06/23/24 Antibody Screen NEGATIVE 06/23/24 Testing Laboratory Results Surgeon's office made aware of elevated A1C* Electrocardiogram Date: 06/01/24 NSR at 70 bpm. LAD. LBBB. LBBB dating back to at least 2018 cardiac cath report. Echocardiogram Date: 11/13/21 EF 50-55%. Wall motion normal. Mild cLVH. Mild aortic sclerosis. Moderate to severe mitral annular calcification. Moderate MR. Cardiac Catheterization Date: 09/27/17 Subacute on chronic mid to distal RCA occlusion. Minimal nonobstructive LAD/circumflex disease with initial [id number] collaterals. Normal intracardiac filling pressure. Successful PCI of mid to distal RCA with 2 overlapping MICHAEL. Other Testing Chest CT Date: 06/01/24 IMPRESSION: 1. No traumatic injury identified within the chest. 2. Severe coronary artery calcifications. 3. Aortic valvular and mitral annular calcifications. C-spine CT Date: 06/01/24 FINDINGS: Vertebrae: No acute fracture or malalignment. Discs/spinal canal/neural foramina: Multilevel degenerative changes. Moderate canal stenosis at C4-5. Soft tissues: Unremarkable. IMPRESSION: No acute fracture or malalignment.
[2024-07-13] MEDS ORDERED: LIDOCAINE 2% 2 ML VIAL/AMP(20MG/ML) INFIL ONE (09:40)
[2024-07-13] MEDS ORDERED: DEXAMETHASONE SOD INJ 4 MG/ML VIAL ONE (09:40)
[2024-07-13] MEDS ORDERED: PROPOFOL IV EMULSION 10 MG/ML 20 ML VIAL IV ONE (09:40)
[2024-07-13] MEDS ORDERED: ONDANSETRON INJ 2 MG/ML 2 ML VIAL ONE (09:40)
[2024-07-13] MEDS ORDERED: GLYCOPYRROLATE 0.2 MG/ML VIAL ONE ×2 (09:40→14:56)
[2024-07-13] MEDS ORDERED: ROCURONIUM BROMIDE 10 MG/ML 5 ML VIAL IV ONE (09:40)
[2024-07-13] MEDS: LR 60ML/HR IV SCH (10:18)
[2024-07-13] MEDS: LR 15ML/HR IV SCH (10:25)
[2024-07-13] MEDS: ACETAMINOPHEN 500 MG TAB PO SCH (10:28)
[2024-07-13] MEDS: GABAPENTIN 300 MG CAP PO SCH (10:29)
[2024-07-13] MEDS ORDERED: ePHEDrine sulfate 50 MG/ML AMP IV PRN (11:15)
[2024-07-13] MEDS ORDERED: ATROPINE SULFATE 0.1 MG/ML 10ML SYR IV PRN (11:15)
[2024-07-13] MEDS ORDERED: fentaNYL citrate PF 100 MCG/2 ML VIAL ONE ×2 (12:16→14:31)
--- NOTE | 2024-07-13 12:17 | History & Physical Bridge Note ---
Date of Service July 13, 2024 History & Physical Bridge Note I have examined the patient, reviewed the History & Physical and in the interval since the performance of the History & Physical I have noted the following changes of clinical significance: no changes noted
[2024-07-13] MEDS: ceFAZolin 2000MG 2,000 MG/15 ML SYR IV SCH (13:15)
[2024-07-13] MEDS ORDERED: ePHEDrine sulfate 50 MG/5 ML SYR ONE (13:22)
[2024-07-13] MEDS ORDERED: PHENYLEPHRINE 100MCG/ML 5ML SYR ONE (14:04)
[2024-07-13] MEDS: FLOSEAL HEMOSTATIC MATRIX 5ML TOP SCH (14:37)
[2024-07-13] MEDS ORDERED: NEOSTIGMINE METHYLSULFATE 1 MG/ML 10ML VIAL ONE (14:56)
[2024-07-13] MEDS: VANCOMYCIN HCL 1000MG/20ML VIAL ONE (15:00)
[2024-07-13] MEDS: methylPREDNISolone acetate 40 MG/ML VIAL ONE (15:00)
[2024-07-13] MEDS: THROMBIN 5000 UNITS KIT ONE (15:03)
[2024-07-13] MEDS: BUPIVACAINE/EPINEPHRINE 0.5% MPF 1:200,000 30 ML VIAL ONE (15:03)
[2024-07-13] MEDS: GELATIN SPONGE 12-7MM ONE (15:03)
[2024-07-13] MEDS ORDERED: NALOXONE HCL 0.4 MG/1 ML VIAL/CARP IV PRN (15:18)
[2024-07-13] MEDS ORDERED: DO NOT ADMINISTER FLU VACCINE PRN (15:18)
[2024-07-13] MEDS ORDERED: MAGNESIUM HYDROXIDE SUSP 30 ML UDC PO PRN (15:18)
[2024-07-13] MEDS ORDERED: ALUMINUM/MAGNESIUM SUSP 30 ML UDC PO PRN (15:18)
[2024-07-13] MEDS ORDERED: METOCLOPRAMIDE HCL INJ 5 MG/ML 2 ML VIAL IV PRN (15:18)
[2024-07-13] MEDS ORDERED: HYDROmorphone INJ 0.5 MG/0.5 ML SYR IV PRN (15:18)
[2024-07-13] MEDS ORDERED: hydrOXYzine HCl 25 MG TAB PO PRN (15:18)
[2024-07-13] MEDS ORDERED: ACETAMINOPHEN 500 MG TAB PO PRN (15:18)
[2024-07-13] MEDS ORDERED: PROMETHAZINE 12.5 MG/50.5 ML BAG IV PRN (15:18)
[2024-07-13] MEDS ORDERED: ACETAMINOPHEN 1,000 MG/100 ML VIAL IV PRN (15:18)
[2024-07-13] MEDS ORDERED: DO NOT ADMINISTER PNEUMOCOCCAL VACCINE PRN (15:18)
[2024-07-13] MEDS ORDERED: LORazepam 2 MG/1 ML VIAL IV PRN (15:18)
[2024-07-13] MEDS ORDERED: bisacodyL 10 MG SUPP PR PRN (15:18)
[2024-07-13] MEDS ORDERED: ONDANSETRON INJ 2 MG/ML 2 ML VIAL IV PRN (15:18)
[2024-07-13] MEDS ORDERED: SOD PHOSPHATE/SOD BIPHOSPHATE ENEMA 132 ML BTL PR PRN (15:18)
[2024-07-13] MEDS ORDERED: LORazepam 0.5 MG TAB PO PRN (15:18)
[2024-07-13] MEDS ORDERED: ONDANSETRON 4 MG OD TAB PO PRN (15:18)
[2024-07-13] MEDS ORDERED: FAMOTIDINE 20 MG TAB PO PRN (15:18)
[2024-07-13] MEDS ORDERED: diphenhydrAMINE Capsule 25 MG CAP PO PRN (15:18)
--- NOTE | 2024-07-13 15:18 | Post Operative Brief Note ---
PG Immediate Post Op with CF Date of Surgery July 13, 2024 Pre & Post Diagnosis Operation Date: 07/13/24 11:15 Pre-Op Diagnosis: 1. Lumbar Disc Herniation Radiculopathy, 2. Spinal Stenosis of Lumbar Region Post-Op Diagnosis: 1. Lumbar Disc Herniation Radiculopathy, 2. Spinal Stenosis of Lumbar Region I identified the patient and participated in the time-out.: Yes Procedure Operation Date: 07/13/24 11:15 Actual Procedures p L2-L3 Lumbar Decompression Laminectomy(Not Applicable) - Kris Grove MD Surgeon Kris Grove MD Spectrographic Analyst None Estimated Blood Loss 10 Findings Consistent with Post-Op Diagnosis Specimens Specimen Description: No specimen per surgeon
--- NOTE | 2024-07-13 15:18 | Fluoroscopy Report ---
FL spine 1V any level CLINICAL HISTORY: L2-L3 LAMINECTOMY COMPARISON STUDY: None FLUOROSCOPY TIME: 39 seconds FLUOROSCOPY IMAGES: 4 EXPOSURE DOSE: 18 mGy FINDINGS: Fluoroscopy was provided for lumbar spine surgery. IMPRESSION: Intraoperative fluoroscopy. ACT 112: Negative or not required by law. Electronically signed by: Anjum Reece M.D. 07/13/2024 3:16 PM
[2024-07-13] MEDS ORDERED: PHARMACY GLYCEMIC MGMT CONSULT PRN (15:31)
[2024-07-13] MEDS: fentaNYL citrate PF 100 MCG/2 ML VIAL IV PRN (15:33)
[2024-07-13] MEDS: HYDROmorphone INJ 1 MG/ML SYRINGE IV PRN (16:11)
--- NOTE | 2024-07-13 16:36 | Anesthesiology Progress Note ---
Date of Service July 13, 2024 Anesthesia Post Procedure Vital Signs Vital Signs: Temp Pulse Pulse Resp BP Pulse Ox O2 Del Method 07/13/24 16:30 81 18 125/71 94 Room Air 07/13/24 16:20 88 16 111/70 94 Nasal Cannula 07/13/24 16:10 84 13 104/61 95 Room Air 07/13/24 16:00 36.6 C 88 14 107/54 L 95 Room Air 07/13/24 15:50 78 20 120/64 94 Room Air 07/13/24 15:40 82 14 118/71 93 Room Air 07/13/24 15:30 84 12 134/63 96 Room Air 07/13/24 15:24 36.3 C L 83 18 148/72 H 100 Oxymask 07/13/24 10:04 36.5 C 74 20 126/74 98 Room Air O2 Flow Rate 07/13/24 16:30 2 07/13/24 16:20 2 07/13/24 16:10 07/13/24 16:00 07/13/24 15:50 07/13/24 15:40 07/13/24 15:30 07/13/24 15:24 7 07/13/24 10:04 Pain Intensity Right Leg: Pain Intensity: 6 Transfer of Care Handoff Completed per policy Notes Mental Status: alert / awake / arousable and participated in evaluation Patient Amnestic to Procedure: Yes Nausea / Vomiting: adequately controlled Pain: adequately controlled Airway Patency, RR, SpO2: stable & adequate BP & HR: stable & adequate Hydration State: stable & adequate Anesthetic Complications: no major complications apparent
[2024-07-13] MEDS ORDERED: NON-FORMULARY MEDICATION (Lancets [Onetouch Delica Plus Lancet] 33 gauge misc) SCH (17:23)
[2024-07-13] MEDS ORDERED: NON-FORMULARY MEDICATION (Blood Sugar Diagnostic [Onetouch Verio Test Strips] strip) SCH (17:23)
--- NOTE | 2024-07-13 17:34 | Consultation ---
Date of Consultation July 13, 2024 Assessment & Plan (1) Lumbar disc herniation with radiculopathy: severe RLE radicular pain since 2023 now s/p L2-L3 laminectomy today by Dr Son Grove check BMP,CBC in am for stability defer pain management to primary service diet ordered (full liquids for dinner, then advance as tolerated) lives at [facility] - PT/OT evals prior to d/c? cont gabapentin QID (chronic med for her) (2) Type 2 diabetes mellitus, with long-term current use of insulin: a1c 8.5% earlier this month ordered BSG checks ac/hs novolog SSI ordered I anticipate some lability in her BSGs due to kim-operative stress and kim- operative dexamethasone use can resume jardiance at discharge can resume long-acting insulin at discharge (3) CKD (chronic kidney disease) stage 3, GFR 30-59 ml/min: check BMP in am for stability (4) CAD (coronary artery disease), beaver coronary artery: no ischemic symptoms at this time statin on hold - can resume at d/c cont meto succinate daily uncertain why she is not on aspirin therapy chronically NSTEMI 09/2017 - MICHAEL x2 to RCA (5) Rheumatoid arthritis: on Arava 20mg daily hold in the kim-operative period (6) HTN (hypertension): cont meto succ (7) GERD (gastroesophageal reflux disease): cont PPI (8) Dysphonia, spasmodic: chronic dx no Rx needed (9) Hypothyroidism: TSH 2.2 in 03/2024 cont synthroid as is Plan Thank you for this consult. Will follow with you. History of Present Illness Requesting Physician: Kris Grove MD Reason for Consultation: post-op medical management Attending Physician: Kris Grove MD History of Present Illness 89yo female with T2DM, hypothyroidism, long-standing rheumatoid arthritis, Alzheimer's dementia, CAD, CKD stage 3, HTN, GERD, and chronic lumbar spine DJD who presented for elective L2-L3 back surgery today by Dr Grove. Specifically, Dr Grove performed decompression with laminectomy at L2-L3 due to severe RLE radiculopathy dating back to 2023. I saw the patient on the orthopedic floor and she was resting in bed. Denies any chest pain, dyspnea, or abdominal pain. No nausea/emesis. Son was at bedside. Per her son, prior to this surgery, patient's recent health has been stable. She has had no recent illnesses. No recent rheumatoid flares. Follows with Dr Kenny Snow with [facility]. Review of operative note - minimal blood loss. Did received IV dexamethasone kim-operatively today. Allergies Allergy/AdvReac Type Severity Reaction Status Date / Time No Known Drug Allergies Allergy Verified 07/13/24 10:01 Home Medications Medication Instructions Recorded Confirmed Type indapamide 1.25 mg tablet 1.25 mg PO QAM #90 tabs 04/21/23 07/13/24 Rx blood sugar diagnostic (OneTouch #100 ea 12/15/23 06/14/24 Rx Verio test strips) blood-glucose meter (OneTouch #1 ea 12/15/23 06/14/24 Rx Verio Flex Start kit) cholecalciferol (vitamin D3) 125 125 mcg PO DAILY #90 caps 12/15/23 07/13/24 Rx mcg (5,000 unit) capsule diclofenac sodium 1 % topical gel 2 g topical QID PRN Pain #100 grams 12/15/23 07/13/24 Rx lancets 33 gauge (OneTouch Delica #100 ea 12/15/23 06/14/24 Rx Plus Lancet) metoprolol succinate 50 mg 50 mg PO DAILY #90 tabs 12/15/23 07/13/24 Rx tablet,extended release 24 hr sennosides 8.6 mg tablet (Senna 8.6 mg PO DAILY #90 tabs 01/27/24 07/13/24 Rx Lax) pantoprazole 20 mg tablet,delayed 20 mg PO DAILY #90 tabs 03/01/24 07/13/24 Rx release acetaminophen 650 mg 650 mg PO BID #180 tabs 04/26/24 07/13/24 Rx tablet,extended release levothyroxine 50 mcg tablet 50 mcg PO DAILY #90 tabs 05/27/24 07/13/24 Rx (Synthroid) hydrocodone 5 mg-acetaminophen 325 1 tab PO BID pain #60 tabs 06/09/24 07/13/24 Rx mg tablet insulin degludec 100 unit/mL (3 14 unit (0.14 mL) subcut BID #30 mL 06/10/24 07/13/24 Rx mL) subcutaneous pen (Tresiba FlexTouch U-100 insulin) pen needle, diabetic 31 gauge x #100 ea 06/10/24 06/14/24 Rx 5/16" gabapentin 400 mg capsule 400 mg PO QID #60 caps 06/14/24 07/13/24 Rx atorvastatin 80 mg tablet (Lipitor) 80 mg PO HS 07/13/24 07/13/24 History duloxetine 30 mg capsule,delayed 30 mg PO DAILY 07/13/24 07/13/24 History release (Cymbalta) empagliflozin 25 mg tablet 25 mg PO DAILY 07/13/24 07/13/24 History (Jardiance) leflunomide 20 mg tablet (Arava) 20 mg PO QAM 07/13/24 07/13/24 History Patient History Medical History LBBB (left bundle branch block) Chronic, dating back to at least 2018 cardiac cath report Dysphonia, spasmodic [facility] resident resident of [facility] Diabetic neuropathy Moderate mitral valve regurgitation Post herpetic neuralgia Diabetes Hypercholesteremia Osteopenia Vitamin D deficiency Chronic kidney disease (CKD), stage III (moderate) Pulmonary hypertension CAD (coronary artery disease) MICHAEL x2 (2018) Rheumatoid arthritis HTN (hypertension) GERD (gastroesophageal reflux disease) Back pain Lumbar spinal stenosis Mild Alzheimer dementia Lumbar disc herniation Cognitive impairment Diverticulosis Hyponatremia Arthritis of ankle, degenerative NSTEMI (non-ST elevated myocardial infarction) (09/2017) Surgical History History of cardiac cath 2018 > stents x2 History of tonsillectomy History of hernia repair History of exploratory laparotomy History of cholecystectomy Family History Son Coronary heart disease Mother Diabetes Lung cancer Hypertension Sister Cancer Other No family history of adverse response to anesthesia No family history of bleeding disorder Denies family history of Stroke Social History Smoking Status: Never smoker Second Hand Exposure: No; Do You Dip or Chew Tobacco: No; Hx Alcohol Use: No Hx Substance Use: No Preferred Language: Italian Visual Impairment: Limited Hearing Ability: Normal [employer] Required: No Beliefs That Will Affect Care: None marital status: / Current Living Situation: Retirement Current Living Situation Comment: resident of [facility] current occupational status: retired current occupation: retired How many Children do You have: 3 How many Children do You have Comment: Daughter lives in [facility], sons live in [facility] and [place]. Daughter unable to help much r/t her work schedule. Feels Safe at Home: Yes Safety Concerns: Feels Safe At This Time Diet: regular Seatbelt Use: always Assistive Devices: Cane and Walker Review of Systems Review of Systems: gen - no recent fevers HENT - no recent URI CV - no chest pain pulm - no dyspnea GI - no abd pain or N/V musculo - low back pain from her surgery; denies small joint pain neuro - previous right thigh radicular pain; none at this time endo - diabetic, recent sugars? Physical Exam Physical Exam: gen - resting in bed, NAD, comfortable eyes - lens implants b/l, PERRL mouth - MMM; voice - dysphonia neck - no JVD heart - RRR, s1 s2, 1/6 systolic murmur LLSB lungs - CTA b/l abd - soft NT ND BS+ back - dressings intact lower spine region ext - no edema, pulses feet 2+ b/l skin - no pallor, no generalized rash Results & Data Vital Signs (Past 12 Hours) Vital Signs Temp Pulse Pulse Resp BP Pulse Ox O2 Del Method 07/13/24 16:50 88 12 133/55 L 94 Room Air 07/13/24 16:40 36.5 C 81 19 127/61 95 Room Air 07/13/24 16:30 81 18 125/71 94 Room Air 07/13/24 16:20 88 16 111/70 94 Nasal Cannula 07/13/24 16:10 84 13 104/61 95 Room Air 07/13/24 16:00 36.6 C 88 14 107/54 L 95 Room Air 07/13/24 15:50 78 20 120/64 94 Room Air 07/13/24 15:40 82 14 118/71 93 Room Air 07/13/24 15:30 84 12 134/63 96 Room Air 07/13/24 15:24 36.3 C L 83 18 148/72 H 100 Oxymask 07/13/24 10:04 36.5 C 74 20 126/74 98 Room Air O2 Flow Rate 07/13/24 16:50 2 07/13/24 16:40 2 07/13/24 16:30 2 07/13/24 16:20 2 07/13/24 16:10 07/13/24 16:00 07/13/24 15:50 07/13/24 15:40 07/13/24 15:30 07/13/24 15:24 7 07/13/24 10:04 Laboratory Results Laboratory Results - last 24 hr 07/13/24 07/13/24 07/13/24 09:55 15:32 Unknown POC Glucose 132 H 110 H SARS-CoV-2, RNA, NAAT NEGATIVE PG Care Time/CCT Total # of Minutes Spent Total Time Spent with Patient: Total time spent is greater than 50% in coordination of care (as documented) at patient's floor/unit and/or counseling patient: Coding Level of Care Code 98675 INT INP/OBS CARE MIN Diagnoses Lumbar disc herniation with radiculopathy M51.16 Type 2 diabetes mellitus with stage 3b chronic kidney disease, with long-term current use of insulin E11.22; N18.32; Z79.4 Diabetes mellitus complication status: with kidney complications Diabetes mellitus complication detail: with chronic kidney disease Chronic kidney disease stage: stage 3 (moderate) Chronic kidney disease stage 3 subtype: stage 3b (GFR 30-44) Stage 3b chronic kidney disease N18.32 Chronic kidney disease stage 3 subtype: stage 3b (GFR 30-44) Coronary artery disease involving beaver coronary artery of beaver heart without angina pectoris I25.10 [place] vs. transplanted heart: beaver heart Associated angina: without angina Rheumatoid arthritis involving multiple sites with positive rheumatoid factor M05.79 Rheumatoid arthritis location: multiple sites Rheumatoid factor presence: with rheumatoid factor Primary hypertension I10 Hypertension type: primary hypertension GERD (gastroesophageal reflux disease) K21.9 Dysphonia, spasmodic J38.3 Hypothyroidism E03.9 (2) Type 2 diabetes mellitus, with long-term current use of insulin Diabetes mellitus complication status: with kidney complications Diabetes mellitus complication detail: with chronic kidney disease Chronic kidney disease stage: stage 3 (moderate) Chronic kidney disease stage 3 subtype: stage 3b (GFR 30-44) Qualified Code(s): E11.22 - Type 2 diabetes mellitus with diabetic chronic kidney disease; N18.32 - Chronic kidney disease, stage 3b; Z79.4 - oysterman (current) use of insulin (3) CKD (chronic kidney disease) stage 3, GFR 30-59 ml/min Chronic kidney disease stage 3 subtype: stage 3b (GFR 30-44) Qualified Code(s): N18.32 - Chronic kidney disease, stage 3b (4) CAD (coronary artery disease), beaver coronary artery [place] vs. transplanted heart: beaver heart Associated angina: without angina Qualified Code(s): I25.10 - Atherosclerotic heart disease of beaver coronary artery without angina pectoris (5) Rheumatoid arthritis Rheumatoid arthritis location: multiple sites Rheumatoid factor presence: with rheumatoid factor Qualified Code(s): M05.79 - Rheumatoid arthritis with rheumatoid factor of multiple sites without organ or systems involvement (6) HTN (hypertension) Hypertension type: primary hypertension Qualified Code(s): I10 - Essential (primary) hypertension
[2024-07-13] MEDS: GABAPENTIN 400 MG CAP PO SCH (18:40)
[2024-07-13] MEDS ORDERED: LANTUS PER UNIT CHARGE SQ SCH (21:00)
[2024-07-13] MEDS: oxyCODONE/ACETAMINOPHEN 5mg/325mg TAB PO PRN (21:26)
[2024-07-13] MEDS: ceFAZolin 1000MG 1,000 MG/7.5 ML SYR IV SCH (21:38)
[2024-07-13] MEDS: INSULIN ASPART PER UNIT CHARGE SC SCH (21:39)
[2024-07-13] MEDS: LANTUS PER UNIT CHARGE SC SCH (21:39)
[2024-07-13] MEDS: DOCUSATE SODIUM/SENNA 50/8.6MG TAB PO SCH (21:48)
[2024-07-14] MEDS: POLYETHYLENE (MIRALAX) 17 GM PACK PO SCH (06:11)
[2024-07-14] MEDS: LEVOTHYROXINE SODIUM 50 MCG TABLET PO SCH (06:12)
[2024-07-14 07:13] LABS: Hematocrit (blood only) 35.6 % (37.0-47.0); Hemoglobin 12.1 g/dl (12.0-16.0); Mean Corpuscular Volume 85.4 fL (80.0-100.0); Mean Platelet Volume 9.7 fL (9.4-12.4); Platelet Count 334 K/uL (130-400); RDW Coefficient of Variation 15.2 % (11.5-14.5); RDW Standard Deviation 46.4 fL (36.4-46.3); Red Blood Count 4.17 M/uL (4.20-5.40); White Blood Count 12.86 K/ul (4.8-10.8)
[2024-07-14 07:33] LABS: BUN Creatinine Ratio 21.6 (10-20); Creatinine Clr Calc Pharmacy 33.4 ml/min; Potassium 3.9 mmol/L (3.5-5.1)
[2024-07-14 08:18] VITALS: O2SAT 96
[2024-07-14] MEDS: PANTOprazole 40 MG TAB PO SCH (08:48)
[2024-07-14] MEDS: DULoxetine HCL 30 MG CAP PO SCH (08:49)
[2024-07-14] MEDS: METOPROLOL SUCC 50MG EXT REL TAB PO SCH (08:53)
[2024-07-14] MEDS ORDERED: EMPAGLIFLOZIN 25 MG TAB PO SCH (09:00)
--- NOTE | 2024-07-14 09:18 | Orthopedic Progress Note ---
Date of Service July 14, 2024 Subjective Patient postop day 1 from L2-3 posterior lumbar decompression. She notes minimal if any incisional pain, still with some lower extremity symptoms. Dressing unremarkable with minimal drainage. Impression: Postop day 1 from L2-3 lumbar decompression with minimal axial symptomatology. Plan: Can mobilize with physical therapy today and transfer back to extended care facility. Follow-up in 2 weeks. Review of Systems All systems reviewed & are unremarkable except as noted in HPI & below. Physical Exam . Results & Data Results & Data Laboratory Results . Diagnostic Findings . PG Care Time/CCT Total # of Minutes Spent Total Time Spent with Patient: Total time spent is greater than 50% in coordination of care (as documented) at patient's floor/unit and/or counseling patient: Coding Level of Care Code 55772 Post Operative Follow-Up
--- NOTE | 2024-07-14 09:42 | Pharmacy Report ---
Pharmacy Glycemic Short Note 2 - Date of Service July 14, 2024 - Glycemic Short BSG Results (Last 24 hours): 07/13/24 07/13/24 07/13/24 09:55 15:32 20:59 Glucose POC Glucose 132 H 110 H 341 H* 07/13/24 07/14/24 07/14/24 21:02 06:53 07:49 Glucose 216 H POC Glucose 362 H* 205 H OUTPATIENT ANTIDIABETIC REGIMEN: * Tresiba 14 units SQ BID * Jardiance 25mg po daily HbA1c: 8.7% on 06/23/24 ASSESSMENT: * 89 year old female admitted 07/13 for L2-L3 posterior lumbar decompression. POD #1. Pharmacy was consulted for glycemic management postop. * Preop BSG yesterday was 132mg/dL and then ramon to 341mg/dL at bedtime. Patient was ordered 8mg iv dexamethasone preop. A lantus scale (0, 10, or 15 units) depending on BSG was started last evening and continued BID. * A weight based bolus insulin regimen with a stress between 2 and 3 was also ordered to start last evening. * Fasting BSG was 205mg/dL this morning. She was given 15 units of Lantus. The bolus insulin regimen will be continued as ordered for now. Will consider tightening parameters if BSGs remain elevated at lunch time. PLAN FOR INPATIENT GLYCEMIC CONTROL: * Hold outpatient diabetes medications * Basal insulin * Lantus scale SQ BID--(BSG < 110 hold, BSG 110-160 give 10 units, BSG > 160 give 15 units) * Bolus insulin * NovoLog per scale ACHS or Q6hrs while NPO * Goal Range: Low 120 mg/dL - High 160 mg/dL * Correction Factor: 35 mg/dL/unit * Nutritional / Prandial insulin per carb ratio of 1 unit per 12 grams CHO consumed
[2024-07-14] MEDS: INDAPAMIDE 1.25 MG TAB PO SCH (10:10)
--- NOTE | 2024-07-14 10:54 | Discharge Summary ---
Date of Service July 14, 2024 Admission HPI (Per Admitting) Lumbar stenosis. Principal Diagnosis Same as "Discharge Diagnosis" noted below under Discharge Instructions. Discharge Exam . Discharge Data Consultations 07/13/24 15:18 Consult Hospitalist Routine Procedures Performed Operation Date: 07/13/24 11:15 Actual Procedures p L2-L3 Lumbar Decompression Laminectomy(Not Applicable) - Kris Grove MD Ordered Studies 07/13/24 11:15 FL spine 1V any level Routine Hospital Course (1) Spinal stenosis of lumbar region: L2-3 lumbar decompression. Neurogenic claudication status: without neurogenic claudication Qualified Code(s): M48.061 - Spinal stenosis, lumbar region without neurogenic claudication PG Care Time/CCT Total # of Minutes Spent Total Time Spent with Patient: Total time spent is greater than 50% in coordination of care (as documented) at patient's floor/unit and/or counseling patient: Discharge Plan Discharge Items Patient Disposition: Transfer [facility] Fac Reason For Visit: Lumbar Disc Herniation Radiculopathy, Spinal Steno Discharge Diagnosis: Lumbar stenosis Condition on Discharge: Good Activity: As commented below Lifting: No more than 10 pounds Bathing: May shower/bathe in 3 days Weightbearing: Full weightbearing Non-emergency contact: Surgeon Call non-emergency contact if: your pain is worsening Follow-up/Referrals: Meenu Bravo MD [Primary Care Provider] - (1-2 weeks ) Kris Grove MD [Surgeon] - Kenny Salinas MD [Physician] - (December 2024 - follow-up for rheumatoid arthritis; sooner if any joint problems) Diet: Regular Addtl Attending Provider Instructions: Follow-up in 2 weeks. Addtl Distance Education Director Provider Instructions: 1. check BSGs ac/hs 2. BMP and magnesium level in 5 days for stability Pending Studies at Discharge: No Stand-Alone Forms: My Full Color Games, Smoking Cessation Skilled Items Patient informed of condition?: Yes DNR: No Discharge Level of Care: Skilled Communicable Disease: No Discharge Prognosis: Stable Lines: None Urinary Catheter: No Medications and DC Order Prescriptions: New dexamethasone 4 mg tablet 4 mg PO DAILY 5 Days Qty: 5 0RF polyethylene glycol 3350 [Miralax] 17 gram powder in packet 17 g PO DAILY Qty: 30 0RF Continued (DME) OneTouch Verio test strips Strip See Rx Instructions .ROUTE .MEDSUPPLY Qty: 100 5RF Rx Instructions: Check blood sugars once daily (DME) blood-glucose meter [OneTouch Verio Flex Start] Kit See Rx Instructions .Route Qty: 1 0RF Rx Instructions: use to test blood sugar as directed cholecalciferol (vitamin D3) 125 mcg (5,000 unit) capsule 125 mcg PO DAILY Qty: 90 1RF diclofenac sodium 1 % gel 2 g topical QID PRN (Reason: Pain) Qty: 100 0RF Rx Instructions: apply to single elbow, wrist or hand; for hand includes palm/fingers/back of hand (DME) lancets [[employer] LabsTouch Delica Plus Lancet] 33 gauge misc See Rx Instructions .ROUTE .MEDSUPPLY Qty: 100 5RF Rx Instructions: Check blood sugar once daily metoprolol succinate 50 mg tablet extended release 24 hr 50 mg PO DAILY Qty: 90 3RF pantoprazole 20 mg tablet,delayed release (DR/EC) 20 mg PO DAILY Qty: 90 3RF acetaminophen 650 mg tablet extended release 650 mg PO BID Qty: 180 3RF Rx Instructions: Take acetaminophen 650 mg twice daily scheduled (in addition to hydrocodone- acetaminophen 5/325 twice daily) levothyroxine [Synthroid] 50 mcg tablet 50 mcg PO DAILY Qty: 90 3RF hydrocodone-acetaminophen 5-325 mg tablet 1 tab PO BID Qty: 60 0RF (DME) pen needle, diabetic 31 gauge x 5/16" needle See Rx Instructions .ROUTE .MEDSUPPLY Qty: 100 3RF Rx Instructions: Inject insulin twice daily w/ Lantus insulin degludec [Tresiba FlexTouch U-100] 100 unit/mL (3 mL) insulin pen 14 unit subcut BID MDD 28 units Qty: 30 3RF gabapentin 400 mg capsule 400 mg PO QID Qty: 60 2RF sennosides [Senna Lax] 8.6 mg tablet 8.6 mg PO DAILY Qty: 90 0RF Rx Instructions: To prevent opioid induced constipation. Ok to hold for diarrhea. atorvastatin [Lipitor] 80 mg tablet 80 mg PO HS duloxetine [Cymbalta] 30 mg capsule,delayed release(DR/EC) 30 mg PO DAILY Jardiance 25 mg tablet 25 mg PO DAILY Held indapamide 1.25 mg tablet 1.25 mg PO QAM Qty: 90 3RF Hold Instructions: hold for now leflunomide [Arava] 20 mg tablet 20 mg PO QAM Hold Instructions: Resume on 07/21/24. Discharge Orders: Discharge Order (Routine); Ordered 07/14/24 Ordered By: Kris Grove Admission Data Admit Date/Time: 07/13/24 15:18 Attending Provider: Kris Grove Admit Provider: Kris Grove Primary Care Provider: Meenu Bravo Other Providers: Rhys Valdez Other Interventions: Discharge Summary Assessment (RN) Last Done: 07/14/24 12:23
[2024-07-14 11:27] VITALS: BP 119/58; RESP 16; TEMP 98.4
[2024-07-14 12:24] VITALS: PULSE 94
--- NOTE | 2024-07-14 13:18 | Hospitalist Progress Note ---
Date of Service July 14, 2024 Assessment & Plan (1) Lumbar disc herniation with radiculopathy: Plan: POD #1 s/p L2-L3 laminectomy by Dr Son Grove tolerating diet passing flatus hemodynamically stable CBC/BMP acceptable ongoing right leg radicular pain - which was the main reason for her surgery I corresponded with Dr Grove -- will send home with 5 days of dexamethasone 4mg daily to reduce inflammation/swelling around the nerve root at the L2/L3 level she is already on gabapentin and cymbalta chronically lives at [facility] - PT/OT completed - can return to [facility] will f/u with Dr Grove in 2 weeks post discharge (2) Type 2 diabetes mellitus, with long-term current use of insulin: Plan: a1c 8.5% earlier this month BSGs mildly high overnight/today due to steroids resume jardiance at discharge resume long-acting insulin at discharge BSGs should improve over the next few days as steroids are completed being back on usual regimen of meds should suffice (3) CKD (chronic kidney disease) stage 3, GFR 30-59 ml/min: Plan: creatinine stable at 0.97 this am in light of low-normal BPs would HOLD indapamide at discharge (4) CAD (coronary artery disease), wiyot coronary artery: Plan: no ischemic symptoms at this time resume statin cont meto succinate daily uncertain why she is not on aspirin therapy chronically NSTEMI 09/2017 - MICHAEL x2 to RCA (5) Rheumatoid arthritis: Plan: on Arava 20mg daily I corresponded with her primary sheet catcher, Dr Salinas he recommends holding arava for 1 week then resume has f/u with him in December 2024 (annual visit) no recent RA flare (6) HTN (hypertension): Plan: cont meto succ hold indapamide at d/c (7) GERD (gastroesophageal reflux disease): Plan: cont PPI (8) Dysphonia, spasmodic: Plan: chronic dx no Rx needed (9) Hypothyroidism: Plan: TSH 2.2 in 03/2024 cont synthroid as is Plan care d/w Dr Grove via [place] correspondence care d/w Dr Salinas ([facility]) also via [place] correspondence ok for d/c home to [facility] from medical standpoint needs close f/u with PCP next week or so son updated at bedside Admission and Anticipated Discharge Date Admission Date: July 13, 2024 Subjective patient resting in bed son at bedside eating her meal passing flatus only complaint is that of ongoing Right Thigh pain - similar to her chronic right thigh pain that led to her surgery no new areas of pain denies dyspnea denies chest pain Review of Systems Review of Systems: GI - no N/V or abd pain musculo - lumbar back pain from surgery Physical Exam Physical Exam: gen - resting in bed, NAD, comfortable appearing mouth - MMM; voice - dysphonia neck - no JVD heart - RRR, s1 s2, 1/6 systolic murmur LLSB lungs - CTA b/l abd - soft NT ND BS+ back - dressings intact lower spine region ext - no edema, pulses feet 2+ b/l neuro - strength b/l hip flexion 5/5 Results & Data Results & Data Vital Signs (Past 12 Hours) Vital Signs Temp Pulse Pulse Pulse Resp BP Pulse Ox 07/14/24 12:23 36.9 C 94 H 94 H 92 H 16 119/58 L 96 07/14/24 11:25 36.9 C 92 H 16 119/58 L 07/14/24 08:53 119/71 07/14/24 08:00 36.6 C 94 H 18 101/62 96 07/14/24 07:33 36.9 C 98 H 12 110/64 94 07/14/24 03:17 36.6 C 104 H 20 104/59 L 95 O2 Del Method 07/14/24 12:23 07/14/24 11:25 Room Air 07/14/24 08:53 07/14/24 08:00 Room Air 07/14/24 07:33 Room Air 07/14/24 03:17 Room Air Laboratory Results Laboratory Results - last 48 hr 07/13/24 07/13/24 07/13/24 09:55 15:32 20:59 WBC RBC Hgb Hct MCV MCH MCHC RDW Std Deviation RDW Coeff of Lizzette Plt Count MPV Sodium Potassium Chloride Carbon Dioxide Anion Gap BUN Creatinine Est Cr Clr Drug Dosing eGFR BUN/Creatinine Ratio Glucose POC Glucose 132 H 110 H 341 H* Calcium Nasal Screen MRSA (PCR) SARS-CoV-2, RNA, NAAT 07/13/24 07/13/24 07/14/24 21:02 Unknown 06:53 WBC 12.86 H RBC 4.17 L Hgb 12.1 Hct 35.6 L MCV 85.4 MCH 29.0 MCHC 34.0 RDW Std Deviation 46.4 H RDW Coeff of Lizzette 15.2 H Plt Count 334 MPV 9.7 Sodium 133 L Potassium 3.9 Chloride 100 Carbon Dioxide 26 Anion Gap 7 BUN 21 Creatinine 0.97 Est Cr Clr Drug Dosing 33.4 eGFR 56.56 BUN/Creatinine Ratio 21.6 H Glucose 216 H POC Glucose 362 H* Calcium 9.0 Nasal Screen MRSA (PCR) Negative SARS-CoV-2, RNA, NAAT NEGATIVE 07/14/24 07/14/24 07:49 11:38 WBC RBC Hgb Hct MCV MCH MCHC RDW Std Deviation RDW Coeff of Lizzette Plt Count MPV Sodium Potassium Chloride Carbon Dioxide Anion Gap BUN Creatinine Est Cr Clr Drug Dosing eGFR BUN/Creatinine Ratio Glucose POC Glucose 205 H 220 H Calcium Nasal Screen MRSA (PCR) SARS-CoV-2, RNA, NAAT PG Care Time/CCT Total # of Minutes Spent Total Time Spent with Patient: Total time spent is greater than 50% in coordination of care (as documented) at patient's floor/unit and/or counseling patient: Coding Level of Care Code 34011 SUB INP/OBS CARE 3/50MIN Diagnoses Lumbar disc herniation with radiculopathy M51.16 Type 2 diabetes mellitus with stage 3b chronic kidney disease, with long-term current use of insulin E11.22; N18.32; Z79.4 Chronic kidney disease stage: stage 3 (moderate) Chronic kidney disease stage 3 subtype: stage 3b (GFR 30-44) Diabetes mellitus complication detail: with chronic kidney disease Diabetes mellitus complication status: with kidney complications Stage 3b chronic kidney disease N18.32 Chronic kidney disease stage 3 subtype: stage 3b (GFR 30-44) Coronary artery disease involving wiyot coronary artery of wiyot heart without angina pectoris I25.10 Associated angina: without angina [place] vs. transplanted heart: wiyot heart Rheumatoid arthritis involving multiple sites with positive rheumatoid factor M05.79 Rheumatoid arthritis location: multiple sites Rheumatoid factor presence: with rheumatoid factor Primary hypertension I10 Hypertension type: primary hypertension GERD (gastroesophageal reflux disease) K21.9 Dysphonia, spasmodic J38.3 Hypothyroidism E03.9 (2) Type 2 diabetes mellitus, with long-term current use of insulin Chronic kidney disease stage: stage 3 (moderate) Chronic kidney disease stage 3 subtype: stage 3b (GFR 30-44) Diabetes mellitus complication detail: with chronic kidney disease Diabetes mellitus complication status: with kidney complications Qualified Code(s): E11.22 - Type 2 diabetes mellitus with diabetic chronic kidney disease; N18.32 - Chronic kidney disease, stage 3b; Z79.4 - half-way (current) use of insulin (3) CKD (chronic kidney disease) stage 3, GFR 30-59 ml/min Chronic kidney disease stage 3 subtype: stage 3b (GFR 30-44) Qualified Code(s): N18.32 - Chronic kidney disease, stage 3b (4) CAD (coronary artery disease), wiyot coronary artery Associated angina: without angina [place] vs. transplanted heart: wiyot heart Qualified Code(s): I25.10 - Atherosclerotic heart disease of wiyot coronary artery without angina pectoris (5) Rheumatoid arthritis Rheumatoid arthritis location: multiple sites Rheumatoid factor presence: with rheumatoid factor Qualified Code(s): M05.79 - Rheumatoid arthritis with rheumatoid factor of multiple sites without organ or systems involvement (6) HTN (hypertension) Hypertension type: primary hypertension Qualified Code(s): I10 - Essential (primary) hypertension
--- NOTE | 2024-07-14 16:01 | Operative Report ---
PG Post Operative Report Pre & Post Diagnosis Operation Date: 07/13/24 11:15 Pre-Op Diagnosis: 1. Lumbar Disc Herniation Radiculopathy, 2. Spinal Stenosis of Lumbar Region Post-Op Diagnosis: 1. Lumbar Disc Herniation Radiculopathy, 2. Spinal Stenosis of Lumbar Region I identified the patient and participated in the time-out.: Yes Procedure Operation Date: 07/13/24 11:15 Actual Procedures p L2-L3 Lumbar Decompression Laminectomy(Not Applicable) - Kris Grove MD Surgeon Kris Grove MD Loss Prevention Investigator None Estimated Blood Loss 10 Findings Consistent with Post-Op Diagnosis Specimens none Description of Procedure 1. L2-3 posterior lumbar laminectomy/decompression. (69375) Patient was taken operating room after adequate anesthesia was carefully positioned prone on the OSI Russell frame and checked for positioning. Preprepped was performed, I brought in fluoroscopy and marked for the approximate location of the incision at the L2-3 level followed by prep and drape. Midline incision was then carried out through the subcutaneous tissues and advanced down to either spine at the L2-3 level to the interlaminar region, this was confirmed for the location fluoroscopically. Once confirmed, I then began decompression with removal of the spinous process of L2, and advanced down to the interlaminar region with some thinning of the ligamentum flavum. I then used a high-speed bur to perform bilateral hemilaminectomies partial medial facetectomies. I then completed the decompression with removing of the thickened ligamentum flavum, and decompressing along the superior border of the L3 lamina, across the inferior mating laminar bone of L2 and along the medial aspect the facets bilaterally decompressing the L2 and L3 nerve roots. A right- sided disc protrusion was identified, I then remove this with a combination of curettes, Kerrison punches and pituitaries and also moved into the disc space with removal of disc material. Time was taken to evaluate this region and complete the decompression, no issues were noted. Floseal was then applied along with vancomycin powder, the operative site was then closed using 0 and 2-0 Vicryl sutures followed by loraine for the skin. Patient tolerated procedure well and was taken recovery room in satisfactory condition. I attest to the content of the Intraoperative Record and any orders documented therein. Any exceptions are noted below.
== END 2024-07-14 13:50 | disposition home or self-care (01) ==
LOC: 3N 08:19 → ASU 08:19 → 3N 23:29

== ENCOUNTER 2025-05-04 08:28 | Observation (INO) ==
--- NOTE | 2025-05-04 08:43 | Emergency Department Note ---
Impression & Plan Chest pain, Elevated troponin, Elevated brain natriuretic peptide (BNP) level, Bilateral leg edema ED Provider Note HISTORY OF PRESENT ILLNESS: Patient is an 89-year-old female presenting with chest pain and abdominal pain. Patient reportedly woke up this morning and then developed some substernal chest pain. Describes the pain as a pressure sensation. She is currently chest pain- free on arrival to the ER. She was given 324 mg of aspirin. Does have a remote history of cardiac stents in 2018. Reports some associated shortness of breath and nausea with the symptoms. She also reports she started having some right upper quadrant abdominal pain which has also resolved. She reportedly has had increased swelling in her lower extremities over an unknown time. Patient currently feels back to her baseline on reassessment. ROS: as above PHYSICAL EXAM: Constitutional: Patient appears in no acute distress. HENT: Head: Normocephalic and atraumatic. Eyes: EOMI, PERRL Mouth/Throat: Mucous membranes moist. Neck: Trachea midline. Neck supple. Cardiovascular: RRR, No murmurs, rubs or gallops. Intact distal pulses. Pulmonary/Chest: No respiratory distress. Breath sounds clear and equal bilaterally. No wheezes or rales. Abdominal: Abdomen soft, no rebound or guarding. RUQ TTP Musculoskeletal: No edema, tenderness or deformity noted. Skin: Warm and dry. No rash, erythema, pallor or cyanosis Psychiatric: Appropriate mood and affect for situation. Neurological: Alert and keenly responsive. CN II-XII grossly intact, moving all extremities equally and fully. MDM: - Vitals signs showed hypertension - History obtained via patient. History as above. - Chronic conditions affecting care: hypothyroidism; CKD; CAD (s/p PCI in 2018); HTN; DM-2; HLD; LBBB - Differential diagnoses include, but are not limited to: Acute coronary syndrome; pulmonary embolism; dissection; tension pneumothorax; esophageal rupture; pneumonia - Order placed for continuous cardiac monitoring. At this time, monitor showed rate of 61 bpm with normal sinus rhythm, per my interpretation. - External medical records reviewed. Cardiology visit note dated 02/18/2019 was reviewed. Patient was being followed in their clinic for her coronary artery disease status post NSTEMI with 2 drug-eluting stents placed to the RCA in September 2017. - EKG image interpreted by myself showed normal sinus rhythm. Rate 60 bpm. QT 434. No acute ischemic changes. Noted to have a left bundle branch block, which has been noted on previous EKGs. - Laboratory workup interpreted by myself showed normal WBC; normal PT/INR; stable electrolytes; elevated troponin (18.8); elevated BNP (12); normal AST/ALT - CXR image reviewed interpreted by myself was negative for pneumonia, per my interpretation. - Patient is chest pain-free in the emergency department. She is noted to have transient episodes of a bradycardia which has been noted on telemetry multiple times. On reassessment she is still not complaining of any symptoms during the bradycardic episodes. - Repeat EKG image reviewed interpreted by myself that was obtained at 12:21 PM showed normal sinus rhythm. Rate 85 bpm. QT 416. No acute ischemic changes. Noted to have left bundle branch block which has been previously noted. - Repeat troponin obtained - Discussion was had with manager case about patient's case and need for admission - Hospitalist consulted for admission - Patient admitted to [facility] service for further evaluation and management. ASSESSMENT AND PLAN: Diagnosis: Chest pain; elevated troponin; elevated BNP; bilateral leg edema Plan: Admit Past Med/Surg History Problem List (Updated 05/04/25 @ 12:31 by Carly Brooke MD) Bilateral leg edema (Acute) Elevated brain natriuretic peptide (BNP) level (Acute) Elevated troponin (Acute) Chest pain (Acute) Staph aureus infection Abscess in epidural space of lumbar spine Diabetic nephropathy Dehiscence of wound (Acute) Post-operative infection (Acute) Wound infection after surgery Status post lumbar surgery Dysphonia, spasmodic Lumbar disc herniation with radiculopathy Neuropathic pain of thigh Right knee pain Spinal stenosis of lumbar region Trochanteric bursitis of both hips Moderate mitral regurgitation Post herpetic neuralgia (Acute) Type 2 diabetes mellitus, with long-term current use of insulin (Chronic) Hypercholesterolemia (Chronic) Incisional hernia (Chronic) Osteopenia (Chronic) Thickened endometrium (Chronic) Tubulovillous adenoma (Chronic) Vitamin D deficiency, unspecified (Chronic) GERD (gastroesophageal reflux disease) Medical History Hypothyroidism Mild Alzheimer dementia CKD (chronic kidney disease) stage 3, GFR 30-59 ml/min Pulmonary hypertension CAD (coronary artery disease), [place] coronary artery MICHAEL x2 (2018) Rheumatoid arthritis HTN (hypertension) LBBB (left bundle branch block) Chronic, dating back to at least 2018 cardiac cath report intermediate resident resident of [facility] Diverticulosis Hyponatremia Arthritis of ankle, degenerative NSTEMI (non-ST elevated myocardial infarction) (09/2017) Surgical History History of back surgery lower back L1-L2 nerve repair -- 07/13/24 History of cardiac cath 2018 > stents x2 History of tonsillectomy History of hernia repair History of exploratory laparotomy History of cholecystectomy Family History Son Coronary heart disease Mother Diabetes Lung cancer Hypertension Sister Cancer Other No family history of adverse response to anesthesia No family history of bleeding disorder Denies family history of Stroke Social History Smoking Status: Never smoker Second Hand Exposure: No; Do You Dip or Chew Tobacco: No; Hx Alcohol Use: No Hx Substance Use: No Preferred Language: Armenian Communication Ability: Effective Visual Impairment: Limited Hearing Ability: Normal Butting Saw Operator Required: No Beliefs That Will Affect Care: None marital status: / Current Living Situation: Personal Care Facility Current Living Situation Comment: resident of [place] current occupational status: retired current occupation: retired How many Children do You have: 3 How many Children do You have Comment: Daughter lives in [facility], sons live in [facility] and [place]. Daughter unable to help much r/t her work schedule. Feels Safe at Home: Yes Diet: regular Seatbelt Use: always Assistive Devices: Walker Allergies Allergies Allergy/AdvReac Type Severity Reaction Status Date / Time No Known Drug Allergies Allergy Verified 02/04/25 10:54 Home Meds Home Medications Medication Instructions Recorded Confirmed leflunomide 20 mg tablet (Arava) 20 mg PO QAM 07/13/24 12/15/24 acetaminophen 650 mg 650 mg PO BID Pain 08/23/24 12/15/24 tablet,extended release insulin degludec 100 unit/mL (3 42 unit subcut DAILY 02/04/25 mL) subcutaneous pen (Tresiba FlexTouch U-100 insulin) quetiapine 100 mg tablet 100 mg PO BID 02/04/25 02/04/25 tramadol 50 mg tablet 50 mg PO Q6H PRN 02/04/25 02/04/25 Previous Rx's Medication Instructions Recorded blood-glucose meter (OneTouch #1 ea 12/15/23 Verio Flex Start kit) aspirin 81 mg tablet,delayed 81 mg PO QAM #90 tabs 11/30/24 release atorvastatin 80 mg tablet (Lipitor) 80 mg PO HS #90 tabs 11/30/24 blood sugar diagnostic (OneTouch #100 ea 11/30/24 Verio test strips) cholecalciferol (vitamin D3) 125 125 mcg PO QAM #90 caps 11/30/24 mcg (5,000 unit) capsule diclofenac sodium 1 % topical gel 2 g topical QID PRN Pain #100 grams 11/30/24 duloxetine 30 mg capsule,delayed 30 mg PO QAM #90 caps 11/30/24 release empagliflozin 25 mg tablet 25 mg PO QAM #90 tabs 11/30/24 (Jardiance) lancets 33 gauge (OneTouch Delica #100 ea 11/30/24 Plus Lancet) levothyroxine 50 mcg tablet 50 mcg PO QAM #90 tabs 11/30/24 (Synthroid) magnesium chloride 64 mg 64 mg PO QAM #90 tabs 11/30/24 (magnesium chloride) tablet,delayed release (Mag 64) metoprolol succinate 50 mg 50 mg PO QAM #90 tabs 11/30/24 tablet,extended release 24 hr pantoprazole 20 mg tablet,delayed 20 mg PO QAM #90 tabs 11/30/24 release pen needle, diabetic 31 gauge x #100 ea 11/30/24 5/16" polyethylene glycol 3350 17 gram 17 g PO QAM #100 ea 11/30/24 oral powder packet (Miralax) sennosides 8.6 mg tablet (Senna 8.6 mg PO DAILY PRN Constipation 11/30/24 Lax) #90 tabs blood-glucose sensor (Dexcom G7 #1 ea 12/15/24 Sensor device) blood-glucose,alarm investigator,cont #1 ea 12/15/24 (Dexcom G7 Engine Test Cell Technician) nystatin 100,000 unit/gram topical 1 applic topical TID #30 grams 12/15/24 ointment oxycodone 5 mg tablet 5 mg PO BID pain #60 tabs 12/21/24 gabapentin 300 mg capsule 300 mg PO QID #90 caps 03/04/25 Results & Data (ED) Vital Signs Vital Signs - 24 hr 05/04/25 08:41 05/04/25 08:48 05/04/25 08:48 Temperature 36.8 C Temperature Source Oral Pulse Rate 73 81 81 Pulse Rate [Apical] Pulse Rhythm Regular Regular Pulse Rhythm [Apical] Pulse Strength Normal Pulse Strength [Apical] Respiratory Rate 11 L 11 L Respiratory Effort / Characteristics Non-Labored Spontaneous Respiratory Depth Normal Respiratory Pattern Regular Blood Pressure 152/93 H Blood Pressure [Right Arm] Blood Pressure Mean 112 Blood Pressure Mean [Right Arm] Blood Pressure Position Sitting Blood Pressure Position [Right Arm] Pulse Oximetry 96 96 Oxygen Delivery Method Room Air Room Air Sepsis Recent Fever Within 48 Hours No Sepsis New/Unexplained Change in Mental Status No Sepsis Action Taken by Nursing No Action Required 05/04/25 08:48 05/04/25 08:48 05/04/25 11:30 Temperature 36.8 C Temperature Source Oral Pulse Rate Pulse Rate [Apical] 81 61 Pulse Rhythm Pulse Rhythm [Apical] Regular Pulse Strength Pulse Strength [Apical] Normal Normal Respiratory Rate 11 L 17 Respiratory Effort / Characteristics Non-Labored Spontaneous Spontaneous Respiratory Depth Normal Respiratory Pattern Regular Regular Blood Pressure Blood Pressure [Right Arm] 152/93 H 107/62 Blood Pressure Mean Blood Pressure Mean [Right Arm] 112 77 Blood Pressure Position Blood Pressure Position [Right Arm] Lying Sitting Pulse Oximetry 96 96 95 Oxygen Delivery Method Room Air Room Air Room Air Sepsis Recent Fever Within 48 Hours Sepsis New/Unexplained Change in Mental Status Sepsis Action Taken by Nursing Laboratory Data 05/04/25 08:40 05/04/25 08:40 Lab Results 05/04/25 Range/Units 08:40 WBC 6.44 (4.8-10.8) K/ul RBC 4.50 (4.20-5.40) M/uL Hgb 10.5 L (12.0-16.0) g/dL Hct 34.3 L (37.0-47.0) % MCV 76.2 L (80.0-100.0) fL MCH 23.3 L (25.0-34.0) pg MCHC 30.6 L (32.0-36.0) g/dL RDW Std Deviation 45.3 (36.4-46.3) fL RDW Coeff of Lizzette 16.6 H (11.5-14.5) % Plt Count 335 (130-400) K/uL MPV 9.9 (9.4-12.4) fL Immature Gran % (Auto) 0.5 % Neut % (Auto) 62.2 % Lymph % (Auto) 26.4 % [place] % (Auto) 9.8 % Eos % (Auto) 0.5 % Baso % (Auto) 0.6 % Neut # (Auto) 4.01 (1.40-6.50) K/uL Lymph # (Auto) 1.70 (1.20-3.40) K/uL [place] # (Auto) 0.63 H (0.11-0.59) K/uL Eos # (Auto) 0.03 (0.00-0.50) K/uL Baso # (Auto) 0.04 (0.00-0.20) K/uL Immature Gran # (Auto) 0.03 (0.01-0.20) K/uL PT 10.7 (9.0-12.0) Seconds INR 1.0 (0.9-1.1) Sodium 140 (136-145) mmol/L Potassium 3.5 (3.5-5.1) mmol/L Chloride 106 (98-107) mmol/L Carbon Dioxide 28 (21-32) mmol/L Anion Gap 6 (3-11) BUN 19 (6-23) mg/dl Creatinine 1.07 (0.6-1.2) mg/dl Est Cr Clr Drug Dosing 34.6 ml/min eGFR 49.96 BUN/Creatinine Ratio 17.8 (10-20) Glucose 134 H (70-99(Fasting)) mg/dl Calcium 9.2 (8.6-10.3) mg/dl Magnesium 1.9 (1.7-2.4) mg/dl Total Bilirubin 0.4 (0.2-1.0) mg/dl AST 15 (13-39) U/L ALT 16 (7-52) U/L Alkaline Phosphatase 76 (34-104) U/L Troponin I High Sens 18.8 H (0-14) pg/ml B-Natriuretic Peptide 123 H (0-100) pg/ml Total Protein 6.4 (6.0-8.3) gm/dl Albumin 3.5 (3.4-5.0) gm/dl Globulin 2.9 (2.5-4.0) gm/dl Albumin/Globulin Ratio 1.2 (0.9-2) Lipase 5 L (11-82) U/L Imaging Data Radiologist's Impression: Chest X-Ray 05/04/25 08:37 XR chest 1V portable CLINICAL HISTORY: Chest pain, nonspecific COMPARISON STUDY: Chest radiograph October 27, 2013. Chest CT June 01, 2024. FINDINGS: There is lordotic positioning. Lung volumes are normal. Lungs are clear. There is no pneumothorax or pleural effusion. The cardiac silhouette is moderately enlarged, increased in size since prior exam. Mediastinal contours are normal. There is no evidence for pulmonary edema. IMPRESSION: No definite acute findings. Increase in size of the cardiac silhouette which is likely technical. ACT 112: Negative or not required by law. Electronically signed by: Derek Holley M.D. 05/04/2025 8:54 AM Discharge Plan Visit Data Chief Complaint: Chest Pain Stated Complaint: LLE edema, resolved Chest Pain ED Provider: Carly Brooke Discharge Problem: Chest pain, Elevated troponin, Elevated brain natriuretic peptide (BNP) level, Bilateral leg edema Patient Disposition: Admitted As Inpatient Condition: Fair Forms Stand Alone Forms: My INBEP Prescriptions Prescriptions: No Action (DME) blood-glucose meter [OneTouch Verio Flex Start] Kit See Rx Instructions .Route Qty: 1 0RF Rx Instructions: use to test blood sugar as directed Jardiance 25 mg tablet 25 mg PO QAM Qty: 90 3RF aspirin 81 mg tablet,delayed release (DR/EC) 81 mg PO QAM Qty: 90 3RF atorvastatin [Lipitor] 80 mg tablet 80 mg PO HS Qty: 90 3RF (DME) OneTouch Verio test strips Strip See Rx Instructions .ROUTE .MEDSUPPLY Qty: 100 5RF Rx Instructions: Check blood sugars once daily cholecalciferol (vitamin D3) 125 mcg (5,000 unit) capsule 125 mcg PO QAM Qty: 90 3RF diclofenac sodium 1 % gel 2 g topical QID PRN (Reason: Pain) Qty: 100 0RF Rx Instructions: apply to single elbow, wrist or hand; for hand includes palm/fingers/back of hand duloxetine 30 mg capsule,delayed release(DR/EC) 30 mg PO QAM Qty: 90 3RF (DME) lancets [OneTouch Delica Plus Lancet] 33 gauge misc See Rx Instructions .ROUTE .MEDSUPPLY Qty: 100 5RF Rx Instructions: Check blood sugar once daily levothyroxine [Synthroid] 50 mcg tablet 50 mcg PO QAM Qty: 90 3RF magnesium chloride [Mag 64] 64 mg tablet,delayed release (DR/EC) 64 mg PO QAM Qty: 90 0RF metoprolol succinate 50 mg tablet extended release 24 hr 50 mg PO QAM Qty: 90 3RF pantoprazole 20 mg tablet,delayed release (DR/EC) 20 mg PO QAM Qty: 90 3RF (DME) pen needle, diabetic 31 gauge x 5/16" needle See Rx Instructions .ROUTE .MEDSUPPLY Qty: 100 3RF Rx Instructions: Inject insulin twice daily w/ Lantus polyethylene glycol 3350 [Miralax] 17 gram powder in packet 17 g PO QAM Qty: 100 0RF sennosides [Senna Lax] 8.6 mg tablet 8.6 mg PO DAILY PRN (Reason: Constipation) Qty: 90 3RF Rx Instructions: To prevent opioid induced constipation. Ok to hold for diarrhea. oxycodone 5 mg tablet 5 mg PO BID Qty: 60 0RF Rx Instructions: Supervising physician Meenu Bravo MD CHERRY [id number] gabapentin 300 mg capsule 300 mg PO QID Qty: 90 2RF quetiapine 100 mg tablet 100 mg PO BID tramadol 50 mg tablet 50 mg PO Q6H PRN insulin degludec [Tresiba FlexTouch U-100] 100 unit/mL (3 mL) insulin pen 42 unit subcut DAILY Rx Instructions: Inject 20 units in the AM and 22 units in the PM nystatin 100,000 unit/gram ointment 1 applic topical TID Qty: 30 0RF Rx Instructions: apply to abdominal and groin skin folds tid (DME) Dexcom G7 Sensor Device See Rx Instructions .Route Qty: 1 2RF Rx Instructions: As directed (DME) Dexcom G7 Engine Test Cell Technician Misc See Rx Instructions .Route Qty: 1 3RF Rx Instructions: As directed acetaminophen 650 mg tablet extended release 650 mg PO BID MDD 3mg/24hr Hold Instructions: hold while on 1gm q8h prn leflunomide [Arava] 20 mg tablet 20 mg PO QAM Hold Instructions: hold until healed from current infection Referrals Referrals: Jaiden Dey DO [Primary Care Provider] -
--- NOTE | 2025-05-04 08:55 | XRay Report ---
XR chest 1V portable CLINICAL HISTORY: Chest pain, nonspecific COMPARISON STUDY: Chest radiograph October 27, 2013. Chest CT June 01, 2024. FINDINGS: There is lordotic positioning. Lung volumes are normal. Lungs are clear. There is no pneumo thorax or pleural effusion. The cardiac silhouette is moderately enlarged, increased in size since pr ior exam. Mediastinal contours are normal. There is no evidence for pulmonary edema. IMPRESSION: No definite acute findings. Increase in size of the cardiac silhouette which is likely te chnical. ACT 112: Negative or not required by law. Electronically signed by: Derek Holley M.D. 05/04/2025 8:54 AM
[2025-05-04 09:06] LABS: Hematocrit (blood only) 34.3 % (37.0-47.0); Hemoglobin 10.5 g/dL (12.0-16.0); Immature Granulocytes # (auto) 0.03 K/uL (0.01-0.20); Immature Granulocytes % (auto) 0.5 %; Mean Corpuscular Hemoglobin 23.3 pg (25.0-34.0); Mean Corpuscular Volume 76.2 fL (80.0-100.0); Platelet Count 335 K/uL (130-400); RDW Standard Deviation 45.3 fL (36.4-46.3); Red Blood Count 4.50 M/uL (4.20-5.40); White Blood Count 6.44 K/ul (4.8-10.8)
[2025-05-04 09:24] LABS: Alanine Aminotransferase 16.0 U/L (7-52); Albumin Globulin Ratio 1.2 (0.9-2); Albumin Level 3.5 gm/dl (3.4-5.0); Alkaline Phosphatase 76.0 U/L (34-104); Anion Gap 6.0 (3-11); Bilirubin,Total 0.4 mg/dl (0.2-1.0); Blood Urea Nitrogen 19.0 mg/dl (6-23); Calcium 9.2 mg/dl (8.6-10.3); Carbon Dioxide 28.0 mmol/L (21-32); Chloride 106.0 mmol/L (98-107); Creatinine Clr Calc Pharmacy 34.6 ml/min; Globulin 2.9 gm/dl (2.5-4.0); Glucose 134.0 mg/dl (70-99(Fasting)); Lipase 5.0 U/L (11-82); Magnesium 1.9 mg/dl (1.7-2.4); Potassium 3.5 mmol/L (3.5-5.1); Sodium 140.0 mmol/L (136-145); Total Protein 6.4 gm/dl (6.0-8.3)
[2025-05-04 09:32] LABS: INR 1.0 (0.9-1.1); Prothrombin Time 10.7 Seconds (9.0-12.0)
--- NOTE | 2025-05-04 12:39 | History & Physical Report ---
Date of Service May 04, 2025 Assessment & Plan (1) Chest pain: (2) Elevated troponin: (3) Bilateral leg edema: (4) Type 2 diabetes mellitus, with long-term current use of insulin: (5) Hypercholesterolemia: (6) GERD (gastroesophageal reflux disease): (7) CAD (coronary artery disease), [place] coronary artery: (8) Hypothyroidism: (9) Rheumatoid arthritis: (10) LBBB (left bundle branch block): (11) History of non-ST elevation myocardial infarction (NSTEMI): (12) Blepharitis: (13) Mild Alzheimer dementia: Plan 89yo female with history of CAD s/p NSTEMI 2018 s/p 2 RCA stents, dementia, chronic LBBB, T2DM, rheumatoid arthritis, hypertension, hyperlipidemia, GERD, and hypothyroidism presents via EMS from [facility] with reports of substernal chest pain and upper abdominal pain. #chest pain; known CAD, chronic LBBB - -already resolved -troponin scantly elevated at presentation; repeat troponin already lower -EKG with chronic LBBB; no changes with EKG otherwise -plan to place on telemetry, obtain echo, and next steps will be determined by these results -poor candidate for stress test and other invasive testing given dementia -cont aspirin -cont statin -cont meto succ -of note - previously followed by [facility] but it has been several years since such #LE edema, venous stasis changes - -check dopplers - r/o DVT -check echo - r/o LV and RV dysfunction -suspect, however, that exam findings are most suggestive of chronic venous insufficiency -consider tubigrip stockings -no evidence of leg cellulitis -consider low-dose diuretic for a few days #bletharitis - -per daughter her b/l eye issue has been present "for a while" -bletharitis, tear duct issues, etc could all be at play -to cover for bacterial conjunctivitis will start cipro eye drops - 1 drop QID b/l x 5-7 days #microcytic anemia - -check Fe studies in am -if Fe deficient perhaps some of her presenting symptoms are GI in etiology? (esophagitis, gastritis, etc) #minimal troponin elevation - -no evidence of ACS -likely myocardial demand ischemia #dementia - -w/o behavioral disturbance at this time -cont risperdal BID #T2DM - -cont lantus -cont novolog -BSGS ac/hs -a1c 7.9% in August 2024; recheck while here #GERD - -cont PPI #hypothyroidism - -most recent TSH wnl -cont synthroid #HTN - -cont meto succ #hyperlipidemia - -cont statin #DVT Proph - -if dopplers of legs are negative and if she stays beyond tomorrow will add chemical DVT proph PT, OT elials to ensure she is ok to return to [facility] updated pt's daughter by phone today she asked that I contact her brother; he is in fact the POA for their mother brothers live out of town History of Present Illness Chief Complaint: chest pain Primary Care Provider: Jaiden Dey DO 89yo female with history of CAD s/p NSTEMI 2018 s/p 2 RCA stents, dementia, chronic LBBB, T2DM, rheumatoid arthritis, hypertension, hyperlipidemia, GERD, and hypothyroidism presents via EMS from [facility] with reports of subs ternal chest pain. During my assessment she had her eyes closed the entire time but did answer my questions. Unfortunately she was unable to provide any meaningful history other than "I had a cold about a month ago." She was not sure why she was in the ER and denied chest pain, dyspnea, abd pain or nausea/emesis. She denied any leg pains. By report she had had upper abdominal pain with nausea at [facility] prior to arrival here. Allergies Allergy/AdvReac Type Severity Reaction Status Date / Time No Known Drug Allergies Allergy Verified 02/04/25 10:54 Home Medications Medication Instructions Recorded Confirmed Type blood-glucose meter (OneTouch #1 ea 12/15/23 12/15/24 Rx Verio Flex Start kit) aspirin 81 mg tablet,delayed 81 mg PO QAM #90 tabs 11/30/24 05/04/25 Rx release atorvastatin 80 mg tablet (Lipitor) 80 mg PO HS #90 tabs 11/30/24 05/04/25 Rx blood sugar diagnostic (OneTouch #100 ea 11/30/24 12/15/24 Rx Verio test strips) cholecalciferol (vitamin D3) 125 125 mcg PO QAM #90 caps 11/30/24 05/04/25 Rx mcg (5,000 unit) capsule diclofenac sodium 1 % topical gel 2 g topical QID PRN Pain #100 grams 11/30/24 05/04/25 Rx duloxetine 30 mg capsule,delayed 30 mg PO QAM #90 caps 11/30/24 05/04/25 Rx release empagliflozin 25 mg tablet 25 mg PO QAM #90 tabs 11/30/24 05/04/25 Rx (Jardiance) lancets 33 gauge (OneTouch Delica #100 ea 11/30/24 12/15/24 Rx Plus Lancet) levothyroxine 50 mcg tablet 50 mcg PO QAM #90 tabs 11/30/24 05/04/25 Rx (Synthroid) magnesium chloride 64 mg 64 mg PO QAM #90 tabs 11/30/24 05/04/25 Rx (magnesium chloride) tablet,delayed release (Mag 64) metoprolol succinate 50 mg 50 mg PO QAM #90 tabs 11/30/24 05/04/25 Rx tablet,extended release 24 hr pantoprazole 20 mg tablet,delayed 20 mg PO QAM #90 tabs 11/30/24 05/04/25 Rx release pen needle, diabetic 31 gauge x #100 ea 11/30/24 12/15/24 Rx 5/16" blood-glucose sensor (Dexcom G7 #1 ea 12/15/24 12/15/24 Rx Sensor device) blood-glucose,piping engineer,cont #1 ea 12/15/24 12/15/24 Rx (Dexcom G7 Clam Picker) nystatin 100,000 unit/gram topical 1 applic topical TID #30 grams 12/15/24 05/04/25 Rx ointment insulin degludec 100 unit/mL (3 18 unit subcut QAM 02/04/25 05/04/25 History mL) subcutaneous pen (Tresiba FlexTouch U-100 insulin) tramadol 50 mg tablet 50 mg PO Q6H PRN Pain 02/04/25 05/04/25 History docusate sodium 100 mg capsule 100 mg PO DAILY 05/04/25 05/04/25 History insulin degludec 100 unit/mL (3 16 unit subcut PM 05/04/25 05/04/25 History mL) subcutaneous pen (Tresiba FlexTouch U-100 insulin) melatonin 5 mg capsule 5 mg PO HS 05/04/25 05/04/25 History oxymetazoline 0.05 % nasal spray 2 spray intranasal Q12H 05/04/25 05/04/25 History (Afrin Sinus (oxymetazoline)) risperidone 1 mg tablet 1 mg PO DAILY 05/04/25 05/04/25 History risperidone 2 mg tablet 2 mg PO HS 05/04/25 05/04/25 History Past Med/Surg History Problem List (Updated 05/05/25 @ 05:00 by Rhys Valdez MD) Blepharitis History of non-ST elevation myocardial infarction (NSTEMI) Bilateral leg edema (Acute) Elevated brain natriuretic peptide (BNP) level (Acute) Elevated troponin (Acute) Chest pain (Acute) Staph aureus infection Abscess in epidural space of lumbar spine Diabetic nephropathy Dehiscence of wound (Acute) Post-operative infection (Acute) Wound infection after surgery Status post lumbar surgery Dysphonia, spasmodic Lumbar disc herniation with radiculopathy Neuropathic pain of thigh Right knee pain Spinal stenosis of lumbar region Trochanteric bursitis of both hips Moderate mitral regurgitation Post herpetic neuralgia (Acute) Type 2 diabetes mellitus, with long-term current use of insulin (Chronic) Hypercholesterolemia (Chronic) Incisional hernia (Chronic) Osteopenia (Chronic) Thickened endometrium (Chronic) Tubulovillous adenoma (Chronic) Vitamin D deficiency, unspecified (Chronic) GERD (gastroesophageal reflux disease) Medical History Hypothyroidism Mild Alzheimer dementia CKD (chronic kidney disease) stage 3, GFR 30-59 ml/min Pulmonary hypertension CAD (coronary artery disease), [place] coronary artery MICHAEL x2 (2018) Rheumatoid arthritis HTN (hypertension) LBBB (left bundle branch block) Chronic, dating back to at least 2018 cardiac cath report [facility] resident resident of [facility] Diverticulosis Hyponatremia Arthritis of ankle, degenerative NSTEMI (non-ST elevated myocardial infarction) (09/2017) Surgical History History of back surgery lower back L1-L2 nerve repair -- 07/13/24 History of cardiac cath 2018 > stents x2 History of tonsillectomy History of hernia repair History of exploratory laparotomy History of cholecystectomy Family History Son Coronary heart disease Mother Diabetes Lung cancer Hypertension Sister Cancer Other No family history of adverse response to anesthesia No family history of bleeding disorder Denies family history of Stroke Social History (Updated 05/05/25 @ 04:53 by Rhys Valdez MD) Smoking Status: Unknown if ever smoked Second Hand Exposure: No; Do You Dip or Chew Tobacco: No; Hx Alcohol Use: No Hx Substance Use: No Preferred Language: [place] Communication Ability: Effective Visual Impairment: Limited Hearing Ability: Normal Sustainable Landscape Architect Required: No Beliefs That Will Affect Care: None marital status: / Current Living Situation: Personal Care Facility Current Living Situation Comment: resident [facility] current occupational status: retired current occupation: retired How many Children do You have: 3 How many Children do You have Comment: Daughter lives in [facility]; sons live in [place] and [place]. Feels Safe at Home: Yes Diet: regular Seatbelt Use: always Assistive Devices: Walker Review of Systems Review of Systems: Unobtainable due to cognitive status Physical Exam Physical Exam: gen - lying flat in bed, eyes closed the entire visit, NAD; confused, cannot provide any history eyes - injected conjunctiva & sclera b/l, worse on right; matting of eyelids b/l, worse on right; mild purulent discharge b/l; PERRL HENT - MMM, no lesions neck - no JVD, no lymph nodes heart - RRR, s1 s2, 1-2/6 systolic murmur LLSB lungs - CTA b/l abd - soft NT ND BS+ ext - 2+ pitting edema feet extending to mid-calf; pulses b/l feet 2+ skin - venous stasis changes b/l shins, mildly warm and mildly erythematous (just above each ankle) - but no cellulitis; no generalized rash neuro - no focal motor deficits; handgrip 5/5 b/l; arm strength 5/5 b/l; b/l hip flexion 5/5; no facial droop; speech not dysarthric psych - oriented to person only Results & Data Results & Data Vital Signs (Past 12 Hours) Vital Signs Temp Pulse Pulse Resp BP BP Pulse Ox 05/04/25 11:30 61 17 107/62 95 05/04/25 08:48 36.8 C 81 11 L 152/93 H 96 05/04/25 08:48 96 05/04/25 08:48 81 11 L 96 05/04/25 08:48 36.8 C 81 11 L 152/93 H 96 05/04/25 08:41 73 O2 Del Method 05/04/25 11:30 Room Air 05/04/25 08:48 Room Air 05/04/25 08:48 Room Air 05/04/25 08:48 Room Air 05/04/25 08:48 Room Air 05/04/25 08:41 Laboratory Results Laboratory Results - last 24 hr 05/04/25 05/04/25 05/04/25 08:40 11:43 12:45 WBC 6.44 RBC 4.50 Hgb 10.5 L Hct 34.3 L MCV 76.2 L MCH 23.3 L MCHC 30.6 L RDW Std Deviation 45.3 RDW Coeff of Lizzette 16.6 H Plt Count 335 MPV 9.9 Immature Gran % (Auto) 0.5 Neut % (Auto) 62.2 Lymph % (Auto) 26.4 [place] % (Auto) 9.8 Eos % (Auto) 0.5 Baso % (Auto) 0.6 Neut # (Auto) 4.01 Lymph # (Auto) 1.70 [place] # (Auto) 0.63 H Eos # (Auto) 0.03 Baso # (Auto) 0.04 Immature Gran # (Auto) 0.03 PT 10.7 INR 1.0 Sodium 140 Potassium 3.5 Chloride 106 Carbon Dioxide 28 Anion Gap 6 BUN 19 Creatinine 1.07 Est Cr Clr Drug Dosing 34.6 eGFR 49.96 BUN/Creatinine Ratio 17.8 Glucose 134 H Calcium 9.2 Magnesium 1.9 Total Bilirubin 0.4 AST 15 ALT 16 Alkaline Phosphatase 76 Troponin I High Sens 18.8 H 17.2 H B-Natriuretic Peptide 123 H Total Protein 6.4 Albumin 3.5 Globulin 2.9 Albumin/Globulin Ratio 1.2 Lipase 5 L SARS-CoV-2 (PCR) Pending Influenza Type A (PCR) Pending Influenza Type B (PCR) Pending RSV (RT-PCR) Pending Diagnostic Findings Chest X-Ray 05/04/25 08:37 XR chest 1V portable CLINICAL HISTORY: Chest pain, nonspecific COMPARISON STUDY: Chest radiograph October 27, 2013. Chest CT June 01, 2024. FINDINGS: There is lordotic positioning. Lung volumes are normal. Lungs are clear. There is no pneumothorax or pleural effusion. The cardiac silhouette is moderately enlarged, increased in size since prior exam. Mediastinal contours are normal. There is no evidence for pulmonary edema. IMPRESSION: No definite acute findings. Increase in size of the cardiac silhouette which is likely technical. ACT 112: Negative or not required by law. Electronically signed by: Derek Holley M.D. 05/04/2025 8:54 AM ECG Additional Comments: EKG - my reading - NSR, LBBB (old/chronic), ST depression I/AVL (chronic) Code Status & VTE Plan Code Status full code per the records that came from [facility] Care Time/CCT Total # of Minutes Spent Total Time Spent with Patient: Total time spent is greater than 50% in coordination of care (as documented) at patient's floor/unit and/or counseling patient: Coding Level of Care Code 07069 INT INP/OBS CARE 2/55MIN Diagnoses Chest pain R07.9 Elevated troponin R79.89 Bilateral leg edema R60.0 Type 2 diabetes mellitus with stage 3b chronic kidney disease, with long-term current use of insulin E11.22; N18.32; Z79.4 Chronic kidney disease stage: stage 3 (moderate) Chronic kidney disease stage 3 subtype: stage 3b (GFR 30-44) Diabetes mellitus complication detail: with chronic kidney disease Diabetes mellitus complication status: with kidney complications Hypercholesterolemia E78.00 GERD (gastroesophageal reflux disease) K21.9 Coronary artery disease involving [place] coronary artery of [place] heart without angina pectoris I25.10 Associated angina: without angina [place] vs. transplanted heart: [place] heart Hypothyroidism E03.9 Rheumatoid arthritis involving multiple sites with positive rheumatoid factor M05.79 Rheumatoid arthritis location: multiple sites Rheumatoid factor presence: with rheumatoid factor LBBB (left bundle branch block) I44.7 History of non-ST elevation myocardial infarction (NSTEMI) I25.2 Blepharitis H01.009 Mild Alzheimer dementia G30.9; F02.A0 (4) Type 2 diabetes mellitus, with long-term current use of insulin Chronic kidney disease stage: stage 3 (moderate) Chronic kidney disease stage 3 subtype: stage 3b (GFR 30-44) Diabetes mellitus complication detail: with chronic kidney disease Diabetes mellitus complication status: with kidney complications Qualified Code(s): E11.22 - Type 2 diabetes mellitus with diabetic chronic kidney disease; N18.32 - Chronic kidney disease, stage 3b; Z79.4 - intermediate accountant (current) use of insulin (7) CAD (coronary artery disease), [place] coronary artery Associated angina: without angina [place] vs. transplanted heart: [place] heart Qualified Code(s): I25.10 - Atherosclerotic heart disease of [place] coronary artery without angina pectoris (9) Rheumatoid arthritis Rheumatoid arthritis location: multiple sites Rheumatoid factor presence: with rheumatoid factor Qualified Code(s): M05.79 - Rheumatoid arthritis with rheumatoid factor of multiple sites without organ or systems involvement
[2025-05-04 13:37] LABS: Influenza A virus by PCR Negative (Neg); Influenza B virus by PCR Negative (Neg); SARS CoV2 RNA(COVID-19) Ceph NEGATIVE (Negative)
--- NOTE | 2025-05-04 15:15 | Ultrasound Report ---
ULTRASOUND BILATERAL LOWER EXTREMITY VENOUS CLINICAL HISTORY: Lower extremity edema. COMPARISON STUDY: Right lower extremity venous ultrasound dated 10/21/2023 TECHNIQUE: Real-time, grayscale, and color Doppler sonography of the deep veins of the right and left lower extremity was performed from the inguinal crease to the calf. Compression and augmentation wer e utilized. FINDINGS: There is no sonographic evidence of deep venous thrombosis identified in the right or left lower extremity. The common femoral, superficial femoral, and popliteal veins are patent and normally compressible bilaterally. The greater saphenous vein and the profunda femoris vein at the junction w ith the common femoral vein are clear in both legs. The visualized calf veins are patent bilaterally. IMPRESSION: There is no sonographic evidence of deep venous thrombosis identified in the right or lef t lower extremity. ACT 112: Negative or not required by law. Electronically signed by: Dagoberto Lucero M.D. 05/04/2025 3:14 PM
[2025-05-04] MEDS ORDERED: ONDANSETRON INJ 2 MG/ML 2 ML VIAL IV PRN (16:10)
[2025-05-04] MEDS ORDERED: NITROGLYCERIN SL 0.4 MG/TAB TAB SL PRN (16:10)
--- NOTE | 2025-05-04 17:30 | XCELERA ---
[id number]
[2025-05-04] MEDS: INSULIN ASPART PER UNIT CHARGE SC SCH (17:44)
[2025-05-04] MEDS: MELATONIN 3 MG TAB PO SCH (21:08)
[2025-05-04] MEDS: ATORVASTATIN 40 MG TAB PO SCH (21:08)
[2025-05-04] MEDS: LANTUS PER UNIT CHARGE SQ SCH (21:33)
[2025-05-05 06:26] LABS: Hematocrit (blood only) 35.8 % (37.0-47.0); Hemoglobin 10.9 g/dL (12.0-16.0); Mean Corpuscular Hemoglobin 23.3 pg (25.0-34.0); Mean Corpuscular Volume 76.5 fL (80.0-100.0); Platelet Count 328 K/uL (130-400); RDW Standard Deviation 44.9 fL (36.4-46.3); Red Blood Count 4.68 M/uL (4.20-5.40); White Blood Count 7.21 K/ul (4.8-10.8)
[2025-05-05 06:29] LABS: Hemoglobin A1C 9.0 % (4.5-5.6)
[2025-05-05 06:45] LABS: Anion Gap 8.0 (3-11); Blood Urea Nitrogen 16.0 mg/dl (6-23); Calcium 9.3 mg/dl (8.6-10.3); Carbon Dioxide 27.0 mmol/L (21-32); Chloride 106.0 mmol/L (98-107); Creatinine Clr Calc Pharmacy 41.3 ml/min; Glucose 78.0 mg/dl (70-99(Fasting)); Iron 23.0 mcg/dl (35-150); Potassium 3.5 mmol/L (3.5-5.1); Sodium 141.0 mmol/L (136-145); Total Iron Binding Cap Calc 312.0 mcg/dl (250-450); Transferrin 223.0 mg/dl (200-360); Transferrin (FE) Percent Satur 7.0 % (15-50)
[2025-05-05 07:04] LABS: Ferritin 7.1 ng/ml (8-388)
[2025-05-05] MEDS: ASPIRIN 81 MG ECTAB PO SCH (09:23)
[2025-05-05] MEDS: EMPAGLIFLOZIN 25 MG TAB PO SCH (09:23)
[2025-05-05] MEDS: CIPROFLOXACIN HCL 0.3% OP SOLN 2.5 ML BTL OPB SCH (09:25)
[2025-05-05] MEDS: MAGNESIUM CHLORIDE W/CALCIUM 64MG DELAYED REL TAB PO SCH (09:25)
[2025-05-05] MEDS: LEVOTHYROXINE SODIUM 50 MCG TABLET PO SCH (09:25)
[2025-05-05] MEDS: CHOLECALCIFEROL 125 MCG (5,000 UNITS) TAB PO SCH (09:25)
[2025-05-05] MEDS: METOPROLOL SUCC 50MG EXT REL TAB PO SCH (10:13)
--- NOTE | 2025-05-05 11:53 | Hospitalist Progress Note ---
Date of Service May 05, 2025 Assessment & Plan (1) Chest pain: (2) Elevated troponin: (3) Bilateral leg edema: (4) Type 2 diabetes mellitus, with long-term current use of insulin: (5) Hypercholesterolemia: (6) GERD (gastroesophageal reflux disease): (7) CAD (coronary artery disease), [place] coronary artery: (8) Hypothyroidism: (9) Rheumatoid arthritis: (10) LBBB (left bundle branch block): (11) History of non-ST elevation myocardial infarction (NSTEMI): (12) Blepharitis: (13) Mild Alzheimer dementia: (14) AV block, Mobitz 1: Plan 89yo female with history of CAD s/p NSTEMI 2018 s/p 2 RCA stents, dementia, chronic LBBB, T2DM, rheumatoid arthritis, hypertension, hyperlipidemia, GERD, and hypothyroidism presents via EMS from [facility] with reports of substernal chest pain and upper abdominal pain. #chest pain; known CAD, chronic LBBB - -troponin scantly elevated at presentation; repeat troponin was even lower -EKG with chronic LBBB; no changes with EKG otherwise -echo with preserved EF and normal LV wall motion -telemetry with Mobitz 1 AV block - see below -poor candidate for stress test and other invasive testing given dementia -would defer at this time -cont aspirin -cont statin -cont meto succ -of note - previously [place] [facility] [place] [facility] but it has been several years since such -will advise f/u given the Mobitz 1 and her baseline CAD #AV block - first degree at baseline, Mobitz 1 block, brief periods of 2:1 block - -reviewed rhythm strips with on-call cardiology -Mobitz 1 block is present -although there has been some 2:1 block, there has been no true Mobitz 2 or 3rd degree AV block -will HOLD meto succ moving forward -cont telemetry -consider 14-day monitor upon discharge to ensure no higher block #LE edema, venous stasis changes - -checked dopplers - NO DVT -checked echo - LV and RV function preserved -suspect exam findings are most suggestive of chronic venous insufficiency -consider tubigrip stockings -no evidence of leg cellulitis -will give lasix 20mg po daily for a few days - this should help to some degree #bletharitis - -per daughter her b/l eye issue has been present "for a while" -bletharitis, tear duct issues, etc could all be at play -to cover for bacterial conjunctivitis cont cipro eye drops - 1 drop QID b/l x 5-7 days #microcytic anemia - -Fe studies c/w Fe def anemia -if Fe deficient perhaps some of her presenting symptoms were GI in etiology? (esophagitis, gastritis, etc) -will obtain fecal occult blood -consider IV venofer #minimal troponin elevation - -no evidence of ACS -likely myocardial demand ischemia #dementia - -w/o behavioral disturbance at this time -cont risperdal BID #T2DM - -cont lantus -cont novolog -BSGS ac/hs -a1c 7.9% in August 2024; recheck 9% today #GERD - -cont PPI #hypothyroidism - -most recent TSH wnl -cont synthroid #HTN - -HOLD meto succ due to AV block and monitor BPs off such #hyperlipidemia - -cont statin #DVT Proph - -if she stays beyond tomorrow will add chemical DVT proph PT, OT alan to ensure she is safe to return to [facility] updated pt's daughter by phone yesterday will need to update pt's son change observation status to full admission status Admission and Anticipated Discharge Date Admission Date: May 04, 2025 Subjective due to pt's dementia she was unable to offer any meaningful history she has had some periods of being quite animated but no agitation or aggressive behavior tele - first degree AV block with LBBB at baseline some Mobitz 1 runs some 2:1 AV block but no true Mobitz 2 or 3rd degree AV block no pauses eating fair per staff Review of Systems Review of Systems: Unobtainable due to cognitive status no obvious pain in any location Physical Exam Physical Exam: gen - lying flat in bed, awake, alert; pleasantly confused; no agitation eyes - injected conjunctiva & sclera b/l, worse on right; matting of eyelids b/l - modestly improved today HENT - MMM neck - no JVD heart - RRR, s1 s2, 1-2/6 systolic murmur LLSB lungs - mild rales b/l bases abd - soft NT ND BS+ ext - <1+ edema feet - improved today; pulses b/l feet 2+ skin - venous stasis changes b/l shins, mildly erythematous (just above each ank le) - again no cellulitis psych - oriented to person only Results & Data Results & Data Vital Signs (Past 12 Hours) Vital Signs Temp Pulse Resp BP Pulse Ox O2 Del Method 05/05/25 11:30 36.8 C 100 H 18 155/72 H 95 Room Air 05/05/25 07:30 36.7 C 118 H 20 166/76 H 94 Room Air Laboratory Results Laboratory Results - last 48 hr 05/04/25 05/04/25 05/04/25 08:40 11:43 12:45 WBC 6.44 RBC 4.50 Hgb 10.5 L Hct 34.3 L MCV 76.2 L MCH 23.3 L MCHC 30.6 L RDW Std Deviation 45.3 RDW Coeff of Lizzette 16.6 H Plt Count 335 MPV 9.9 Immature Gran % (Auto) 0.5 Neut % (Auto) 62.2 Lymph % (Auto) 26.4 Starr % (Auto) 9.8 Eos % (Auto) 0.5 Baso % (Auto) 0.6 Neut # (Auto) 4.01 Lymph # (Auto) 1.70 Starr # (Auto) 0.63 H Eos # (Auto) 0.03 Baso # (Auto) 0.04 Immature Gran # (Auto) 0.03 PT 10.7 INR 1.0 Sodium 140 Potassium 3.5 Chloride 106 Carbon Dioxide 28 Anion Gap 6 BUN 19 Creatinine 1.07 Est Cr Clr Drug Dosing 34.6 eGFR 49.96 BUN/Creatinine Ratio 17.8 Glucose 134 H POC Glucose Estimat Average Glucose Hemoglobin A1c Calcium 9.2 Magnesium 1.9 Iron TIBC Transferrin Transferrin % Sat Ferritin Total Bilirubin 0.4 AST 15 ALT 16 Alkaline Phosphatase 76 Troponin I High Sens 18.8 H 17.2 H B-Natriuretic Peptide 123 H Total Protein 6.4 Albumin 3.5 Globulin 2.9 Albumin/Globulin Ratio 1.2 Lipase 5 L Nasal Screen MRSA (PCR) SARS-CoV-2 (PCR) NEGATIVE Influenza Type A (PCR) Negative Influenza Type B (PCR) Negative RSV (RT-PCR) Negative 05/04/25 05/04/25 05/04/25 16:52 20:00 Unknown WBC RBC Hgb Hct MCV MCH MCHC RDW Std Deviation RDW Coeff of Lizzette Plt Count MPV Immature Gran % (Auto) Neut % (Auto) Lymph % (Auto) Starr % (Auto) Eos % (Auto) Baso % (Auto) Neut # (Auto) Lymph # (Auto) Starr # (Auto) Eos # (Auto) Baso # (Auto) Immature Gran # (Auto) PT INR Sodium Potassium Chloride Carbon Dioxide Anion Gap BUN Creatinine Est Cr Clr Drug Dosing eGFR BUN/Creatinine Ratio Glucose POC Glucose 81 135 H Estimat Average Glucose Hemoglobin A1c Calcium Magnesium Iron TIBC Transferrin Transferrin % Sat Ferritin Total Bilirubin AST ALT Alkaline Phosphatase Troponin I High Sens B-Natriuretic Peptide Total Protein Albumin Globulin Albumin/Globulin Ratio Lipase Nasal Screen MRSA (PCR) Positive A SARS-CoV-2 (PCR) Influenza Type A (PCR) Influenza Type B (PCR) RSV (RT-PCR) 05/05/25 05/05/25 05/05/25 06:02 07:35 11:40 WBC 7.21 RBC 4.68 Hgb 10.9 L Hct 35.8 L MCV 76.5 L MCH 23.3 L MCHC 30.4 L RDW Std Deviation 44.9 RDW Coeff of Lizzette 16.6 H Plt Count 328 MPV 9.8 Immature Gran % (Auto) Neut % (Auto) Lymph % (Auto) Starr % (Auto) Eos % (Auto) Baso % (Auto) Neut # (Auto) Lymph # (Auto) Starr # (Auto) Eos # (Auto) Baso # (Auto) Immature Gran # (Auto) PT INR Sodium 141 Potassium 3.5 Chloride 106 Carbon Dioxide 27 Anion Gap 8 BUN 16 Creatinine 0.88 Est Cr Clr Drug Dosing 41.3 eGFR 63.17 BUN/Creatinine Ratio 18.2 Glucose 78 POC Glucose 86 94 Estimat Average Glucose 212 Hemoglobin A1c 9.0 H Calcium 9.3 Magnesium Iron 23 L TIBC 312 Transferrin 223 Transferrin % Sat 7 L Ferritin 7.1 L Total Bilirubin AST ALT Alkaline Phosphatase Troponin I High Sens B-Natriuretic Peptide Total Protein Albumin Globulin Albumin/Globulin Ratio Lipase Nasal Screen MRSA (PCR) SARS-CoV-2 (PCR) Influenza Type A (PCR) Influenza Type B (PCR) RSV (RT-PCR) PG Care Time/CCT Total # of Minutes Spent Total Time Spent with Patient: Total time spent is greater than 50% in coordination of care (as documented) at patient's floor/unit and/or counseling patient: Coding Level of Care Code 57130 SUB INP/OBS CARE 3/50MIN Diagnoses Chest pain R07.9 Elevated troponin R79.89 Bilateral leg edema R60.0 Type 2 diabetes mellitus with stage 3b chronic kidney disease, with long-term current use of insulin E11.22; N18.32; Z79.4 Chronic kidney disease stage: stage 3 (moderate) Chronic kidney disease stage 3 subtype: stage 3b (GFR 30-44) Diabetes mellitus complication detail: with chronic kidney disease Diabetes mellitus complication status: with kidney complications Hypercholesterolemia E78.00 GERD (gastroesophageal reflux disease) K21.9 Coronary artery disease involving [place] coronary artery of [place] heart without angina pectoris I25.10 Associated angina: without angina [place] vs. transplanted heart: [place] heart Hypothyroidism E03.9 Rheumatoid arthritis involving multiple sites with positive rheumatoid factor M05.79 Rheumatoid arthritis location: multiple sites Rheumatoid factor presence: with rheumatoid factor LBBB (left bundle branch block) I44.7 History of non-ST elevation myocardial infarction (NSTEMI) I25.2 Blepharitis H01.009 Mild Alzheimer dementia G30.9; F02.A0 AV block, Mobitz 1 I44.1 (4) Type 2 diabetes mellitus, with long-term current use of insulin Chronic kidney disease stage: stage 3 (moderate) Chronic kidney disease stage 3 subtype: stage 3b (GFR 30-44) Diabetes mellitus complication detail: with chronic kidney disease Diabetes mellitus complication status: with kidney complications Qualified Code(s): E11.22 - Type 2 diabetes mellitus with diabetic chronic kidney disease; N18.32 - Chronic kidney disease, stage 3b; Z79.4 - MCFP (current) use of insulin (7) CAD (coronary artery disease), [place] coronary artery Associated angina: without angina [place] vs. transplanted heart: [place] heart Qualified Code(s): I25.10 - Atherosclerotic heart disease of [place] coronary artery without angina pectoris (9) Rheumatoid arthritis Rheumatoid arthritis location: multiple sites Rheumatoid factor presence: with rheumatoid factor Qualified Code(s): M05.79 - Rheumatoid arthritis with rheumatoid factor of multiple sites without organ or systems involvement
[2025-05-05] MEDS: FUROSEMIDE 20 MG TAB PO ONE (12:49)
[2025-05-05] MEDS: POTASSIUM CHLORIDE 10 MEQ TABCR PO STA (12:51)
[2025-05-06 07:28] LABS: Anion Gap 6.0 (3-11); Blood Urea Nitrogen 16.0 mg/dl (6-23); Calcium 9.0 mg/dl (8.6-10.3); Carbon Dioxide 27.0 mmol/L (21-32); Chloride 105.0 mmol/L (98-107); Creatinine Clr Calc Pharmacy 39.1 ml/min; Glucose 102.0 mg/dl (70-99(Fasting)); Potassium 3.5 mmol/L (3.5-5.1); Sodium 138.0 mmol/L (136-145)
[2025-05-06] MEDS: FUROSEMIDE 20 MG TAB PO ONE (09:30)
[2025-05-06] MEDS: SENNA 8.6 MG TAB PO SCH (09:31)
[2025-05-06] MEDS: POTASSIUM CHLORIDE 10 MEQ TABCR PO STA (09:31)
[2025-05-06] MEDS: POLYETHYLENE (MIRALAX) 17 GM PACK PO SCH (09:31)
[2025-05-06] MEDS: IRON SUCROSE 300 MG in SODIUM CHLORIDE 0.9% 250 ML IV ONE (09:38)
--- NOTE | 2025-05-06 14:35 | Hospitalist Progress Note ---
Date of Service May 06, 2025 Assessment & Plan (1) Chest pain: (2) Elevated troponin: (3) Bilateral leg edema: (4) Type 2 diabetes mellitus, with long-term current use of insulin: (5) Hypercholesterolemia: (6) GERD (gastroesophageal reflux disease): (7) CAD (coronary artery disease), [place] coronary artery: (8) Hypothyroidism: (9) Rheumatoid arthritis: (10) LBBB (left bundle branch block): (11) History of non-ST elevation myocardial infarction (NSTEMI): (12) Blepharitis: (13) Mild Alzheimer dementia: (14) AV block, Mobitz 1: Plan 89yo female with history of CAD s/p NSTEMI 2018 s/p 2 RCA stents, dementia, chronic LBBB, T2DM, rheumatoid arthritis, hypertension, hyperlipidemia, GERD, and hypothyroidism presents via EMS from [facility] with reports of substernal chest pain and upper abdominal pain. #chest pain; known CAD, chronic LBBB - -troponin scantly elevated at presentation; repeat troponin was even lower -EKG with chronic LBBB; no changes with EKG otherwise -echo with preserved EF and normal LV wall motion -telemetry with Mobitz 1 AV block and occasional 2:1 block - see below -poor candidate for stress test and other invasive testing given dementia -would defer at this time -cont aspirin -cont statin -meto succ 50mg was placed on hold due to Mobitz 1; spoke with cardiology -- will try resuming albeit at lower dose of 25mg meto tartrate BID -of note - [place] [facility] [place] but it has been several years since such -will advise f/u given the Mobitz 1 and her baseline CAD #AV block - first degree at baseline, Mobitz 1 block intermittently, brief periods of 2:1 block - -reviewed rhythm strips with on-call cardiology yesterday & today -Mobitz 1 block is present -although there has been some 2:1 block, there has been no true Mobitz 2 or 3rd degree AV block -had held her meto succ 50mg, but off the meto succ now having sinus tach when at rest -will try resuming metoprolol -cont telemetry -after d/c consider 7 or 14-day monitor to ensure no higher block #LE edema, venous stasis changes - -checked dopplers - NO DVT -checked echo - LV and RV function preserved -suspect exam findings are most suggestive of chronic venous insufficiency -consider tubigrip stockings -no evidence of leg cellulitis -gave lasix yesterday and again today with improved edema #bletharitis - improving - -per daughter her b/l eye issue has been present "for a while" -bletharitis, tear duct issues, etc could all be at play -to cover for bacterial conjunctivitis cont cipro eye drops - 1 drop QID b/l x 5-7 days #microcytic anemia - -Fe studies c/w Fe def anemia -if Fe deficient perhaps some of her presenting symptoms were GI in etiology? (esophagitis, gastritis, etc) -will obtain fecal occult blood -IV venofer 300mg x 1 today -cont PPI #minimal troponin elevation - -no evidence of ACS -likely myocardial demand ischemia #dementia - -w/o behavioral disturbance at this time -cont risperdal BID #T2DM - -cont lantus -cont novolog -BSGS ac/hs -a1c 7.9% in August 2024; recheck 9% today #GERD - -cont PPI #hypothyroidism - -most recent TSH wnl -cont synthroid #HTN - -resume metoprolol - use tartrate - 25mg BID #hyperlipidemia - -cont statin #DVT Proph - -add lovenox daily PT eval completed --> they are uncertain if [facility] level can accomodate current p hysical state, may need rehab at SNF will obtain OT eval social work aware of the above updated pt's daughter by phone day of admission updated pt's son Nguyễn by phone extensively today Admission and Anticipated Discharge Date Admission Date: May 05, 2025 Subjective no major events still with Mobitz 1 and 2:1 block intermittently on monitor, but no higher degree block no pauses now with sinus tachycardia at times pt during the visit was awake, pleasantly confused denied pain in any location eating fair no bowel movement Review of Systems Review of Systems: Unobtainable due to cognitive status Physical Exam Physical Exam: gen - lying flat in bed, awake, alert, watching TV; pleasantly confused eyes - injected conjunctiva & sclera along with discharge/matting - IMPROVED b/l HENT - MMM neck - no JVD heart - RRR, s1 s2, 1-2/6 systolic murmur LLSB lungs - mild rales b/l bases - improved today abd - soft NT ND BS+ ext - no edema feet b/l; pulses b/l feet 2+ skin - venous stasis changes b/l shins - no cellulitis either leg psych - oriented to person only Results & Data Results & Data Vital Signs (Past 12 Hours) Vital Signs Temp Pulse Pulse Pulse Resp BP Pulse Ox 05/06/25 11:57 36.4 C L 87 16 107/66 93 05/06/25 08:00 63 05/06/25 07:00 37.1 C 63 16 115/62 93 05/06/25 03:25 37.1 C 78 16 144/78 H 95 O2 Del Method 05/06/25 11:57 Room Air 05/06/25 08:00 05/06/25 07:00 Room Air 05/06/25 03:25 Room Air Laboratory Results Laboratory Results - last 48 hr 05/05/25 05/05/25 05/05/25 11:40 16:38 20:48 Sodium Potassium Chloride Carbon Dioxide Anion Gap BUN Creatinine Est Cr Clr Drug Dosing eGFR BUN/Creatinine Ratio Glucose POC Glucose 94 118 H 167 H Calcium 05/06/25 05/06/25 05/06/25 05:53 07:38 11:29 Sodium 138 Potassium 3.5 Chloride 105 Carbon Dioxide 27 Anion Gap 6 BUN 16 Creatinine 0.93 Est Cr Clr Drug Dosing 39.1 eGFR 59.12 BUN/Creatinine Ratio 17.2 Glucose 102 H POC Glucose 86 219 H Calcium 9.0 PG Care Time/CCT Total # of Minutes Spent Total Time Spent with Patient: Total time spent is greater than 50% in coordination of care (as documented) at patient's floor/unit and/or counseling patient: Coding Level of Care Code 08158 SUB INP/OBS CARE 3/50MIN Diagnoses Chest pain R07.9 Elevated troponin R79.89 Bilateral leg edema R60.0 Type 2 diabetes mellitus with stage 3b chronic kidney disease, with long-term current use of insulin E11.22; N18.32; Z79.4 Chronic kidney disease stage: stage 3 (moderate) Chronic kidney disease stage 3 subtype: stage 3b (GFR 30-44) Diabetes mellitus complication detail: with chronic kidney disease Diabetes mellitus complication status: with kidney complications Hypercholesterolemia E78.00 GERD (gastroesophageal reflux disease) K21.9 Coronary artery disease involving [place] coronary artery of [place] heart without angina pectoris I25.10 Associated angina: without angina [place] vs. transplanted heart: [place] heart Hypothyroidism E03.9 Rheumatoid arthritis involving multiple sites with positive rheumatoid factor M05.79 Rheumatoid arthritis location: multiple sites Rheumatoid factor presence: with rheumatoid factor LBBB (left bundle branch block) I44.7 History of non-ST elevation myocardial infarction (NSTEMI) I25.2 Blepharitis H01.009 Mild Alzheimer dementia G30.9; F02.A0 AV block, Mobitz 1 I44.1 (4) Type 2 diabetes mellitus, with long-term current use of insulin Chronic kidney disease stage: stage 3 (moderate) Chronic kidney disease stage 3 subtype: stage 3b (GFR 30-44) Diabetes mellitus complication detail: with chronic kidney disease Diabetes mellitus complication status: with kidney complications Qualified Code(s): E11.22 - Type 2 diabetes mellitus with diabetic chronic kidney disease; N18.32 - Chronic kidney disease, stage 3b; Z79.4 - ad terminal makeup operator (current) use of insulin (7) CAD (coronary artery disease), [place] coronary artery Associated angina: without angina [place] vs. transplanted heart: [place] heart Qualified Code(s): I25.10 - Atherosclerotic heart disease of [place] coronary artery without angina pectoris (9) Rheumatoid arthritis Rheumatoid arthritis location: multiple sites Rheumatoid factor presence: with rheumatoid factor Qualified Code(s): M05.79 - Rheumatoid arthritis with rheumatoid factor of multiple sites without organ or systems involvement
[2025-05-06] MEDS: METOPROLOL TARTRATE 25 MG TAB PO SCH (15:24)
--- NOTE | 2025-05-06 22:24 | Electrocardiogram Report ---
Test Reason : Blood Pressure : */* mmHG Vent. Rate : 78 BPM Atrial Rate : 78 BPM P-R Int : 292 ms QRS Dur : 140 ms QT Int : 442 ms P-R-T Axes : 61 -44 101 degrees QTcB Int : 503 ms Sinus rhythm with 1st degree A-V block Left axis deviation Left bundle branch block Abnormal ECG When compared with ECG of 04-May-2025 08:39, No significant change was found Confirmed by Kishan Sotelo ([id number]) on 05/06/2025 10:24:04 PM Referred By: REFERRED SELF Confirmed By: Kishan Sotelo
--- NOTE | 2025-05-06 22:24 | Electrocardiogram Report ---
Test Reason : Blood Pressure : */* mmHG Vent. Rate : 68 BPM Atrial Rate : 68 BPM P-R Int : 294 ms QRS Dur : 136 ms QT Int : 434 ms P-R-T Axes : 62 -45 90 degrees QTcB Int : 461 ms Sinus rhythm with marked sinus arrhythmia with 1st degree A-V block Left axis deviation Left bundle branch block Abnormal ECG When compared with ECG of 25-Aug-2024 14:31, HI interval has increased Confirmed by Kishan Sotelo ([id number]) on 05/06/2025 10:23:43 PM Referred By: REFERRED SELF Confirmed By: Kishan Sotelo
--- NOTE | 2025-05-06 22:26 | Electrocardiogram Report ---
Test Reason : Blood Pressure : */* mmHG Vent. Rate : 76 BPM Atrial Rate : 76 BPM P-R Int : 272 ms QRS Dur : 138 ms QT Int : 432 ms P-R-T Axes : 31 -42 92 degrees QTcB Int : 486 ms Sinus rhythm with 1st degree A-V block Left axis deviation Left bundle branch block Abnormal ECG When compared with ECG of 05-May-2025 07:56, No significant change was found Confirmed by Kishan Sotelo ([id number]) on 05/06/2025 10:26:13 PM Referred By: REFERRED SELF Confirmed By: Kishan Sotelo
--- NOTE | 2025-05-06 22:26 | Electrocardiogram Report ---
Test Reason : Blood Pressure : */* mmHG Vent. Rate : 84 BPM Atrial Rate : 84 BPM P-R Int : 244 ms QRS Dur : 138 ms QT Int : 400 ms P-R-T Axes : 41 -44 100 degrees QTcB Int : 472 ms Sinus rhythm with marked sinus arrhythmia with 1st degree A-V block Left axis deviation Left bundle branch block Abnormal ECG When compared with ECG of 04-May-2025 12:21, No significant change was found Confirmed by Kishan Sotelo ([id number]) on 05/06/2025 10:26:02 PM Referred By: REFERRED SELF Confirmed By: Kishan Sotelo
[2025-05-07 08:23] LABS: Hematocrit (blood only) 33.3 % (37.0-47.0); Hemoglobin 10.5 g/dL (12.0-16.0); Immature Granulocytes # (auto) 0.06 K/uL (0.01-0.20); Immature Granulocytes % (auto) 0.8 %; Mean Corpuscular Hemoglobin 23.8 pg (25.0-34.0); Mean Corpuscular Volume 75.5 fL (80.0-100.0); Platelet Count 288 K/uL (130-400); RDW Standard Deviation 44.4 fL (36.4-46.3); Red Blood Count 4.41 M/uL (4.20-5.40); White Blood Count 7.89 K/ul (4.8-10.8)
[2025-05-07 08:45] LABS: Anion Gap 6.0 (3-11); Blood Urea Nitrogen 23.0 mg/dl (6-23); Calcium 9.3 mg/dl (8.6-10.3); Carbon Dioxide 28.0 mmol/L (21-32); Chloride 104.0 mmol/L (98-107); Creatinine Clr Calc Pharmacy 33.9 ml/min; Glucose 114.0 mg/dl (70-99(Fasting)); Magnesium 2.0 mg/dl (1.7-2.4); Potassium 3.6 mmol/L (3.5-5.1); Sodium 138.0 mmol/L (136-145)
[2025-05-07] MEDS: ENOXAPARIN INJ 40 MG/0.4 ML SYR SQ SCH (11:05)
--- NOTE | 2025-05-07 11:23 | Hospitalist Progress Note ---
Date of Service May 07, 2025 Assessment & Plan (1) Chest pain: (2) Elevated troponin: (3) Bilateral leg edema: (4) Type 2 diabetes mellitus, with long-term current use of insulin: (5) Hypercholesterolemia: (6) GERD (gastroesophageal reflux disease): (7) CAD (coronary artery disease), [place] coronary artery: (8) Hypothyroidism: (9) Rheumatoid arthritis: (10) LBBB (left bundle branch block): (11) History of non-ST elevation myocardial infarction (NSTEMI): (12) Blepharitis: (13) Mild Alzheimer dementia: (14) AV block, Mobitz 1: Plan 89yo female with history of CAD s/p NSTEMI 2018 s/p 2 RCA stents, dementia, chronic LBBB, T2DM, rheumatoid arthritis, hypertension, hyperlipidemia, GERD, and hypothyroidism presents via EMS from [facility] with reports of substernal chest pain and upper abdominal pain. #chest pain; known CAD, chronic LBBB - -was resolved by time of admission, and has not recurred -troponin scantly elevated at presentation; repeat troponin was even lower -EKG with chronic LBBB; no changes with EKG otherwise -echo with preserved EF and normal LV wall motion -telemetry with Mobitz 1 AV block and occasional 2:1 block - see below -poor candidate for stress test and other invasive testing given advanced dementia -would defer at this time -cont aspirin -cont statin -meto succ 50mg was placed on hold due to Mobitz 1; spoke with cardiology -- resumed at lower dose of 25mg meto tartrate BID -of note - previously followed by [facility] but it has been several years since such -will advise f/u given the Mobitz 1 and her baseline CAD #AV block - first degree at baseline, Mobitz 1 block intermittently, brief periods of 2:1 block - -reviewed rhythm strips with on-call cardiology several times this week -Mobitz 1 block is present -although there has been some 2:1 block, there has been no true Mobitz 2 or 3rd degree AV block -had held her meto succ 50mg, but off the meto succ now having sinus tach when at rest -will try resuming metoprolol - tartrate 25mg BID -cont telemetry -after d/c consider 7 or 14-day monitor to ensure no higher block #LE edema, venous stasis changes - -checked dopplers - NO DVT -checked echo - LV and RV function preserved -suspect exam findings are most suggestive of chronic venous insufficiency -consider tubigrip stockings -no evidence of leg cellulitis -gave lasix 2x's while hospitalized with resolved edema #bletharitis - improving - -per daughter her b/l eye issue has been present "for a while" -bletharitis, tear duct issues, etc could all be at play -to cover for bacterial conjunctivitis cont cipro eye drops - 1 drop QID b/l x 5-7 days #microcytic anemia - -Fe studies c/w Fe def anemia -if Fe deficient perhaps some of her presenting symptoms were GI in etiology? (esophagitis, gastritis, etc) -will obtain fecal occult blood -IV venofer 300mg x 1 this admission -consider another dose, but defer today due to low-grade fevers -cont PPI #minimal troponin elevation - -no evidence of ACS -likely myocardial demand ischemia #dementia - -w/o behavioral disturbance at this time -cont risperdal BID #T2DM - -cont lantus -cont novolog -BSGS ac/hs -a1c 7.9% in August 2024; recheck 9% this admission #GERD - -cont PPI #hypothyroidism - -most recent TSH wnl -cont synthroid #HTN - -resume metoprolol - use tartrate - 25mg BID #hyperlipidemia - -cont statin #DVT Proph - -lovenox daily #low-grade fever - -u/a today via straight cath not suggestive of UTI but await culture -covid/flu/rsv negative at admission -will repeat a full BioFire respiratory panel -obtain cxr and KUB given her c/o upper abd pain PT eval completed --> they are uncertain if PCH level can accomodate current physical state, may need rehab at SNF will obtain OT eval social work aware of the above updated pt's daughter by phone day of admission updated pt's son Nguyễn by phone extensively 05/06 will need to update pt's other son this weekend Admission and Anticipated Discharge Date Admission Date: May 05, 2025 Subjective no major events overnight Tm 37.8 early this am per flowsheets during the visit she was similar to yesterday - although she keeps her eyes cl osed, she answers questions, she jokes and laughs, etc. stated her abdomen hurt - points to upper abdomen still no bowel movement to date no vomiting eating is poor-fair no vomiting by report Review of Systems Review of Systems: Unobtainable due to cognitive status Physical Exam Physical Exam: gen - lying flat in bed, awake, alert, eyes closed -- but answers questions, laughing at times, nontoxic eyes - injected conjunctiva & sclera along with discharge/matting - again improved HENT - MMM neck - no JVD heart - RRR, s1 s2, 1-2/6 systolic murmur LLSB lungs - minimal rales b/l bases (slightly worse on L), otherwise CTA b/l abd - soft ND BS+; mildly tender upper abdomen ext - no edema feet b/l; pulses b/l feet 2+ skin - venous stasis changes b/l shins psych - oriented to person only Results & Data Results & Data Vital Signs (Past 12 Hours) Vital Signs Temp Pulse Resp BP BP Pulse Ox O2 Del Method 05/07/25 08:02 36.7 C 78 18 148/73 H 91 Room Air 05/07/25 03:46 37.8 C H 74 16 125/66 96 Room Air Laboratory Results Laboratory Results - last 24 hr 05/06/25 05/06/25 05/06/25 11:29 16:26 20:36 WBC RBC Hgb Hct MCV MCH MCHC RDW Std Deviation RDW Coeff of Lizzette Plt Count MPV Immature Gran % (Auto) Neut % (Auto) Lymph % (Auto) [place] % (Auto) Eos % (Auto) Baso % (Auto) Neut # (Auto) Lymph # (Auto) [place] # (Auto) Eos # (Auto) Baso # (Auto) Immature Gran # (Auto) Sodium Potassium Chloride Carbon Dioxide Anion Gap BUN Creatinine Est Cr Clr Drug Dosing eGFR BUN/Creatinine Ratio Glucose POC Glucose 219 H 156 H 169 H Calcium Magnesium Urine Color Urine Appearance Urine pH Ur Specific [place] Urine Protein Urine Glucose (UA) Urine Ketones Urine Blood Urine Nitrite Urine Bilirubin Urine Urobilinogen Ur Leukocyte Esterase 05/07/25 05/07/25 07:59 08:01 WBC 7.89 RBC 4.41 Hgb 10.5 L Hct 33.3 L MCV 75.5 L MCH 23.8 L MCHC 31.5 L RDW Std Deviation 44.4 RDW Coeff of Lizzette 16.3 H Plt Count 288 MPV 9.7 Immature Gran % (Auto) 0.8 Neut % (Auto) 63.8 Lymph % (Auto) 21.2 [place] % (Auto) 13.3 Eos % (Auto) 0.4 Baso % (Auto) 0.5 Neut # (Auto) 5.04 Lymph # (Auto) 1.67 [place] # (Auto) 1.05 H Eos # (Auto) 0.03 Baso # (Auto) 0.04 Immature Gran # (Auto) 0.06 Sodium 138 Potassium 3.6 Chloride 104 Carbon Dioxide 28 Anion Gap 6 BUN 23 Creatinine 1.08 Est Cr Clr Drug Dosing 33.9 eGFR 49.41 BUN/Creatinine Ratio 21.3 H Glucose 114 H POC Glucose 97 Calcium 9.3 Magnesium 2.0 Urine Color Urine Appearance Urine pH Ur Specific [place] Urine Protein Urine Glucose (UA) Urine Ketones Urine Blood Urine Nitrite Urine Bilirubin Urine Urobilinogen Ur Leukocyte Esterase PG Care Time/CCT Total # of Minutes Spent Total Time Spent with Patient: Total time spent is greater than 50% in coordination of care (as documented) at patient's floor/unit and/or counseling patient: Coding Level of Care Code 54172 SUB INP/OBS CARE 3/50MIN Diagnoses Chest pain R07.9 Elevated troponin R79.89 Bilateral leg edema R60.0 Type 2 diabetes mellitus with stage 3b chronic kidney disease, with long-term current use of insulin E11.22; N18.32; Z79.4 Chronic kidney disease stage: stage 3 (moderate) Chronic kidney disease stage 3 subtype: stage 3b (GFR 30-44) Diabetes mellitus complication detail: with chronic kidney disease Diabetes mellitus complication status: with kidney complications Hypercholesterolemia E78.00 GERD (gastroesophageal reflux disease) K21.9 Coronary artery disease involving [place] coronary artery of [place] heart without angina pectoris I25.10 Associated angina: without angina [place] vs. transplanted heart: [place] heart Hypothyroidism E03.9 Rheumatoid arthritis involving multiple sites with positive rheumatoid factor M05.79 Rheumatoid arthritis location: multiple sites Rheumatoid factor presence: with rheumatoid factor LBBB (left bundle branch block) I44.7 History of non-ST elevation myocardial infarction (NSTEMI) I25.2 Blepharitis H01.009 Mild Alzheimer dementia G30.9; F02.A0 AV block, Mobitz 1 I44.1 (4) Type 2 diabetes mellitus, with long-term current use of insulin Chronic kidney disease stage: stage 3 (moderate) Chronic kidney disease stage 3 subtype: stage 3b (GFR 30-44) Diabetes mellitus complication detail: with chronic kidney disease Diabetes mellitus complication status: with kidney complications Qualified Code(s): E11.22 - Type 2 diabetes mellitus with diabetic chronic kidney disease; N18.32 - Chronic kidney disease, stage 3b; Z79.4 - prison (current) use of insulin (7) CAD (coronary artery disease), [place] coronary artery Associated angina: without angina [place] vs. transplanted heart: [place] heart Qualified Code(s): I25.10 - Atherosclerotic heart disease of [place] coronary artery without angina pectoris (9) Rheumatoid arthritis Rheumatoid arthritis location: multiple sites Rheumatoid factor presence: with rheumatoid factor Qualified Code(s): M05.79 - Rheumatoid arthritis with rheumatoid factor of multiple sites without organ or systems involvement
[2025-05-07 11:24] LABS: Appearance Urine Clear (Clear); Bacteria Urine Automated None Seen (None Seen); Cast Urine Automated 0-2 /lpf (0-2); Epithelial Cell Urine Auto 0-2 /hpf (0-2); Glucose Urine UA 3+ (Negative); RBC Urine Automated 0-2 /hpf (0-2); WBC Urine Automated 0-5 /hpf (0-5)
--- NOTE | 2025-05-07 13:10 | XRay Report ---
Technique: A frontal view of the chest was obtained Findings: There are no confluent pulmonary infiltrates. The heart size is within normal limits. No pleural effusion or pneumothorax is seen. There is right lung base atelectasis. No fracture is noted. No foreign body is seen Impression: Right lung base atelectasis Electronically signed by Daniel Ang 05-07-2025 13:10 PM
--- NOTE | 2025-05-07 13:11 | XRay Report ---
Clinical history: Pain 2 views of the abdomen were obtained Findings: There is moderate constipation. There is no sign of bowel obstruction. No renal or ureteral calculi are seen. There are surgical clips in the right upper quadrant. No osseous abnormality is seen. Vascular calcifications are present Impression: Constipation Electronically signed by Daniel Ang 05-07-2025 13:11 PM
[2025-05-07] MEDS: ACETAMINOPHEN 325 MG TAB PO PRN (17:09)
[2025-05-08 00:24] LABS: Chlamydia pneumoniae PCR Not Detected (NotDetected); Coronavirus 229E PCR Not Detected (NotDetected); Coronavirus CoV-2 (COVID19)PCR Not Detected (NotDetected); Coronavirus HKU1 PCR Not Detected (NotDetected); Coronavirus NL63 PCR Not Detected (NotDetected); Coronavirus OC43PCR Not Detected (NotDetected); Human Metapneumovirus PCR Not Detected (NotDetected); Parainfluenza Virus 1 PCR Not Detected (NotDetected); Parainfluenza Virus 2 PCR Not Detected (NotDetected); Parainfluenza Virus 3 PCR Not Detected (NotDetected); Parainfluenza Virus 4 PCR Not Detected (NotDetected); Respiratory Syncytial VirusPCR Not Detected (NotDetected); Rhinovirus/Enterovirus PCR Not Detected (NotDetected)
[2025-05-08 07:47] LABS: Alanine Aminotransferase 12.0 U/L (7-52); Albumin Globulin Ratio 1.0 (0.9-2); Albumin Level 3.1 gm/dl (3.4-5.0); Alkaline Phosphatase 66.0 U/L (34-104); Anion Gap 9.0 (3-11); Bilirubin,Total 0.6 mg/dl (0.2-1.0); Blood Urea Nitrogen 23.0 mg/dl (6-23); Calcium 9.1 mg/dl (8.6-10.3); Carbon Dioxide 25.0 mmol/L (21-32); Chloride 104.0 mmol/L (98-107); Creatinine Clr Calc Pharmacy 39.6 ml/min; Globulin 3.0 gm/dl (2.5-4.0); Glucose 84.0 mg/dl (70-99(Fasting)); Lipase 3.0 U/L (11-82); Potassium 3.7 mmol/L (3.5-5.1); Sodium 138.0 mmol/L (136-145); Total Protein 6.1 gm/dl (6.0-8.3)
--- NOTE | 2025-05-08 16:43 | Hospitalist Progress Note ---
Date of Service May 08, 2025 Assessment & Plan (1) Acute metabolic encephalopathy: (2) Chest pain: (3) Elevated troponin: (4) Bilateral leg edema: (5) Type 2 diabetes mellitus, with long-term current use of insulin: (6) Hypercholesterolemia: (7) GERD (gastroesophageal reflux disease): (8) CAD (coronary artery disease), [place] coronary artery: (9) Hypothyroidism: (10) Rheumatoid arthritis: (11) LBBB (left bundle branch block): (12) History of non-ST elevation myocardial infarction (NSTEMI): (13) Blepharitis: (14) Mild Alzheimer dementia: (15) AV block, Mobitz 1: Plan 89yo female with history of CAD s/p NSTEMI 2018 s/p 2 RCA stents, dementia, chronic LBBB, T2DM, rheumatoid arthritis, hypertension, hyperlipidemia, GERD, and hypothyroidism presents via EMS from [facility] with reports of substernal chest pain and upper abdominal pain. #acute metabolic encephalopathy - -ongoing -her poor PO intake, altered MS, low-grade temps, etc. all would suggest an underlying infectious process driving her symptomatology -however, to date, the following are negative - -COVID/flu/RSV neg -full/comprehensive respiratory BioFire neg -u/a not suggestive of UTI but culture is sent/pending -cxr without definitive pneumonia -she c/o abd pain today thus obtained CT a/p; this showed a collection of findings including bladder wall thickening, ?subtle findings concerning for pyelo?, b/l lower lobe infiltrates, and gastroenteritis?? -her u/a findings aren't congruent with the CT findings -a viral process would tie together the bowel and lung findings -to be cautious will start rocephin daily to cover for possible UTI -low threshold to check MRI brain to r/o subacute CVA -check sed rate/crp am #chest pain; known CAD, chronic LBBB - -was resolved by time of admission, and has not recurred -troponin scantly elevated at presentation; repeat troponin was even lower -EKG with chronic LBBB; no changes with EKG otherwise -echo with preserved EF and normal LV wall motion -telemetry with Mobitz 1 AV block and occasional 2:1 block - see below -poor candidate for stress test and other invasive testing given advanced dementia -would defer at this time -cont aspirin -cont statin -meto succ 50mg was placed on hold due to Mobitz 1; spoke with cardiology -- resumed at lower dose of 25mg meto tartrate BID -of note - previously followed by [facility] but it has been several years since such -will advise f/u given the Mobitz 1 and her baseline CAD #AV block - first degree at baseline, Mobitz 1 block intermittently, brief periods of 2:1 block - -reviewed rhythm strips with on-call cardiology several times this week -Mobitz 1 block is present -although there has been some 2:1 block, there has been no true Mobitz 2 or 3rd degree AV block -had held her meto succ 50mg, but off the meto succ now having sinus tach when at rest -resumed metoprolol in the form of tartrate 25mg BID -tolerating such -after d/c consider 7 or 14-day monitor to ensure no higher block #LE edema, venous stasis changes - -checked dopplers - NO DVT -checked echo - LV and RV function preserved -suspect exam findings are most suggestive of chronic venous insufficiency -no evidence of cellulitis either leg -consider tubigrip stockings -gave lasix 2x's while hospitalized with resolved edema #bletharitis and/or conjunctivitis b/l - improving - -per daughter her b/l eye issue has been present "for a while" -to cover for bacterial conjunctivitis cont cipro eye drops - 1 drop QID b/l x 7 days #microcytic anemia - -Fe studies c/w Fe def anemia -if Fe deficient perhaps some of her presenting symptoms were GI in etiology? (esophagitis, gastritis, etc) -obtained fecal occult blood --> negative -IV venofer 300mg x 1 this admission -consider another dose while here -cont PPI #minimal troponin elevation - -no evidence of ACS -likely myocardial demand ischemia #dementia - -w/o behavioral disturbance at this time -cont risperdal BID #T2DM - -cont lantus -cont novolog -BSGS ac/hs -a1c 7.9% in August 2024; recheck 9% this admission #GERD - -cont PPI #hypothyroidism - -most recent TSH wnl -cont synthroid #HTN - -cont metoprolol tartrate 25mg BID #hyperlipidemia - -cont statin #DVT Proph - -lovenox daily PT eval completed --> they were uncertain if PCH level can accommodate current physical state, may need rehab at SNF will obtain OT eval social work aware of the above updated pt's daughter by phone day of admission updated pt's son Nguyễn by phone extensively 05/06 extensive conversation held with patient's son Ramu who is POA - 05/08 evening he is a former hospital account administrator discussed that his mother is stable, but has not shown significant improvement in overall status since admission he explained that at [facility] he and his family visited her and she was much more awake, talking, eating, ambulating reassured Bijan we are looking into many things that can be causing her lethargy/other symptoms will update him again next 48 hours Admission and Anticipated Discharge Date Admission Date: May 05, 2025 Subjective has periods of agitation where she will cry out various names of people into the hallway then will have periods of sleep during my visit she was sleepy with eyes closed I called her name - she kept her eyes shut, but she woke up and answered my questions pleasantly confused just like on all visits unable to offer any meaningful history/ROS other than "my belly hurts" apparently she c/o abdominal pain to staff earlier in the day, then she stopped complaining of such per staff had a very large formed stool yesterday no vomiting appetite remains very poor Review of Systems Review of Systems: Unobtainable due to cognitive status Physical Exam Physical Exam: gen - lying flat in bed, eyes closed -- will wake up and answer questions, however eyes - injected conjunctiva & sclera along with discharge/matting - right eye worse than left eye - slightly better than yesterday HENT - MM very dry today neck - no JVD heart - RRR, s1 s2, 1-2/6 systolic murmur LLSB lungs - scant dry rales bases; no wheeze; no cough; no increased work of breathing abd - soft ND BS+; nontender upper abdomen today despite complaining of her abdomen ext - no edema feet b/l; pulses b/l feet 2+ skin - venous stasis changes b/l shins w/o signs of cellulitis psych - oriented to person only musculo - no areas of synovitis any large or small joint Results & Data Results & Data Vital Signs (Past 12 Hours) Vital Signs Temp Pulse Pulse Resp BP Pulse Ox O2 Del Method 05/08/25 14:00 90 05/08/25 14:00 Room Air 05/08/25 08:34 36.5 C 109 H 16 159/72 H 93 Room Air 05/08/25 04:59 82 Laboratory Results Laboratory Results - last 48 hr 05/07/25 05/07/25 05/07/25 16:58 18:40 20:31 ESR Sodium Potassium Chloride Carbon Dioxide Anion Gap BUN Creatinine Est Cr Clr Drug Dosing eGFR BUN/Creatinine Ratio Glucose POC Glucose 114 H 152 H Calcium Total Bilirubin AST ALT Alkaline Phosphatase C-Reactive Protein Total Protein Albumin Globulin Albumin/Globulin Ratio Lipase Procalcitonin Stool Occult Bld Scrn Negative Adenovirus (PCR) B. pertussis DNA (PCR) B.parapertussis DNA PCR C. pneumoniae DNA (PCR) Coronavirus OC43 (PCR) Coronavirus HKU1 (PCR) Coronavirus 229E (PCR) SARS-CoV-2 (PCR) Coronavirus NL63 (PCR) Human Metapneumovir PCR Influenza Type A (PCR) Influenza Type B (PCR) M. pneumoniae (PCR) Parainfluenza 1 (PCR) Parainfluenza 2 (PCR) Parainfluenza 3 (PCR) Parainfluenza 4 (PCR) RSV (PCR) Entero/Rhino (PCR) 05/07/25 05/08/25 05/08/25 23:24 06:48 08:03 ESR Sodium 138 Potassium 3.7 Chloride 104 Carbon Dioxide 25 Anion Gap 9 BUN 23 Creatinine 0.91 Est Cr Clr Drug Dosing 39.6 eGFR 60.68 BUN/Creatinine Ratio 25.3 H Glucose 84 POC Glucose 97 Calcium 9.1 Total Bilirubin 0.6 AST 17 ALT 12 Alkaline Phosphatase 66 C-Reactive Protein Total Protein 6.1 Albumin 3.1 L Globulin 3.0 Albumin/Globulin Ratio 1.0 Lipase 3 L Procalcitonin Stool Occult Bld Scrn Adenovirus (PCR) Not Detected B. pertussis DNA (PCR) Not Detected B.parapertussis DNA PCR Not Detected C. pneumoniae DNA (PCR) Not Detected Coronavirus OC43 (PCR) Not Detected Coronavirus HKU1 (PCR) Not Detected Coronavirus 229E (PCR) Not Detected SARS-CoV-2 (PCR) Not Detected Coronavirus NL63 (PCR) Not Detected Human Metapneumovir PCR Not Detected Influenza Type A (PCR) Not Detected Influenza Type B (PCR) Not Detected M. pneumoniae (PCR) Not Detected Parainfluenza 1 (PCR) Not Detected Parainfluenza 2 (PCR) Not Detected Parainfluenza 3 (PCR) Not Detected Parainfluenza 4 (PCR) Not Detected RSV (PCR) Not Detected Entero/Rhino (PCR) Not Detected 05/08/25 05/08/25 12:07 16:49 ESR Sodium Potassium Chloride Carbon Dioxide Anion Gap BUN Creatinine Est Cr Clr Drug Dosing eGFR BUN/Creatinine Ratio Glucose POC Glucose 131 H 108 H Calcium Total Bilirubin AST ALT Alkaline Phosphatase C-Reactive Protein Total Protein Albumin Globulin Albumin/Globulin Ratio Lipase Procalcitonin Stool Occult Bld Scrn Adenovirus (PCR) B. pertussis DNA (PCR) B.parapertussis DNA PCR C. pneumoniae DNA (PCR) Coronavirus OC43 (PCR) Coronavirus HKU1 (PCR) Coronavirus 229E (PCR) SARS-CoV-2 (PCR) Coronavirus NL63 (PCR) Human Metapneumovir PCR Influenza Type A (PCR) Influenza Type B (PCR) M. pneumoniae (PCR) Parainfluenza 1 (PCR) Parainfluenza 2 (PCR) Parainfluenza 3 (PCR) Parainfluenza 4 (PCR) RSV (PCR) Entero/Rhino (PCR) Diagnostic Findings urine cx thus far negative Abdomen/Pelvis CT 05/08/25 16:43 CT ABDOMEN and PELVIS with INTRAVENOUS CONTRAST HISTORY: Abdominal pain TECHNIQUE: CT abdomen and pelvis with contrast. IV CONTRAST: 100 mL of OMNIPAQUE 300 ENTERIC CONTRAST: Not Given COMPARISON: CT abdomen and pelvis June 01, 2024 FINDINGS: LOWER CHEST: Cardiomegaly, unchanged. Coronary and valvular calcifications. Peribronchial cuffing in the lung bases. Patchy bibasilar densities of the lungs. LIVER: Hypodense lesions measures 1.8 cm probably cysts or hemangiomas. GALLBLADDER/BILIARY: Surgically absent gallbladder. Moderate intrahepatic and extrahepatic biliary dilation is similar to previous and may represent an expected finding following cholecystectomy and allowing for patient's age SPLEEN: Unremarkable. PANCREAS: Atrophic parenchyma. ADRENALS: Unremarkable. KIDNEYS: Small cysts. No stones or hydronephrosis identified. Small calcifications over the kidneys are likely vascular calcifications. There may be subtle transcortical hypoattenuation's of the renal parenchyma bilaterally. PERITONEUM/RETROPERITONEUM. No lymphadenopathy by size criteria. No aortic aneurysm. Extensive atherosclerosis. GASTROINTESTINAL: No obstruction. Normal appendix. Colonic diverticulosis without evidence of diverticulitis. Mild inflammatory changes of the stomach and the loops of small bowel demonstrating wall thickening. REPRODUCTIVE: Calcified fibroids URINARY BLADDER: Circumferential wall thickening. Intraluminal air is present. ABDOMINAL WALL: No significant hernia defect is seen. BONES: No acute findings.T10 vertebral body intraosseous hemangioma IMPRESSION: Mild gastroenteritis is suggested. Inflammatory changes of the urinary bladder are likely due to cystitis. There is intraluminal air present within the urinary bladder. This may be due to a recent instrumentation however recommend clinical correlation. Subtle transcortical hypoattenuations of the renal parenchyma are suggested. Early pyelonephritis could be a consideration. Recommend correlation with urinalysis. Bronchiolitis with patchy atelectasis versus pneumonia in the lung bases. Electronically signed by Agustín Mosley 05-08-2025 7:01 PM PG Care Time/CCT Total # of Minutes Spent Total Time Spent with Patient: Total time spent is greater than 50% in coordination of care (as documented) at patient's floor/unit and/or counseling patient: Coding Level of Care Code 92175 SUB INP/OBS CARE 3/50MIN Diagnoses Acute metabolic encephalopathy G93.41 Chest pain R07.9 Elevated troponin R79.89 Bilateral leg edema R60.0 Type 2 diabetes mellitus with stage 3b chronic kidney disease, with long-term current use of insulin E11.22; N18.32; Z79.4 Chronic kidney disease stage: stage 3 (moderate) Chronic kidney disease stage 3 subtype: stage 3b (GFR 30-44) Diabetes mellitus complication detail: with chronic kidney disease Diabetes mellitus complication status: with kidney complications Hypercholesterolemia E78.00 GERD (gastroesophageal reflux disease) K21.9 Coronary artery disease involving [place] coronary artery of [place] heart without angina pectoris I25.10 Associated angina: without angina [place] vs. transplanted heart: [place] heart Hypothyroidism E03.9 Rheumatoid arthritis involving multiple sites with positive rheumatoid factor M05.79 Rheumatoid arthritis location: multiple sites Rheumatoid factor presence: with rheumatoid factor LBBB (left bundle branch block) I44.7 History of non-ST elevation myocardial infarction (NSTEMI) I25.2 Blepharitis H01.009 Mild Alzheimer dementia G30.9; F02.A0 AV block, Mobitz 1 I44.1 (5) Type 2 diabetes mellitus, with long-term current use of insulin Chronic kidney disease stage: stage 3 (moderate) Chronic kidney disease stage 3 subtype: stage 3b (GFR 30-44) Diabetes mellitus complication detail: with chronic kidney disease Diabetes mellitus complication status: with kidney complications Qualified Code(s): E11.22 - Type 2 diabetes mellitus with diabetic chronic kidney disease; N18.32 - Chronic kidney disease, stage 3b; Z79.4 - detention (current) use of insulin (8) CAD (coronary artery disease), [place] coronary artery Associated angina: without angina [place] vs. transplanted heart: [place] heart Qualified Code(s): I25.10 - Atherosclerotic heart disease of [place] coronary artery without angina pectoris (10) Rheumatoid arthritis Rheumatoid arthritis location: multiple sites Rheumatoid factor presence: with rheumatoid factor Qualified Code(s): M05.79 - Rheumatoid arthritis with rheumatoid factor of multiple sites without organ or systems involvement
[2025-05-08] MEDS: OPTIRAY 320 100ml IV ONE (17:06)
[2025-05-08] MEDS: SODIUM CHLORIDE 0.9% 500 ML IV SCH (18:10)
--- NOTE | 2025-05-08 19:01 | CT Scan Report ---
CT ABDOMEN and PELVIS with INTRAVENOUS CONTRAST HISTORY: Abdominal pain TECHNIQUE: CT abdomen and pelvis with contrast. IV CONTRAST: 100 mL of OMNIPAQUE 300 ENTERIC CONTRAST: Not Given COMPARISON: CT abdomen and pelvis June 01, 2024 FINDINGS: LOWER CHEST: Cardiomegaly, unchanged. Coronary and valvular calcifications. Peribronchial cuffing in the lung bases. Patchy bibasilar densities of the lungs. LIVER: Hypodense lesions measures 1.8 cm probably cysts or hemangiomas. GALLBLADDER/BILIARY: Surgically absent gallbladder. Moderate intrahepatic and extrahepatic biliary dilation is similar to previous and may represent an expected finding following cholecystectomy and allowing for patient's age SPLEEN: Unremarkable. PANCREAS: Atrophic parenchyma. ADRENALS: Unremarkable. KIDNEYS: Small cysts. No stones or hydronephrosis identified. Small calcifications over the kidneys are likely vascular calcifications. There may be subtle transcortical hypoattenuation's of the renal parenchyma bilaterally. PERITONEUM/RETROPERITONEUM. No lymphadenopathy by size criteria. No aortic aneurysm. Extensive atherosclerosis. GASTROINTESTINAL: No obstruction. Normal appendix. Colonic diverticulosis without evidence of diverticulitis. Mild inflammatory changes of the stomach and the loops of small bowel demonstrating wall thickening. REPRODUCTIVE: Calcified fibroids URINARY BLADDER: Circumferential wall thickening. Intraluminal air is present. ABDOMINAL WALL: No significant hernia defect is seen. BONES: No acute findings.T10 vertebral body intraosseous hemangioma IMPRESSION: Mild gastroenteritis is suggested. Inflammatory changes of the urinary bladder are likely due to cystitis. There is intraluminal air present within the urinary bladder. This may be due to a recent instrumentation however recommend clinical correlation. Subtle transcortical hypoattenuations of the renal parenchyma are suggested. Early pyelonephritis could be a consideration. Recommend correlation with urinalysis. Bronchiolitis with patchy atelectasis versus pneumonia in the lung bases. Electronically signed by Agustín Mosley 05-08-2025 7:01 PM
[2025-05-08] MEDS: cefTRIAXone SODIUM 2,000 MG/50 ML BAG IV SCH (20:46)
[2025-05-09 06:21] LABS: Anion Gap 7.0 (3-11); Blood Urea Nitrogen 23.0 mg/dl (6-23); Calcium 9.0 mg/dl (8.6-10.3); Carbon Dioxide 26.0 mmol/L (21-32); Chloride 103.0 mmol/L (98-107); Creatinine Clr Calc Pharmacy 35.6 ml/min; Glucose 77.0 mg/dl (70-99(Fasting)); Potassium 3.6 mmol/L (3.5-5.1); Sodium 136.0 mmol/L (136-145)
--- NOTE | 2025-05-09 13:02 | Hospitalist Progress Note ---
Date of Service May 09, 2025 Assessment & Plan (1) Acute metabolic encephalopathy: (2) Chest pain: (3) Elevated troponin: (4) Bilateral leg edema: (5) Type 2 diabetes mellitus, with long-term current use of insulin: (6) Hypercholesterolemia: (7) GERD (gastroesophageal reflux disease): (8) CAD (coronary artery disease), solomon coronary artery: (9) Hypothyroidism: (10) Rheumatoid arthritis: (11) LBBB (left bundle branch block): (12) History of non-ST elevation myocardial infarction (NSTEMI): (13) Blepharitis: (14) Mild Alzheimer dementia: (15) AV block, Mobitz 1: Plan 89yo female with history of CAD s/p NSTEMI 2018 s/p 2 RCA stents, dementia, chronic LBBB, T2DM, rheumatoid arthritis, hypertension, hyperlipidemia, GERD, and hypothyroidism presents via EMS from [facility] with reports of substernal chest pain and upper abdominal pain. #acute metabolic encephalopathy - -finally improved -her prior poor PO intake, altered MS, low-grade temps, conjunctivitis b/l, etc. all suggested an underlying infectious process as the cause of her presentation -sed rate/crp also high -- also suggestive of infectious/inflammatory process -however, to date, the following were negative - -COVID/flu/RSV -full/comprehensive respiratory BioFire -u/a not suggestive of UTI -urine cx negative -cxr without definitive pneumonia -she c/o abd pain 05/[address] a/p; this showed a collection of findings including bladder wall thickening, ?subtle findings concerning for pyelo?, b/l lower lobe infiltrates, and gastroenteritis?? -again her u/a findings weren't congruent with the CT findings -a viral process would tie together the bowel and lung findings -to be cautious will cont rocephin daily to cover for possible UTI (in event the urine cx was falsely negative) -low threshold to check MRI brain to r/o subacute CVA #chest pain; known CAD, chronic LBBB - -was resolved by time of admission, and has not recurred -troponin scantly elevated at presentation; repeat troponin was even lower -EKG with chronic LBBB; no changes with EKG otherwise -echo with preserved EF and normal LV wall motion -telemetry with Mobitz 1 AV block and occasional 2:1 block - see below -poor candidate for stress test and other invasive testing given advanced dementia -would defer at this time -cont aspirin -cont statin -meto succ 50mg was placed on hold due to Mobitz 1; spoke with cardiology -- resumed at lower dose of 25mg meto tartrate BID -tolerating the meto tartrate 25mg BID -of note - previously followed by [facility] but it has been several years since such -will advise f/u given the Mobitz 1 and her baseline CAD #AV block - first degree at baseline, Mobitz 1 block intermittently, brief periods of 2:1 block - -reviewed rhythm strips with on-call cardiology several times this week -Mobitz 1 block is present -although there has been some 2:1 block, there has been no true Mobitz 2 or 3rd degree AV block -had held her meto succ 50mg, but off the meto succ now having sinus tach when at rest -resumed metoprolol in the form of tartrate 25mg BID -tolerating such -after d/c consider 7 or 14-day monitor to ensure no higher block #LE edema, venous stasis changes - -checked dopplers - NO DVT -checked echo - LV and RV function preserved -suspect exam findings are most suggestive of chronic venous insufficiency -no evidence of cellulitis either leg -consider tubigrip stockings -gave lasix 2x's while hospitalized with resolved edema #bletharitis and/or conjunctivitis b/l - improving/nearly resolved - -per daughter her b/l eye issue has been present "for a while" -to cover for bacterial conjunctivitis cont cipro eye drops - 1 drop QID b/l x 7 days #microcytic anemia - -Fe studies c/w Fe def anemia -if Fe deficient perhaps some of her presenting symptoms were GI in etiology? (esophagitis, gastritis, etc) -obtained fecal occult blood --> negative -IV venofer 300mg x 1 this admission -consider another dose while here -cont PPI -low Fe levels - due to inadequate intake?? #minimal troponin elevation - -no evidence of ACS -likely myocardial demand ischemia #dementia - -w/o behavioral disturbance at this time -cont risperdal BID #T2DM - -cont lantus -cont novolog -BSGS ac/hs -a1c 7.9% in August 2024; recheck 9% this admission #GERD - -cont PPI #hypothyroidism - -most recent TSH wnl -cont synthroid #HTN - -cont metoprolol tartrate 25mg BID #hyperlipidemia - -cont statin #DVT Proph - -lovenox daily PT/OT evals appreciated still uncertain if patient is close enough to baseline to return to [facility] OR will she need rehab at SNF before going back to personal care updated pt's daughter by phone day of admission updated pt's son Nguyễn by phone extensively 05/06 extensive conversation held with patient's son Ramu who is POA - 05/08 evening he is a former hospital portfolio administrator thus has medical background will update Ramu again on 05/10 Admission and Anticipated Discharge Date Admission Date: May 05, 2025 Subjective patient sitting in the chair by the window eating her lunch during my visit she was very awake, very alert, in good spirits pleasantly confused like all prior visits per staff she worked with therapy and even walked to the bathroom no significant sundowning overnight tele - no Mobitz 1 or higher block overnight; no pauses Review of Systems Review of Systems: CV - denies chest pain pulm - denies dyspnea eyes - eyes feel better GI - no abd pain reported during my visit Physical Exam Physical Exam: gen - sitting in chair, best she has looked since admission, NAD, pleasant confusion eyes - marked improvement in conjunctivitis b/l; resolved in L eye, nearly resolved R eye HENT - MMM neck - no JVD heart - RRR, s1 s2, 1-2/6 systolic murmur LLSB lungs - CTA b/l abd - soft ND BS+ NT ext - no edema feet b/l; pulses b/l feet 2+ skin - venous stasis changes b/l shins w/o signs of cellulitis Results & Data Results & Data Vital Signs (Past 12 Hours) Vital Signs Temp Pulse Pulse Resp BP BP Pulse Ox 05/09/25 12:26 36.7 C 69 16 109/55 L 94 05/09/25 09:58 66 05/09/25 08:52 36.4 C L 93 H 16 132/63 94 05/09/25 03:01 36.5 C 73 18 123/75 94 O2 Del Method 05/09/25 12:26 Room Air 05/09/25 09:58 05/09/25 08:52 Room Air 05/09/25 03:01 Room Air Laboratory Results Laboratory Results - last 24 hr 05/08/25 05/08/25 05/09/25 16:49 19:32 05:33 ESR 67 H Sodium 136 Potassium 3.6 Chloride 103 Carbon Dioxide 26 Anion Gap 7 BUN 23 Creatinine 1.01 Est Cr Clr Drug Dosing 35.6 eGFR 53.54 BUN/Creatinine Ratio 22.8 H Glucose 77 POC Glucose 108 H 143 H Calcium 9.0 C-Reactive Protein 16.01 H 05/09/25 05/09/25 05/09/25 08:07 11:04 12:00 POC Glucose 87 127 H Procalcitonin 0.12 Diagnostic Findings Urine cx - negative PG Care Time/CCT Total # of Minutes Spent Total Time Spent with Patient: Total time spent is greater than 50% in coordination of care (as documented) at patient's floor/unit and/or counseling patient: Coding Level of Care Code 76664 SUB INP/OBS CARE 2/35MIN Diagnoses Acute metabolic encephalopathy G93.41 Chest pain R07.9 Elevated troponin R79.89 Bilateral leg edema R60.0 Type 2 diabetes mellitus with stage 3b chronic kidney disease, with long-term current use of insulin E11.22; N18.32; Z79.4 Chronic kidney disease stage: stage 3 (moderate) Chronic kidney disease stage 3 subtype: stage 3b (GFR 30-44) Diabetes mellitus complication detail: with chronic kidney disease Diabetes mellitus complication status: with kidney complications Hypercholesterolemia E78.00 GERD (gastroesophageal reflux disease) K21.9 Coronary artery disease involving solomon coronary artery of solomon heart without angina pectoris I25.10 Associated angina: without angina [place] vs. transplanted heart: solomon heart Hypothyroidism E03.9 Rheumatoid arthritis involving multiple sites with positive rheumatoid factor M05.79 Rheumatoid arthritis location: multiple sites Rheumatoid factor presence: with rheumatoid factor LBBB (left bundle branch block) I44.7 History of non-ST elevation myocardial infarction (NSTEMI) I25.2 Blepharitis H01.009 Mild Alzheimer dementia G30.9; F02.A0 AV block, Mobitz 1 I44.1 (5) Type 2 diabetes mellitus, with long-term current use of insulin Chronic kidney disease stage: stage 3 (moderate) Chronic kidney disease stage 3 subtype: stage 3b (GFR 30-44) Diabetes mellitus complication detail: with chronic kidney disease Diabetes mellitus complication status: with kidney complications Qualified Code(s): E11.22 - Type 2 diabetes mellitus with diabetic chronic kidney disease; N18.32 - Chronic kidney disease, stage 3b; Z79.4 - jail (current) use of insulin (8) CAD (coronary artery disease), solomon coronary artery Associated angina: without angina [place] vs. transplanted heart: solomon heart Qualified Code(s): I25.10 - Atherosclerotic heart disease of sol[place] coronary artery without angina pectoris (10) Rheumatoid arthritis Rheumatoid arthritis location: multiple sites Rheumatoid factor presence: with rheumatoid factor Qualified Code(s): M05.79 - Rheumatoid arthritis with rheumatoid factor of multiple sites without organ or systems involvement
[2025-05-10 06:41] LABS: Anion Gap 8.0 (3-11); Blood Urea Nitrogen 26.0 mg/dl (6-23); Calcium 9.3 mg/dl (8.6-10.3); Carbon Dioxide 26.0 mmol/L (21-32); Chloride 102.0 mmol/L (98-107); Creatinine Clr Calc Pharmacy 32.1 ml/min; Glucose 124.0 mg/dl (70-99(Fasting)); Potassium 3.8 mmol/L (3.5-5.1); Sodium 136.0 mmol/L (136-145)
--- NOTE | 2025-05-10 20:38 | Hospitalist Progress Note ---
Date of Service May 10, 2025 Assessment & Plan (1) Acute metabolic encephalopathy: (2) Chest pain: (3) Elevated troponin: (4) Bilateral leg edema: (5) Type 2 diabetes mellitus, with long-term current use of insulin: (6) Hypercholesterolemia: (7) GERD (gastroesophageal reflux disease): (8) CAD (coronary artery disease), [place] coronary artery: (9) Hypothyroidism: (10) Rheumatoid arthritis: (11) LBBB (left bundle branch block): (12) History of non-ST elevation myocardial infarction (NSTEMI): (13) Blepharitis: (14) Mild Alzheimer dementia: (15) AV block, Mobitz 1: Plan 89yo female with history of CAD s/p NSTEMI 2018 s/p 2 RCA stents, dementia, chronic LBBB, T2DM, rheumatoid arthritis, hypertension, hyperlipidemia, GERD, and hypothyroidism presents via EMS from [facility] with reports of substernal chest pain and upper abdominal pain. #acute metabolic encephalopathy - -finally improved as of 05/09/25 -her prior poor PO intake, altered MS, low-grade temps, conjunctivitis b/l, etc. all suggested an underlying infectious process as the cause of her presentation -sed rate/crp also high -- also suggestive of infectious/inflammatory process -however, to date, the following were negative - -COVID/flu/RSV -full/comprehensive respiratory BioFire -u/a not suggestive of UTI and urine cx was ultimately negative -cxr without definitive pneumonia -she c/o abd pain 05/[address] a/p; this showed a collection of findings including bladder wall thickening, ?subtle findings concerning for pyelo?, b/l lower lobe infiltrates, and gastroenteritis?? -again her u/a findings weren't congruent with the CT findings but did elect to start rocephin to cover the urinary tract -today is day #3 of rocephin -may be coincidence that she improved globally after rocephin was started; or perhaps she had UTI and the culture simply was falsely negative -will d/c rocephin after today's dose, then change to omnicef 300mg BID x 4 additional days starting 05/11 to cover for UTI -a viral process would tie together the bowel and lung findings seen on CT (as well as the conjunctivitis) but again resp biofire was fully negative -regardless of etiology she is doing much better in comparison to admission (eating, drinking, ambulating again, spending more time awake, etc) -talking with her son Ramu it appears what we have seen the last 48 hours is likely close to her baseline #chest pain; known CAD (stent 2018), chronic LBBB - -was resolved by time of admission, and has not recurred -troponin scantly elevated at presentation; repeat troponin was even lower -EKG with chronic LBBB; no changes with EKG otherwise -echo with preserved EF and normal LV wall motion -telemetry with Mobitz 1 AV block and occasional 2:1 block - see below -poor candidate for stress test and other invasive testing given advanced dementia -would defer at this time -cont aspirin -cont statin -meto succ 50mg was placed on hold due to Mobitz 1; spoke with cardiology -- resumed at lower dose of 25mg meto tartrate BID -tolerating the meto tartrate 25mg BID -of note - previously followed by [facility] Cardiology but it has been several years since such -will advise f/u given the Mobitz 1 and her baseline CAD #AV block - first degree at baseline, Mobitz 1 block intermittently, brief periods of 2:1 block - -reviewed rhythm strips with on-call cardiology several times this past week -Mobitz 1 block is present -although there has been some 2:1 block, there has been no true Mobitz 2 or 3rd degree AV block -had held her meto succ 50mg, but off the meto succ now having sinus tach when at rest -resumed metoprolol in the form of tartrate 25mg BID -tolerating such -last 48 hours she has had no Mobitz 1 -plan to d/c back to [facility] on meto tartrate 25mg BID in [place] of meto succ #LE edema, venous stasis changes - -checked dopplers - NO DVT -checked echo - LV and RV function preserved -suspect exam findings are most suggestive of chronic venous insufficiency -no evidence of cellulitis either leg -consider tubigrip stockings -gave lasix 2x's while hospitalized with resolved edema -no further lasix #bletharitis and/or conjunctivitis b/l - improving/nearly resolved - -per daughter her b/l eye issue has been present "for a while" -to cover for bacterial conjunctivitis cont cipro eye drops - 1 drop QID b/l x 7 days; day #6 today -can't exclude a tear duct obstruction on right - recommend eye exam with eye professional after d/c #microcytic anemia - -Fe studies c/w Fe def anemia -if Fe deficient perhaps some of her presenting symptoms were GI in etiology? (esophagitis, gastritis, etc) -obtained fecal occult blood --> negative -IV venofer 300mg x 1 this admission -cont PPI -low Fe levels - due to inadequate intake?? #minimal troponin elevation - -no evidence of ACS -likely myocardial demand ischemia #dementia - -w/o behavioral disturbance at this time -cont risperdal BID (chronic med for her) #T2DM - -cont lantus -cont novolog -BSGS ac/hs -a1c 7.9% in August 2024; recheck was 9% this admission #GERD - -cont PPI #hypothyroidism - -most recent TSH wnl -cont synthroid #HTN - -cont metoprolol tartrate 25mg BID #hyperlipidemia - -cont statin #DVT Proph - -lovenox daily PT/OT alan appreciated her mobility has improved and she is now close to her physical baseline [facility] ok with taking her back; she does not need SNF for rehab updated pt's daughter by phone day of admission updated pt's son Nguyễn by phone extensively 05/06 updated patient's son Ramu who is POA - 05/08 and again today, 05/10 he is a former hospital grant administrator thus has medical background discussed improved mental status, improved eating, improved mobility, improvement in telemetry (less Mobitz 1 seen) discussed etiology of her recent illness --> suspect viral process vs UTI vs both -regardless of etiology she has improved nicely spoke with case management -will d/c back to [facility] on Friday, 05/11 oncoming attending MD or PA - -d/c on: meto tartrate 25mg BID cefdinir 300mg BID miralax/senna for constipation -consider 1-week monitor (Iris Mcgill aware and made referral) - r/o higher degree AV block -referral back to [facility] Cardiology - has not seen cardiology in years -consider outpatient IV venofer -ophtho or optometry referral for right eye - tear duct obstruction? other? Admission and Anticipated Discharge Date Admission Date: May 05, 2025 Subjective tele - 1st degree AV block only; no Mobitz 1 or 2 overnight; no pauses; no tachycardia during the visit the patient's eyes were closed, but she responded to her name being called, and answered questions per staff is ambulating and getting OOB with assistance had a good breakfast this am per staff no concerns overall Review of Systems Review of Systems: CV - no chest pain pulm - no dyspnea GI - no abd pain; no vomiting per staff Physical Exam Physical Exam: gen - laying in bed comfortably, NAD; eyes closed, but answers all questions eyes - marked improvement in conjunctivitis b/l; fully resolved in L eye, much better R eye; still with severely dried/matted lashes - tear duct blockage? HENT - MMM neck - no JVD heart - RRR, s1 s2, 1-2/6 systolic murmur LLSB lungs - CTA b/l abd - soft ND BS+ NT ext - no edema feet b/l; pulses b/l feet 2+ skin - venous stasis changes b/l shins w/o signs of cellulitis psych - oriented to person only Results & Data Results & Data Vital Signs (Past 12 Hours) Vital Signs Temp Pulse Pulse Resp BP Pulse Ox O2 Del Method 05/10/25 17:30 17 Room Air 05/10/25 16:00 05/10/25 15:02 92 H 05/10/25 12:51 36.9 C 71 17 131/75 94 Room Air O2 Del Method 05/10/25 17:30 05/10/25 16:00 Room Air 05/10/25 15:02 05/10/25 12:51 Laboratory Results Laboratory Results - last 24 hr 05/09/25 05/10/25 05/10/25 20:33 05:40 07:54 Sodium 136 Potassium 3.8 Chloride 102 Carbon Dioxide 26 Anion Gap 8 BUN 26 H Creatinine 1.12 Est Cr Clr Drug Dosing 32.1 eGFR 47.30 BUN/Creatinine Ratio 23.2 H Glucose 124 H POC Glucose 202 H 100 H Calcium 9.3 05/10/25 05/10/25 05/10/25 11:52 17:02 20:11 Sodium Potassium Chloride Carbon Dioxide Anion Gap BUN Creatinine Est Cr Clr Drug Dosing eGFR BUN/Creatinine Ratio Glucose POC Glucose 162 H 193 H 293 H Calcium Diagnostic Findings urine cx neg blood cx's neg to date PG Care Time/CCT Total # of Minutes Spent Total Time Spent with Patient: Total time spent is greater than 50% in coordination of care (as documented) at patient's floor/unit and/or counseling patient: Coding Level of Care Code 94987 SUB INP/OBS CARE 3/50MIN Diagnoses Acute metabolic encephalopathy G93.41 Chest pain R07.9 Elevated troponin R79.89 Bilateral leg edema R60.0 Type 2 diabetes mellitus with stage 3b chronic kidney disease, with long-term current use of insulin E11.22; N18.32; Z79.4 Chronic kidney disease stage: stage 3 (moderate) Chronic kidney disease stage 3 subtype: stage 3b (GFR 30-44) Diabetes mellitus complication detail: with chronic kidney disease Diabetes mellitus complication status: with kidney complications Hypercholesterolemia E78.00 GERD (gastroesophageal reflux disease) K21.9 Coronary artery disease involving [place] coronary artery of [place] heart without angina pectoris I25.10 Associated angina: without angina [place] vs. transplanted heart: [place] heart Hypothyroidism E03.9 Rheumatoid arthritis involving multiple sites with positive rheumatoid factor M05.79 Rheumatoid arthritis location: multiple sites Rheumatoid factor presence: with rheumatoid factor LBBB (left bundle branch block) I44.7 History of non-ST elevation myocardial infarction (NSTEMI) I25.2 Blepharitis H01.009 Mild Alzheimer dementia G30.9; F02.A0 AV block, Mobitz 1 I44.1 (5) Type 2 diabetes mellitus, with long-term current use of insulin Chronic kidney disease stage: stage 3 (moderate) Chronic kidney disease stage 3 subtype: stage 3b (GFR 30-44) Diabetes mellitus complication detail: with chronic kidney disease Diabetes mellitus complication status: with kidney complications Qualified Code(s): E11.22 - Type 2 diabetes mellitus with diabetic chronic kidney disease; N18.32 - Chronic kidney disease, stage 3b; Z79.4 - terminal [place]man (current) use of insulin (8) CAD (coronary artery disease), [place] coronary artery Associated angina: without angina [place] vs. transplanted heart: [place] heart Qualified Code(s): I25.10 - Atherosclerotic heart disease of [place] coronary artery without angina pectoris (10) Rheumatoid arthritis Rheumatoid arthritis location: multiple sites Rheumatoid factor presence: with rheumatoid factor Qualified Code(s): M05.79 - Rheumatoid arthritis with rheumatoid factor of multiple sites without organ or systems involvement
[2025-05-11 11:50] VITALS: RESP 17; TEMP 98.1; O2SAT 96
--- NOTE | 2025-05-11 11:55 | Discharge Summary ---
Discharge Summary Date of Service May 11, 2025 Principal Dx & Hospital Course #1 = Principal Diagnosis (1) Acute metabolic encephalopathy: (2) Chest pain: (3) Elevated troponin: (4) Bilateral leg edema: (5) Type 2 diabetes mellitus, with long-term current use of insulin: (6) Hypercholesterolemia: (7) GERD (gastroesophageal reflux disease): (8) CAD (coronary artery disease), [place] coronary artery: (9) Hypothyroidism: (10) Rheumatoid arthritis: (11) LBBB (left bundle branch block): (12) History of non-ST elevation myocardial infarction (NSTEMI): (13) Blepharitis: (14) Mild Alzheimer dementia: (15) AV block, Mobitz 1: Veda Martha Espinoza is an 89 year old female admitted to [facility] from May 04 - 2024 due to chest pain. Serial troponins were negative. EKGs show a chronic left bundle branch block. Given no recurrence of symptoms and dementia stress testing was deferred at this time. Her hospitalization was prolonged due to acute encephalopathy. Suspected due to infection although none proven as urine culture showed mixed arthur but she was treated as a UTI with ceftriaxone and will be switched to cefdinir to finish an antibiotic course for this. Alternative causes include tramadol given or hydroxyzine. She was also noted to have am asymptomatic intermittent Mobitz type 1 heart block on cardiac exercise specialist. Recommend following up with cardiology regarding this with cardiac exercise specialist to be arranged as an outpatient. She was also diagnosed with iron deficiency anemia (transferrin sats 7%, ferritin 7.1, Hgb 10.5) treated with Venofer 300mg IV. Consider ongoing iron infusions as needed +/- further workup for iron deficiency anemia per family preference. Given ongoing constipation issues do not recommend oral iron at this time. For ongoing constipation recommend using MiraLAX and Senna as needed. Consider ophthalmology referral for right eye blepharitis. Notes For Next Care Provider As above Medication Changes From Visit Cefdinir for UTI Miralax and Senna for constipation as needed Admission HPI Per Admitting Provider 89yo female with history of CAD s/p NSTEMI 2018 s/p 2 RCA stents, dementia, chronic LBBB, T2DM, rheumatoid arthritis, hypertension, hyperlipidemia, GERD, an d hypothyroidism presents via EMS from [facility] with reports of substernal chest pain. During my assessment she had her eyes closed the entire time but did answer my questions. Unfortunately she was unable to provide any meaningful history other than "I had a cold about a month ago." She was not sure why she was in the ER and denied chest pain, dyspnea, abd pain or nausea/emesis. She denied any leg pains. By report she had had upper abdominal pain with nausea at [facility] prior to arrival here. Discharge Plan Discharge Items Patient Disposition: Personal Long Term Reason For Visit: CHEST PAIN Discharge Diagnosis: Non cardiac chest pain Possible UTI Iron deficiency anemia Mobitz type 1 heart block Acute confusion (now resolved) Contstipation Condition on Discharge: Fair Activity: Resume your previous activity Non-emergency contact: Primary Care Provider Call non-emergency contact if: you have any medication questions and your symptoms worsen Follow-up/Referrals: Radames Carreno MD [Physician] - (Mobitz type 1 HB, outpatient monitor to be arranged) Jaiden Dey DO [Primary Care Provider] - Diet: Carb Consistent or DM2 and Heart Healthy Addtl Attending Provider Instructions: You were admitted to [facility] from May 04 - 2024 due to chest pain. Serial troponins were negative. EKGs show a chronic left bundle branch block. Given no recurrence of symptoms and dementia stress testing was deferred at this time. Her hospitalization was prolonged due to acute encephalopathy. Suspected due to infection although none proven as urine culture showed mixed arthur but she was treated as a UTI with ceftriaxone and will be switched to cefdinir to finish an antibiotic course for this. Alternative causes include tramadol given or hydroxyzine. You were also noted to have am asymptomatic intermittent Mobitz type 1 heart block on cardiac exercise specialist. Recommend following up with cardiology regarding this with cardiac exercise specialist to be arranged as an outpatient. You were also diagnosed with iron deficiency anemia treated with Venofer 300mg IV. Consider ongoing iron infusions as needed +/- further workup for iron deficiency anemia per family preference. Given ongoing constipation issues do not recommend oral iron at this time. For ongoing constipation recommend using MiraLAX and Senna as needed. Consider ophthalmology referral for right eye blepharitis. Pending Studies at Discharge: No Stand-Alone Forms: My [facility] [employer], Smoking Cessation Skilled Items Patient informed of condition?: Yes DNR: No Discharge Level of Care: Skilled Communicable Disease: No Discharge Prognosis: Stable Lines: None Urinary Catheter: No Medications and DC Order Prescriptions: New cefdinir 300 mg capsule 300 mg PO BID 4 Days Qty: 8 0RF polyethylene glycol 3350 [Miralax] 17 gram/dose powder 17 g PO DAILY PRN (Reason: constipation) Qty: 238 0RF sennosides [senna] 8.6 mg tablet 8.6 mg PO DAILY PRN (Reason: constipation) Qty: 30 0RF Continued (DME) blood-glucose meter [ProxamaTouch Verio Flex Start] Kit See Rx Instructions .Route Qty: 1 0RF Rx Instructions: use to test blood sugar as directed Jardiance 25 mg tablet 25 mg PO QAM Qty: 90 3RF aspirin 81 mg tablet,delayed release (DR/EC) 81 mg PO QAM Qty: 90 3RF atorvastatin [Lipitor] 80 mg tablet 80 mg PO HS Qty: 90 3RF (DME) OneTouch Verio test strips Strip See Rx Instructions .ROUTE .MEDSUPPLY Qty: 100 5RF Rx Instructions: Check blood sugars once daily cholecalciferol (vitamin D3) 125 mcg (5,000 unit) capsule 125 mcg PO QAM Qty: 90 3RF diclofenac sodium 1 % gel 2 g topical QID PRN (Reason: Pain) Qty: 100 0RF Rx Instructions: apply to single elbow, wrist or hand; for hand includes palm/fingers/back of hand duloxetine 30 mg capsule,delayed release(DR/EC) 30 mg PO QAM Qty: 90 3RF (DME) lancets [OneTouch Delica Plus Lancet] 33 gauge misc See Rx Instructions .ROUTE .MEDSUPPLY Qty: 100 5RF Rx Instructions: Check blood sugar once daily levothyroxine [Synthroid] 50 mcg tablet 50 mcg PO QAM Qty: 90 3RF magnesium chloride [Mag 64] 64 mg tablet,delayed release (DR/EC) 64 mg PO QAM Qty: 90 0RF metoprolol succinate 50 mg tablet extended release 24 hr 50 mg PO QAM Qty: 90 3RF pantoprazole 20 mg tablet,delayed release (DR/EC) 20 mg PO QAM Qty: 90 3RF (DME) pen needle, diabetic 31 gauge x 5/16" needle See Rx Instructions .ROUTE .MEDSUPPLY Qty: 100 3RF Rx Instructions: Inject insulin twice daily w/ Lantus tramadol 50 mg tablet 50 mg PO Q6H PRN (Reason: Pain) insulin degludec [Tresiba FlexTouch U-100] 100 unit/mL (3 mL) insulin pen 18 unit subcut QAM Rx Instructions: Inject 20 units in the AM and 22 units in the PM nystatin 100,000 unit/gram ointment 1 applic topical TID Qty: 30 0RF Rx Instructions: apply to abdominal and groin skin folds tid (DME) Dexcom G7 Sensor Device See Rx Instructions .Route Qty: 1 2RF Rx Instructions: As directed (DME) Dexcom G7 Counterintelligence Specialist Misc See Rx Instructions .Route Qty: 1 3RF Rx Instructions: As directed risperidone 2 mg tablet 2 mg PO HS docusate sodium 100 mg Capsule 100 mg PO DAILY risperidone 1 mg tablet 1 mg PO DAILY oxymetazoline [Afrin Sinus (oxymetazoline)] 0.05 % Valentines,Non-Aerosol 2 spray INTRANASAL Q12H melatonin 5 mg Capsule 5 mg PO HS insulin degludec [Tresiba FlexTouch U-100] 100 unit/mL (3 mL) insulin pen 16 unit SUBCUT PM Discharge Orders: Discharge Order (Routine); Ordered 05/11/25 Ordered By: Rhys Torres Admission Data Admit Date/Time: 05/05/25 10:49 Attending Provider: Rhys Torres Admit Provider: Rhys Valdez Primary Care Provider: Jaiden Dey Other Providers: Rhys Valdez; [place] Other Interventions: Discharge Summary Assessment (RN) Last Done: 05/11/25 12:59 Hospital Stay Data Consultations 05/04/25 12:15 ED Decision to Admit Stat Diagnostic Imagining Performed 05/04/25 12:52 US venous doppler LE BI Urgent 05/08/25 16:43 CT Abd and Pelvis [CT abd pelvis IV con only] Urgent Pending Results Patient Have Any Pending Studies at Discharge: No Discharge Instructions Given to Patient (Per Discharging Provider) You were admitted to [facility] from May 04 - 2024 due to chest pain. Serial troponins were negative. EKGs show a chronic left bundle branch block. Given no recurrence of symptoms and dementia stress testing was deferred at this time. Her hospitalization was prolonged due to acute encephalopathy. Suspected due to infection although none proven as urine culture showed mixed arthur but she was treated as a UTI with ceftriaxone and will be switched to cefdinir to finish an antibiotic course for this. Alternative causes include tramadol given or hydroxyzine. You were also noted to have am asymptomatic intermittent Mobitz type 1 heart block on cardiac exercise specialist. Recommend following up with cardiology regarding this with cardiac exercise specialist to be arranged as an outpatient. You were also diagnosed with iron deficiency anemia treated with Venofer 300mg IV. Consider ongoing iron infusions as needed +/- further workup for iron deficiency anemia per family preference. Given ongoing constipation issues do not recommend oral iron at this time. For ongoing constipation recommend using MiraLAX and Senna as needed. Consider ophthalmology referral for right eye blepharitis. Total Time Total Time Spent Total Time Spent (In Minutes): 40 Coding Diagnoses Acute metabolic encephalopathy G93.41 Chest pain R07.9 Elevated troponin R79.89 Bilateral leg edema R60.0 Type 2 diabetes mellitus with stage 3b chronic kidney disease, with long-term current use of insulin E11.22; N18.32; Z79.4 Chronic kidney disease stage: stage 3 (moderate) Chronic kidney disease stage 3 subtype: stage 3b (GFR 30-44) Diabetes mellitus complication detail: with chronic kidney disease Diabetes mellitus complication status: with kidney complications Hypercholesterolemia E78.00 GERD (gastroesophageal reflux disease) K21.9 Coronary artery disease involving [place] coronary artery of [place] heart without angina pectoris I25.10 Associated angina: without angina [place] vs. transplanted heart: [place] heart Hypothyroidism E03.9 Rheumatoid arthritis involving multiple sites with positive rheumatoid factor M05.79 Rheumatoid arthritis location: multiple sites Rheumatoid factor presence: with rheumatoid factor LBBB (left bundle branch block) I44.7 History of non-ST elevation myocardial infarction (NSTEMI) I25.2 Blepharitis H01.009 Mild Alzheimer dementia G30.9; F02.A0 AV block, Mobitz 1 I44.1
[2025-05-11] MEDS: METOPROLOL SUCC 25MG EXT REL TAB PO SCH (12:00)
[2025-05-11 13:00] VITALS: BP 131/75; PULSE 78
[2025-05-11] MEDS ORDERED: CEFDINIR 300 MG CAP PO SCH (21:00)
== END 2025-05-11 15:00 | disposition home or self-care (01) ==
LOC: EDINP 08:28 → ED 08:28 → EDINP 16:11 → 4W 16:38 → SUATTDRO 05-05 10:49